=== PATIENT | female | born 1965 | race Hispanic/Latino ===

== ENCOUNTER 2017-05-31 21:52 | Emergency (ER) | payer SELFPAY ==
[2017-05-31 22:01] VITALS: BP 133/76; PULSE 89; RESP 18; TEMP 98; O2SAT 97
--- NOTE | 2017-05-31 22:11 | ED PDOC ---
Arrival/HPI - General Chief Complaint: Medical Clearance Time Seen by Provider: 05/31/17 22:07 Historian: Patient, Police - History of Present Illness Narrative History of Present Illness (Text): 05/31/17 22:07 52 year old female, who denies any past medical history, presents to the emergency department by the [place] [employer] for decontamination. Police states they saw bed bugs at the patient's home and is currently in police custody for a bench warrant. Patient states she recently was treated for bed bugs. Patient reports a mild headache, but denies any itching, substance abuse, substance withdrawal, fever, chills, chest pain, shortness of breath, nausea, vomiting, diarrhea, urinary symptoms, back pain, neck pain, dizziness, or any other complaints. Symptom Onset: Gradual Activities at Onset: Light Past Medical History - Provider Review Nursing Documentation Reviewed: Yes - Infectious Disease Hx of Infectious Diseases: None - Psychiatric Hx Substance Use: No Family/Social History - Physician Review Nursing Documentation Reviewed: Yes Family/Social History: No Known Family HX Smoking Status: Never Smoked Hx Alcohol Use: No Hx Substance Use: No Allergies/Home Meds Allergies/Adverse Reactions: Allergies No Known Allergies Allergy (Verified 05/31/17 22:19) Home Medications: Home Meds Medication Instructions Recorded Confirmed Unobtainable 05/31/17 05/31/17 Review of Systems - Physician Review All systems were reviewed & negative as marked: Yes - Review of Systems Constitutional: absent: Fevers, Other (Chills) Respiratory: absent: SOB Cardiovascular: absent: Chest Pain Gastrointestinal: absent: Diarrhea, Nausea, Vomiting Genitourinary Female: absent: Dysuria, Frequency Musculoskeletal: absent: Back Pain, Neck Pain Skin: absent: Other (Ichiness) Neurological: Headache. absent: Dizziness Physical Exam Vital Signs Reviewed: Yes Vital Signs Temp Pulse Resp BP Pulse Ox 05/31/17 21:58 98.0 F 89 18 133/76 97 Temperature: Afebrile Blood Pressure: Normal Pulse: Regular Respiratory Rate: Normal Appearance: Positive for: Well-Appearing, Non-Toxic, Comfortable Pain Distress: None Mental Status: Positive for: Alert and Oriented X 3 - Systems Exam Head: Present: Atraumatic, Normocephalic Pupils: Present: PERRL Extroacular Muscles: Present: EOMI Conjunctiva: Present: Normal Mouth: Present: Moist Mucous Membranes Neck: Present: Normal Range of Motion Respiratory/Chest: Present: Clear to Auscultation, Good Air Exchange. No: Respiratory Distress, Accessory Muscle Use Cardiovascular: Present: Regular Rate and Rhythm, Normal S1, S2. No: Murmurs Abdomen: Present: Normal Bowel Sounds. No: Tenderness, Distention, Peritoneal Signs Back: Present: Normal Inspection Upper Extremity: Present: Normal Inspection. No: Cyanosis, Edema Lower Extremity: Present: Normal Inspection. No: Edema Neurological: Present: GCS=15, CN II-XII Intact, Speech Normal Skin: Present: Warm, Dry, Normal Color. No: Rashes, Other (Rashes) Psychiatric: Present: Alert, Oriented x 3, Normal Insight, Normal Concentration Medical Decision Making ED Course and Treatment: 05/31/17 22:12 Impression: 52 year old female presents in police custody for decontamination of bed bugs and complains of a mild headache. Plan: -- Tylenol -- Glucose, Blood, POC ACHS -- Reassess and disposition Progress Notes: - Lab Interpretations I have reviewed the lab results: Yes - Medication Orders Current Medication Orders: Acetaminophen (Tylenol 325mg Tab) 650 mg PO STAT STA Stop: 05/31/17 22:20 - Scribe Statement The provider has reviewed the documentation as recorded by the Rashmi Hunter Provider Scribe Attestation: All medical record entries made by the Scribe were at my direction and personally dictated by me. I have reviewed the chart and agree that the record accurately reflects my personal performance of the history, physical exam, medical decision making, and the department course for this patient. I have also personally directed, reviewed, and agree with the discharge instructions and disposition. Disposition/Present on Arrival - Present on Arrival Any Indicators Present on Arrival: No History of DVT/PE: No History of Uncontrolled Diabetes: No Urinary Catheter: No History of Decub. Ulcer: No History Surgical Site Infection Following: None - Disposition Have Diagnosis and Disposition been Completed?: Yes Diagnosis: Infestation by bed bug, Drug dependence Disposition: RELEASED IN POLICE CUSTODY Disposition Time: 22:34 Patient Plan: Discharge Condition: GOOD Discharge Instructions (ExitCare): Bed Bugs (ED) Additional Instructions: wash all clothes in hot water and/or dry in hot heat for 45 minutes Forms: [employer] (Setswana)
== END 2017-05-31 22:46 ==
LOC: ED 21:52
DX: F19.20 Other psychoactive substance dependence, uncomplicated (principal); B88.8 Other specified infestations

== ENCOUNTER 2017-08-04 15:51 | Inpatient (IN) | payer MEDICAID, OTHER ==
--- NOTE | 2017-08-04 16:12 | ED PDOC ---
Arrival/HPI - General Time Seen by Provider: 08/04/17 15:55 Historian: Patient - History of Present Illness Narrative History of Present Illness (Text): 08/04/17 16:08 52 year old female, whose history includes hypertension, presents to the Emergency department complaining of right arm weakness and numbness one week ago and again today. One week ago, the patient's tongue was also numb; that episode lasted a couple of hours. Today, at approximately 09:00, patient experienced another episode followed by a state of confusion/disorientation that lasted less than an hour. 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 Patient denies any fever, chills, chest pain, shortness of breath, nausea, vomiting, diarrhea, urinary symptoms, back pain, neck pain, headache, dizziness, or any other complaints. Time/Duration: 4-6 hours Symptom Onset: Sudden Symptom Course: Intermittent Activities at Onset: Rest Context: Home Past Medical History - Provider Review Nursing Documentation Reviewed: Yes - Infectious Disease Hx of Infectious Diseases: None - Psychiatric Hx Substance Use: No Family/Social History - Physician Review Nursing Documentation Reviewed: Yes Family/Social History: Unknown Family HX Smoking Status: Never Smoked Hx Alcohol Use: No Hx Substance Use: No Allergies/Home Meds Allergies/Adverse Reactions: Allergies No Known Allergies Allergy (Verified 05/31/17 22:19) Home Medications: Home Meds Medication Instructions Recorded Confirmed Unobtainable 05/31/17 05/31/17 Review of Systems - Physician Review All systems were reviewed & negative as marked: Yes - Review of Systems Constitutional: absent: Fevers, Night Sweats Respiratory: absent: SOB Cardiovascular: absent: Chest Pain Gastrointestinal: absent: Diarrhea, Nausea, Vomiting Genitourinary Female: absent: Dysuria Musculoskeletal: absent: Back Pain, Neck Pain Neurological: Other (right arm weakness and numbness). absent: Headache, Dizziness Physical Exam Vital Signs Reviewed: Yes Vital Signs Temp Pulse Resp BP Pulse Ox 08/04/17 20:16 73 16 186/106 H 97 08/04/17 18:00 74 18 182/79 H 98 08/04/17 16:12 99.2 F 08/04/17 16:10 71 18 193/89 H 97 08/04/17 15:52 98.9 F 79 16 230/111 H 96 Temperature: Afebrile Blood Pressure: Hypertensive Pulse: Regular Respiratory Rate: Normal Appearance: Positive for: Well-Appearing, Non-Toxic, Comfortable Pain Distress: None Mental Status: Positive for: Alert and Oriented X 3 Finger Stick Blood Glucose: 98 - Systems Exam Head: Present: Atraumatic, Normocephalic Pupils: Present: PERRL Extroacular Muscles: Present: EOMI Conjunctiva: Present: Normal Mouth: Present: Moist Mucous Membranes Neck: Present: Normal Range of Motion Respiratory/Chest: Present: Clear to Auscultation, Good Air Exchange. No: Respiratory Distress, Accessory Muscle Use Cardiovascular: Present: Regular Rate and Rhythm, Normal S1, S2. No: Murmurs Abdomen: Present: Normal Bowel Sounds. No: Tenderness, Distention, Peritoneal Signs Back: Present: Normal Inspection Upper Extremity: Present: Normal Inspection. No: Cyanosis, Edema Lower Extremity: Present: Normal Inspection. No: Edema Neurological: Present: Speech Normal Skin: Present: Warm, Dry, Normal Color. No: Rashes Psychiatric: Present: Alert, Oriented x 3, Normal Insight, Normal Concentration Medical Decision Making ED Course and Treatment: 08/04/17 16:14 Impression: 52 year old female presents to the Emergency department complaining of right arm weakness and numbness. Differential Diagnosis included but are not limited to: TIA Plan: -- Head CT -- Chest xray -- EKG -- Urinalysis -- Labs -- Reassess and disposition Prior Visits: Notes and results from previous visits were reviewed. Patient was last seen in the emergency department on 05/31/17, was diagnosed with drug dependance and infestation by bed bug, and was discharged in good condition into police custody. Progress Notes: 08/04/17 17:19 Discussed case in detail with Dr. Estevez who does not want a code stroke alert. He requests an MRI of the head, MRA of the head and neck, 81 mg of Aspirin, an echocardiogram, and for the bed to be adjusted to a 45 degree angle. Patient should be admitted to telemetry. 08/04/17 17:46 Daughter is now at bedside. As per daughter, patient's left arm and leg were weak two days ago and that lasted for a couple hours; she had a difficult time walking home. While in the Emergency department at this time, patient has left sided facial droop and left arm weakness. Right arm seems to have recovered. NIHSS Scale is still 2. Dr. Zamarripa will be consulted. 08/04/17 18:[address] Zamarripa, Case is very confusing, Symptoms traveling from side to side, One week ago, then three days ago, then 9am today. Will obtain MRI Brain and MRA Head and Neck without contrast and re-evaluate. 08/04/17 21:03 MRI results indicate the patient experienced an acute stroke in right cerebrum. MRA results indicate the patient has clots in internal carotid artery and right middle cerebral artery. 08/04/17 21:[address] Bates again who requests for the patient's blood pressure to remain untreated, to leave it high. He would like for the NIHSS scale to be repeated every 1 hour and to have the resident call him if there are any changes on the scale. I will notify the resident now. Dr. Estevez also requests for the patient to be given Plavix. - Lab Interpretations Lab Results: 08/04/17 16:00 08/04/17 16:00 Lab Results 08/04/17 18:00: Alcohol, Quantitative < 10 08/04/17 18:00: Urine Opiates Screen Negative, Urine Methadone Screen Negative, Ur Barbiturates Screen Negative, Ur Phencyclidine Scrn Negative, Ur Amphetamines Screen Negative, U Benzodiazepines Scrn Negative, U Oth Cocaine Metabols Negative, U Cannabinoids Screen Negative 08/04/17 17:21: Urine Color Yellow, Urine Appearance Sl cloudy, Urine pH 6.0, Ur Specific [place] 1.015, Urine Protein Negative, Urine Glucose (UA) Negative, Urine Ketones Negative, Urine Blood Moderate H, Urine Nitrate Negative, Urine Bilirubin Negative, Urine Urobilinogen 0.2, Ur Leukocyte Esterase Negative, Urine RBC 5 - 10, Urine WBC 5 - 10, Ur Epithelial Cells 6 - 8, Urine Bacteria Many 08/04/17 17:05: PT 13.4 H, INR 1.17 H 08/04/17 16:00: Sodium 142, Potassium 3.6, Chloride 101, Carbon Dioxide 29, Anion Gap 16, BUN 14, Creatinine 0.8, Est GFR ( Amer) > 60, Est GFR (Non- Af Amer) > 60, Random Glucose 110, Calcium 10.1, Total Bilirubin 0.6, AST 32, ALT 25, Alkaline Phosphatase 66, Lactate Dehydrogenase 507, Total Creatine Kinase 39, Troponin I < 0.01, Total Protein 8.1, Albumin 4.4, Globulin 3.7, Albumin/Globulin Ratio 1.2 08/04/17 16:00: WBC 12.9 H, RBC 4.87, Hgb 14.5, Hct 43.6, MCV 89.5, MCH 29.8, MCHC 33.3, RDW 13.3, Plt Count 427, MPV 10.3, Gran % 66.6, Lymph % (Auto) 24.6, Emery % (Auto) 6.5 H, Eos % (Auto) 1.7, Baso % (Auto) 0.6, Gran # 8.56 H, Lymph # (Auto) 3.2, Emery # (Auto) 0.8 H, Eos # (Auto) 0.2, Baso # (Auto) 0.08 - RAD Interpretation Narrative RAD Interpretations (Text): 08/04/2017 16:54:46 PROCEDURE: CT HEAD WITHOUT CONTRAST. FINDINGS: HEMORRHAGE: No intracranial hemorrhage. BRAIN: There is a focal infarct in the right frontal lobe measuring 14 x 24 mm. This is consistent with an acute or subacute event. No atrophy or chronic microvascular ischemic changes. Findings were discussed with Dr. Jamison at 4:50 p.m. the finding is best seen on image 36 series 4. VENTRICLES: Unremarkable. No hydrocephalus. CALVARIUM: Unremarkable. PARANASAL SINUSES: Unremarkable as visualized. No significant inflammatory changes. MASTOID AIR CELLS: Unremarkable as visualized. No inflammatory changes. OTHER FINDINGS: None. IMPRESSION: Right frontal infarct probably acute or subacute 08/04/2017 17:18:47 PROCEDURE: CHEST RADIOGRAPH, 1 VIEW FINDINGS: LUNGS: Clear. PLEURA: No pneumothorax or pleural fluid seen. CARDIOVASCULAR: Normal. OSSEOUS STRUCTURES: No significant abnormalities. VISUALIZED UPPER ABDOMEN: Normal. OTHER FINDINGS: None. IMPRESSION: No active disease. 08/04/2017 5:59 PM MR Head Without Intravenous Contrast FINDINGS: Brain: Restricted diffusion is identified within the anterior right temporal lobe, and posterior right frontal lobe. T2 hyperintense edema is visualized in these regions. Additional foci of restricted diffusion are seen within the medial right frontal cortex as well as the right frontoparietal white matter. These findings are consistent with acute infarcts. Due to distribution of foci, embolic disease is considered. Mild encephalomalacia with adjacent gliosis is identified within the left occipital lobe, consistent with an old infarct. There are scattered additional foci of high FLAIR signal intensity within the cerebral white matter. This white matter disease is nonspecific as to etiology. This is suggestive of small vessel ischemic disease, although demyelination is within the differential. Some of these foci within the right frontal white matter are mildly increased in signal intensity in the diffusion sequence, which may be artifactual or due to subacute ischemic change. Magnetic susceptibility extra-axial calcifications are visualized. This is confirmed when correlated with the prior CT. There is mild prominence of the ventricles and sulci, compatible with atrophy. Ventricles: See above. Bones/joints: No acute abnormality. Sinuses: A mucous retention cyst or polyp is visualized in the left maxillary sinus. There is minimal mucosal thickening of left ethmoid air cells. Mastoid air cells: There is minimal mucosal thickening within the right mastoid air cells. Orbits: No acute abnormality, as visualized. IMPRESSION: 1. Restricted diffusion is identified within the anterior right temporal lobe, and posterior right frontal lobe. Additional foci of restricted diffusion are seen within the medial right frontal cortex as well as the right frontoparietal white matter. These findings are consistent with acute infarcts. Due to distribution of foci, embolic disease is considered. 2. Mild encephalomalacia with adjacent gliosis is identified within the left occipital lobe, consistent with an old infarct. 3. There are scattered additional foci of high FLAIR signal intensity within the cerebral white matter. This nonspecific white matter disease is suggestive of small vessel ischemic disease, although demyelination is within the differential. Some of these foci within the right frontal white matter are mildly increased in signal intensity in the diffusion sequence, which may be artifactual or due to subacute ischemic change. 4. Mild atrophy. 5. Additional findings described above. 08/04/2017 5:59 PM MR Angiography Head Without Intravenous Contrast FINDINGS: Right internal carotid artery: There is nonvisualization of flow within the right internal carotid artery, consistent with occlusion. There is reconstitution of flow in the region of the right anterior cerebral artery and posterior communicating artery. No aneurysm. Right anterior cerebral artery: There is hypoplasia or decreased flow within the right anterior cerebral artery. 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 No aneurysm. Right posterior cerebral artery: There is stenosis of the right posterior cerebral artery. Right vertebral artery: No occlusion or significant stenosis. Left internal carotid artery: No acute findings. Intracranial segment is patent with no significant stenosis. No aneurysm. Left anterior cerebral artery: No occlusion or significant stenosis. No aneurysm. Left middle cerebral artery: There is stenosis of an M2 branch of the left middle cerebral artery. There is no significant stenosis of the left M1 segment. No aneurysm. Left posterior cerebral artery: There is a tiny vascular outpouching of the left P1 segment measuring 1 mm in diameter, suggestive of a small aneurysm. There is a tiny outpouching of the proximal left posterior commuting artery, which may be due to tortuosity of the vessel or a tiny aneurysm. This measures 1 mm in diameter and is visualized on series 4 image 47. There is persistence of the origin of the left posterior cerebral artery, with hypoplasia of the left P1 segment. No occlusion. Left vertebral artery: No occlusion or significant stenosis. Basilar artery: No occlusion or significant stenosis. No aneurysm. IMPRESSION: 1. 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 2. There is nonvisualization of flow within the right internal carotid artery, consistent with occlusion. There is reconstitution of flow in the region of the right anterior cerebral artery and posterior communicating artery. 3. There is stenosis of the right posterior cerebral artery. 4. There is a tiny vascular outpouching of the left P1 segment measuring 1 mm in diameter, suggestive of a small aneurysm. 5. There is a tiny outpouching of the proximal left posterior commuting artery, which may be due to tortuosity of the vessel or a tiny aneurysm. This measures 1 mm in diameter. This can be further evaluated with CTA. 6. There is hypoplasia or decreased flow within the right anterior cerebral artery. 7. There is stenosis of an M2 branch of the left middle cerebral artery. Radiology Orders: 08/04/17 16:09 CHEST ONE VIEW [RAD] Stat 08/04/17 16:36 HEAD W/O CONTRAST [CT] Stat 08/04/17 17:59 BRAIN WITHOUT CONTRAST [MRI] Stat MRA HEAD WITHOUT CONTRAST [MRI] Stat MRA NECK WITHOUT CONTRAST [MRI] Stat - EKG Interpretation EKG Interpretation (Text): 08/04/17 15:57 EKG: Ordered, reviewed, and independently interpreted the EKG. Rate : 77 BPM Rhythm : NSR Interpretation : No ST-segment elevations or depressions, no T-wave inversions, normal intervals. Interpreted by ED Physician: Yes Type: 12 lead EKG - Medication Orders Current Medication Orders: Aspirin (Ecotrin) 81 mg PO DAILY DULCE MARIA Atorvastatin Calcium (Lipitor) 40 mg PO DIN DULCE MARIA Last Admin: 08/04/17 20:08 Dose: 40 mg Labetalol HCl (Trandate) 20 mg IV ONCE PRN PRN Reason: Systolic Blood Pressure Pantoprazole Sodium (Protonix Inj) 40 mg IVP DAILY DULCE MARIA Discontinued Medications Aspirin (Aspirin Chewable) 81 mg PO STAT STA Stop: 08/04/17 18:10 Last Admin: 08/04/17 18:20 Dose: 81 mg Lorazepam (Ativan) 0.5 mg PO ONCE ONE PRN Reason: Protocol Stop: 08/04/17 17:59 Last Admin: 08/04/17 18:11 Dose: 0.5 mg NIHSS Scale (Homer) Time Performed: 16:03 - How Severe is the Stoke Baseline Level of Consciousness: 0=Alert LOC to Questions: 0=Both comments correct LOC to commands: 0=Obeys both correctly Best Gaze: 0=Normal Visual: 0=No visual loss Facial: 0=Normal Motor Arm - Left: 1=Drift noted before 10 sec Motor Arm - Right: 0=No drift Motor Leg - Left: 0=No drift Motor Leg - Right: 0=No drift Limb Ataxia: 1=Present Upper or Lower Sensory: 0=Normal Best Language: 0=No aphasia Dysarthia: 0=Normal articulation Extinction & Inattention (Neglect): 0=Normal, no object Score: 2 Risk Level: Minor Stroke Risk rTPA Inclusion/Exclusion - Refusal of Treatment Patient Refused Treatment: No - Inclusion Criteria for Altepase Patient is 18 years or Older: Yes The Clinical Diagnosis of Ischemic Stroke That is Causing a Potentially Disabling Neurological Deficit: Yes Time of Onset is Well Established to be Less Than 270 Minute Before Treatment Would Begin: No Risk/Benefit Discussed With Patient/Family Member Present: Yes - Exclusion Criteria for Altepase Uncontrolled Hypertension at Time of Treatment (Systolic BP above 185 or Diastolic BP above 110 mmHg): Yes Active Internal Bleeding: No Known Bleeding Diathesis Including but Not Limited to: Platelets Below 100,000/ mm,PTT Above 40 sec After Heparin Use, Current Use of Oral Anitcoagulant With INR Greater Than 1.7 or PT Greater Than 15 secs: No Evidence of an Intracranial Hemorrhage: No Evidence of Major Acute Infarct With Signs Greater Than 1/3 MCA Territory: No Suspicion of Subarachnoid Hemorrhage on Pretreatment Evaluation Even if CT Head Negative For Hemorrhage: No - Warning to TPA With Conditions Following Conditions Weighed Against Anticipated Benefit: Yes Condition: Stroke Serevity Too Mild - PA / SWIM COACH / Resident Statement MD/DO has reviewed & agrees with the documentation as recorded. - Scribe Statement The provider has reviewed the documentation as recorded by the Girishibjaleesa Gamino Provider Scribe Attestation: All medical record entries made by the Rashmi were at my direction and personally dictated by me. I have reviewed the chart and agree that the record accurately reflects my personal performance of the history, physical exam, medical decision making, and the department course for this patient. I have also personally directed, reviewed, and agree with the discharge instructions and disposition. Disposition/Present on Arrival - Present on Arrival Any Indicators Present on Arrival: No History of DVT/PE: No History of Uncontrolled Diabetes: No Urinary Catheter: No History Surgical Site Infection Following: None - Disposition Have Diagnosis and Disposition been Completed?: Yes Diagnosis: TIA (transient ischemic attack), CVA (cerebrovascular accident), Malignant hypertensive urgency, Hypertension Disposition: HOSPITALIZED Disposition Time: 18:13 Patient Plan: Admission, Telemetry Patient Problems: Current Active Problems Problem Status Onset TIA (transient ischemic attack) Acute CVA (cerebrovascular accident) Acute Malignant hypertensive urgency Acute Hypertension Acute Condition: GOOD
[2017-08-04 16:24] LABS: BASO # 0.08 K/mm3 (0.0-2.0); BASO % 0.6 % (0.0-3.0); EOS # 0.2 (0.0-0.7); EOS % 1.7 % (1.5-5.0); GRAN # 8.56 (1.4-6.5); GRAN % 66.6 % (50.0-68.0); HEMOGLOBIN 14.5 g/dL (12.0-16.0); LYMPH # 3.2 (1.2-3.4); LYMPH % 24.6 % (22.0-35.0); MEAN CELL VOLUME 89.5 fl (80.0-105.0); MEAN CORPUSCULAR HEMOGLOBIN 29.8 pg (25.0-35.0); MEAN CORPUSCULAR HGB CONC 33.3 g/dl (31.0-37.0); MEAN PLATELET VOLUME 10.3 fl (7.0-11.0); MONO # 0.8 (0.1-0.6); MONO % 6.5 % (1.0-6.0); RBC 4.87 10^6/uL (3.5-6.1); RED CELL DISTRIBUTION WIDTH 13.3 % (11.5-14.5); WHITE BLOOD COUNT 12.9 10^3/ul (4.5-11.0)
[2017-08-04 16:53] LABS: ALB/GLOB RATIO 1.2 (1.1-1.8); ALBUMIN 4.4 g/dL (3.0-4.8); ALT/SGPT 25 U/L (7-56); AST/SGOT 32 U/L (14-36); BLOOD UREA NITROGEN 14 mg/dL (7-21); CALCIUM 10.1 mg/dL (8.4-10.5); GFR AFRICAN-AMERICAN > 60; GFR NON-AFRICAN AMERICAN > 60
--- NOTE | 2017-08-04 16:56 | CT ---
PROCEDURE: CT HEAD WITHOUT CONTRAST. HISTORY: L arm clumbsiness COMPARISON: None available. TECHNIQUE: Axial computed tomography images were obtained through the head/brain without intravenous contrast. Radiation dose: Total exam DLP = 892 mGy-cm. This CT exam was performed using one or more of the following dose reduction techniques: Automated exposure control, adjustment of the mA and/or kV according to patient size, and/or use of iterative reconstruction technique. FINDINGS: HEMORRHAGE: No intracranial hemorrhage. BRAIN: There is a focal infarct in the right frontal lobe measuring 14 x 24 mm. This is consistent with an acute or subacute event. No atrophy or chronic microvascular ischemic changes. Findings were discussed with Dr. Jamison at 4:50 p.m. the finding is best seen on image 36 series 4. VENTRICLES: Unremarkable. No hydrocephalus. CALVARIUM: Unremarkable. PARANASAL SINUSES: Unremarkable as visualized. No significant inflammatory changes. MASTOID AIR CELLS: Unremarkable as visualized. No inflammatory changes. OTHER FINDINGS: None. IMPRESSION: Right frontal infarct probably acute or subacute
[2017-08-04 17:10] LABS: TROPONIN I < 0.01 ng/mL
--- NOTE | 2017-08-04 17:20 | RAD ---
PROCEDURE: CHEST RADIOGRAPH, 1 VIEW HISTORY: Left Arm Weakness COMPARISON: None available. FINDINGS: LUNGS: Clear. PLEURA: No pneumothorax or pleural fluid seen. CARDIOVASCULAR: Normal. OSSEOUS STRUCTURES: No significant abnormalities. VISUALIZED UPPER ABDOMEN: Normal. OTHER FINDINGS: None. IMPRESSION: No active disease.
[2017-08-04 17:32] LABS: INR 1.17 (0.93-1.08); PROTHROMBIN TIME 13.4 SECONDS (9.4-12.5)
[2017-08-04 17:40] LABS: URINE BILIRUBIN NEGATIVE (NEGATIVE); URINE BLOOD MODERATE (NEGATIVE); URINE GLUCOSE (UA) NEGATIVE (NEGATIVE); URINE LEUKOCYTE ESTERASE NEGATIVE Leu/uL (NEGATIVE); URINE PROTEIN NEGATIVE mg/dL (<30 mg/dL); URINE UROBILINOGEN 0.2 E.U./dL (<1 E.U./dL)
[2017-08-04 17:42] LABS: URINE APPEARANCE SL CLOUDY (CLEAR); URINE COLOR YELLOW (YELLOW)
[2017-08-04 17:50] LABS: URINE BACTERIA MANY (NEG)
[2017-08-04 18:59] LABS: OPIATES, UR NEGATIVE (NEGATIVE)
[2017-08-04 19:10] LABS: BARBITURATES, UR NEGATIVE (NEGATIVE); BENZODIAZEPINES, UR NEGATIVE (NEGATIVE); PHENCYCLIDINE, UR NEGATIVE (NEGATIVE)
--- NOTE | 2017-08-04 19:34 | CP.PCM.HP ---
<Jean Paul Duff - Last Filed: 08/04/17 23:03> History of Present Illness - History of Present Illness History of Present Illness: Chief complaints: upper and lower extremity weakness, tongue numbness, confusion Patient is a 52 year old female with past history of hypertension, drug abuse, recently released from jail on June 19 who presents with complaints of weakness right upper extremity and to lower extremities and tongue numbness of one week. According to patient, she always suffered from hypertension however was never medically managed until she was incarcerated. While in [facility] patient was treated for hypertension with medication patient cannot recall at the moment. However once released from jail patient stopped taking her medications which is when the headaches began. As per patient these symptoms resolved within a couple of hours from when they first occurred. Patient then endorses today she was feeling "loopy," stating that she experienced the same symptoms as she did the week prior but this time felt disoriented and confused after episode. This time the episode lasted for less than an hour. Patient was unable to go to the emergency department right away due to work. Patient denies chest pain, shortness of breath, fevers, chills, nausea, vomiting, diarrhea, dysuria, body aches, denies sick contacts, urinary incontinence, bowel incontinencem, change in vision . 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 absent: Anorexia, Chills, Fever - EENT Eyes: absent: Blurred Vision, Change in Vision, Pain Ears: Tinnitus Nose/Mouth/Throat: absent: Nasal Congestion, Nasal Discharge - Cardiovascular Cardiovascular: absent: Chest Pain, Chest Pain at Rest - Gastrointestinal Gastrointestinal: absent: Diarrhea, Nausea, Vomiting - Genitourinary Genitourinary: absent: Dysuria, Flank Pain, Hematuria - Musculoskeletal Musculoskeletal: absent: Atrophy, Back Pain - Neurological Neurological: Abnormal Speech, Confusion, Focal Weakness, Paresthesias - Psychiatric Psychiatric: Confusion. absent: Anxiety, Depression - Endocrine Endocrine: absent: Polyphagia, Polyuria - Hematologic/Lymphatic Hematologic: absent: Easy Bleeding, Easy Bruising Past Patient History - Infectious Disease Hx of Infectious Diseases: None - Past Social History Smoking Status: Never Smoked - CARDIAC Hx Cardiac Disorders: No - PULMONARY Hx Respiratory Disorders: No - NEUROLOGICAL Hx Neurological Disorder: No - HEENT Hx HEENT Problems: No - RENAL Hx Chronic Kidney Disease: No - ENDOCRINE/METABOLIC Hx Endocrine Disorders: No - HEMATOLOGICAL/ONCOLOGICAL Hx Blood Disorders: No - INTEGUMENTARY Hx Dermatological Problems: No - MUSCULOSKELETAL/RHEUMATOLOGICAL Hx Musculoskeletal Disorders: Yes Other/Comment: 'PINCHED NERVE IN THE NECK" - GASTROINTESTINAL Hx Gastrointestinal Disorders: No - GENITOURINARY/GYNECOLOGICAL Hx Genitourinary Disorders: No - PSYCHIATRIC Hx Substance Use: No - SURGICAL HISTORY Hx Surgeries: Yes Hx Orthopedic Surgery: Yes (R KNEE) Meds Allergies/Adverse Reactions: Allergies Allergy/AdvReac Type Severity Reaction Status Date / Time No Known Allergies Allergy Verified 05/31/17 22:19 Physical Exam - Head Exam Head Exam: ATRAUMATIC, NORMAL INSPECTION, NORMOCEPHALIC - Eye Exam Eye Exam: EOMI, Normal appearance - ENT Exam ENT Exam: Mucous Membranes Moist, Normal Exam - Neck Exam Neck exam: Positive for: Normal Inspection - Respiratory Exam Respiratory Exam: Clear to Auscultation Bilateral, NORMAL BREATHING PATTERN. absent: Wheezes - Cardiovascular Exam Cardiovascular Exam: REGULAR RHYTHM, +S1, +S2 - GI/Abdominal Exam GI & Abdominal Exam: Normal Bowel Sounds, Soft - Extremities Exam Extremities exam: Positive for: normal inspection - Back Exam Back exam: NORMAL INSPECTION - Neurological Exam Neurological exam: Alert, CN II-XII Intact, Oriented x3 Additional comments: myotonia of left upper extremity - Expanded Neurological Exam Expanded Patient oriented to: person, place, time Speech: Fluid Speech Cranial nerves: EOM's Intact: Normal, Facial Palsey w/Forehead Movement: Normal , Facial Palsey w/o Forehead Movement: Normal, Facial Sensation: Normal Cerebellar Function: Heel to Storey: Abnormal Left Neuro motor strength exam: Left Upper Extremity: 3, Right Upper Extremity: 5, Left Lower Extremity: 2/1, Right Lower Extremity: 5 Coma Scale Eye Opening: SPONTANEOUS Coma Scale Motor Response: OBEYS COMMANDS Coma Scale Verbal: Oriented Coma Scale Total: 15 - Psychiatric Exam Psychiatric exam: Normal Affect, Normal Mood - Skin Skin Exam: Intact, Normal Color, Warm Results - Vital Signs Recent Vital Signs: Last Vital Signs Temp 99.2 F 08/04/17 16:12 Pulse 74 03/04/18 18:00 Resp 18 08/04/17 18:00 BP 182/79 H 08/04/17 18:00 Pulse Ox 98 08/04/17 18:00 - Labs Result Diagrams: 08/04/17 16:00 08/04/17 16:00 Assessment & Plan - Assessment and Plan (Free Text) Assessment: Patient is a 52 year old female with past history of hypertension, drug abuse, recently released from jail on June 19 who presents with complaints of weakness right upper extremity and to lower extremities and tongue numbness of one week. Plan: Right frontal lobe CVA -CT head reveals focal infarct of right frontal lobe -MRI brain, MRA head and neck ordered; results pending -Neurology consulted, recs appreciated -Neurochecks -Fall precautions -Continue with daily aspirin and lipitor -Full liquid diet -CBC, CMP, INR/PTT -Fasting lipid panel, HgA1c; results pending -Swallow and Speech eval -Seizure precautions -Head above bed 45 degrees -CIntinue Aspirin, atorvastatin, labetalol -Check Vitamin B12 Myotonia -R/O myotonic dystrophy -continue to monitor: patient was unable to let go off left hand cafeteria assistant during physical exam Health maintenance - Hga1c, fasting lipid panel, TSH; results pending DVT/GI prophylaxis: Heparin/Protonix Case discussed with Dr. Darell Chu <Darell Chu - Last Filed: 08/08/17 04:17> Results - Vital Signs Recent Vital Signs: Last Vital Signs Temp 98.2 F 08/08/17 00:52 Pulse 88 08/07/17 22:00 Resp 18 08/06/17 18:00 BP 145/73 08/06/17 18:00 Pulse Ox 98 08/06/17 06:00 - Labs Result Diagrams: 08/07/17 06:00 08/07/17 06:00 Labs: Laboratory Results - last 24 hr 08/05/17 08/05/17 08/07/17 13:40 13:40 06:00 WBC 16.6 H RBC 5.11 Hgb 15.1 Hct 45.1 MCV 88.3 MCH 29.5 MCHC 33.5 RDW 13.6 Plt Count 449 MPV 10.2 Gran % 72.5 H Lymph % (Auto) 20.3 L [place] % (Auto) 5.8 Eos % (Auto) 0.8 L Baso % (Auto) 0.6 Gran # 12.04 H Lymph # (Auto) 3.4 [place] # (Auto) 1.0 H Eos # (Auto) 0.1 Baso # (Auto) 0.10 Protein C Activity 138 Sodium Potassium Chloride Carbon Dioxide Anion Gap BUN Creatinine Est GFR ( Amer) Est GFR (Non-Af Amer) Random Glucose Calcium Total Bilirubin AST ALT Alkaline Phosphatase Total Protein Albumin Globulin Albumin/Globulin Ratio Anti-Cardiolipin IgG Ab <14 Anti-Cardiolipin IgA Ab <11 Anti-Cardiolipin IgM Ab <12 08/07/17 06:00 WBC RBC Hgb Hct MCV MCH MCHC RDW Plt Count MPV Gran % Lymph % (Auto) [place] % (Auto) Eos % (Auto) Baso % (Auto) Gran # Lymph # (Auto) [place] # (Auto) Eos # (Auto) Baso # (Auto) Protein C Activity Sodium 144 Potassium 3.7 Chloride 106 Carbon Dioxide 24 Anion Gap 18 BUN 15 Creatinine 0.7 Est GFR ( Amer) > 60 Est GFR (Non-Af Amer) > 60 Random Glucose 106 Calcium 9.7 Total Bilirubin 0.6 AST 32 ALT 25 Alkaline Phosphatase 62 Total Protein 7.8 Albumin 4.3 Globulin 3.5 Albumin/Globulin Ratio 1.2 Anti-Cardiolipin IgG Ab Anti-Cardiolipin IgA Ab Anti-Cardiolipin IgM Ab
[2017-08-04] MEDS ORDERED: Labetalol 5 mg/ml Inj 20ML IV PRN (20:30)
--- NOTE | 2017-08-04 20:33 | MRI ---
EXAM: MR Head Without Intravenous Contrast EXAM DATE/TIME: 08/04/2017 5:59 PM CLINICAL HISTORY: The patient age is 52 years old and is female; Signs and symptoms; Weakness, extremity; Bilateral; Additional info: Left sided facial droop Facility exam id and description: Mri br s brain without contrast TECHNIQUE: Magnetic resonance images of the head/brain without intravenous contrast in multiple planes. COMPARISON: CT - HEAD W/O CONTRAST 2017-08-04 16:41 FINDINGS: Brain: Restricted diffusion is identified within the anterior right temporal lobe, and posterior right frontal lobe. T2 hyperintense edema is visualized in these regions. Additional foci of restricted diffusion are seen within the medial right frontal cortex as well as the right frontoparietal white matter. These findings are consistent with acute infarcts. Due to distribution of foci, embolic disease is considered. Mild encephalomalacia with adjacent gliosis is identified within the left occipital lobe, consistent with an old infarct. There are scattered additional foci of high FLAIR signal intensity within the cerebral white matter. This white matter disease is nonspecific as to etiology. This is suggestive of small vessel ischemic disease, although demyelination is within the differential. Some of these foci within the right frontal white matter are mildly increased in signal intensity in the diffusion sequence, which may be artifactual or due to subacute ischemic change. Magnetic susceptibility extra-axial calcifications are visualized. This is confirmed when correlated with the prior CT. There is mild prominence of the ventricles and sulci, compatible with atrophy. Ventricles: See above. Bones/joints: No acute abnormality. Sinuses: A mucous retention cyst or polyp is visualized in the left maxillary sinus. There is minimal mucosal thickening of left ethmoid air cells. Mastoid air cells: There is minimal mucosal thickening within the right mastoid air cells. Orbits: No acute abnormality, as visualized. IMPRESSION: 1. Restricted diffusion is identified within the anterior right temporal lobe, and posterior right frontal lobe. Additional foci of restricted diffusion are seen within the medial right frontal cortex as well as the right frontoparietal white matter. These findings are consistent with acute infarcts. Due to distribution of foci, embolic disease is considered. 2. Mild encephalomalacia with adjacent gliosis is identified within the left occipital lobe, consistent with an old infarct. 3. There are scattered additional foci of high FLAIR signal intensity within the cerebral white matter. This nonspecific white matter disease is suggestive of small vessel ischemic disease, although demyelination is within the differential. Some of these foci within the right frontal white matter are mildly increased in signal intensity in the diffusion sequence, which may be artifactual or due to subacute ischemic change. 4. Mild atrophy. 5. Additional findings described above.
--- NOTE | 2017-08-04 20:44 | MRI ---
EXAM: MR Angiography Head Without Intravenous Contrast EXAM DATE/TIME: 08/04/2017 5:59 PM CLINICAL HISTORY: The patient age is 52 years old and is female; Signs and symptoms; Weakness; Additional info: Left sided facial droop Facility exam id and description: Mri mra heads mra head without contrast TECHNIQUE: Magnetic resonance angiography images of the head without intravenous contrast. COMPARISON: CT - HEAD W/O CONTRAST 2017-08-04 16:41 FINDINGS: Right internal carotid artery: There is nonvisualization of flow within the right internal carotid artery, consistent with occlusion. There is reconstitution of flow in the region of the right anterior cerebral artery and posterior communicating artery. No aneurysm. Right anterior cerebral artery: There is hypoplasia or decreased flow within the right anterior cerebral artery. 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 No aneurysm. Right posterior cerebral artery: There is stenosis of the right posterior cerebral artery. Right vertebral artery: No occlusion or significant stenosis. Left internal carotid artery: No acute findings. Intracranial segment is patent with no significant stenosis. No aneurysm. Left anterior cerebral artery: No occlusion or significant stenosis. No aneurysm. Left middle cerebral artery: There is stenosis of an M2 branch of the left middle cerebral artery. There is no significant stenosis of the left M1 segment. No aneurysm. Left posterior cerebral artery: There is a tiny vascular outpouching of the left P1 segment measuring 1 mm in diameter, suggestive of a small aneurysm. There is a tiny outpouching of the proximal left posterior commuting artery, which may be due to tortuosity of the vessel or a tiny aneurysm. This measures 1 mm in diameter and is visualized on series 4 image 47. There is persistence of the origin of the left posterior cerebral artery, with hypoplasia of the left P1 segment. No occlusion. Left vertebral artery: No occlusion or significant stenosis. Basilar artery: No occlusion or significant stenosis. No aneurysm. IMPRESSION: 1. 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 2. There is nonvisualization of flow within the right internal carotid artery, consistent with occlusion. There is reconstitution of flow in the region of the right anterior cerebral artery and posterior communicating artery. 3. There is stenosis of the right posterior cerebral artery. 4. There is a tiny vascular outpouching of the left P1 segment measuring 1 mm in diameter, suggestive of a small aneurysm. 5. There is a tiny outpouching of the proximal left posterior commuting artery, which may be due to tortuosity of the vessel or a tiny aneurysm. This measures 1 mm in diameter. This can be further evaluated with CTA. 6. There is hypoplasia or decreased flow within the right anterior cerebral artery. 7. There is stenosis of an M2 branch of the left middle cerebral artery.
[2017-08-04 21:54] VITALS: BMI 50.2
--- NOTE | 2017-08-05 01:36 | PCM.RRT ---
BATTERY WRECKER OPERATOR Nurse Assessment - Situation Date: 08/05/17 Time BATTERY WRECKER OPERATOR was called: 23:12 BATTERY WRECKER OPERATOR Responder Arrival Time: 23:15 BATTERY WRECKER OPERATOR Location:: [address] [place] [address] Room Number: 269-1 BATTERY WRECKER OPERATOR Reason for Call: Hypertension, Possible Stroke BATTERY WRECKER OPERATOR Called By: RN - IV IV Inserted during BATTERY WRECKER OPERATOR?: No IV Fluids Initiated During BATTERY WRECKER OPERATOR?: N/A - Respiratory Oxygen Delivery Method: Room Air Received Nebulizer Treatments:: No Was the Patient Ventilated with Bag/Mask 100% O2?: No Secretions Suctioned?: No Was the Patient Intubated?: No Was the Patient Placed on a Ventilator?: No - Medication Medications Administered During BATTERY WRECKER OPERATOR: N/A - Diagnostic Test Ordered EKG: No Chest X-Ray: No CT Scan: No CPR started during BATTERY WRECKER OPERATOR?: No - Vital Signs Vital Sign: Rapid Response Vital Sign Blood Pressure 199/96 Pulse Rate 91 Respiratory Rate 22 Oxygen Saturation 93 - Finger Stick Blood Glucose Finger Stick Blood Glucose: 80 - Joelle Coma Scale Coma Scale Eye Opening: Spontaneous Coma Scale Motor: Obeys Commands Movement Coma Scale Verbal: Oriented - Time BATTERY WRECKER OPERATOR Ended Time BATTERY WRECKER OPERATOR Ended: 00:28 - Vital Signs at end of BATTERY WRECKER OPERATOR Vital Signs at end of BATTERY WRECKER OPERATOR: Rapid Response End Vital Sign Blood Pressure 162/108 Pulse Rate 81 Respiratory Rate 20 O2 Sat by Pulse Oximetry 96 I.Reason for BATTERY WRECKER OPERATOR - A) Acute Change in Patient: Subjective: Rapid response was called at 23:12 for patient in bed 269-01 for suspected progression of original presenting symptoms. Upon arrival to room at 00:15 patient was noted to be laying in bed in no acute distress. Nurse who initiated rapid response reported patient was unable to move her left upper extremity and was noted to have slight drooping of the left side of her face. Patient was evaluated and found to have marginal changes from admission on neurological exam as reported at handoff. NIH stroke scale was preformed and noted to be +3 which was a change from +2 upon presentation in emergency department. Patient BP was 201/94, Pulse 88, SaO2 93%, blood glucose was 80. Orders were given to continue neuro checks Q1 hour with NIHSS as well as strict monitoring of blood pressure. - Respiratory Oxygen Delivery Method: Room Air - Constitutional Appears: Non-toxic - Head Head Exam: ATRAUMATIC, NORMAL INSPECTION, NORMOCEPHALIC - Eyes Eye Exam: EOMI, PERRL - Respiratory Exam Respiratory Exam: Clear to Ausculation Bilateral, NORMAL BREATHING PATTERN. absent: Rales, Wheezes, Stridor - Cardiovascular Exam Cardiovascular Exam: REGULAR RHYTHM, +S1, +S2 - GI/Abdominal Exam GI & Abdominal Exam: Soft, Normal Bowel Sounds. absent: Firm, Rigid, Tenderness - Neurological Exam Neurological Exam: Alert, Awake, Oriented x3 Additional exam: Left sided upper extremity with minimal effort with movement, marketing systems analyst strength intact weaker than L NIHSS 3 - Extremities Exam Extremities Exam: Normal Inspection. absent: Calf Tenderness Plan - Assessment of Findings&Treatment Plan Continue Neuro Check Q1H Maintain BP, hold anti-HTN Continue head elevated at 15 degrees Continue bedrest
[2017-08-05 06:17] LABS: BASO # 0.07 K/mm3 (0.0-2.0); BASO % 0.5 % (0.0-3.0); EOS # 0.1 (0.0-0.7); GRAN # 10.29 (1.4-6.5); GRAN % 71.4 % (50.0-68.0); HEMOGLOBIN 14.5 g/dL (12.0-16.0); LYMPH # 3.1 (1.2-3.4); LYMPH % 21.7 % (22.0-35.0); MEAN CORPUSCULAR HEMOGLOBIN 29.5 pg (25.0-35.0); MEAN CORPUSCULAR HGB CONC 33.5 g/dl (31.0-37.0); MEAN PLATELET VOLUME 9.8 fl (7.0-11.0); MONO # 0.8 (0.1-0.6); MONO % 5.4 % (1.0-6.0); RBC 4.92 10^6/uL (3.5-6.1); RED CELL DISTRIBUTION WIDTH 13.3 % (11.5-14.5); WHITE BLOOD COUNT 14.4 10^3/ul (4.5-11.0)
[2017-08-05 06:34] LABS: PROTHROMBIN TIME 12.5 SECONDS (9.4-12.5)
[2017-08-05 06:35] LABS: INR 1.09 (0.93-1.08); PARTIAL THROMBOPLASTIN TIME 30.2 Seconds (25.1-36.5)
[2017-08-05 06:55] LABS: LDL CHOLESTEROL 145 mg/dL (0-129)
[2017-08-05 06:58] LABS: ALB/GLOB RATIO 1.2 (1.1-1.8); ALBUMIN 4.3 g/dL (3.0-4.8); ALT/SGPT 20 U/L (7-56); AST/SGOT 26 U/L (14-36); BLOOD UREA NITROGEN 11 mg/dL (7-21); CALCIUM 10.1 mg/dL (8.4-10.5); GFR AFRICAN-AMERICAN > 60; GFR NON-AFRICAN AMERICAN > 60; HDL CHOLESTEROL 47 mg/dL (29-60)
[2017-08-05 12:43] LABS: HEPATITIS B SURFACE AG Negative (NEGATIVE)
--- NOTE | 2017-08-05 12:48 | CP.PCM.CON ---
History of Present Illness - History of Present Illness History of Present Illness: Neuro Consult Note: 52 F with past history of hypertension who presents with complaints of Left upper extremity paralysis and L lower extremities weakness and tongue numbness. Patient states that her symptoms started one week and has gotten progressively worse. Patient also complaining of L sided facial droop. She states that her symptoms have been on and off with getting better for a few days than worse again. No chest pain, shortness of breath, fevers, chills, nausea, vomiting, diarrhea, dysuria, body aches, denies sick contacts, urinary incontinence, bowel incontinence, change in vision. 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, admits to social drinker Family history: Mother- Pancreatic cancer, Father-[place] Allergies: NKDA Review of Systems - Review of Systems All systems: reviewed and no additional remarkable complaints except Past Patient History - Infectious Disease Hx of Infectious Diseases: None - Past Social History Smoking Status: Never Smoked - CARDIAC Hx Cardiac Disorders: No Hx Hypertension: Yes - PULMONARY Hx Respiratory Disorders: No - NEUROLOGICAL Hx Neurological Disorder: No - HEENT Hx HEENT Problems: No - RENAL Hx Chronic Kidney Disease: No - ENDOCRINE/METABOLIC Hx Endocrine Disorders: No - HEMATOLOGICAL/ONCOLOGICAL Hx Blood Disorders: No - INTEGUMENTARY Hx Dermatological Problems: No - MUSCULOSKELETAL/RHEUMATOLOGICAL Hx Musculoskeletal Disorders: Yes Other/Comment: 'PINCHED NERVE IN THE NECK" - GASTROINTESTINAL Hx Gastrointestinal Disorders: No - GENITOURINARY/GYNECOLOGICAL Hx Genitourinary Disorders: No - PSYCHIATRIC Hx Substance Use: No - SURGICAL HISTORY Hx Surgeries: Yes Hx Orthopedic Surgery: Yes (R KNEE) Meds Allergies/Adverse Reactions: Allergies Allergy/AdvReac Type Severity Reaction Status Date / Time No Known Allergies Allergy Verified 05/31/17 22:19 - Medications Medications: Current Medications Aspirin (Ecotrin) 81 mg PO DAILY [facility] Last Admin: 08/05/17 09:47 Dose: 81 mg Atorvastatin Calcium (Lipitor) 40 mg PO DIN [facility] Last Admin: 08/04/17 20:08 Dose: 40 mg Clopidogrel Bisulfate (Plavix) 75 mg PO BID [facility] Labetalol HCl (Trandate) 20 mg IV ONCE PRN PRN Reason: Systolic Blood Pressure Pantoprazole Sodium (Protonix Inj) 40 mg IVP DAILY [facility] Last Admin: 08/05/17 09:47 Dose: 40 mg Physical Exam - Constitutional Appears: No Acute Distress - Head Exam Head Exam: ATRAUMATIC, NORMOCEPHALIC - Eye Exam Eye Exam: EOMI, PERRL - Respiratory Exam Respiratory Exam: Clear to Auscultation Bilateral. absent: Wheezes - Cardiovascular Exam Cardiovascular Exam: REGULAR RHYTHM, +S1, +S2 - GI/Abdominal Exam GI & Abdominal Exam: Normal Bowel Sounds, Soft. absent: Distended, Tenderness - Extremities Exam Extremities exam: Negative for: calf tenderness, pedal edema - Neurological Exam Neurological exam: Alert, Oriented x3 - Expanded Neurological Exam Expanded Patient oriented to: person, place, time Neuro motor strength exam: Left Upper Extremity: 0, Right Upper Extremity: 5, Left Lower Extremity: 3, Right Lower Extremity: 5 Coma Scale Motor Response: OBEYS COMMANDS - Skin Skin Exam: Dry, Intact, Warm Results - Vital Signs Recent Vital Signs: Last Vital Signs Temp 97.9 F 08/04/17 23:51 Pulse 70 08/05/17 05:48 Resp 20 08/04/17 23:51 BP 214/100 H 08/04/17 23:51 Pulse Ox 95 08/04/17 23:51 - Labs Result Diagrams: 08/05/17 06:00 08/05/17 06:00 Labs: Laboratory Results - last 24 hr 08/04/17 08/04/17 08/04/17 19:30 19:30 23:17 WBC RBC Hgb Hct MCV MCH MCHC RDW Plt Count MPV Gran % Lymph % (Auto) [place] % (Auto) Eos % (Auto) Baso % (Auto) Gran # Lymph # (Auto) [place] # (Auto) Eos # (Auto) Baso # (Auto) PT INR APTT Sodium Potassium Chloride Carbon Dioxide Anion Gap BUN Creatinine Est GFR ( Amer) Est GFR (Non-Af Amer) POC Glucose (mg/dL) 80 Random Glucose Hemoglobin A1c 5.3 Calcium Phosphorus 3.5 Magnesium 1.9 Total Bilirubin AST ALT Alkaline Phosphatase Total Protein Albumin Globulin Albumin/Globulin Ratio Triglycerides Cholesterol LDL Cholesterol Direct HDL Cholesterol TSH 3rd Generation 08/05/17 08/05/17 08/05/17 06:00 06:00 06:00 WBC 14.4 H RBC 4.92 Hgb 14.5 Hct 43.3 MCV 88.0 MCH 29.5 MCHC 33.5 RDW 13.3 Plt Count 404 MPV 9.8 Gran % 71.4 H Lymph % (Auto) 21.7 L [place] % (Auto) 5.4 Eos % (Auto) 1.0 L Baso % (Auto) 0.5 Gran # 10.29 H Lymph # (Auto) 3.1 [place] # (Auto) 0.8 H Eos # (Auto) 0.1 Baso # (Auto) 0.07 PT 12.5 INR 1.09 H APTT 30.2 Sodium 144 Potassium 3.8 Chloride 103 Carbon Dioxide 26 Anion Gap 18 BUN 11 Creatinine 0.7 Est GFR ( Amer) > 60 Est GFR (Non-Af Amer) > 60 POC Glucose (mg/dL) Random Glucose 112 H Hemoglobin A1c Calcium 10.1 Phosphorus Magnesium Total Bilirubin 0.8 AST 26 ALT 20 Alkaline Phosphatase 63 Total Protein 7.8 Albumin 4.3 Globulin 3.6 Albumin/Globulin Ratio 1.2 Triglycerides 91 Cholesterol 210 H LDL Cholesterol Direct 145 H HDL Cholesterol 47 TSH 3rd Generation 08/05/17 08:14 WBC RBC Hgb Hct MCV MCH MCHC RDW Plt Count MPV Gran % Lymph % (Auto) [place] % (Auto) Eos % (Auto) Baso % (Auto) Gran # Lymph # (Auto) [place] # (Auto) Eos # (Auto) Baso # (Auto) PT INR APTT Sodium Potassium Chloride Carbon Dioxide Anion Gap BUN Creatinine Est GFR ( Amer) Est GFR (Non-Af Amer) POC Glucose (mg/dL) Random Glucose Hemoglobin A1c Calcium Phosphorus Magnesium Total Bilirubin AST ALT Alkaline Phosphatase Total Protein Albumin Globulin Albumin/Globulin Ratio Triglycerides Cholesterol LDL Cholesterol Direct HDL Cholesterol TSH 3rd Generation 1.87 Assessment & Plan - Assessment and Plan (Free Text) Assessment: 52 F with past history of hypertension who presents with complaints of Left upper extremity paralysis and L lower extremities weakness and tongue numbness. Found to have R frontal and temporal acute infarcts embolic in nature. 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
[2017-08-05 12:49] LABS: HEPATITIS A IGM NEGATIVE (NEGATIVE); HEPATITIS B CORE AB NEGATIVE (NEGATIVE)
[2017-08-05 13:00] LABS: HEPATITIS C ANTIBODY NEGATIVE (NEGATIVE)
--- NOTE | 2017-08-05 13:24 | CP.PCM.PN ---
<Cherri High - Last Filed: 08/05/17 14:02> Subjective - Date & Time of Evaluation Date of Evaluation: 08/05/17 Time of Evaluation: 13:23 - Subjective Subjective: Progress Note for Hospitalist, Shawn High PGY2 Patient seen and examined at bedside. Overnight rapid response was called for elevated SBP in 201/94 and facial droop. Patient was noted to be admitted for CVA with permissive HTN. No intervention was done at the time. Her NIH Stroke Scale was found to be 3 at that time. She reports she overall is feeling better. She still notes some L-sided flaccid hemiparesis and some spasticity of her L arm when she yawns. She is able to ambulate out of bed easily. Her appetite is good and she has been voiding normally. She denies chest pain, shortness of breath, fever/chills, nausea/vomiting/diarrhea or worsening weakness/numbness/tingling. Objective - Vital Signs/Intake and Output Vital Signs (last 24 hours): Temp Pulse Resp BP Pulse Ox 97.9 F 70 20 214/100 H 95 08/04/17 23:51 08/05/17 05:48 08/04/17 23:51 08/04/17 23:51 08/04/17 23:51 Intake and Output: 08/05/17 08/05/17 06:59 18:59 Intake Total 480 Balance 480 - Medications Medications: Current Medications Aspirin (Ecotrin) 81 mg PO DAILY [facility] Last Admin: 08/05/17 09:47 Dose: 81 mg Atorvastatin Calcium (Lipitor) 40 mg PO DIN [facility] Last Admin: 08/04/17 20:08 Dose: 40 mg Clopidogrel Bisulfate (Plavix) 75 mg PO BID [facility] Last Admin: 08/05/17 13:21 Dose: Not Given Labetalol HCl (Trandate) 20 mg IV ONCE PRN PRN Reason: Systolic Blood Pressure Pantoprazole Sodium (Protonix Inj) 40 mg IVP DAILY [facility] Last Admin: 08/05/17 09:47 Dose: 40 mg - Labs Labs: 08/05/17 06:00 08/05/17 06:00 PT 12.5 SECONDS (9.4-12.5) 08/05/17 06:00 INR 1.09 (0.93-1.08) H 08/05/17 06:00 APTT 30.2 Seconds (25.1-36.5) 08/05/17 06:00 - Constitutional Appears: No Acute Distress - Head Exam Head Exam: ATRAUMATIC, NORMAL INSPECTION, NORMOCEPHALIC - Eye Exam Eye Exam: Normal appearance, PERRL Pupil Exam: NORMAL ACCOMODATION, PERRL - ENT Exam ENT Exam: Mucous Membranes Moist - Neck Exam Neck Exam: Full ROM - Respiratory Exam Respiratory Exam: Clear to Ausculation Bilateral, NORMAL BREATHING PATTERN. absent: Rales, Rhonchi, Wheezes - Cardiovascular Exam Cardiovascular Exam: REGULAR RHYTHM, +S1, +S2. absent: Gallop, Rubs, Murmur - GI/Abdominal Exam GI & Abdominal Exam: Soft, Normal Bowel Sounds. absent: Rigid, Tenderness, Hernia, Mass, Rebound - Extremities Exam Extremities Exam: Normal Inspection. absent: Calf Tenderness, Pedal Edema - Neurological Exam Neurological Exam: Alert, Awake Neuro motor strength exam: Left Upper Extremity: 2/1 (Subway Guard is 2/5, arm and shoulder 0/5 strength), Right Upper Extremity: 5, Left Lower Extremity: 5, Right Lower Extremity: 5 Additional comments: Subjective loss of sensation over L V1/2 trigeminal distribution, sensation normal on R. Very mild L-sided facial droop. Grimace appears symmetrical. Tongue protrudes midline. Shoulder shrug asymmetrical, unable to shrug L shoulder. Finger to nose normal on R side, unable to perform on L side. - Psychiatric Exam Psychiatric exam: Normal Affect, Normal Mood - Skin Skin Exam: Dry, Warm Assessment and Plan - Assessment and Plan (Free Text) Assessment: This is a 52yo Female with PMH of uncontrolled HTN, substance abuse (quit alcohol many years ago), cervical spondylolisthesis, recent incarceration (was release from [facility] detention last month) admitted for acute CVA and uncontrolled HTN. Plan: 1. CVA - Acute v. Subacute - MRI brain significant for L occipital encephalomalacia in R ICA distribution. Scattered FLAIR signal intensity in white matter. 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 - CTA showed complete occlusion of R ICA with distal retrograde flow - MRA neck showed R ICA occlusion - HgbA1c: 5.3, TSH: 1.86, Hep panel negative, LDL: 147 - Neuro consulted- recs appreciated - Hypercoagulable work up pending - Permissive HTN to 220/100 for 36hrs, Labetolol prn SBP >220/110 - ASA, Plavix, Lipitor - PT evaluation for CVA and deconditioning. - Speech and language pathology, swallow eval and treatment - Neuro checks, fall precaution 2. HTN- Uncontolled - Permissive HTN for 36hrs for acute CVA - Labetolol prn - Will continue to monitor 3. Dyslipidemia - Chold: 210 LDL: 145, HDL: 45 - Continue Lipitor GI ppx: Protonix DVT ppx: SCDs, hold heparin for now due to risk of hemorrhagic conversion of CVA Dispo: Pending PT eval. Will discuss with case management Case seen, discussed, reviewed with attending. Shawn High PGY2 <Libby Hunter - Last Filed: 08/05/17 16:33> Objective - Vital Signs/Intake and Output Vital Signs (last 24 hours): Temp Pulse Resp BP Pulse Ox 98.8 F 86 20 192/93 H 95 08/05/17 12:00 08/05/17 12:00 08/05/17 12:00 08/05/17 12:00 08/04/17 23:51 Intake and Output: 08/05/17 08/05/17 06:59 18:59 Intake Total 480 Balance 480 - Medications Medications: Current Medications Aspirin (Ecotrin) 81 mg PO DAILY [facility] Last Admin: 08/05/17 09:47 Dose: 81 mg Atorvastatin Calcium (Lipitor) 40 mg PO DIN [facility] Last Admin: 08/04/17 20:08 Dose: 40 mg Clopidogrel Bisulfate (Plavix) 75 mg PO DAILY [facility] Labetalol HCl (Trandate) 20 mg IV ONCE PRN PRN Reason: Systolic Blood Pressure Pantoprazole Sodium (Protonix Inj) 40 mg IVP DAILY [facility] Last Admin: 08/05/17 09:47 Dose: 40 mg - Labs Labs: 08/05/17 06:00 08/05/17 06:00 PT 12.5 SECONDS (9.4-12.5) 08/05/17 06:00 INR 1.09 (0.93-1.08) H 08/05/17 06:00 APTT 30.2 Seconds (25.1-36.5) 08/05/17 06:00 Attending/Attestation - Attestation I have personally seen and examined this patient.: Yes I have fully participated in the care of the patient.: Yes I have reviewed all pertinent clinical information, including history, physical exam and plan: Yes Notes (Text): 08/05/17 16:25 Attending note; Patient seen and examined with resident. Patient's daughter and son by the bedside. Patient is a 52 year old Female with PMH of uncontrolled hypertension , noncompliance with medication ,substance abuse (quit alcohol many years ago), cervical spondylolisthesis, recent incarceration (was release from [facility] detention last month) admitted for acute CVA and uncontrolled blood pressure. CT and MRI consistent with right frontal and temporal subacute stroke. Patient is currently alert, awake. Left-sided hemiparesis. Tolerating liquid diet. Speech and swallow evaluation requested. MRA showed right internal carotid occlusion at the origin. MRA of head showed right MCA stenosis. We'll follow up with neurology/neuro intervention. Continue aspirin, Plavix and Lipitor. Hypertension ; monitor closely. Allow permissive hypertension for today.Continue labetalol when necessary. Physical therapy/occupational therapy requested. The diagnosis and follow-up plan discussed with patient in detail. Upon discharge the patient will be referred to [facility].
--- NOTE | 2017-08-05 13:27 | MRI ---
PROCEDURE: MR Angiography of the neck without contrast HISTORY: Left Sided Facial Droop Left Arm Weakness COMPARISON: None available. TECHNIQUE: 3D [id number] angiography of the neck was performed. Rotating maximum intensity projection images of the cervical carotid and vertebral arteries were generated. The origins of the common carotid arteries were not visualized, which is a limitation inherent to the non-contrast time of flight technique. FINDINGS: RIGHT CAROTID ARTERIES: Common Carotid Artery: Normal. Carotid Bifurcation: Normal. Internal Carotid Artery:There is no flow related signal in the right internal carotid artery from its origin. External Carotid Artery (proximal branches): Normal. LEFT CAROTID ARTERIES: Common Carotid Artery: Normal. Carotid Bifurcation: Normal. Internal Carotid Artery:Normal. External Carotid Artery (proximal branches): Normal. VERTEBRAL ARTERIES: Right Vertebral Artery: Normal. The left vertebral artery is dominant. Left Vertebral Artery: Normal. OTHER FINDINGS: None. IMPRESSION: 1.Right ICA occlusion at its origin. 2. No evidence of hemodynamically significant stenosis in the left internal carotid artery. 3. Patent bilateral vertebral arteries. The left vertebral artery is dominant.
--- NOTE | 2017-08-05 13:29 | CT ---
PROCEDURE: CT Angiography of the neck with contrast HISTORY: stroke COMPARISON: None available. TECHNIQUE: Contiguous axial images of the neck were obtained from the level of the skull-base to the superior mediastinum in the arteriographic phase of enhancement. Coronal and sagittal reformats or also generated. IV contrast dose: 150 cc of Omni 350 Radiation Dose - DLP: 474 mGy-cm This CT exam was performed using one or more of the following dose reduction techniques: Automated exposure control, adjustment of the mA and/or kV according to patient size, and/or use of iterative reconstruction technique. FINDINGS: RIGHT CAROTID ARTERIES: Common Carotid Artery: Normal. Carotid Bifurcation: Normal. Internal Carotid Artery:There is occlusion of the right internal carotid at its origin. There is some visualization of the distal internal carotid and intra cavernous carotid probably via retrograde flow External Carotid Artery (proximal branches): Normal. LEFT CAROTID ARTERIES: Common Carotid Artery: Normal. Carotid Bifurcation: Normal. Internal Carotid Artery:Normal. External Carotid Artery (proximal branches): Normal. VERTEBRAL ARTERIES: Right Vertebral Artery: Normal. Left Vertebral Artery: Normal. OTHER FINDINGS: None. IMPRESSION: There is occlusion of the right internal carotid at its origin. There is some visualization of the distal internal carotid and intra cavernous carotid probably via retrograde flow PROCEDURE: CT Angiography of the Brain. HISTORY: stroke COMPARISON: None available. TECHNIQUE: CT angiography of the intracranial arteries was performed. Coronal and sagittal maximum intensity projection reformated images were generated. This CT exam was performed using one or more of the following dose reduction techniques: Automated exposure control, adjustment of the mA and/or kV according to patient size, and/or use of iterative reconstruction technique. FINDINGS: INTERNAL CEREBRAL ARTERIES: There is occlusion of the right internal carotid at its origin. There is some visualization of the distal internal carotid and intra cavernous carotid probably via retrograde flow ANTERIOR CEREBRAL ARTERIES: Unremarkable. A1 and A2 segments are widely patent. Smaller distal branches unremarkable, as visualized. MIDDLE CEREBRAL ARTERIES: Unremarkable. M1 and M2 segments are widely patent. Perisylvian branches grossly symmetric. POSTERIOR CIRCULATION: Basilar Artery: Unremarkable. Distal Vertebral Arteries: Unremarkable. Posterior Cerebral Arteries: Unremarkable. Posterior Inferior Cerebellar Arteries: Unremarkable. ANEURYSM/ VASCULAR MALFORMATIONS: None. OTHER FINDINGS: None. IMPRESSION: Unremarkable CT Angiography of the Brain.
--- NOTE | 2017-08-05 16:39 | CARD ---
APPROVED REPORT EKG Measurement Heart [id number] <Conclusion> Poor data quality, interpretation may be adversely affected Normal sinus rhythm Normal ECG
[2017-08-05] MEDS: DiphenhydrAMINE 1% 1 EA TUBE TOP PRN ×2 (17:54→22:49)
[2017-08-05] MEDS ORDERED: Labetalol 5 mg/ml Inj 20ML IVP PRN (19:28)
--- NOTE | 2017-08-05 21:00 | CARD ---
APPROVED REPORT EXAM: Two-dimensional and M-mode echocardiogram with Doppler and color Doppler. INDICATION BUBBLY STUDY...R/O PFO 2D DIMENSIONS Left Atrium (2D)4.8 (1.6-4.0cm)IVSd1.1 (0.7-1.1cm) LVDd5.0 (3.9-5.9cm)PWd1.1 (0.7-1.1cm) LVDs3.3 (2.5-4.0cm)FS (%) 33.3 % LVEF (%)61.8 (>50%) M-Mode DIMENSIONS Aortic Root3.30 (2.2-3.7cm)Aortic Cusp Exc.1.80 (1.5-2.0cm) Aortic Valve AoV Peak Yzvznfhh033.0cm/Mitchell Peak GR.15mmHgLVOT Peak Ojpvjfkt812.0cm/s LVOT VTI23.90cm Mitral Valve MV E Okclffns14.4cm/sMV A Mdnjcrjl85.9cm/sE/A ratio1.0 TDI Lateral E' Peak V8.58cm/sMedial E' Peak V8.29cm/sE/Lateral E'8.4 E/Medial E'8.7 Pulmonary Valve PV Peak Ohrjddvg47.5cm/sPV Peak Grad.4mmHg Tricuspid Valve TR Peak Bmlbtplx970ik/sRAP VLEAPKPS51oaYtPQ Peak Gr.12mmHg [id number] LEFT VENTRICLE The left ventricle is normal size. There is borderline concentric left ventricular hypertrophy. The left ventricular function is normal. The left ventricular ejection fraction is within the normal range. There is normal LV segmental wall motion. Transmitral Doppler flow pattern is Grade I-abnormal relaxation pattern. RIGHT VENTRICLE The right ventricle is normal size. There is normal right ventricular wall thickness. The right ventricular systolic function is normal. ATRIA The left atrium is mildly dilated. The right atrium size is normal. The interatrial septum is intact with no evidence for an atrial septal defect. AORTIC VALVE The aortic valve is thickened but opens well. No aortic regurgitation is present. There is no aortic valvular stenosis. MITRAL VALVE The mitral valve is normal in structure. There is no mitral valve regurgitation noted. There is no mitral valve stenosis. GREAT VESSELS The aortic root is normal in size. PERICARDIAL EFFUSION There is a trace circumferential pericardial effusion. <Conclusion> The left ventricle is normal size. There is borderline concentric left ventricular hypertrophy. The left ventricular function is normal. The left ventricular ejection fraction is within the normal range. There is normal LV segmental wall motion. Transmitral Doppler flow pattern is Grade I-abnormal relaxation pattern. The interatrial septum is intact with no evidence for an atrial septal defect.
[2017-08-06 06:33] LABS: BASO # 0.1 K/mm3 (0.0-2.0); BASO % 0.6 % (0.0-3.0); EOS # 0.1 (0.0-0.7); EOS % 0.7 % (1.5-5.0); GRAN # 12.43 (1.4-6.5); GRAN % 71.1 % (50.0-68.0); HEMOGLOBIN 14.9 g/dL (12.0-16.0); LYMPH # 3.6 (1.2-3.4); LYMPH % 20.7 % (22.0-35.0); MEAN CORPUSCULAR HEMOGLOBIN 29.7 pg (25.0-35.0); MEAN CORPUSCULAR HGB CONC 33.7 g/dl (31.0-37.0); MONO # 1.2 (0.1-0.6); MONO % 6.9 % (1.0-6.0); RBC 5.02 10^6/uL (3.5-6.1); RED CELL DISTRIBUTION WIDTH 13.5 % (11.5-14.5); WHITE BLOOD COUNT 17.5 10^3/ul (4.5-11.0)
[2017-08-06 07:05] LABS: ALB/GLOB RATIO 1.3 (1.1-1.8); ALBUMIN 4.4 g/dL (3.0-4.8); ALT/SGPT 28 U/L (7-56); AST/SGOT 37 U/L (14-36); BLOOD UREA NITROGEN 13 mg/dL (7-21); GFR AFRICAN-AMERICAN > 60; GFR NON-AFRICAN AMERICAN > 60
--- NOTE | 2017-08-06 09:15 | RAD ---
HISTORY: WBC elevated COMPARISON: 08/04/2017 FINDINGS: LUNGS: No active pulmonary disease. PLEURA: No significant pleural effusion identified, no pneumothorax apparent. CARDIOVASCULAR: Normal. OSSEOUS STRUCTURES: No significant abnormalities. VISUALIZED UPPER ABDOMEN: Normal. OTHER FINDINGS: None. IMPRESSION: No active disease.
--- NOTE | 2017-08-06 09:55 | CP.PCM.PN ---
Objective - Vital Signs/Intake and Output Vital Signs (last 24 hours): Temp Pulse Resp BP Pulse Ox 98.3 F 78 19 158/92 H 98 08/06/17 06:00 08/06/17 06:00 08/06/17 06:00 08/06/17 06:00 08/06/17 06:00 Intake and Output: 08/06/17 08/06/17 06:59 18:59 Intake Total 1680 Output Total 5 Balance 1675 - Medications Medications: Current Medications Aspirin (Ecotrin) 81 mg PO DAILY [facility] Last Admin: 08/06/17 09:45 Dose: 81 mg Atorvastatin Calcium (Lipitor) 40 mg PO DIN [facility] Last Admin: 08/05/17 17:53 Dose: 40 mg Clopidogrel Bisulfate (Plavix) 75 mg PO DAILY [facility] Last Admin: 08/06/17 09:46 Dose: 75 mg Diphenhydramine HCl (Benadryl) 25 mg PO Q6 PRN PRN Reason: Itching / Pruritus Labetalol HCl (Trandate) 20 mg IVP ONCE PRN PRN Reason: Systolic Blood Pressure Last Admin: 08/05/17 17:50 Dose: 20 mg Pantoprazole Sodium (Protonix Inj) 40 mg IVP DAILY [facility] Last Admin: 08/05/17 09:47 Dose: 40 mg - Labs Labs: 08/06/17 05:30 08/06/17 05:30 PT 12.5 SECONDS (9.4-12.5) 08/05/17 06:00 INR 1.09 (0.93-1.08) H 08/05/17 06:00 APTT 30.2 Seconds (25.1-36.5) 08/05/17 06:00
--- NOTE | 2017-08-06 10:38 | CP.PCM.PN ---
Subjective - Date & Time of Evaluation Date of Evaluation: 08/06/17 Time of Evaluation: 07:50 - Subjective Subjective: Neuro progress note: Pt was seen and examined at the bedside. No acute events overnight. Pt is still complaining of L upper extremity hemiplegia. She states that her tongue numbness has improved. No other complaints. 12 Point ROS performed and neg other than stated above. Objective - Vital Signs/Intake and Output Vital Signs (last 24 hours): Temp Pulse Resp BP Pulse Ox 98.3 F 78 19 158/92 H 98 08/06/17 06:00 08/06/17 06:00 08/06/17 06:00 08/06/17 06:00 08/06/17 06:00 Intake and Output: 08/06/17 08/06/17 06:59 18:59 Intake Total 1680 Output Total 5 Balance 1675 - Medications Medications: Current Medications Aspirin (Ecotrin) 81 mg PO DAILY [facility] Last Admin: 08/06/17 09:45 Dose: 81 mg Atorvastatin Calcium (Lipitor) 40 mg PO DIN [facility] Last Admin: 08/05/17 17:53 Dose: 40 mg Clopidogrel Bisulfate (Plavix) 75 mg PO DAILY [facility] Last Admin: 08/06/17 09:46 Dose: 75 mg Labetalol HCl (Trandate) 20 mg IVP ONCE PRN PRN Reason: Systolic Blood Pressure Last Admin: 08/05/17 17:50 Dose: 20 mg Pantoprazole Sodium (Protonix Inj) 40 mg IVP DAILY [facility] Last Admin: 08/05/17 09:47 Dose: 40 mg - Labs Labs: 08/06/17 05:30 08/06/17 05:30 PT 12.5 SECONDS (9.4-12.5) 08/05/17 06:00 INR 1.09 (0.93-1.08) H 08/05/17 06:00 APTT 30.2 Seconds (25.1-36.5) 08/05/17 06:00 - Constitutional Appears: No Acute Distress - Eye Exam Eye Exam: EOMI, PERRL - Neurological Exam Neurological Exam: Alert, Awake, Oriented x3 Neuro motor strength exam: Left Upper Extremity: 0, Right Upper Extremity: 5, Left Lower Extremity: 4, Right Lower Extremity: 5 Assessment and Plan - Assessment and Plan (Free Text) Assessment: 52 F with past history of hypertension who presents with complaints of Left upper extremity paralysis and L lower extremities weakness and tongue numbness. Found to have R frontal and temporal acute infarcts embolic in nature. - Dr Epps consulted for any possible neurointervention - MRA of head and neck showed R ICA occlusion - CTA or head and neck - Occlusion of R ICA at the origin - Echo with bubble study -reviewed - Maintain BP control with systolic <160 - Cont Lipitor ASA and Plavix - HOB elevation to 35' - PT and OT; Speech eval - Neuro checks Case and plan was reviewed and discussed with Dr Newberry.
[2017-08-06] MEDS ORDERED: Labetalol 5 mg/ml Inj 20ML IV PRN (10:52)
[2017-08-06 13:52] LABS: URINE BILIRUBIN NEGATIVE (NEGATIVE); URINE BLOOD MODERATE (NEGATIVE); URINE GLUCOSE (UA) NEGATIVE (NEGATIVE); URINE LEUKOCYTE ESTERASE TRACE Leu/uL (NEGATIVE); URINE PROTEIN NEGATIVE mg/dL (<30 mg/dL); URINE UROBILINOGEN 0.2 E.U./dL (<1 E.U./dL)
[2017-08-06 13:53] LABS: URINE APPEARANCE CLEAR (CLEAR); URINE COLOR YELLOW (YELLOW)
--- NOTE | 2017-08-06 13:55 | CP.PCM.PN ---
Addendum entered and electronically signed by Milan Silverman DO 08/06/17 16:51: 1. CVA - Pt transfered for pre-op monitoring in ICU. Neurochecks q1h. - Neurosurgery: Dr. Epps, consulted, pt to OR for stent placement R ICA due to - Cardiology consult: Dr. Levine for assessment - Heparin held, NPO for pre-op - Echo reveals EF 55%, LV with mild concentric hypertrophy. No other abnormalities. - MRA neck significant for R ICA occlusion. - Continue permissive HTN to 220/100 - Continue clopidogrel 75 mg PO daily, ASA 81 mg PO - Speech and language pathology, swallow eval and treatment - PT evaluation for CVA and deconditioning. - Neurology consult: Dr. Estevez - Hepatitis results return negative for HAV, HBV, HCV. TSH normal at 1.89 - Homocysteine 7. Original Note: <Milan Silverman - Last Filed: 08/06/17 16:16> Subjective - Date & Time of Evaluation Date of Evaluation: 08/06/17 Time of Evaluation: 06:00 - Subjective Subjective: Patient seen and evaluated bedside, no acute issues overnight. Patient states she has been moving in and out of bed into chair. She states she had soem redness and itching on her right arm. She also states she is trying to move her left upper and lower extremity. NO chest pain, headaches, fevers, chills shortness of breath or any other complains. Objective - Vital Signs/Intake and Output Vital Signs (last 24 hours): Temp Pulse Resp BP Pulse Ox 98.1 F 79 18 184/98 H 98 08/06/17 11:52 08/06/17 11:52 08/06/17 11:52 08/06/17 11:52 08/06/17 06:00 Intake and Output: 08/06/17 08/06/17 06:59 18:59 Intake Total 1680 Output Total 5 Balance 1675 - Medications Medications: Current Medications Aspirin (Ecotrin) 81 mg PO DAILY [facility] Last Admin: 08/06/17 09:45 Dose: 81 mg Atorvastatin Calcium (Lipitor) 40 mg PO DIN [facility] Last Admin: 08/05/17 17:53 Dose: 40 mg Clopidogrel Bisulfate (Plavix) 75 mg PO DAILY [facility] Last Admin: 08/06/17 09:46 Dose: 75 mg Heparin Sodium (Porcine) (Heparin) 5,000 units SC Q12 [facility] PRN Reason: Protocol Hydrocortisone (Cortizone 1% Cream) 0 gm TOP BID [facility] Labetalol HCl (Trandate) 20 mg IV Q6H PRN PRN Reason: Systolic Blood Pressure Lisinopril (Zestril) 5 mg PO DAILY [facility] Pantoprazole Sodium (Protonix Ec Tab) 40 mg PO 0600 [facility] - Labs Labs: 08/06/17 05:30 08/06/17 05:30 PT 12.5 SECONDS (9.4-12.5) 08/05/17 06:00 INR 1.09 (0.93-1.08) H 08/05/17 06:00 APTT 30.2 Seconds (25.1-36.5) 08/05/17 06:00 - Constitutional Appears: Non-toxic, No Acute Distress - Head Exam Head Exam: ATRAUMATIC, NORMAL INSPECTION, NORMOCEPHALIC - Eye Exam Eye Exam: Normal appearance - ENT Exam ENT Exam: Mucous Membranes Moist - Respiratory Exam Respiratory Exam: Clear to Ausculation Bilateral, NORMAL BREATHING PATTERN - Cardiovascular Exam Cardiovascular Exam: REGULAR RHYTHM - GI/Abdominal Exam GI & Abdominal Exam: Soft. absent: Tenderness - Extremities Exam Extremities Exam: absent: Full ROM, Pedal Edema, Tenderness - Neurological Exam Neurological Exam: Alert, Awake, Oriented x3 Neuro motor strength exam: Left Upper Extremity: 2/1, Right Upper Extremity: 5, Left Lower Extremity: 5, Right Lower Extremity: 5 Assessment and Plan - Assessment and Plan (Free Text) Assessment: This is a 52yo Female with PMH of uncontrolled HTN, substance abuse (quit alcohol many years ago), cervical spondylolisthesis, recent incarceration (was release from [facility] assisted last month) admitted for acute CVA and uncontrolled HTN. Patient transferred to ICU for monitoring and stent placement in ICA. Plan: 1. CVA - Pt transfered for pre-op monitoring in ICU. Neurochecks q1h. - Neurosurgery: Dr. Goode consulted, pt to OR for stent placement R ICA due to - Cardiology consult: Dr. Levine for assessment - Heparin held, NPO for pre-op - Echo reveals EF 55%, LV with mild concentric hypertrophy. No other abnormalities. - MRA neck significant for R ICA occlusion. - Continue permissive HTN to 220/100 - Continue clopidogrel 75 mg PO bid, ASA 81 mg PO - Speech and language pathology, swallow eval and treatment - PT evaluation for CVA and deconditioning. - Neurology consult: Dr. Estevez - Hepatitis results return negative for HAV, HBV, HCV. TSH normal at 1.89 - Homocysteine 7. 2. Leukocytosis: infection vs reactive -Trending up 17.5 today. -No fever -CXR shows no active disease -Procal not elevated -cultures pending 3. Rash on right arm - Clotrimazole topical started. VTE prophylaxis: Heparin 5000 units currenlty held GI prophylaxis: pantoprazole 40 mg IVP daily <Libby Hunter - Last Filed: 08/06/17 16:42> Objective - Vital Signs/Intake and Output Vital Signs (last 24 hours): Temp Pulse Resp BP Pulse Ox 98.1 F 79 18 184/98 H 98 08/06/17 11:52 08/06/17 11:52 08/06/17 11:52 08/06/17 11:52 08/06/17 06:00 Intake and Output: 08/06/17 08/06/17 06:59 18:59 Intake Total 1680 300 Output Total 5 600 Balance 1675 -300 - Medications Medications: Current Medications Aspirin (Ecotrin) 81 mg PO DAILY [facility] Last Admin: 08/06/17 09:45 Dose: 81 mg Atorvastatin Calcium (Lipitor) 40 mg PO DIN [facility] Last Admin: 08/05/17 17:53 Dose: 40 mg Clopidogrel Bisulfate (Plavix) 75 mg PO DAILY [facility] Last Admin: 08/06/17 09:46 Dose: 75 mg Heparin Sodium (Porcine) (Heparin) 5,000 units SC Q12 [facility] PRN Reason: Protocol Hydrocortisone (Cortizone 1% Cream) 0 gm TOP BID [facility] Labetalol HCl (Trandate) 20 mg IV Q6H PRN PRN Reason: Systolic Blood Pressure Lisinopril (Zestril) 5 mg PO DAILY [facility] Last Admin: 08/06/17 14:57 Dose: Not Given Pantoprazole Sodium (Protonix Ec Tab) 40 mg PO 0600 [facility] - Labs Labs: 08/06/17 05:30 08/06/17 05:30 PT 12.5 SECONDS (9.4-12.5) 08/05/17 06:00 INR 1.09 (0.93-1.08) H 08/05/17 06:00 APTT 30.2 Seconds (25.1-36.5) 08/05/17 06:00 Attending/Attestation - Attestation I have personally seen and examined this patient.: Yes I have fully participated in the care of the patient.: Yes I have reviewed all pertinent clinical information, including history, physical exam and plan: Yes Notes (Text): 08/06/17 16:37 Attending note; Patient seen and examined with resident. Patient is a 52 year old Female with PMH of uncontrolled hypertension , noncompliance with medication is admitted for acute CVA and uncontrolled blood pressure. CT and MRI consistent with right frontal and temporal subacute stroke. Patient is currently alert, awake. Left-sided hemiparesis. MRA showed right internal carotid occlusion at the origin. MRA of head showed right MCA stenosis. patient was evaluated by today. Plan for angiogram tomorrow with possible stent placement. CT head ordered. Transferred to ICU for close monitoring. ICU evaluation requested. Patient is medically stable for a moderate risk procedure. Echocardiogram is normal. EKG normal. no history of coronary artery disease/CHF. Cardiology evaluation requested. Tolerating diet. Speech and swallow evaluation appreciated. leukocytosis; mostly reactive. Patient is afebrile and nontoxic. Pro-wilber is negative. Continue aspirin, Plavix and Lipitor. Hypertension ; monitor closely. Allow permissive hypertension for today.Continue lisinopril when necessary. Physical therapy/occupational therapy evaluation appreciated. The diagnosis and follow-up plan discussed with patient in detail. Upon discharge the patient will be referred to [facility]. 08/06/17 16:42
[2017-08-06 14:11] LABS: URINE BACTERIA MOD (NEG); URINE RBC 0 - 2 /hpf (0-2)
--- NOTE | 2017-08-06 14:52 | CP.PCM.CON ---
History of Present Illness - History of Present Illness History of Present Illness: NEURO-IR CONSULTATION The patient is a 52 y/o female with a PMH that is significant for HTN, and drug abuse. The patient presented to the hospital with left sided weakness (arm>leg ) and a left facial droop. These symptoms have been fluctuating as per the patient for several days. MRI showed acute infactions in the right temporal and frontal lobes. Vascular imaging showed a right ICA occlusion. Review of Systems - Constitutional Constitutional: As Per HPI - Musculoskeletal Musculoskeletal: Muscle Weakness - Neurological Neurological: As Per HPI Past Patient History - Infectious Disease Hx of Infectious Diseases: None - Past Social History Smoking Status: Never Smoked - CARDIAC Hx Hypertension: Yes - PULMONARY Hx Respiratory Disorders: No - NEUROLOGICAL Hx Neurological Disorder: No - HEENT Hx HEENT Problems: No - RENAL Hx Chronic Kidney Disease: No - ENDOCRINE/METABOLIC Hx Endocrine Disorders: No - HEMATOLOGICAL/ONCOLOGICAL Hx Blood Disorders: No - INTEGUMENTARY Hx Dermatological Problems: No - MUSCULOSKELETAL/RHEUMATOLOGICAL Hx Musculoskeletal Disorders: Yes Other/Comment: 'PINCHED NERVE IN THE NECK" - GASTROINTESTINAL Hx Gastrointestinal Disorders: No - GENITOURINARY/GYNECOLOGICAL Hx Genitourinary Disorders: No - PSYCHIATRIC Hx Substance Use: No - SURGICAL HISTORY Hx Surgeries: Yes Hx Orthopedic Surgery: Yes (R KNEE) Meds Allergies/Adverse Reactions: Allergies Allergy/AdvReac Type Severity Reaction Status Date / Time No Known Allergies Allergy Verified 05/31/17 22:19 - Medications Medications: Current Medications Aspirin (Ecotrin) 81 mg PO DAILY [facility] Last Admin: 08/06/17 09:45 Dose: 81 mg Atorvastatin Calcium (Lipitor) 40 mg PO DIN [facility] Last Admin: 08/05/17 17:53 Dose: 40 mg Clopidogrel Bisulfate (Plavix) 75 mg PO DAILY [facility] Last Admin: 08/06/17 09:46 Dose: 75 mg Heparin Sodium (Porcine) (Heparin) 5,000 units SC Q12 [facility] PRN Reason: Protocol Hydrocortisone (Cortizone 1% Cream) 0 gm TOP BID [facility] Labetalol HCl (Trandate) 20 mg IV Q6H PRN PRN Reason: Systolic Blood Pressure Lisinopril (Zestril) 5 mg PO DAILY [facility] Pantoprazole Sodium (Protonix Ec Tab) 40 mg PO 0600 [facility] Physical Exam - Neurological Exam Additional comments: Awake and alert Follows commands conversant Left arm 0/5 Left leg 1/5 Results - Vital Signs Recent Vital Signs: Last Vital Signs Temp 98.1 F 08/06/17 11:52 Pulse 79 08/06/17 11:52 Resp 18 08/06/17 11:52 BP 184/98 H 08/06/17 11:52 Pulse Ox 98 08/06/17 06:00 - Labs Result Diagrams: 08/06/17 05:30 08/06/17 05:30 Labs: Laboratory Results - last 24 hr 08/05/17 08/05/17 08/06/17 08:14 13:40 05:30 WBC 17.5 H D RBC 5.02 Hgb 14.9 Hct 44.2 MCV 88.0 MCH 29.7 MCHC 33.7 RDW 13.5 Plt Count 458 H MPV 10.0 Gran % 71.1 H Lymph % (Auto) 20.7 L [place] % (Auto) 6.9 H Eos % (Auto) 0.7 L Baso % (Auto) 0.6 Gran # 12.43 H Lymph # (Auto) 3.6 H [place] # (Auto) 1.2 H Eos # (Auto) 0.1 Baso # (Auto) 0.10 Sodium Potassium Chloride Carbon Dioxide Anion Gap BUN Creatinine Est GFR ( Amer) Est GFR (Non-Af Amer) Random Glucose Calcium Total Bilirubin AST ALT Alkaline Phosphatase Total Protein Albumin Globulin Albumin/Globulin Ratio Homocysteine 7.0 Procalcitonin HIV 1&2 Ag/Ab, 4th Gen Nonreactive 08/06/17 08/06/17 05:30 06:30 WBC RBC Hgb Hct MCV MCH MCHC RDW Plt Count MPV Gran % Lymph % (Auto) [place] % (Auto) Eos % (Auto) Baso % (Auto) Gran # Lymph # (Auto) [place] # (Auto) Eos # (Auto) Baso # (Auto) Sodium 142 Potassium 3.7 Chloride 103 Carbon Dioxide 27 Anion Gap 16 BUN 13 Creatinine 0.7 Est GFR ( Amer) > 60 Est GFR (Non-Af Amer) > 60 Random Glucose 123 H Calcium 10.0 Total Bilirubin 0.9 AST 37 H D ALT 28 Alkaline Phosphatase 63 Total Protein 7.9 Albumin 4.4 Globulin 3.5 Albumin/Globulin Ratio 1.3 Homocysteine Procalcitonin 0.05 L HIV 1&2 Ag/Ab, 4th Gen Assessment & Plan - Assessment and Plan (Free Text) Assessment: 52 year old female with symptomatic critical right ICA stenosis. As per the patient she stopped moving the left leg sometime last night. Is now plegic. Plan: 1-CT head without contrast Now 2-Hold antihypertensive medications if CT head shows no bleed. 3-transfer to ICU for q 1 neurochecks 4-NPO after midnight except med for diagnostic Cerebral angiogram in am, and possible carotid stenting. 5-Obtain medical and cardiac clearance for possible stenting d/w Dr. Newberry of Neurology and with Dr. Hunter of Medicine (her attending).
--- NOTE | 2017-08-06 15:34 | CP.PCM.CON ---
<TeresaKeshav berg - Last Filed: 08/06/17 16:28> History of Present Illness - History of Present Illness History of Present Illness: Keshav Moore PGY1 ICU Consult Note for Dr. Duffy 52 year old female with past medical history of hypertension (not on medications ), substance abuse (non-prescribed percocet) who presented with complaints of L sided weakness x1 week. The patient is on telemetry for monitoring. ICU is consulted for patient due to upcoming carotid angiogram requiring ICU monitoring. On presentation, CT head showed acute infarcts in R temporal and frontal lobes. 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 Echo showed borderline concentric LVH. CTA Head/Neck showed occlusion of R ICA. When seen in room, the patient states that she does not follow up with a physician regularly. she also states that she takes percocet that she obtains from a friend, but denies other substance use, ETOH or tobacco use. She states that her symptoms improve with yawning. she states that she is unable to move her L arm or leg, however, she states that she is able to walk to the bathroom. the patient is a poor historian. She denies chest pain, shortness of breath, n/ v, or any dysarthria. She states that both her boyfriend and son who she lives with are disabled (cerebral palsy and ADD, respectively). PMH: as above Surgical history: knee replacement Social history: works as a healthcare taker, denies tobacco, alcohol, illicit drug use Family history: Mother- Pancreatic cancer, Father-[place] Allergies:NKDA Review of Systems - Review of Systems All systems: reviewed and no additional remarkable complaints except (as per HPI ) Past Patient History - Infectious Disease Hx of Infectious Diseases: None - Past Medical History & Family History Past Medical History?: Yes - Past Social History Smoking Status: Never Smoked Alcohol: None Drugs: Prescription medications (percocet) Home Situation {Lives}: With Family - CARDIAC Hx Hypertension: Yes - PULMONARY Hx Respiratory Disorders: No - NEUROLOGICAL Hx Neurological Disorder: No - HEENT Hx HEENT Problems: No - RENAL Hx Chronic Kidney Disease: No - ENDOCRINE/METABOLIC Hx Endocrine Disorders: No - HEMATOLOGICAL/ONCOLOGICAL Hx Blood Disorders: No - INTEGUMENTARY Hx Dermatological Problems: No - MUSCULOSKELETAL/RHEUMATOLOGICAL Hx Musculoskeletal Disorders: Yes Other/Comment: 'PINCHED NERVE IN THE NECK" - GASTROINTESTINAL Hx Gastrointestinal Disorders: No - GENITOURINARY/GYNECOLOGICAL Hx Genitourinary Disorders: No - PSYCHIATRIC Hx Substance Use: No - SURGICAL HISTORY Hx Surgeries: Yes Hx Orthopedic Surgery: Yes (KNEE) Meds Allergies/Adverse Reactions: Allergies Allergy/AdvReac Type Severity Reaction Status Date / Time No Known Allergies Allergy Verified 05/31/17 22:19 - Medications Medications: Current Medications Aspirin (Ecotrin) 81 mg PO DAILY [facility] Last Admin: 08/06/17 09:45 Dose: 81 mg Atorvastatin Calcium (Lipitor) 40 mg PO DIN [facility] Last Admin: 08/05/17 17:53 Dose: 40 mg Clopidogrel Bisulfate (Plavix) 75 mg PO DAILY [facility] Last Admin: 08/06/17 09:46 Dose: 75 mg Heparin Sodium (Porcine) (Heparin) 5,000 units SC Q12 [facility] PRN Reason: Protocol Hydrocortisone (Cortizone 1% Cream) 0 gm TOP BID [facility] Labetalol HCl (Trandate) 20 mg IV Q6H PRN PRN Reason: Systolic Blood Pressure Lisinopril (Zestril) 5 mg PO DAILY [facility] Last Admin: 08/06/17 14:57 Dose: Not Given Pantoprazole Sodium (Protonix Ec Tab) 40 mg PO 0600 [facility] Physical Exam - Constitutional Appears: Well, Non-toxic, No Acute Distress - Head Exam Head Exam: ATRAUMATIC, NORMAL INSPECTION - Eye Exam Eye Exam: Normal appearance Pupil Exam: Mydriatic - ENT Exam ENT Exam: Mucous Membranes Moist Additional comments: poor dentition - Neck Exam Neck exam: Positive for: Normal Inspection - Respiratory Exam Respiratory Exam: Clear to Auscultation Bilateral, NORMAL BREATHING PATTERN. absent: Rales, Rhonchi, Wheezes, Respiratory Distress - Cardiovascular Exam Cardiovascular Exam: RRR, +S1, +S2. absent: JVD - GI/Abdominal Exam GI & Abdominal Exam: Normal Bowel Sounds, Soft. absent: Diminished Bowel Sounds , Tenderness - Extremities Exam Extremities exam: Positive for: normal inspection, pedal edema (1+). Negative for: full ROM - Back Exam Back exam: NORMAL INSPECTION - Neurological Exam Neurological exam: Alert, CN II-XII Intact, Motor Sensory Deficit, Oriented x3 Additional comments: LUE/LLE muscle strength 0/5 RUE/RLE 5/5 Babinski negative b/l sensation intact x4 extremities Reyes negative b/l - Psychiatric Exam Psychiatric exam: Normal Mood - Skin Skin Exam: Normal Color, Warm Results - Vital Signs Recent Vital Signs: Last Vital Signs Temp 98.1 F 08/06/17 11:52 Pulse 79 08/06/17 11:52 Resp 18 08/06/17 11:52 BP 184/98 H 08/06/17 11:52 Pulse Ox 98 08/06/17 06:00 - Labs Result Diagrams: 08/06/17 05:30 08/06/17 05:30 Labs: Laboratory Results - last 24 hr 08/05/17 08/05/17 08/06/17 08:14 13:40 05:30 WBC 17.5 H D RBC 5.02 Hgb 14.9 Hct 44.2 MCV 88.0 MCH 29.7 MCHC 33.7 RDW 13.5 Plt Count 458 H MPV 10.0 Gran % 71.1 H Lymph % (Auto) 20.7 L [place] % (Auto) 6.9 H Eos % (Auto) 0.7 L Baso % (Auto) 0.6 Gran # 12.43 H Lymph # (Auto) 3.6 H [place] # (Auto) 1.2 H Eos # (Auto) 0.1 Baso # (Auto) 0.10 Sodium Potassium Chloride Carbon Dioxide Anion Gap BUN Creatinine Est GFR ( Amer) Est GFR (Non-Af Amer) Random Glucose Calcium Total Bilirubin AST ALT Alkaline Phosphatase Total Protein Albumin Globulin Albumin/Globulin Ratio Homocysteine 7.0 Procalcitonin Urine Color Urine Appearance Urine pH Ur Specific [place] Urine Protein Urine Glucose (UA) Urine Ketones Urine Blood Urine Nitrate Urine Bilirubin Urine Urobilinogen Ur Leukocyte Esterase Urine RBC Urine WBC Ur Epithelial Cells Urine Bacteria HIV 1&2 Ag/Ab, 4th Gen Nonreactive 08/06/17 08/06/17 08/06/17 05:30 06:30 13:30 WBC RBC Hgb Hct MCV MCH MCHC RDW Plt Count MPV Gran % Lymph % (Auto) [place] % (Auto) Eos % (Auto) Baso % (Auto) Gran # Lymph # (Auto) [place] # (Auto) Eos # (Auto) Baso # (Auto) Sodium 142 Potassium 3.7 Chloride 103 Carbon Dioxide 27 Anion Gap 16 BUN 13 Creatinine 0.7 Est GFR ( Amer) > 60 Est GFR (Non-Af Amer) > 60 Random Glucose 123 H Calcium 10.0 Total Bilirubin 0.9 AST 37 H D ALT 28 Alkaline Phosphatase 63 Total Protein 7.9 Albumin 4.4 Globulin 3.5 Albumin/Globulin Ratio 1.3 Homocysteine Procalcitonin 0.05 L Urine Color Yellow Urine Appearance Clear Urine pH 6.0 Ur Specific [place] <= 1.005 Urine Protein Negative Urine Glucose (UA) Negative Urine Ketones Negative Urine Blood Moderate H Urine Nitrate Negative Urine Bilirubin Negative Urine Urobilinogen 0.2 Ur Leukocyte Esterase Trace H Urine RBC 0 - 2 Urine WBC 2 - 5 Ur Epithelial Cells 4 - 5 Urine Bacteria Mod HIV 1&2 Ag/Ab, 4th Gen Assessment & Plan - Assessment and Plan (Free Text) Assessment: 52 year old female with past medical history of hypertension (not on medications ), substance abuse (non-prescribed percocet) who presented with complaints of L sided weakness x1 week, found to have multiple acute infarcts on imaging. Patient requiring carotid angio tomorrow per neurointerventionalist. ICU consulted for neuro monitoring. Plan: Acute ischemic strokes seen on imaging - cont ASA and Plavix - cont Lipitor - Per neuro, d/c htn meds since no bleeds on CT - neurochecks q1 - scheduled for diagnostic cerebral angiogram in AM and possible carotid stenting - transfer to ICU For monitoring and neurochecks - follow up on coagulation studies - Neuro, Neurosurg and Levine consulted - high fall risk Patient seen, examined and discussed with attending, Dr. Tati Moore PGY1 Pager # [phone] <Kike Duffy - Last Filed: 08/06/17 18:08> Meds - Medications Medications: Current Medications Aspirin (Ecotrin) 81 mg PO DAILY [facility] Last Admin: 08/06/17 09:45 Dose: 81 mg Atorvastatin Calcium (Lipitor) 40 mg PO DIN [facility] Last Admin: 08/05/17 17:53 Dose: 40 mg Clopidogrel Bisulfate (Plavix) 75 mg PO DAILY [facility] Last Admin: 08/06/17 09:46 Dose: 75 mg Heparin Sodium (Porcine) (Heparin) 5,000 units SC Q12 [facility] PRN Reason: Protocol Hydrocortisone (Cortizone 1% Cream) 0 gm TOP BID [facility] Ceftriaxone Sodium (Rocephin 2 Gm Ivpb) 2 gm in 100 mls @ 100 mls/hr IVPB STAT STA PRN Reason: Protocol Stop: 08/06/17 18:42 Labetalol HCl (Trandate) 20 mg IV Q6H PRN PRN Reason: Systolic Blood Pressure Lisinopril (Zestril) 5 mg PO DAILY [facility] Last Admin: 08/06/17 14:57 Dose: Not Given Pantoprazole Sodium (Protonix Ec Tab) 40 mg PO 0600 [facility] Results - Vital Signs Recent Vital Signs: Last Vital Signs Temp 98.1 F 08/06/17 11:52 Pulse 79 08/06/17 11:52 Resp 18 08/06/17 11:52 BP 184/98 H 08/06/17 11:52 Pulse Ox 98 08/06/17 06:00 - Labs Result Diagrams: 08/06/17 05:30 08/06/17 05:30 Labs: Laboratory Results - last 24 hr 08/05/17 08/05/17 08/06/17 08:14 13:40 05:30 WBC 17.5 H D RBC 5.02 Hgb 14.9 Hct 44.2 MCV 88.0 MCH 29.7 MCHC 33.7 RDW 13.5 Plt Count 458 H MPV 10.0 Gran % 71.1 H Lymph % (Auto) 20.7 L [place] % (Auto) 6.9 H Eos % (Auto) 0.7 L Baso % (Auto) 0.6 Gran # 12.43 H Lymph # (Auto) 3.6 H [place] # (Auto) 1.2 H Eos # (Auto) 0.1 Baso # (Auto) 0.10 Sodium Potassium Chloride Carbon Dioxide Anion Gap BUN Creatinine Est GFR ( Amer) Est GFR (Non-Af Amer) Random Glucose Calcium Total Bilirubin AST ALT Alkaline Phosphatase Total Protein Albumin Globulin Albumin/Globulin Ratio Homocysteine 7.0 Procalcitonin Urine Color Urine Appearance Urine pH Ur Specific [place] Urine Protein Urine Glucose (UA) Urine Ketones Urine Blood Urine Nitrate Urine Bilirubin Urine Urobilinogen Ur Leukocyte Esterase Urine RBC Urine WBC Ur Epithelial Cells Urine Bacteria Anti-Cardiolipin IgG Ab <14 HIV 1&2 Ag/Ab, 4th Gen Nonreactive 08/06/17 08/06/17 08/06/17 05:30 06:30 13:30 WBC RBC Hgb Hct MCV MCH MCHC RDW Plt Count MPV Gran % Lymph % (Auto) [place] % (Auto) Eos % (Auto) Baso % (Auto) Gran # Lymph # (Auto) [place] # (Auto) Eos # (Auto) Baso # (Auto) Sodium 142 Potassium 3.7 Chloride 103 Carbon Dioxide 27 Anion Gap 16 BUN 13 Creatinine 0.7 Est GFR ( Amer) > 60 Est GFR (Non-Af Amer) > 60 Random Glucose 123 H Calcium 10.0 Total Bilirubin 0.9 AST 37 H D ALT 28 Alkaline Phosphatase 63 Total Protein 7.9 Albumin 4.4 Globulin 3.5 Albumin/Globulin Ratio 1.3 Homocysteine Procalcitonin 0.05 L Urine Color Yellow Urine Appearance Clear Urine pH 6.0 Ur Specific [place] <= 1.005 Urine Protein Negative Urine Glucose (UA) Negative Urine Ketones Negative Urine Blood Moderate H Urine Nitrate Negative Urine Bilirubin Negative Urine Urobilinogen 0.2 Ur Leukocyte Esterase Trace H Urine RBC 0 - 2 Urine WBC 2 - 5 Ur Epithelial Cells 4 - 5 Urine Bacteria Mod Anti-Cardiolipin IgG Ab HIV 1&2 Ag/Ab, 4th Gen Assessment & Plan - Assessment and Plan (Free Text) Assessment: Patient seen and examined, with resident, agree with note with following additions/exceptions: Patient is 52yo female, with PMhx of obesity, HTN, a/w L sided weakness, found to have MRI show occlusion of R MCA, R ICA, 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 Scheduled for diagnostic cerebral angiogram in AM and possible carotid stenting. Afebrile, HD stable, comfortable NAD. NPO after MN, ASA, Plavix, Statin, BP permissive HTN. Q1hr neuro checks. Stable , monitor in MICU
--- NOTE | 2017-08-06 17:30 | CT ---
PROCEDURE: CT HEAD WITHOUT CONTRAST. HISTORY: neuro change COMPARISON: 08/04/2017 CT head 08/04/2017 MRI brain CTA head neck documenting occlusion of the right internal carotid artery TECHNIQUE: Axial computed tomography images were obtained through the head/brain without intravenous contrast. Radiation dose: Total exam DLP = 99.70 mGy-cm. This CT exam was performed using one or more of the following dose reduction techniques: Automated exposure control, adjustment of the mA and/or kV according to patient size, and/or use of iterative reconstruction technique. FINDINGS: HEMORRHAGE: No intracranial hemorrhage. BRAIN: Involving areas of cortical infarction right frontal lobe. This includes new areas of infarct in the more medial and superior Aspect of the right frontal lobe, not seen previously Evolving areas of infarction in the right temporal lobe. VENTRICLES: Unremarkable. No hydrocephalus. CALVARIUM: Unremarkable. PARANASAL SINUSES: Unremarkable as visualized. No significant inflammatory changes. MASTOID AIR CELLS: Unremarkable as visualized. No inflammatory changes. OTHER FINDINGS: None. IMPRESSION: Multiple areas of cortical infarction, progressive although nonhemorrhagic now identified in the medial superior aspect of the right frontal lobe, right temporal lobe. The original area of cortical infarction has increased as well. No appreciable midline shift.
[2017-08-06] MEDS ORDERED: cefTRIAXone 2 GM IN NS 2 GM/100 ML BAG IVPB STA (17:43)
[2017-08-06] MEDS: Hydrocortisone 1% Cream (30 GM) TOP SCH (18:28)
[2017-08-07] MEDS: Pantoprazole 40 mg EC Tab PO SCH (05:59)
[2017-08-07 06:54] LABS: BASO # 0.1 K/mm3 (0.0-2.0); BASO % 0.6 % (0.0-3.0); EOS # 0.1 (0.0-0.7); EOS % 0.8 % (1.5-5.0); GRAN # 12.04 (1.4-6.5); GRAN % 72.5 % (50.0-68.0); HEMOGLOBIN 15.1 g/dL (12.0-16.0); LYMPH # 3.4 (1.2-3.4); LYMPH % 20.3 % (22.0-35.0); MEAN CELL VOLUME 88.3 fl (80.0-105.0); MEAN CORPUSCULAR HEMOGLOBIN 29.5 pg (25.0-35.0); MEAN CORPUSCULAR HGB CONC 33.5 g/dl (31.0-37.0); MEAN PLATELET VOLUME 10.2 fl (7.0-11.0); MONO % 5.8 % (1.0-6.0); RBC 5.11 10^6/uL (3.5-6.1); RED CELL DISTRIBUTION WIDTH 13.6 % (11.5-14.5); WHITE BLOOD COUNT 16.6 10^3/ul (4.5-11.0)
--- NOTE | 2017-08-07 07:10 | CP.CCUPN ---
<Keshav Moore - Last Filed: 08/07/17 10:38> CCU Subjective - Physician Review Subjective (Free Text): Keshav oMore PGY1 ICU Progress Note for Dr. Duffy Patient was seen and examined at bedside. She states that she is still unable to move her Left side (arm/leg). Otherwise, she denies any acute overnight events and is comfortable, but anxious about her procedure. CCU Objective - Vital Signs / Intake & Output Intake and Output (Last 8hrs): Intake & Output 08/06/17 08/07/17 08/07/17 22:59 06:59 14:59 Intake Total 300 Output Total 600 Balance -300 Intake: Oral 300 Output: Urine 600 Urine, Voided 600 Other: # Bowel Movements 1 - Physical Exam Head: Positive for: Atraumatic, Normocephalic Pupils: Positive for: PERRL Extroacular Muscles: Positive for: EOMI Conjunctiva: Positive for: Normal Mouth: Positive for: Moist Mucous Membranes Neck: Positive for: Normal Range of Motion Respiratory/Chest: Positive for: Clear to Auscultation, Good Air Exchange. Negative for: Respiratory Distress, Accessory Muscle Use Cardiovascular: Positive for: Regular Rate and Rhythm, Normal S1, S2. Negative for: Murmurs Abdomen: Positive for: Normal Bowel Sounds. Negative for: Tenderness, Distention, Peritoneal Signs Back: Positive for: Normal Inspection Upper Extremity: Positive for: Normal Inspection, Other (LUE muscle strength 0/5 ). Negative for: Cyanosis, Edema, Normal ROM Lower Extremity: Positive for: Normal Inspection, Other (LLE muscle strength 0/5 ). Negative for: Edema Neurological: Positive for: GCS=15, CN II-XII Intact, Speech Normal, Normal Sensory Function (x4 extremities ). Negative for: Motor Func Grossly Intact Skin: Positive for: Warm, Dry, Normal Color. Negative for: Rashes Psychiatric: Positive for: Alert, Oriented x 3, Normal Insight, Normal Concentration - Medications Active Medications: Active Medications Generic Name Dose Route Start Last Admin Trade Name Freq PRN Reason Stop Dose Admin Aspirin 81 mg 08/05/17 10:00 08/06/17 09:45 Ecotrin PO 81 mg DAILY DULCE MARIA Administration Atorvastatin Calcium 40 mg 08/04/17 19:45 08/06/17 18:45 Lipitor PO 40 mg DIN DULCE MARIA Administration Clopidogrel Bisulfate 75 mg 08/06/17 10:00 08/06/17 09:46 Plavix PO 75 mg DAILY DULCE MARIA Administration Heparin Sodium (Porcine) 5,000 units 08/06/17 22:00 08/06/17 22:47 Heparin SC 5,000 units Q12 DULCE MARIA Administration Protocol Hydrocortisone 0 gm 08/06/17 18:00 08/06/17 18:28 Cortizone 1% Cream TOP 1 cre BID DULCE MARIA Administration Labetalol HCl 20 mg 08/06/17 10:52 Trandate IV Q6H PRN Systolic Blood Pressure Lisinopril 5 mg 08/06/17 12:00 08/06/17 14:57 Zestril PO Not Given DAILY [facility] Pantoprazole Sodium 40 mg 08/07/17 06:00 08/07/17 05:59 Protonix Ec Tab PO Not Given 0600 [facility] - Patient Studies Lab Studies: Lab Studies 08/06/17 08/06/17 08/05/17 Range/Units 13:30 06:30 13:40 Homocysteine 7.0 ( <10.4) umol/L Procalcitonin 0.05 L (0.19-0.49) NG/ML Urine Color Yellow (YELLOW) Urine Appearance Clear (CLEAR) Urine pH 6.0 (4.7-8.0) Ur Specific [place] <= 1.005 (1.005-1.035) Urine Protein Negative (<30 mg/dL) mg/dL Urine Glucose (UA) Negative (NEGATIVE) mg/dL Urine Ketones Negative (NEGATIVE) mg/dL Urine Blood Moderate H (NEGATIVE) Urine Nitrate Negative (NEGATIVE) Urine Bilirubin Negative (NEGATIVE) Urine Urobilinogen 0.2 (<1 E.U./dL) E.U./dL Ur Leukocyte Esterase Trace H (NEGATIVE) Karlie/uL Urine RBC 0 - 2 (0-2) /hpf Urine WBC 2 - 5 (0-6) /hpf Ur Epithelial Cells 4 - 5 (0-5) /hpf Urine Bacteria Mod (NEG) Anti-Cardiolipin IgG Ab <14 (<=14) GPL HIV 1&2 Ag/Ab, 4th Gen (Nonreactive) 08/05/17 Range/Units 08:14 Homocysteine ( <10.4) umol/L Procalcitonin (0.19-0.49) NG/ML Urine Color (YELLOW) Urine Appearance (CLEAR) Urine pH (4.7-8.0) Ur Specific [place] (1.005-1.035) Urine Protein (<30 mg/dL) mg/dL Urine Glucose (UA) (NEGATIVE) mg/dL Urine Ketones (NEGATIVE) mg/dL Urine Blood (NEGATIVE) Urine Nitrate (NEGATIVE) Urine Bilirubin (NEGATIVE) Urine Urobilinogen (<1 E.U./dL) E.U./dL Ur Leukocyte Esterase (NEGATIVE) Karlie/uL Urine RBC (0-2) /hpf Urine WBC (0-6) /hpf Ur Epithelial Cells (0-5) /hpf Urine Bacteria (NEG) Anti-Cardiolipin IgG Ab (<=14) GPL HIV 1&2 Ag/Ab, 4th Gen Nonreactive (Nonreactive) Laboratory Results - last 24 hr 08/05/17 08/05/17 08/06/17 08:14 13:40 06:30 Homocysteine 7.0 Procalcitonin 0.05 L Urine Color Urine Appearance Urine pH Ur Specific [place] Urine Protein Urine Glucose (UA) Urine Ketones Urine Blood Urine Nitrate Urine Bilirubin Urine Urobilinogen Ur Leukocyte Esterase Urine RBC Urine WBC Ur Epithelial Cells Urine Bacteria Anti-Cardiolipin IgG Ab <14 HIV 1&2 Ag/Ab, 4th Gen Nonreactive 08/06/17 13:30 Homocysteine Procalcitonin Urine Color Yellow Urine Appearance Clear Urine pH 6.0 Ur Specific [place] <= 1.005 Urine Protein Negative Urine Glucose (UA) Negative Urine Ketones Negative Urine Blood Moderate H Urine Nitrate Negative Urine Bilirubin Negative Urine Urobilinogen 0.2 Ur Leukocyte Esterase Trace H Urine RBC 0 - 2 Urine WBC 2 - 5 Ur Epithelial Cells 4 - 5 Urine Bacteria Mod Anti-Cardiolipin IgG Ab HIV 1&2 Ag/Ab, 4th Gen Fingerstick Blood Sugar Results: 98 Review of Systems - Review of Systems All systems: reviewed and no additional remarkable complaints except (as per HPI ) Critical Care Progress Note - Extremities/Vascular Does the Patient have a Central Venous Catheter?: No Does the Patient need a Central Venous Catheter?: No Does the Patient have a Pena Catheter?: No Does the Patient need a Pena Catheter?: No - Prophylaxis GI Prophylaxis GI: PPI - Prophylaxis DVT Prophylaxis DVT: Heparin SQ, SCDs - Nutrition Nutrition: Nutrition Category Date Time Status Heart Healthy Diet [DIET] Diets 08/06/17 Lunch Ordered Assessment/Plan - Assessment and Plan (Free Text) Assessment: 52 year old female with past medical history of hypertension (not on medications ), substance abuse (non-prescribed percocet) who presented with complaints of L sided weakness x1 week, found to have multiple acute infarcts on imaging. Transferred to ICU for neuro monitoring given change in motor function w/ increased decreased L sided motor function. repeat CT Head showed increased area of cerebral infarct. Plan: Neuro: - awake and alert, at baseline - repeat CT Head showed multiple areas of cortical infarction, progressive although nonhemorrhagic now identified in the medial superior aspect of the right frontal lobe, right temporal lobe. The original area of cortical infarction has increased as well. - cont ASA and Plavix - cont Lipitor - Per neuro, d/c htn meds since no bleeds on CT and for permissive htn - permissive HTN SBP <180, DBP <100 - neurochecks and vitals check per protocol - scheduled for diagnostic cerebral angiogram and possible carotid stenting - follow up on coagulation studies - Neuro, Neurosurg and Cardio consulted - high fall risk Cardio: - cont ASA and Plavix - VS checks per protocol - permissive HTN w/ treatment parameters for SBP > 180, DBP >100 - cardio consulted, recs appreciated - hold BP meds Pulm: - breathing comfortably - aspiration precautions GI: - will give diet if no procedure planned today by neurosurg - gi ppx Renal: - monitor UOP - monitor electrolytes and replete appropriately ID: - WBC elevated - CXR was unremarkable - likely reactive - monitor for signs of infection Heme: - H/H stable - dvt ppx - coagulability workup pending Endo: - maintain euglycemia Diet: HHD, NPO past mn if procedure DVT PPX: Heparin, SCDs GI PPX: ptx Dispo: will monitor neuro changes, and wait for neuro/neuro surg recs Patient seen, examined and discussed with attending, Dr. Tati Moore PGY1 Pager # [phone] <Kike Duffy - Last Filed: 08/07/17 11:21> CCU Objective - Vital Signs / Intake & Output Intake and Output (Last 8hrs): Intake & Output 08/06/17 08/07/17 08/07/17 22:59 06:59 14:59 Intake Total 300 Output Total 600 Balance -300 Intake: Oral 300 Output: Urine 600 Urine, Voided 600 Other: # Bowel Movements 1 - Medications Active Medications: Active Medications Generic Name Dose Route Start Last Admin Trade Name Freq PRN Reason Stop Dose Admin Aspirin 81 mg 08/05/17 10:00 08/06/17 09:45 Ecotrin PO 81 mg DAILY DULCE MARIA Administration Atorvastatin Calcium 40 mg 08/04/17 19:45 08/06/17 18:45 Lipitor PO 40 mg DIN DULCE MARIA Administration Clopidogrel Bisulfate 75 mg 08/06/17 10:00 08/06/17 09:46 Plavix PO 75 mg DAILY DULCE MARIA Administration Heparin Sodium (Porcine) 5,000 units 08/06/17 22:00 08/06/17 22:47 Heparin SC 5,000 units Q12 [facility] Administration Protocol Hydrocortisone 0 gm 08/06/17 18:00 08/06/17 18:28 Cortizone 1% Cream TOP 1 cre BID DULCE MARIA Administration Sodium Chloride 1,000 mls @ 100 mls/hr 08/07/17 10:30 Sodium Chloride 0.9% IV .Q10H [facility] Labetalol HCl 20 mg 08/06/17 10:52 Trandate IV Q6H PRN Systolic Blood Pressure Lisinopril 5 mg 08/06/17 12:00 08/06/17 14:57 Zestril PO Not Given DAILY [facility] Pantoprazole Sodium 40 mg 08/07/17 06:00 08/07/17 05:59 Protonix Ec Tab PO Not Given 0600 [facility] - Patient Studies Lab Studies: Microbiology Studies 08/06/17 10:30 Blood Culture - Preliminary Blood NO GROWTH AFTER 24 HOURS Lab Studies 08/07/17 08/07/17 08/06/17 Range/Units 06:00 06:00 13:30 WBC 16.6 H (4.5-11.0) 10^3/ul RBC 5.11 (3.5-6.1) 10^6/uL Hgb 15.1 (12.0-16.0) g/dL Hct 45.1 (36.0-48.0) % MCV 88.3 (80.0-105.0) fl MCH 29.5 (25.0-35.0) pg MCHC 33.5 (31.0-37.0) g/dl RDW 13.6 (11.5-14.5) % Plt Count 449 (120.0-450.0) 10^3/uL MPV 10.2 (7.0-11.0) fl Gran % 72.5 H (50.0-68.0) % Lymph % (Auto) 20.3 L (22.0-35.0) % [place] % (Auto) 5.8 (1.0-6.0) % Eos % (Auto) 0.8 L (1.5-5.0) % Baso % (Auto) 0.6 (0.0-3.0) % Gran # 12.04 H (1.4-6.5) Lymph # (Auto) 3.4 (1.2-3.4) [place] # (Auto) 1.0 H (0.1-0.6) Eos # (Auto) 0.1 (0.0-0.7) Baso # (Auto) 0.10 (0.0-2.0) K/mm3 Sodium 144 (132-148) mmol/L Potassium 3.7 (3.6-5.0) mmol/L Chloride 106 (98-107) mmol/L Carbon Dioxide 24 (21-33) mmol/L Anion Gap 18 (10-20) BUN 15 (7-21) mg/dL Creatinine 0.7 (0.7-1.2) mg/dl Est GFR ( Amer) > 60 Est GFR (Non-Af Amer) > 60 Random Glucose 106 (70-110) mg/dL Calcium 9.7 (8.4-10.5) mg/dL Total Bilirubin 0.6 (0.2-1.3) mg/dL AST 32 (14-36) U/L ALT 25 (7-56) U/L Alkaline Phosphatase 62 (38-126) U/L Total Protein 7.8 (5.8-8.3) g/dL Albumin 4.3 (3.0-4.8) g/dL Globulin 3.5 gm/dL Albumin/Globulin Ratio 1.2 (1.1-1.8) Procalcitonin (0.19-0.49) NG/ML Urine Color Yellow (YELLOW) Urine Appearance Clear (CLEAR) Urine pH 6.0 (4.7-8.0) Ur Specific [place] <= 1.005 (1.005-1.035) Urine Protein Negative (<30 mg/dL) mg/dL Urine Glucose (UA) Negative (NEGATIVE) mg/dL Urine Ketones Negative (NEGATIVE) mg/dL Urine Blood Moderate H (NEGATIVE) Urine Nitrate Negative (NEGATIVE) Urine Bilirubin Negative (NEGATIVE) Urine Urobilinogen 0.2 (<1 E.U./dL) E.U./dL Ur Leukocyte Esterase Trace H (NEGATIVE) Karlie/uL Urine RBC 0 - 2 (0-2) /hpf Urine WBC 2 - 5 (0-6) /hpf Ur Epithelial Cells 4 - 5 (0-5) /hpf Urine Bacteria Mod (NEG) Anti-Cardiolipin IgG Ab (<=14) GPL HIV 1&2 Ag/Ab, 4th Gen (Nonreactive) 08/06/17 08/05/17 08/05/17 Range/Units 06:30 13:40 08:14 WBC (4.5-11.0) 10^3/ul RBC (3.5-6.1) 10^6/uL Hgb (12.0-16.0) g/dL Hct (36.0-48.0) % MCV (80.0-105.0) fl MCH (25.0-35.0) pg MCHC (31.0-37.0) g/dl RDW (11.5-14.5) % Plt Count (120.0-450.0) 10^3/uL MPV (7.0-11.0) fl Gran % (50.0-68.0) % Lymph % (Auto) (22.0-35.0) % [place] % (Auto) (1.0-6.0) % Eos % (Auto) (1.5-5.0) % Baso % (Auto) (0.0-3.0) % Gran # (1.4-6.5) Lymph # (Auto) (1.2-3.4) [place] # (Auto) (0.1-0.6) Eos # (Auto) (0.0-0.7) Baso # (Auto) (0.0-2.0) K/mm3 Sodium (132-148) mmol/L Potassium (3.6-5.0) mmol/L Chloride (98-107) mmol/L Carbon Dioxide (21-33) mmol/L Anion Gap (10-20) BUN (7-21) mg/dL Creatinine (0.7-1.2) mg/dl Est GFR ( Amer) Est GFR (Non-Af Amer) Random Glucose (70-110) mg/dL Calcium (8.4-10.5) mg/dL Total Bilirubin (0.2-1.3) mg/dL AST (14-36) U/L ALT (7-56) U/L Alkaline Phosphatase (38-126) U/L Total Protein (5.8-8.3) g/dL Albumin (3.0-4.8) g/dL Globulin gm/dL Albumin/Globulin Ratio (1.1-1.8) Procalcitonin 0.05 L (0.19-0.49) NG/ML Urine Color (YELLOW) Urine Appearance (CLEAR) Urine pH (4.7-8.0) Ur Specific [place] (1.005-1.035) Urine Protein (<30 mg/dL) mg/dL Urine Glucose (UA) (NEGATIVE) mg/dL Urine Ketones (NEGATIVE) mg/dL Urine Blood (NEGATIVE) Urine Nitrate (NEGATIVE) Urine Bilirubin (NEGATIVE) Urine Urobilinogen (<1 E.U./dL) E.U./dL Ur Leukocyte Esterase (NEGATIVE) Karlie/uL Urine RBC (0-2) /hpf Urine WBC (0-6) /hpf Ur Epithelial Cells (0-5) /hpf Urine Bacteria (NEG) Anti-Cardiolipin IgG Ab <14 (<=14) GPL HIV 1&2 Ag/Ab, 4th Gen Nonreactive (Nonreactive) Laboratory Results - last 24 hr 08/05/17 08/05/17 08/06/17 08:14 13:40 06:30 WBC RBC Hgb Hct MCV MCH MCHC RDW Plt Count MPV Gran % Lymph % (Auto) [place] % (Auto) Eos % (Auto) Baso % (Auto) Gran # Lymph # (Auto) [place] # (Auto) Eos # (Auto) Baso # (Auto) Sodium Potassium Chloride Carbon Dioxide Anion Gap BUN Creatinine Est GFR ( Amer) Est GFR (Non-Af Amer) Random Glucose Calcium Total Bilirubin AST ALT Alkaline Phosphatase Total Protein Albumin Globulin Albumin/Globulin Ratio Procalcitonin 0.05 L Urine Color Urine Appearance Urine pH Ur Specific [place] Urine Protein Urine Glucose (UA) Urine Ketones Urine Blood Urine Nitrate Urine Bilirubin Urine Urobilinogen Ur Leukocyte Esterase Urine RBC Urine WBC Ur Epithelial Cells Urine Bacteria Anti-Cardiolipin IgG Ab <14 HIV 1&2 Ag/Ab, 4th Gen Nonreactive 08/06/17 08/07/17 08/07/17 13:30 06:00 06:00 WBC 16.6 H RBC 5.11 Hgb 15.1 Hct 45.1 MCV 88.3 MCH 29.5 MCHC 33.5 RDW 13.6 Plt Count 449 MPV 10.2 Gran % 72.5 H Lymph % (Auto) 20.3 L [place] % (Auto) 5.8 Eos % (Auto) 0.8 L Baso % (Auto) 0.6 Gran # 12.04 H Lymph # (Auto) 3.4 [place] # (Auto) 1.0 H Eos # (Auto) 0.1 Baso # (Auto) 0.10 Sodium 144 Potassium 3.7 Chloride 106 Carbon Dioxide 24 Anion Gap 18 BUN 15 Creatinine 0.7 Est GFR ( Amer) > 60 Est GFR (Non-Af Amer) > 60 Random Glucose 106 Calcium 9.7 Total Bilirubin 0.6 AST 32 ALT 25 Alkaline Phosphatase 62 Total Protein 7.8 Albumin 4.3 Globulin 3.5 Albumin/Globulin Ratio 1.2 Procalcitonin Urine Color Yellow Urine Appearance Clear Urine pH 6.0 Ur Specific [place] <= 1.005 Urine Protein Negative Urine Glucose (UA) Negative Urine Ketones Negative Urine Blood Moderate H Urine Nitrate Negative Urine Bilirubin Negative Urine Urobilinogen 0.2 Ur Leukocyte Esterase Trace H Urine RBC 0 - 2 Urine WBC 2 - 5 Ur Epithelial Cells 4 - 5 Urine Bacteria Mod Anti-Cardiolipin IgG Ab HIV 1&2 Ag/Ab, 4th Gen Critical Care Progress Note - Nutrition Nutrition: Nutrition Category Date Time Status Heart Healthy Diet [DIET] Diets 08/07/17 Lunch Ordered Assessment/Plan - Assessment and Plan (Free Text) Assessment: Patient seen and examined, with resident, agree with note with following additions/exceptions: Patient is 52yo female, with PMhx of obesity, HTN, a/w L sided weakness, found to have MRI show occlusion of R MCA, R ICA, stenosis of R FRONT DESK REPRESENTATIVE. Scheduled for diagnostic cerebral angiogram tomorrow and possible carotid stenting. Afebrile, HD stable, comfortable NAD. Acute CVA HTN HLD Obesity Recommend: - supp o2 as needed - monitor off antibiotics - follow up procal, UCx, BCx - cont ASA and Plavix - cont Lipitor - Per neuro, d/c htn meds since no bleeds on CT and for permissive htn - neurochecks - scheduled for diagnostic cerebral angiogram and possible carotid stenting - GI ppx, - DVT ppx - Stable, monitor in MICU
[2017-08-07 07:38] LABS: ALB/GLOB RATIO 1.2 (1.1-1.8); ALBUMIN 4.3 g/dL (3.0-4.8); ALT/SGPT 25 U/L (7-56); AST/SGOT 32 U/L (14-36); BLOOD UREA NITROGEN 15 mg/dL (7-21); CALCIUM 9.7 mg/dL (8.4-10.5); GFR AFRICAN-AMERICAN > 60; GFR NON-AFRICAN AMERICAN > 60
--- NOTE | 2017-08-07 08:04 | CP.PCM.PN ---
<Altaf Camara - Last Filed: 08/07/17 08:01> Subjective - Date & Time of Evaluation Date of Evaluation: 08/07/17 Time of Evaluation: 07:20 - Subjective Subjective: Neuro progress note: Pt was seen and examined at the bedside. No acute events overnight. NPO for cerebral angio today. Pt with L upper extremity hemiplegia and L lower ext weakness. Tongue numbness has improved. No other complaints. 12 Point ROS performed and neg other than stated above. Objective - Vital Signs/Intake and Output Vital Signs (last 24 hours): Temp Pulse Resp BP Pulse Ox 98 F 84 18 145/73 98 08/06/17 18:00 08/07/17 00:32 08/06/17 18:00 08/06/17 18:00 08/06/17 06:00 - Medications Medications: Current Medications Aspirin (Ecotrin) 81 mg PO DAILY [facility] Last Admin: 08/06/17 09:45 Dose: 81 mg Atorvastatin Calcium (Lipitor) 40 mg PO DIN [facility] Last Admin: 08/06/17 18:45 Dose: 40 mg Clopidogrel Bisulfate (Plavix) 75 mg PO DAILY [facility] Last Admin: 08/06/17 09:46 Dose: 75 mg Heparin Sodium (Porcine) (Heparin) 5,000 units SC Q12 [facility] PRN Reason: Protocol Last Admin: 08/06/17 22:47 Dose: 5,000 units Hydrocortisone (Cortizone 1% Cream) 0 gm TOP BID [facility] Last Admin: 08/06/17 18:28 Dose: 1 cre Labetalol HCl (Trandate) 20 mg IV Q6H PRN PRN Reason: Systolic Blood Pressure Lisinopril (Zestril) 5 mg PO DAILY [facility] Last Admin: 08/06/17 14:57 Dose: Not Given Pantoprazole Sodium (Protonix Ec Tab) 40 mg PO 0600 [facility] Last Admin: 08/07/17 05:59 Dose: Not Given - Labs Labs: 08/07/17 06:00 08/07/17 06:00 PT 12.5 SECONDS (9.4-12.5) 08/05/17 06:00 INR 1.09 (0.93-1.08) H 08/05/17 06:00 APTT 30.2 Seconds (25.1-36.5) 08/05/17 06:00 - Constitutional Appears: No Acute Distress - Eye Exam Eye Exam: EOMI, PERRL Pupil Exam: NORMAL ACCOMODATION - Neurological Exam Neurological Exam: Alert, Awake, Oriented x3 Neuro motor strength exam: Left Upper Extremity: 0, Right Upper Extremity: 5, Left Lower Extremity: 3, Right Lower Extremity: 5 Assessment and Plan - Assessment and Plan (Free Text) Assessment: 52 F with past history of hypertension who presents with complaints of Left upper extremity paralysis and L lower extremities weakness and tongue numbness. Found to have R frontal and temporal acute infarcts embolic in nature. - NPO - Dr Epps consulted for any possible neurointervention - cerebral angio and possible carotid stenting today - CT head -multiple areas of cortical infarction progressive in the medial superior aspect of R frontal and temporal lobe - Q1H neurochecks - MRA of head and neck showed R ICA occlusion - CTA or head and neck - Occlusion of R ICA at the origin - Echo with bubble study -reviewed - Maintain BP control with systolic <160 - Cont Lipitor ASA and Plavix - HOB elevation to 35' - PT and OT; Speech eval - Neuro checks Case and plan was reviewed and discussed with Dr Newberry. <Michelle Newberry - Last Filed: 08/07/17 10:39> Objective - Vital Signs/Intake and Output Vital Signs (last 24 hours): Temp Pulse Resp BP Pulse Ox 98 F 84 18 145/73 98 08/06/17 18:00 08/07/17 00:32 08/06/17 18:00 08/06/17 18:00 08/06/17 06:00 - Medications Medications: Current Medications Aspirin (Ecotrin) 81 mg PO DAILY [facility] Last Admin: 08/06/17 09:45 Dose: 81 mg Atorvastatin Calcium (Lipitor) 40 mg PO DIN [facility] Last Admin: 08/06/17 18:45 Dose: 40 mg Clopidogrel Bisulfate (Plavix) 75 mg PO DAILY [facility] Last Admin: 08/06/17 09:46 Dose: 75 mg Heparin Sodium (Porcine) (Heparin) 5,000 units SC Q12 [facility] PRN Reason: Protocol Last Admin: 08/06/17 22:47 Dose: 5,000 units Hydrocortisone (Cortizone 1% Cream) 0 gm TOP BID [facility] Last Admin: 08/06/17 18:28 Dose: 1 cre Sodium Chloride (Sodium Chloride 0.9%) 1,000 mls @ 100 mls/hr IV .Q10H [facility] Labetalol HCl (Trandate) 20 mg IV Q6H PRN PRN Reason: Systolic Blood Pressure Lisinopril (Zestril) 5 mg PO DAILY [facility] Last Admin: 08/06/17 14:57 Dose: Not Given Pantoprazole Sodium (Protonix Ec Tab) 40 mg PO 0600 [facility] Last Admin: 08/07/17 05:59 Dose: Not Given - Labs Labs: 08/07/17 06:00 08/07/17 06:00 PT 12.5 SECONDS (9.4-12.5) 08/05/17 06:00 INR 1.09 (0.93-1.08) H 08/05/17 06:00 APTT 30.2 Seconds (25.1-36.5) 08/05/17 06:00 Assessment and Plan - Assessment and Plan (Free Text) Assessment: Attending physician addendum: Spoke to and the procedure is postponed to tomorrow am. Patient continues to have waxing and waning symptoms. discontinue antihypertensives, and allow permissive hypertension. continue antiplatelets. Dr. Michelle Hager MD, DPN
--- NOTE | 2017-08-07 09:43 | CP.PCM.PN ---
<Milan Silverman - Last Filed: 08/07/17 15:44> Subjective - Date & Time of Evaluation Date of Evaluation: 08/07/17 Time of Evaluation: 06:00 - Subjective Subjective: Patient seen and evaluated bedside in ICU, no acute issues overnight. Patient denies any chest pain, shortness of breath, slurred speech or any additional complaints at this time. Objective - Vital Signs/Intake and Output Vital Signs (last 24 hours): Temp Pulse Resp BP Pulse Ox 98 F 84 18 145/73 98 08/06/17 18:00 08/07/17 00:32 08/06/17 18:00 08/06/17 18:00 08/06/17 06:00 - Medications Medications: Current Medications Aspirin (Ecotrin) 81 mg PO DAILY [facility] Last Admin: 08/06/17 09:45 Dose: 81 mg Atorvastatin Calcium (Lipitor) 40 mg PO DIN [facility] Last Admin: 08/06/17 18:45 Dose: 40 mg Clopidogrel Bisulfate (Plavix) 75 mg PO DAILY [facility] Last Admin: 08/06/17 09:46 Dose: 75 mg Heparin Sodium (Porcine) (Heparin) 5,000 units SC Q12 [facility] PRN Reason: Protocol Last Admin: 08/06/17 22:47 Dose: 5,000 units Hydrocortisone (Cortizone 1% Cream) 0 gm TOP BID [facility] Last Admin: 08/06/17 18:28 Dose: 1 cre Labetalol HCl (Trandate) 20 mg IV Q6H PRN PRN Reason: Systolic Blood Pressure Lisinopril (Zestril) 5 mg PO DAILY [facility] Last Admin: 08/06/17 14:57 Dose: Not Given Pantoprazole Sodium (Protonix Ec Tab) 40 mg PO 0600 [facility] Last Admin: 08/07/17 05:59 Dose: Not Given - Labs Labs: 08/07/17 06:00 08/07/17 06:00 PT 12.5 SECONDS (9.4-12.5) 08/05/17 06:00 INR 1.09 (0.93-1.08) H 08/05/17 06:00 APTT 30.2 Seconds (25.1-36.5) 08/05/17 06:00 - Constitutional Appears: Non-toxic, No Acute Distress - Head Exam Head Exam: ATRAUMATIC, NORMAL INSPECTION, NORMOCEPHALIC - Eye Exam Eye Exam: Normal appearance - Neck Exam Neck Exam: absent: Lymphadenopathy - Respiratory Exam Respiratory Exam: Clear to Ausculation Bilateral, NORMAL BREATHING PATTERN - Cardiovascular Exam Cardiovascular Exam: REGULAR RHYTHM - GI/Abdominal Exam GI & Abdominal Exam: Soft - Extremities Exam Extremities Exam: Pedal Edema. absent: Full ROM - Neurological Exam Neurological Exam: Alert, Awake, Oriented x3 Neuro motor strength exam: Left Upper Extremity: 2/1, Left Lower Extremity: 2/1 , Right Lower Extremity: 5 Assessment and Plan - Assessment and Plan (Free Text) Assessment: 52yo Female with PMH of uncontrolled HTN, substance abuse (quit alcohol many years ago), cervical spondylolisthesis, recent incarceration (was release from [facility] last month) admitted for acute CVA and uncontrolled HTN. Patient transferred to ICU for monitoring and possible stent placement in R ICA. Plan: 1. CVA - Pt transfered for pre-op monitoring in ICU. Neurochecks q1h. - Neurosurgery: Dr. Epps, consulted, possible OR for stent placement R ICA after cerebral angiogram - Cardiology consult: Dr. Levine for assessment, cleared preop - Heparin held, NPO for pre-op - Echo reveals EF 55%, LV with mild concentric hypertrophy. No other abnormalities. - MRA neck significant for R ICA occlusion. - Continue permissive HTN - Continue clopidogrel 75 mg PO, ASA 81 mg PO - Speech and language pathology, swallow eval and treatment - PT evaluation for CVA and deconditioning. - Neurology consult: Dr. Estevez - Hepatitis results return negative for HAV, HBV, HCV. TSH normal at 1.89 - Homocysteine 7. -Cardiolipin antibodies IgG negative -CT head from yesterday showing multiple areas of cortical infarction, progressive, non hemorrhagic now identified in the medial superior aspect of the right frontal lobe, right temporal lobe. The original area of cortical infarct has increased as well. No midline shift appreciated BP: 145/73 2. Leukocytosis: infection vs reactive -16.6 -No fever -CXR shows no active disease -Procal not elevated -cultures pending 3. Rash on right arm - Clotrimazole topical VTE prophylaxis: Heparin 5000 units currenlty held GI prophylaxis: pantoprazole 40 mg IVP daily <Rangasamy,Ajantha - Last Filed: 08/08/17 15:01> Objective - Vital Signs/Intake and Output Vital Signs (last 24 hours): Temp Pulse Resp BP Pulse Ox 98.2 F 74 31 H 180/92 H 98 08/08/17 00:52 08/08/17 12:40 08/08/17 12:40 08/08/17 12:30 08/06/17 06:00 - Medications Medications: Current Medications Acetaminophen (Tylenol 325mg Tab) 650 mg PO Q6H PRN PRN Reason: Pain, Mild (1-3) Aspirin (Ecotrin) 81 mg PO DAILY [facility] Last Admin: 08/07/17 12:18 Dose: 81 mg Atorvastatin Calcium (Lipitor) 40 mg PO DIN [facility] Last Admin: 08/07/17 19:22 Dose: 40 mg Clopidogrel Bisulfate (Plavix) 75 mg PO DAILY [facility] Last Admin: 08/07/17 12:19 Dose: 75 mg Heparin Sodium (Porcine) (Heparin) 5,000 units SC Q12 [facility] PRN Reason: Protocol Last Admin: 08/06/17 22:47 Dose: 5,000 units Hydrocortisone (Cortizone 1% Cream) 0 gm TOP BID [facility] Last Admin: 08/07/17 17:54 Dose: 1 cre Sodium Chloride (Sodium Chloride 0.9%) 1,000 mls @ 100 mls/hr IV .Q10H [facility] Last Admin: 08/08/17 06:15 Dose: 100 mls/hr Ceftriaxone Sodium (Rocephin 2 Gm Ivpb) 2 gm in 100 mls @ 100 mls/hr IVPB DAILY [facility] PRN Reason: Protocol Last Admin: 08/08/17 09:49 Dose: 100 mls/hr Ibuprofen (Motrin Tab) 400 mg PO Q6H [facility] Last Admin: 08/08/17 06:14 Dose: Not Given Labetalol HCl (Trandate) 20 mg IV Q6H PRN PRN Reason: Systolic Blood Pressure Lisinopril (Zestril) 10 mg PO DAILY [facility] Pantoprazole Sodium (Protonix Ec Tab) 40 mg PO 0600 [facility] Last Admin: 08/08/17 06:14 Dose: Not Given - Labs Labs: 08/08/17 06:30 08/08/17 06:30 PT 12.5 SECONDS (9.4-12.5) 08/05/17 06:00 INR 1.09 (0.93-1.08) H 08/05/17 06:00 APTT 30.2 Seconds (25.1-36.5) 08/05/17 06:00 Attending/Attestation - Attestation I have personally seen and examined this patient.: Yes I have fully participated in the care of the patient.: Yes I have reviewed all pertinent clinical information, including history, physical exam and plan: Yes Notes (Text): 08/08/17 14:59 Attending note; Patient seen and examined with resident in ICU. Patient is a 52 year old Female with PMH of uncontrolled hypertension , noncompliance with medication is admitted for acute CVA and uncontrolled blood pressure. CT and MRI consistent with right frontal and temporal subacute stroke. Still with left-sided hemiparesis. Patient is currently alert, awake. MRA showed right internal carotid occlusion at the origin. MRA of head showed right MCA stenosis. patient was evaluated by . Plan for angiogram with possible stent placement. Cardiology evaluation appreciated. Tolerating diet. Speech and swallow evaluation appreciated. leukocytosis; mostly reactive. Patient is afebrile and nontoxic. Pro-wilber is negative. UA is positive. Urine culture is pending. On IV Rocephin. Continue aspirin, Plavix and Lipitor. Hypertension ; monitor closely. Allow permissive hypertension for today.Continue lisinopril when necessary. Physical therapy/occupational therapy evaluation appreciated. The diagnosis and follow-up plan discussed with patient in detail. Case discussed with director of social work for discharge planning. Upon discharge the patient will be referred to [facility] clinic.
--- NOTE | 2017-08-07 10:17 | CON ---
DATE: 08/07/2017 CARDIOLOGY CONSULTATION HISTORY OF PRESENT ILLNESS: The patient is a 52-year-old woman who presents with left-sided weakness. CT scan shows acute cerebral infarcts with an MRI showing a right middle cerebral artery occlusion. The patient has a history of hypertension, diabetes mellitus. She denies smoking. No previous cardiac history. No shortness of breath. No chest pain. REVIEW OF SYSTEMS: Fourteen-point review of systems was reviewed. No cardiac symptomatology is noted. PHYSICAL EXAMINATION: VITAL SIGNS: Blood pressure is 143/73, heart rate is in the 80s. NECK: Negative JVD. LUNGS: Without rales. HEART: With S1, S2. EXTREMITIES: Without edema. LABORATORY DATA: Chemistries unremarkable. Troponin is negative x1. Hemoglobin is 15.1. IMPRESSION: 1. Acute cerebrovascular accident. 2. History of hypertension. 3. History of Percocet self-administration. 4. Obesity. PLAN: Given these findings, the patient's cardiac status is stable. She is scheduled for carotid angiogram and possible manipulation today. Eric Levine MD
[2017-08-07] MEDS: Sodium Chloride 0.9% 1,000 ML IV SCH (12:20)
[2017-08-07] MEDS: Hydrocortisone 1% Cream (30 GM) TOP SCH ×2 (16:45→17:54)
[2017-08-08 03:48] LABS: CARDIOLIPIN AB (IGA) <11 APL (<=11); CARDIOLIPIN AB (IGG) <14 GPL (<=14)
[2017-08-08 04:49] LABS: B2 GLYCOPROTEIN I AB(IGA) <9 SAU (<=20); B2 GLYCOPROTEIN I AB(IGG) <9 SGU (<=20); B2 GLYCOPROTEIN I AB(IGM) <9 SMU (<=20)
[2017-08-08] MEDS: Pantoprazole 40 mg EC Tab PO SCH (06:14)
[2017-08-08] MEDS: Sodium Chloride 0.9% 1,000 ML IV SCH ×3 (06:15→18:37)
--- NOTE | 2017-08-08 06:59 | CP.CCUPN ---
<TeresaKeshav - Last Filed: 08/08/17 09:16> CCU Subjective - Physician Review Subjective (Free Text): Keshav Moore PGY1 ICU Progress Note for Dr. Duffy Patient was seen and examined at bedside. The patient is awake and alert but is anxious. she states that she feels her left leg cramping. no motor function changes, but she does have sensation intact in 4 extremities. CCU Objective - Physical Exam Head: Positive for: Atraumatic, Normocephalic Pupils: Positive for: PERRL Extroacular Muscles: Positive for: EOMI Conjunctiva: Positive for: Normal Mouth: Positive for: Moist Mucous Membranes Neck: Positive for: Normal Range of Motion Respiratory/Chest: Positive for: Clear to Auscultation, Good Air Exchange. Negative for: Respiratory Distress, Accessory Muscle Use, Wheezes, Rales, Rhonchi Cardiovascular: Positive for: Regular Rate and Rhythm, Normal S1, S2. Negative for: Murmurs Abdomen: Positive for: Normal Bowel Sounds, Other (obese). Negative for: Tenderness, Distention, Peritoneal Signs Back: Positive for: Normal Inspection Upper Extremity: Positive for: Normal Inspection, Other (LUE muscle strength 0/5 ). Negative for: Cyanosis, Edema, Normal ROM Lower Extremity: Positive for: Normal Inspection, Other (LLE muscle strength 0/5 ). Negative for: Edema, CALF TENDERNESS Neurological: Positive for: GCS=15, CN II-XII Intact, Speech Normal, Normal Sensory Function (x4 extremities ). Negative for: Motor Func Grossly Intact ( left side) Skin: Positive for: Warm, Dry, Normal Color. Negative for: Rashes Psychiatric: Positive for: Alert, Oriented x 3, Normal Insight, Normal Concentration - Medications Active Medications: Active Medications Generic Name Dose Route Start Last Admin Trade Name Freq PRN Reason Stop Dose Admin Acetaminophen 650 mg 08/07/17 18:13 Tylenol 325mg Tab PO Q6H PRN Pain, Mild (1-3) Aspirin 81 mg 08/05/17 10:00 08/07/17 12:18 Ecotrin PO 81 mg DAILY DULCE MARIA Administration Atorvastatin Calcium 40 mg 08/04/17 19:45 08/07/17 19:22 Lipitor PO 40 mg DIN DULCE MARIA Administration Clopidogrel Bisulfate 75 mg 08/06/17 10:00 08/07/17 12:19 Plavix PO 75 mg DAILY DULCE MARIA Administration Heparin Sodium (Porcine) 5,000 units 08/06/17 22:00 08/06/17 22:47 Heparin SC 5,000 units Q12 DULCE MARIA Administration Protocol Hydrocortisone 0 gm 08/06/17 18:00 08/07/17 17:54 Cortizone 1% Cream TOP 1 cre BID DULCE MARIA Administration Sodium Chloride 1,000 mls @ 100 mls/hr 08/07/17 10:30 08/08/17 06:15 Sodium Chloride 0.9% IV 100 mls/hr .Q10H DULCE MARIA Administration Ceftriaxone Sodium 2 gm in 100 mls @ 100 mls/hr 08/08/17 10:00 Rocephin 2 Gm Ivpb IVPB DAILY [facility] Protocol Ibuprofen 400 mg 08/07/17 12:00 08/08/17 06:14 Motrin Tab PO Not Given Q6H DULCE MARIA Labetalol HCl 20 mg 08/06/17 10:52 Trandate IV Q6H PRN Systolic Blood Pressure Lisinopril 5 mg 08/06/17 12:00 08/06/17 14:57 Zestril PO Not Given DAILY DULCE MARIA Pantoprazole Sodium 40 mg 08/07/17 06:00 08/08/17 06:14 Protonix Ec Tab PO Not Given 0600 [facility] - Patient Studies Lab Studies: Microbiology Studies 08/06/17 10:30 Blood Culture - Preliminary Blood NO GROWTH AFTER 24 HOURS Lab Studies 08/07/17 08/07/17 08/05/17 Range/Units 06:00 06:00 13:40 WBC 16.6 H (4.5-11.0) 10^3/ul RBC 5.11 (3.5-6.1) 10^6/uL Hgb 15.1 (12.0-16.0) g/dL Hct 45.1 (36.0-48.0) % MCV 88.3 (80.0-105.0) fl MCH 29.5 (25.0-35.0) pg MCHC 33.5 (31.0-37.0) g/dl RDW 13.6 (11.5-14.5) % Plt Count 449 (120.0-450.0) 10^3/uL MPV 10.2 (7.0-11.0) fl Gran % 72.5 H (50.0-68.0) % Lymph % (Auto) 20.3 L (22.0-35.0) % Burke % (Auto) 5.8 (1.0-6.0) % Eos % (Auto) 0.8 L (1.5-5.0) % Baso % (Auto) 0.6 (0.0-3.0) % Gran # 12.04 H (1.4-6.5) Lymph # (Auto) 3.4 (1.2-3.4) Burke # (Auto) 1.0 H (0.1-0.6) Eos # (Auto) 0.1 (0.0-0.7) Baso # (Auto) 0.10 (0.0-2.0) K/mm3 Lupus Anticoagulant LA PTT Screen (<=40) sec dRVVT Mixing Study (<=45) sec dRVVT Mix Interpret Protein C Activity (70-180) % Sodium 144 (132-148) mmol/L Potassium 3.7 (3.6-5.0) mmol/L Chloride 106 (98-107) mmol/L Carbon Dioxide 24 (21-33) mmol/L Anion Gap 18 (10-20) BUN 15 (7-21) mg/dL Creatinine 0.7 (0.7-1.2) mg/dl Est GFR ( Amer) > 60 Est GFR (Non-Af Amer) > 60 Random Glucose 106 (70-110) mg/dL Calcium 9.7 (8.4-10.5) mg/dL Total Bilirubin 0.6 (0.2-1.3) mg/dL AST 32 (14-36) U/L ALT 25 (7-56) U/L Alkaline Phosphatase 62 (38-126) U/L Total Protein 7.8 (5.8-8.3) g/dL Albumin 4.3 (3.0-4.8) g/dL Globulin 3.5 gm/dL Albumin/Globulin Ratio 1.2 (1.1-1.8) Fhwv-8-Nqmupryxcnas Ab <9 (<=20) COMFORT Beta-2 GPI IgG Ab <9 (<=20) SGU Beta-2 GPI IgM Ab <9 (<=20) [facility]U Anti-Cardiolipin IgG Ab <14 (<=14) GPL Anti-Cardiolipin IgA Ab <11 (<=11) APL Anti-Cardiolipin IgM Ab <12 (<=12) MPL 08/05/17 08/05/17 Range/Units 13:40 13:40 WBC (4.5-11.0) 10^3/ul RBC (3.5-6.1) 10^6/uL Hgb (12.0-16.0) g/dL Hct (36.0-48.0) % MCV (80.0-105.0) fl MCH (25.0-35.0) pg MCHC (31.0-37.0) g/dl RDW (11.5-14.5) % Plt Count (120.0-450.0) 10^3/uL MPV (7.0-11.0) fl Gran % (50.0-68.0) % Lymph % (Auto) (22.0-35.0) % Burke % (Auto) (1.0-6.0) % Eos % (Auto) (1.5-5.0) % Baso % (Auto) (0.0-3.0) % Gran # (1.4-6.5) Lymph # (Auto) (1.2-3.4) Burke # (Auto) (0.1-0.6) Eos # (Auto) (0.0-0.7) Baso # (Auto) (0.0-2.0) K/mm3 Lupus Anticoagulant see note LA PTT Screen 45 H (<=40) sec dRVVT Mixing Study 45 (<=45) sec dRVVT Mix Interpret Not indicated Protein C Activity 138 (70-180) % Sodium (132-148) mmol/L Potassium (3.6-5.0) mmol/L Chloride (98-107) mmol/L Carbon Dioxide (21-33) mmol/L Anion Gap (10-20) BUN (7-21) mg/dL Creatinine (0.7-1.2) mg/dl Est GFR ( Amer) Est GFR (Non-Af Amer) Random Glucose (70-110) mg/dL Calcium (8.4-10.5) mg/dL Total Bilirubin (0.2-1.3) mg/dL AST (14-36) U/L ALT (7-56) U/L Alkaline Phosphatase (38-126) U/L Total Protein (5.8-8.3) g/dL Albumin (3.0-4.8) g/dL Globulin gm/dL Albumin/Globulin Ratio (1.1-1.8) Skhn-3-Vqojnlpttmyh Ab (<=20) COMFORT Beta-2 GPI IgG Ab (<=20) SGU Beta-2 GPI IgM Ab (<=20) SMU Anti-Cardiolipin IgG Ab (<=14) GPL Anti-Cardiolipin IgA Ab (<=11) APL Anti-Cardiolipin IgM Ab (<=12) MPL Laboratory Results - last 24 hr 08/05/17 08/05/17 08/05/17 13:40 13:40 13:40 WBC RBC Hgb Hct MCV MCH MCHC RDW Plt Count MPV Gran % Lymph % (Auto) Burke % (Auto) Eos % (Auto) Baso % (Auto) Gran # Lymph # (Auto) Burke # (Auto) Eos # (Auto) Baso # (Auto) Lupus Anticoagulant see note LA PTT Screen 45 H dRVVT Mixing Study 45 dRVVT Mix Interpret Not indicated Protein C Activity 138 Sodium Potassium Chloride Carbon Dioxide Anion Gap BUN Creatinine Est GFR ( Amer) Est GFR (Non-Af Amer) Random Glucose Calcium Total Bilirubin AST ALT Alkaline Phosphatase Total Protein Albumin Globulin Albumin/Globulin Ratio Vwpk-7-Sctihwfrzrpq Ab <9 Beta-2 GPI IgG Ab <9 Beta-2 GPI IgM Ab <9 Anti-Cardiolipin IgG Ab <14 Anti-Cardiolipin IgA Ab <11 Anti-Cardiolipin IgM Ab <12 08/07/17 08/07/17 06:00 06:00 WBC 16.6 H RBC 5.11 Hgb 15.1 Hct 45.1 MCV 88.3 MCH 29.5 MCHC 33.5 RDW 13.6 Plt Count 449 MPV 10.2 Gran % 72.5 H Lymph % (Auto) 20.3 L Burke % (Auto) 5.8 Eos % (Auto) 0.8 L Baso % (Auto) 0.6 Gran # 12.04 H Lymph # (Auto) 3.4 Burke # (Auto) 1.0 H Eos # (Auto) 0.1 Baso # (Auto) 0.10 Lupus Anticoagulant LA PTT Screen dRVVT Mixing Study dRVVT Mix Interpret Protein C Activity Sodium 144 Potassium 3.7 Chloride 106 Carbon Dioxide 24 Anion Gap 18 BUN 15 Creatinine 0.7 Est GFR ( Amer) > 60 Est GFR (Non-Af Amer) > 60 Random Glucose 106 Calcium 9.7 Total Bilirubin 0.6 AST 32 ALT 25 Alkaline Phosphatase 62 Total Protein 7.8 Albumin 4.3 Globulin 3.5 Albumin/Globulin Ratio 1.2 Vsnz-2-Asnfwdfoaisr Ab Beta-2 GPI IgG Ab Beta-2 GPI IgM Ab Anti-Cardiolipin IgG Ab Anti-Cardiolipin IgA Ab Anti-Cardiolipin IgM Ab Fingerstick Blood Sugar Results: 98 Review of Systems - Review of Systems All systems: reviewed and no additional remarkable complaints except (as per HPI ) Critical Care Progress Note - Extremities/Vascular Does the Patient have a Central Venous Catheter?: No Does the Patient need a Central Venous Catheter?: No Does the Patient have a Pena Catheter?: No Does the Patient need a Pena Catheter?: No - Prophylaxis GI Prophylaxis GI: PPI - Prophylaxis DVT Prophylaxis DVT: Heparin SQ, SCDs - Nutrition Nutrition: Nutrition Category Date Time Status Heart Healthy Diet [DIET] Diets 08/07/17 Lunch Ordered Assessment/Plan - Assessment and Plan (Free Text) Assessment: 52 year old female with past medical history of hypertension (not on medications ), substance abuse (non-prescribed percocet) who presented with complaints of L sided weakness x1 week, found to have multiple acute infarcts on imaging. Transferred to ICU for neuro monitoring given change in motor function w/ decreased L sided motor function. repeat CT Head showed increased area of cerebral infarct. Plan: Neuro: Acute CVA - awake and alert, at baseline - repeat CT Head showed multiple areas of cortical infarction, progressive although nonhemorrhagic now identified in the medial superior aspect of the right frontal lobe, right temporal lobe. The original area of cortical infarction has increased as well. - cont ASA and Plavix - cont Lipitor - Per neuro, d/c htn meds since no bleeds on CT and for permissive htn - permissive HTN SBP <180, DBP <100 - neurochecks and vitals checks per protocol; no neurologic changes - to be scheduled for diagnostic cerebral angiogram and possible carotid stenting - Lupus anticoagulant negative, protein c activity is normal, anti-cardiolipin negative, anti-phospholipid pending - Neuro, Neurosurg consulted - high fall risk, aspiration precautions, seizure precautions, nursing swallow screen PRN - NPO for procedure - PT/OT Cardio: - cont ASA and Plavix - VS checks per protocol - permissive HTN w/ treatment parameters for SBP > 180, DBP >100 - cardio consulted, recs appreciated - hold BP meds Pulm: - breathing comfortably - aspiration precautions GI: - NPO for procedure today - gi ppx Renal: - monitor UOP - monitor electrolytes and replete appropriately ID: - leukocytosis improving, likely reactive - CXR was unremarkable - procal is low - UA was unremarkable - monitor for signs of infection Heme: - H/H stable - dvt ppx - full coagulability workup pending - Lupus anticoagulant negative, protein c activity is normal, anti-cardiolipin negative, anti-phospholipid pending - homocysteine pending, protein s activity pending, factor V leiden pending Endo: - maintain euglycemia Diet: HHD, NPO if procedure DVT PPX: Heparin, SCDs GI PPX: ptx Dispo: will monitor neuro changes, and wait for neuro/neuro surg recs. the patient is hemodynamically and neurologically stable at this time. Patient seen, examined and discussed with attending, Dr. Tati Moore PGY1 Pager # [phone] <Kike Duffy - Last Filed: 08/08/17 09:46> CCU Objective - Vital Signs / Intake & Output Vital Signs (Last 4 hours): Vital Signs Pulse Resp BP 08/08/17 09:17 76 24 08/08/17 09:16 77 22 08/08/17 09:15 75 23 08/08/17 09:14 77 26 H 08/08/17 09:13 210/115 H 08/08/17 09:12 76 22 08/08/17 09:11 78 24 08/08/17 09:10 76 18 08/08/17 09:09 78 22 08/08/17 09:08 76 24 08/08/17 09:07 94 H 42 H 08/08/17 09:06 75 26 H - Medications Active Medications: Active Medications Generic Name Dose Route Start Last Admin Trade Name Freq PRN Reason Stop Dose Admin Acetaminophen 650 mg 08/07/17 18:13 Tylenol 325mg Tab PO Q6H PRN Pain, Mild (1-3) Aspirin 81 mg 08/05/17 10:00 08/07/17 12:18 Ecotrin PO 81 mg DAILY DUL[facility]IA Administration Atorvastatin Calcium 40 mg 08/04/17 19:45 08/07/17 19:22 Lipitor PO 40 mg DIN DULCE MARIA Administration Clopidogrel Bisulfate 75 mg 08/06/17 10:00 08/07/17 12:19 Plavix PO 75 mg DAILY DULCE MARIA Administration Heparin Sodium (Porcine) 5,000 units 08/06/17 22:00 08/06/17 22:47 Heparin SC 5,000 units Q12 DULCE MARIA Administration Protocol Hydrocortisone 0 gm 08/06/17 18:00 08/07/17 17:54 Cortizone 1% Cream TOP 1 cre BID DULCE MARIA Administration Sodium Chloride 1,000 mls @ 100 mls/hr 08/07/17 10:30 08/08/17 06:15 Sodium Chloride 0.9% IV 100 mls/hr .Q10H DULCE MARIA Administration Ceftriaxone Sodium 2 gm in 100 mls @ 100 mls/hr 08/08/17 10:00 Rocephin 2 Gm Ivpb IVPB DAILY [facility] Protocol Ibuprofen 400 mg 08/07/17 12:00 08/08/17 06:14 Motrin Tab PO Not Given Q6H DULCE MARIA Labetalol HCl 20 mg 08/06/17 10:52 Trandate IV Q6H PRN Systolic Blood Pressure Lisinopril 5 mg 08/06/17 12:00 08/06/17 14:57 Zestril PO Not Given DAILY DUL[facility] MARIA Pantoprazole Sodium 40 mg 08/07/17 06:00 08/08/17 06:14 Protonix Ec Tab PO Not Given 0600 [facility] - Patient Studies Lab Studies: Microbiology Studies 08/06/17 10:30 Blood Culture - Preliminary Blood NO GROWTH AFTER 24 HOURS Lab Studies 08/08/17 08/08/17 08/05/17 Range/Units 06:30 06:30 13:40 WBC 14.5 H (4.5-11.0) 10^3/ul RBC 5.55 (3.5-6.1) 10^6/uL Hgb 16.3 H (12.0-16.0) g/dL Hct 49.6 H (36.0-48.0) % MCV 89.4 (80.0-105.0) fl MCH 29.4 (25.0-35.0) pg MCHC 32.9 (31.0-37.0) g/dl RDW 13.5 (11.5-14.5) % Plt Count 372 (120.0-450.0) 10^3/uL MPV 10.2 (7.0-11.0) fl Gran % 75.9 H (50.0-68.0) % Lymph % (Auto) 16.4 L (22.0-35.0) % Burke % (Auto) 5.2 (1.0-6.0) % Eos % (Auto) 1.9 (1.5-5.0) % Baso % (Auto) 0.6 (0.0-3.0) % Gran # 11.04 H (1.4-6.5) Lymph # (Auto) 2.4 (1.2-3.4) Burke # (Auto) 0.8 H (0.1-0.6) Eos # (Auto) 0.3 (0.0-0.7) Baso # (Auto) 0.09 (0.0-2.0) K/mm3 Lupus Anticoagulant LA PTT Screen (<=40) sec dRVVT Mixing Study (<=45) sec dRVVT Mix Interpret Protein C Activity (70-180) % Sodium 146 (132-148) mmol/L Potassium 3.7 (3.6-5.0) mmol/L Chloride 110 H (98-107) mmol/L Carbon Dioxide 23 (21-33) mmol/L Anion Gap 17 (10-20) BUN 14 (7-21) mg/dL Creatinine 0.7 (0.7-1.2) mg/dl Est GFR ( Amer) > 60 Est GFR (Non-Af Amer) > 60 Random Glucose 103 (70-110) mg/dL Calcium 9.6 (8.4-10.5) mg/dL Total Bilirubin 0.8 (0.2-1.3) mg/dL AST 24 (14-36) U/L ALT 22 (7-56) U/L Alkaline Phosphatase 64 (38-126) U/L Total Protein 7.5 (5.8-8.3) g/dL Albumin 4.1 (3.0-4.8) g/dL Globulin 3.4 gm/dL Albumin/Globulin Ratio 1.2 (1.1-1.8) Umas-4-Udnthafrrgwu Ab <9 (<=20) COMFORT Beta-2 GPI IgG Ab <9 (<=20) SGU Beta-2 GPI IgM Ab <9 (<=20) [facility]U Anti-Cardiolipin IgG Ab <14 (<=14) GPL Anti-Cardiolipin IgA Ab <11 (<=11) APL Anti-Cardiolipin IgM Ab <12 (<=12) MPL 08/05/17 08/05/17 Range/Units 13:40 13:40 WBC (4.5-11.0) 10^3/ul RBC (3.5-6.1) 10^6/uL Hgb (12.0-16.0) g/dL Hct (36.0-48.0) % MCV (80.0-105.0) fl MCH (25.0-35.0) pg MCHC (31.0-37.0) g/dl RDW (11.5-14.5) % Plt Count (120.0-450.0) 10^3/uL MPV (7.0-11.0) fl Gran % (50.0-68.0) % Lymph % (Auto) (22.0-35.0) % Burke % (Auto) (1.0-6.0) % Eos % (Auto) (1.5-5.0) % Baso % (Auto) (0.0-3.0) % Gran # (1.4-6.5) Lymph # (Auto) (1.2-3.4) Burke # (Auto) (0.1-0.6) Eos # (Auto) (0.0-0.7) Baso # (Auto) (0.0-2.0) K/mm3 Lupus Anticoagulant see note LA PTT Screen 45 H (<=40) sec dRVVT Mixing Study 45 (<=45) sec dRVVT Mix Interpret Not indicated Protein C Activity 138 (70-180) % Sodium (132-148) mmol/L Potassium (3.6-5.0) mmol/L Chloride (98-107) mmol/L Carbon Dioxide (21-33) mmol/L Anion Gap (10-20) BUN (7-21) mg/dL Creatinine (0.7-1.2) mg/dl Est GFR ( Amer) Est GFR (Non-Af Amer) Random Glucose (70-110) mg/dL Calcium (8.4-10.5) mg/dL Total Bilirubin (0.2-1.3) mg/dL AST (14-36) U/L ALT (7-56) U/L Alkaline Phosphatase (38-126) U/L Total Protein (5.8-8.3) g/dL Albumin (3.0-4.8) g/dL Globulin gm/dL Albumin/Globulin Ratio (1.1-1.8) Uvjm-6-Dlrmqedyfyqc Ab (<=20) COMFORT Beta-2 GPI IgG Ab (<=20) SGU Beta-2 GPI IgM Ab (<=20) SMU Anti-Cardiolipin IgG Ab (<=14) GPL Anti-Cardiolipin IgA Ab (<=11) APL Anti-Cardiolipin IgM Ab (<=12) MPL Laboratory Results - last 24 hr 08/05/17 08/05/17 08/05/17 13:40 13:40 13:40 WBC RBC Hgb Hct MCV MCH MCHC RDW Plt Count MPV Gran % Lymph % (Auto) Burke % (Auto) Eos % (Auto) Baso % (Auto) Gran # Lymph # (Auto) Burke # (Auto) Eos # (Auto) Baso # (Auto) Lupus Anticoagulant see note LA PTT Screen 45 H dRVVT Mixing Study 45 dRVVT Mix Interpret Not indicated Protein C Activity 138 Sodium Potassium Chloride Carbon Dioxide Anion Gap BUN Creatinine Est GFR ( Amer) Est GFR (Non-Af Amer) Random Glucose Calcium Total Bilirubin AST ALT Alkaline Phosphatase Total Protein Albumin Globulin Albumin/Globulin Ratio Yciz-3-Rsvqlhkyfund Ab <9 Beta-2 GPI IgG Ab <9 Beta-2 GPI IgM Ab <9 Anti-Cardiolipin IgG Ab <14 Anti-Cardiolipin IgA Ab <11 Anti-Cardiolipin IgM Ab <12 08/08/17 08/08/17 06:30 06:30 WBC 14.5 H RBC 5.55 Hgb 16.3 H Hct 49.6 H MCV 89.4 MCH 29.4 MCHC 32.9 RDW 13.5 Plt Count 372 MPV 10.2 Gran % 75.9 H Lymph % (Auto) 16.4 L Burke % (Auto) 5.2 Eos % (Auto) 1.9 Baso % (Auto) 0.6 Gran # 11.04 H Lymph # (Auto) 2.4 Burke # (Auto) 0.8 H Eos # (Auto) 0.3 Baso # (Auto) 0.09 Lupus Anticoagulant LA PTT Screen dRVVT Mixing Study dRVVT Mix Interpret Protein C Activity Sodium 146 Potassium 3.7 Chloride 110 H Carbon Dioxide 23 Anion Gap 17 BUN 14 Creatinine 0.7 Est GFR ( Amer) > 60 Est GFR (Non-Af Amer) > 60 Random Glucose 103 Calcium 9.6 Total Bilirubin 0.8 AST 24 ALT 22 Alkaline Phosphatase 64 Total Protein 7.5 Albumin 4.1 Globulin 3.4 Albumin/Globulin Ratio 1.2 Pmws-2-Gdvlrivezaji Ab Beta-2 GPI IgG Ab Beta-2 GPI IgM Ab Anti-Cardiolipin IgG Ab Anti-Cardiolipin IgA Ab Anti-Cardiolipin IgM Ab Critical Care Progress Note - Nutrition Nutrition: Nutrition Category Date Time Status NPO Diet [DIET] Diets 08/08/17 Breakfast Ordered Assessment/Plan - Assessment and Plan (Free Text) Assessment: Patient seen and examined, with resident, agree with note with following additions/exceptions: Patient is 52yo female, with PMhx of obesity, HTN, a/w L sided weakness, 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 Scheduled for diagnostic cerebral angiogram today and possible carotid stenting. Afebrile, HD stable, comfortable NAD. Acute CVA HTN HLD Obesity Recommend: - supp o2 as needed - monitor off antibiotics - cont ASA and Plavix - cont Lipitor - permissive HTN as per Neuro - neurochecks - scheduled for diagnostic cerebral angiogram and possible carotid stenting - GI ppx, - DVT ppx - Stable, monitor in MICU
[2017-08-08 07:24] LABS: BASO # 0.09 K/mm3 (0.0-2.0); BASO % 0.6 % (0.0-3.0); EOS # 0.3 (0.0-0.7); EOS % 1.9 % (1.5-5.0); GRAN # 11.04 (1.4-6.5); GRAN % 75.9 % (50.0-68.0); HEMOGLOBIN 16.3 g/dL (12.0-16.0); LYMPH # 2.4 (1.2-3.4); LYMPH % 16.4 % (22.0-35.0); MEAN CELL VOLUME 89.4 fl (80.0-105.0); MEAN CORPUSCULAR HEMOGLOBIN 29.4 pg (25.0-35.0); MEAN CORPUSCULAR HGB CONC 32.9 g/dl (31.0-37.0); MEAN PLATELET VOLUME 10.2 fl (7.0-11.0); MONO # 0.8 (0.1-0.6); MONO % 5.2 % (1.0-6.0); RBC 5.55 10^6/uL (3.5-6.1); RED CELL DISTRIBUTION WIDTH 13.5 % (11.5-14.5); WHITE BLOOD COUNT 14.5 10^3/ul (4.5-11.0)
[2017-08-08 07:28] LABS: ALB/GLOB RATIO 1.2 (1.1-1.8); ALBUMIN 4.1 g/dL (3.0-4.8); ALT/SGPT 22 U/L (7-56); AST/SGOT 24 U/L (14-36); BLOOD UREA NITROGEN 14 mg/dL (7-21); CALCIUM 9.6 mg/dL (8.4-10.5); GFR AFRICAN-AMERICAN > 60; GFR NON-AFRICAN AMERICAN > 60
[2017-08-08] MEDS: cefTRIAXone 2 GM IN NS 2 GM/100 ML BAG IVPB SCH (09:49)
--- NOTE | 2017-08-08 11:35 | CP.PCM.PN ---
Subjective - Date & Time of Evaluation Date of Evaluation: 08/08/17 Time of Evaluation: 07:00 - Subjective Subjective: Neuro progress note: Pt was seen and examined at the bedside. No acute events overnight. NPO. Cerebral angio rescheduled for today. Pt with L sided hemiplegia. L lower ext progressive to hemiplegic now. No other complaints. 12 Point ROS performed and neg other than stated above. Objective - Vital Signs/Intake and Output Vital Signs (last 24 hours): Temp Pulse Resp BP Pulse Ox 98.2 F 73 21 171/96 H 98 08/08/17 00:52 08/08/17 09:59 08/08/17 09:59 08/08/17 10:00 08/06/17 06:00 - Medications Medications: Current Medications Acetaminophen (Tylenol 325mg Tab) 650 mg PO Q6H PRN PRN Reason: Pain, Mild (1-3) Aspirin (Ecotrin) 81 mg PO DAILY [facility] Last Admin: 08/07/17 12:18 Dose: 81 mg Atorvastatin Calcium (Lipitor) 40 mg PO DIN [facility] Last Admin: 08/07/17 19:22 Dose: 40 mg Clopidogrel Bisulfate (Plavix) 75 mg PO DAILY [facility] Last Admin: 08/07/17 12:19 Dose: 75 mg Heparin Sodium (Porcine) (Heparin) 5,000 units SC Q12 [facility] PRN Reason: Protocol Last Admin: 08/06/17 22:47 Dose: 5,000 units Hydrocortisone (Cortizone 1% Cream) 0 gm TOP BID [facility] Last Admin: 08/07/17 17:54 Dose: 1 cre Sodium Chloride (Sodium Chloride 0.9%) 1,000 mls @ 100 mls/hr IV .Q10H [facility] Last Admin: 08/08/17 06:15 Dose: 100 mls/hr Ceftriaxone Sodium (Rocephin 2 Gm Ivpb) 2 gm in 100 mls @ 100 mls/hr IVPB DAILY [facility] PRN Reason: Protocol Last Admin: 08/08/17 09:49 Dose: 100 mls/hr Ibuprofen (Motrin Tab) 400 mg PO Q6H [facility] Last Admin: 08/08/17 06:14 Dose: Not Given Labetalol HCl (Trandate) 20 mg IV Q6H PRN PRN Reason: Systolic Blood Pressure Lisinopril (Zestril) 10 mg PO DAILY [facility] Pantoprazole Sodium (Protonix Ec Tab) 40 mg PO 0600 [facility] Last Admin: 08/08/17 06:14 Dose: Not Given - Labs Labs: 08/08/17 06:30 08/08/17 06:30 PT 12.5 SECONDS (9.4-12.5) 08/05/17 06:00 INR 1.09 (0.93-1.08) H 08/05/17 06:00 APTT 30.2 Seconds (25.1-36.5) 08/05/17 06:00 - Constitutional Appears: No Acute Distress - Eye Exam Eye Exam: EOMI, PERRL - Neurological Exam Neurological Exam: Alert, Awake, Oriented x3 Neuro motor strength exam: Left Upper Extremity: 0, Right Upper Extremity: 5, Left Lower Extremity: 0, Right Lower Extremity: 5 Assessment and Plan - Assessment and Plan (Free Text) Assessment: 52 F with past history of hypertension who presents with complaints of Left upper extremity paralysis and L lower extremities weakness and tongue numbness. Found to have R frontal and temporal acute infarcts embolic in nature. - NPO for cerebral angio and possible carotid stenting today - Dr Epps consulted for any possible neurointervention - cerebral angio and possible carotid stenting today - Cont Lipitor ASA and Plavix - CT head -multiple areas of cortical infarction progressive in the medial superior aspect of R frontal and temporal lobe - Q1H neurochecks - MRA of head and neck showed R ICA occlusion - CTA or head and neck - Occlusion of R ICA at the origin - Echo with bubble study -reviewed - Maintain BP control with systolic <160 - HOB elevation to 35' - PT and OT; Speech eval - Neuro checks Case and plan was reviewed and discussed with Dr Newberry.
--- NOTE | 2017-08-08 11:42 | PCM.IRPREO ---
Pre Procedure Note - History Proposed Procedure: Diagnostic Cerebral Angiogram - Previous Medical/Surgical History Cardiac: Hypertension Neuro: TIA/CVA - Pre Procedure Were any radiologic studies performed in the last 12 months: Yes List of radiologic studies performed: CTA. MRA. MRI. CT Was medical management performed in the past 24 months: Yes List of medical management performed: Medical therapy. Please see progress notes and electronic chart. Now on DAPT with ASA and Plavix. Clinical indication for the procedure: CTA of neck suggestive of possible high grade critical stenosis vs. occlusion. Daiganostic cerebral angiography required to asses if there is flow as it is the gold standard. If open is at continued high risk for ischemic event s to the right anterior hemisphere, will need to discuss revascularization of the artery. Have risks and benefits been explained to the patient: Yes Risks and benefits been explained to the patient: Risk of groin site complications, allergic reaction, renal damage, infection, bleeding, nerve damage to leg. Risk of stroke with possible severe and persistent neruological deficit. All risks explained to the patient and her daughter at [facility]. All questions answered. Discussed alternatives such as non-invasive imaging. Have alternatives to surgery explained to the patient as applicable: Yes ( Serial imaging, which is not as sensitive.) - Allergies Allergies: Allergies No Known Allergies Allergy (Verified 05/31/17 22:19) - Physical Exam Vital Signs: Vital Signs 08/08/17 08/08/17 08/08/17 09:06 09:07 09:08 Pulse Rate 75 94 H 76 Respiratory 26 H 42 H 24 Rate Blood Pressure 08/08/17 08/08/17 08/08/17 09:09 09:10 09:11 Pulse Rate 78 76 78 Respiratory 22 18 24 Rate Blood Pressure 08/08/17 08/08/17 08/08/17 09:12 09:13 09:14 Pulse Rate 76 77 Respiratory 22 26 H Rate Blood Pressure 210/115 H 08/08/17 08/08/17 08/08/17 09:15 09:16 09:17 Pulse Rate 75 77 76 Respiratory 23 22 24 Rate Blood Pressure 08/08/17 08/08/17 08/08/17 09:19 09:20 09:21 Pulse Rate 85 76 75 Respiratory 23 18 21 Rate Blood Pressure 08/08/17 08/08/17 08/08/17 09:22 09:23 09:24 Pulse Rate 77 75 79 Respiratory 15 21 19 Rate Blood Pressure 08/08/17 08/08/17 08/08/17 09:25 09:26 09:27 Pulse Rate 76 76 77 Respiratory 17 20 13 Rate Blood Pressure 08/08/17 08/08/17 08/08/17 09:28 09:29 09:30 Pulse Rate 77 76 80 Respiratory 24 17 15 Rate Blood Pressure 08/08/17 08/08/17 08/08/17 09:31 09:32 09:33 Pulse Rate 78 79 77 Respiratory 21 21 20 Rate Blood Pressure 08/08/17 08/08/17 08/08/17 09:34 09:35 09:36 Pulse Rate 76 76 76 Respiratory 21 25 H 16 Rate Blood Pressure 08/08/17 08/08/17 08/08/17 09:37 09:39 09:40 Pulse Rate 85 76 85 Respiratory 39 H 63 H Rate Blood Pressure 08/08/17 08/08/17 08/08/17 09:41 09:42 09:43 Pulse Rate 77 78 89 Respiratory 22 37 H 44 H Rate Blood Pressure 08/08/17 08/08/17 08/08/17 09:44 09:45 09:46 Pulse Rate 79 80 77 Respiratory 25 H 25 H 25 H Rate Blood Pressure 08/08/17 08/08/17 08/08/17 09:47 09:48 09:49 Pulse Rate 84 81 76 Respiratory 27 H 33 H Rate Blood Pressure 08/08/17 08/08/17 08/08/17 09:50 09:51 09:52 Pulse Rate 75 72 75 Respiratory 24 25 H 20 Rate Blood Pressure 08/08/17 08/08/17 08/08/17 09:53 09:54 09:55 Pulse Rate 75 75 72 Respiratory 19 30 H 22 Rate Blood Pressure 08/08/17 08/08/17 08/08/17 09:56 09:57 09:58 Pulse Rate 74 73 Respiratory 25 H 23 Rate Blood Pressure 161/108 H 08/08/17 08/08/17 09:59 10:00 Pulse Rate 73 Respiratory 21 Rate Blood Pressure 171/96 H Mental Status: Alert & Oriented x3 Neuro: Other (The patient is AOx3, moves left arm and leg 5/5. Right arm and leg weakness. ) - Impression Impression: High grade Right ICA stenosis vs. occlusion. Diagnostic cerebral angiography to asses the cerebriovascular angio-architecture. Pt. Evaluated Today:Candidate for Anesthesia & Procedure: I saw the patient this am. Procedure will be done with MAC by an anstehsiologist. - Date & Time Date: 08/08/17 Time: 11:38
--- NOTE | 2017-08-08 12:29 | CP.PCM.PN ---
<Milan Silverman - Last Filed: 08/08/17 12:29> Subjective - Date & Time of Evaluation Date of Evaluation: 08/08/17 Time of Evaluation: 06:00 - Subjective Subjective: Patient seen and evaluated bedside in ICU, no acute issues overnight. Patient has been trying to move her left arm and left leg. Patient denied any visual changes, slurring of speech, chest pain, shortness of breath or any other complaints. Objective - Vital Signs/Intake and Output Vital Signs (last 24 hours): Temp Pulse Resp BP Pulse Ox 98.2 F 73 21 171/96 H 98 08/08/17 00:52 08/08/17 09:59 08/08/17 09:59 08/08/17 10:00 08/06/17 06:00 - Medications Medications: Current Medications Acetaminophen (Tylenol 325mg Tab) 650 mg PO Q6H PRN PRN Reason: Pain, Mild (1-3) Aspirin (Ecotrin) 81 mg PO DAILY [facility] Last Admin: 08/07/17 12:18 Dose: 81 mg Atorvastatin Calcium (Lipitor) 40 mg PO DIN [facility] Last Admin: 08/07/17 19:22 Dose: 40 mg Clopidogrel Bisulfate (Plavix) 75 mg PO DAILY [facility] Last Admin: 08/07/17 12:19 Dose: 75 mg Heparin Sodium (Porcine) (Heparin) 5,000 units SC Q12 [facility] PRN Reason: Protocol Last Admin: 08/06/17 22:47 Dose: 5,000 units Hydrocortisone (Cortizone 1% Cream) 0 gm TOP BID [facility] Last Admin: 08/07/17 17:54 Dose: 1 cre Sodium Chloride (Sodium Chloride 0.9%) 1,000 mls @ 100 mls/hr IV .Q10H [facility] Last Admin: 08/08/17 06:15 Dose: 100 mls/hr Ceftriaxone Sodium (Rocephin 2 Gm Ivpb) 2 gm in 100 mls @ 100 mls/hr IVPB DAILY [facility] PRN Reason: Protocol Last Admin: 08/08/17 09:49 Dose: 100 mls/hr Ibuprofen (Motrin Tab) 400 mg PO Q6H [facility] Last Admin: 08/08/17 06:14 Dose: Not Given Labetalol HCl (Trandate) 20 mg IV Q6H PRN PRN Reason: Systolic Blood Pressure Lisinopril (Zestril) 10 mg PO DAILY [facility] Pantoprazole Sodium (Protonix Ec Tab) 40 mg PO 0600 [facility] Last Admin: 08/08/17 06:14 Dose: Not Given - Labs Labs: 08/08/17 06:30 08/08/17 06:30 PT 12.5 SECONDS (9.4-12.5) 08/05/17 06:00 INR 1.09 (0.93-1.08) H 08/05/17 06:00 APTT 30.2 Seconds (25.1-36.5) 08/05/17 06:00 - Constitutional Appears: Non-toxic, No Acute Distress - Head Exam Head Exam: ATRAUMATIC, NORMAL INSPECTION, NORMOCEPHALIC - Eye Exam Eye Exam: EOMI, Normal appearance - ENT Exam ENT Exam: Mucous Membranes Moist - Respiratory Exam Respiratory Exam: Clear to Ausculation Bilateral, NORMAL BREATHING PATTERN - Cardiovascular Exam Cardiovascular Exam: REGULAR RHYTHM - GI/Abdominal Exam GI & Abdominal Exam: Soft. absent: Tenderness - Extremities Exam Extremities Exam: Pedal Edema. absent: Full ROM, Tenderness - Neurological Exam Neurological Exam: Alert, Awake, Oriented x3 Neuro motor strength exam: Left Upper Extremity: 2/1, Right Upper Extremity: 5, Left Lower Extremity: 2/1, Right Lower Extremity: 5 Assessment and Plan - Assessment and Plan (Free Text) Assessment: 52yo Female with PMH of uncontrolled HTN, substance abuse (quit alcohol many years ago), cervical spondylolisthesis, recent incarceration (was release from [facility] long term last month) admitted for acute CVA and uncontrolled HTN. Patient transferred to ICU for monitoring and possible stent placement in R ICA. Plan: 1. CVA - Pt transfered for pre-op monitoring in ICU. Neurochecks q1h. - Neurosurgery: Dr. Epps, consulted, OR for stent placement R ICA after cerebral angiogram in afternoon - Cardiology consult: Dr. Levine for assessment, cleared preop - Heparin held, NPO for pre-op - Echo reveals EF 55%, LV with mild concentric hypertrophy. No other abnormalities. - MRA neck significant for R ICA occlusion. - Continue permissive HTN - Continue clopidogrel 75 mg PO, ASA 81 mg PO - Speech and language pathology, swallow eval and treatment - PT evaluation for CVA and deconditioning. - Neurology consult: Dr. Estevez - Hepatitis results return negative for HAV, HBV, HCV. TSH normal at 1.89 - Homocysteine 7 -Cardiolipin antibodies IgG negative -CT head from yesterday showing multiple areas of cortical infarction, progressive, non hemorrhagic now identified in the medial superior aspect of the right frontal lobe, right temporal lobe. The original area of cortical infarct has increased as well. No midline shift appreciated BP: 145/73 2. Leukocytosis: infection vs reactive -14.5, trending down -No fever -CXR showed no active disease -Procal not elevated -blood cultures no growth 3. Rash on right arm - Clotrimazole topical VTE prophylaxis: Heparin 5000 units currenlty held GI prophylaxis: pantoprazole 40 mg IVP daily <Libby Hunter - Last Filed: 08/08/17 15:03> Objective - Vital Signs/Intake and Output Vital Signs (last 24 hours): Temp Pulse Resp BP Pulse Ox 98.2 F 74 31 H 180/92 H 98 08/08/17 00:52 08/08/17 12:40 08/08/17 12:40 08/08/17 12:30 08/06/17 06:00 - Medications Medications: Current Medications Acetaminophen (Tylenol 325mg Tab) 650 mg PO Q6H PRN PRN Reason: Pain, Mild (1-3) Aspirin (Ecotrin) 81 mg PO DAILY [facility] Last Admin: 08/07/17 12:18 Dose: 81 mg Atorvastatin Calcium (Lipitor) 40 mg PO DIN [facility] Last Admin: 08/07/17 19:22 Dose: 40 mg Clopidogrel Bisulfate (Plavix) 75 mg PO DAILY [facility] Last Admin: 08/07/17 12:19 Dose: 75 mg Heparin Sodium (Porcine) (Heparin) 5,000 units SC Q12 [facility] PRN Reason: Protocol Last Admin: 08/06/17 22:47 Dose: 5,000 units Hydrocortisone (Cortizone 1% Cream) 0 gm TOP BID [facility] Last Admin: 08/07/17 17:54 Dose: 1 cre Sodium Chloride (Sodium Chloride 0.9%) 1,000 mls @ 100 mls/hr IV .Q10H [facility] Last Admin: 08/08/17 06:15 Dose: 100 mls/hr Ceftriaxone Sodium (Rocephin 2 Gm Ivpb) 2 gm in 100 mls @ 100 mls/hr IVPB DAILY [facility] PRN Reason: Protocol Last Admin: 08/08/17 09:49 Dose: 100 mls/hr Ibuprofen (Motrin Tab) 400 mg PO Q6H [facility] Last Admin: 08/08/17 06:14 Dose: Not Given Labetalol HCl (Trandate) 20 mg IV Q6H PRN PRN Reason: Systolic Blood Pressure Lisinopril (Zestril) 10 mg PO DAILY [facility] Pantoprazole Sodium (Protonix Ec Tab) 40 mg PO 0600 [facility] Last Admin: 08/08/17 06:14 Dose: Not Given - Labs Labs: 08/08/17 06:30 08/08/17 06:30 PT 12.5 SECONDS (9.4-12.5) 08/05/17 06:00 INR 1.09 (0.93-1.08) H 08/05/17 06:00 APTT 30.2 Seconds (25.1-36.5) 08/05/17 06:00 Attending/Attestation - Attestation I have personally seen and examined this patient.: Yes I have fully participated in the care of the patient.: Yes I have reviewed all pertinent clinical information, including history, physical exam and plan: Yes Notes (Text): 08/08/17 15:01 Attending note; Patient seen and examined with resident in ICU with . Patient's daughter by the bedside. Patient is a 52 year old Female with PMH of uncontrolled hypertension , noncompliance with medication is admitted for acute CVA and uncontrolled blood pressure. CT and MRI consistent with right frontal and temporal subacute stroke. Still with left-sided hemiparesis. Patient is currently alert, awake. MRA showed right internal carotid occlusion at the origin. MRA of head showed right MCA stenosis. Plan for angiogram today. Cardiology evaluation appreciated. Tolerating diet. Speech and swallow evaluation appreciated. leukocytosis; improving .urine culture showed mixed organisms possible contamination .On IV Rocephin. Continue aspirin, Plavix and Lipitor. Hypertension ; continue lisinopril. Case discussed with outreach and education social worker for discharge planning. Upon discharge the patient will be referred to [facility] [place] clinic.
[2017-08-08] MEDS ORDERED: Glycopyrrolate 0.2 mg/ml (2ml vial) ONE (12:52)
[2017-08-08] MEDS ORDERED: Iodixanol 320 MG/ML 100 ML BOTTLE IV ONE (12:53)
[2017-08-08] MEDS ORDERED: HEPARIN SODIUM/NS 2,000 ML IV ONE (12:53)
[2017-08-08] MEDS ORDERED: Lidocaine 2% Inj (20ml) ONE (12:53)
[2017-08-08] MEDS ORDERED: Atropine 0.4 mg/ml Inj (1 mL) ONE (12:53)
[2017-08-08] MEDS ORDERED: DOPamine 400mg/250ml D5W 0 MG/0 ML BAG IV ONE (12:53)
[2017-08-08] MEDS ORDERED: Iodixanol 320 MG/ML 200 ML BOTTLE IV ONE (12:53)
[2017-08-08] MEDS ORDERED: Midazolam 2 MG/2 ML VIAL ONE (13:09)
--- NOTE | 2017-08-08 14:23 | PCM.OP ---
Operative Report - Operative Report Date of Surgery/Procedure: 08/08/17 Time of Surgery/Procedure: 13:00 Surgeon: Dr. Howell Anesthesia/Sedation: MAC Pre-Operative Diagnosis: Stroke Post-Operative Diagnosis: Stroke due to right internal carotid artery occlusion Indication for Surgery: Stroke Operative Findings: Occlusion of the right ICA just distal to the carotid bifurcation. No Flow intracrnially from the right ICA. FULL REPORT HAS BEEN DICTATED Procedure/Operation Description: DIAGNOSTIC CEREBRAL ANGIOGRAPHY Estimated Blood Loss: minimal Blood Replaced: no Sponge/Instrument Count: N/A Drains: N/A Complications: None. The patient tolerated the procedure well hemodynamically. No new FND immediatly post procedure Specimen: None Discharge & Condition: Right groin 5 canadian sheath removed, manual pressure held for 15 mins. No hematoma. Hemostasis achieved. 100 CC CONTRAST USED.
--- NOTE | 2017-08-08 14:45 | PN ---
DATE: 08/08/2017 CARDIOLOGY FOLLOWUP SUBJECTIVE: The patient is asymptomatic. OBJECTIVE: VITAL SIGNS: Blood pressure is 161/108, heart rate is in the 70s. NECK: Negative JVD. LUNGS: Without rales. HEART: S1, S2. EXTREMITIES: Without edema. LABORATORY DATA: Hemoglobin is 16. Chemistries: BUN and creatinine are unremarkable. Echocardiogram reveals good LV function with LVH. IMPRESSION: 1. Transient ischemic attack versus cerebrovascular accident. 2. Hypertension. 3. Left ventricular hypertrophy. 4. Obesity. PLAN: Given these findings, we will increase her lisinopril for better blood pressure control. The patient is for angiogram today. Eric Levine MD
[2017-08-08 21:18] LABS: CARDIOLIPIN AB (IGM) <12 MPL (<=12); PHOSPHATIDYLSERINE AB IGA <20 U/mL (<20); PHOSPHATIDYLSERINE AB IGG <10 U/mL (<10); PHOSPHATIDYLSERINE AB IGM <25 U/mL (<25)
[2017-08-09] MEDS: Sodium Chloride 0.9% 1,000 ML IV SCH (03:30)
[2017-08-09] MEDS ORDERED: Morphine 2 mg/ml ISec IVP STA (05:43)
[2017-08-09] MEDS: Pantoprazole 40 mg EC Tab PO SCH (06:11)
[2017-08-09 06:19] LABS: PH,URINE 5.5 (4.7-8.0); URINE BILIRUBIN SMALL (NEGATIVE); URINE BLOOD MODERATE (NEGATIVE); URINE GLUCOSE (UA) NEGATIVE (NEGATIVE); URINE LEUKOCYTE ESTERASE NEGATIVE Leu/uL (NEGATIVE); URINE PROTEIN TRACE mg/dL (<30 mg/dL); URINE UROBILINOGEN 0.2 E.U./dL (<1 E.U./dL)
[2017-08-09 06:24] LABS: URINE APPEARANCE CLOUDY (CLEAR); URINE COLOR YELLOW (YELLOW)
[2017-08-09 06:31] LABS: URINE AMORPHOUS SEDIMENT MODERATE; URINE EPITHELIAL CELLS 0 - 2 /hpf (0-5); URINE WBC 0 - 2 /hpf (0-6)
[2017-08-09 06:42] LABS: BASO # 0.12 K/mm3 (0.0-2.0); BASO % 0.8 % (0.0-3.0); EOS # 0.4 (0.0-0.7); EOS % 2.7 % (1.5-5.0); GRAN # 12.25 (1.4-6.5); GRAN % 77.2 % (50.0-68.0); LYMPH # 2.2 (1.2-3.4); LYMPH % 13.9 % (22.0-35.0); MEAN CELL VOLUME 89.6 fl (80.0-105.0); MEAN CORPUSCULAR HEMOGLOBIN 29.3 pg (25.0-35.0); MEAN CORPUSCULAR HGB CONC 32.8 g/dl (31.0-37.0); MEAN PLATELET VOLUME 10.1 fl (7.0-11.0); MONO # 0.9 (0.1-0.6); MONO % 5.4 % (1.0-6.0); RBC 4.6 10^6/uL (3.5-6.1); RED CELL DISTRIBUTION WIDTH 13.6 % (11.5-14.5); WHITE BLOOD COUNT 15.9 10^3/ul (4.5-11.0)
[2017-08-09 06:45] LABS: HEMOGLOBIN 13.5 g/dL (12.0-16.0)
[2017-08-09 07:13] LABS: ALB/GLOB RATIO 1.1 (1.1-1.8); ALBUMIN 3.6 g/dL (3.0-4.8); ALT/SGPT 29 U/L (7-56); AST/SGOT 30 U/L (14-36); BLOOD UREA NITROGEN 13 mg/dL (7-21); GFR AFRICAN-AMERICAN > 60; GFR NON-AFRICAN AMERICAN > 60
[2017-08-09] MEDS ORDERED: Potassium Chloride 20 mEq ER Tab PO STA (08:01)
--- NOTE | 2017-08-09 08:15 | OP ---
DIAGNOSTIC CEREBRAL ANGIOGRAM PROCEDURE DATE: 08/08/2017 REFERRING PHYSICIAN: Dr. Newberry. BRIEF HISTORY: The patient is a 52-year-old female who is admitted to [facility] with transient neurologic symptoms. This progressed to weakness in the left upper extremity which then over the course of her stay began to involve the right lower extremity. Currently, the patient is unable to ambulate by herself. Diagnostic noninvasive intracranial imaging demonstrated the presence of high-grade occlusion versus stenosis of the right internal carotid artery. Diagnostic cerebral angiography was requested as patient's extra and intracranial circulation and to determine primarily if the patient is a possible candidate for revascularization. PROCEDURE: After discussion with the patient the risks and benefits of the procedure not limited but including groin site complications, allergic reactions, renal damage, the possibility of hematoma, bleeding, nerve damage, and the possibility of persistent severe stroke. The informed consent was obtained, all questions were answered. As well we had discussion about the alternatives which will include a noninvasive imaging; however, it is not the real standard and would not provide a definitive answer to our question whether or not the right temporal artery was occluded. The patient was brought to the Vascular Lab, timeout procedure was performed. The patient was prepared as per sterile technique, and draped. Both groins were prepared. Anesthesia was provided by an anesthesiologist with MAC. The right groin was anesthetized with 2% lidocaine and the right groin was punctured. A 5-Kenyan short sheath was then inserted into the right groin and flushed generally with heparinized saline. All injections were done under direct fluoroscopic guidance with standard Doppler flushing technique. Vessel flushing was done with the use of a Prieto Battery guidewire and a 5-Kenyan [place] diagnostic catheter. DIAGNOSTIC ANGIOGRAPHY: Right common carotid artery: Right common carotid artery was injected. The common carotid artery demonstrated excellent opacification with normal luminal diameter. The left external carotid artery is identified with robust filling as well one can visualize the origins of the occipital and the ascending pharyngeal arteries. There is an abrupt cut off in the mid portion of the proximal right internal carotid artery. There is no intracranial filling seen pumping out of this vessel as a stump like slightly irregular appearance. Intracranial projections performed in the AP and lateral sequences from the right common carotid artery. These Injections demonstrated no flow coming from the common carotid artery injection into the intracranial vasculature. There are filling of dural branches emanating off of the right ECA. Left vertebral artery, cervical view: Injections from the left vertebral artery origin of the cervical vasculature demonstrated a robust normal diameter with no luminal irregularity of the left vertebral artery. Left vertebral artery intracranial projections: Intracranial projections were obtained from the left vertebral artery, AP and lateral sequences. These demonstrated a normal course of the left vertebral artery which coalesces into the basilar artery. The basilar artery is robust without any evidence of diminution of flow or abnormality. Both prison classification counselor are identified as well as both SCAs. One can see collateralization via the right posterior communicating artery with flaccid opacification of the right intracranial top of the carotid. As well there is a sparse amount of left meningeal collateralization from the left POTTERY MACHINE OPERATOR to the left MCA territory. No evidence of aneurysm, AVM, or shunting lesion seen. Left common carotid artery: Injections of the left common carotid artery demonstrated robust common carotid artery without any evidence of luminal irregularity. There is no evidence of high-grade or flow-limiting stenosis at the carotid bifurcation. Visualized portions of the left internal carotid artery appear normal. Left internal carotid artery projections of the intracranial circulation: Under direct fluoroscopic visualization, the guidewire was moved distally to a stable position within the proximal left internal carotid artery. Injections from this done in the AP and lateral view demonstrated no irregularity of the left ICA in its cervical and intracranial portions. Identified in these angiograms are the left MCA and its branches as well as the left GISELE and its branches, there is a filling across the robust and filling of the contralateral left A1 with flash filling. There does appear to be an acute cutoff in the left distal A2 segment. It is well noted on collateralization from the right GISELE territory to the left GISELE territory. No aneurysm, AVM, no shunting lesions are observed. As well as these injections specifically on the lateral plane do show filling of a robust posterior communicating artery. Right femoral arteriography was performed. Based on these injections, the puncture site was slightly closer or at the bifurcation. As such, we decided to remove this sheath after removing the catheter and the wire and hold with manual pressure for 15 minutes. Hemostasis was achieved, no hematoma. Good distal pulses. COMPLICATIONS: None. The patient tolerated the procedure well without any immediate focal neurologic deficits. The patient was hemodynamically stable throughout the procedure. IMPRESSION: This diagnostic cerebral angiogram demonstrated a complete occlusion of the right internal carotid artery just distal to its origin. Please see above for details. The results of this case was discussed in real time with the treating teams. If you have any questions or concerns, please contact me at any time. Jose Iyer MD
[2017-08-09] MEDS ORDERED: Labetalol 5 mg/ml Inj 20ML IV PRN (08:19)
[2017-08-09] MEDS: Hydrocortisone 1% Cream (30 GM) TOP SCH ×3 (09:24→17:43)
[2017-08-09] MEDS: cefTRIAXone 2 GM IN NS 2 GM/100 ML BAG IVPB SCH (09:40)
--- NOTE | 2017-08-09 10:50 | CP.PCM.PN ---
<Milan Silverman - Last Filed: 08/09/17 10:47> Subjective - Date & Time of Evaluation Date of Evaluation: 08/09/17 Time of Evaluation: 06:00 - Subjective Subjective: Patient seen and evaluated bedside. Patient states she has been having loose stools, two episodes this morning. Patient states she has been moving her left leg with some success. She also trying to move her left arm but not much improvement. No shortness of breath, chest pain, or any additional complaints at this time. Objective - Vital Signs/Intake and Output Vital Signs (last 24 hours): Temp Pulse Resp BP Pulse Ox 99 F 71 24 171/90 H 96 08/09/17 04:00 08/09/17 08:23 08/09/17 08:01 08/09/17 08:23 08/08/17 23:00 Intake and Output: 08/09/17 08/09/17 06:59 18:59 Intake Total 1700 Output Total 500 Balance 1200 - Medications Medications: Current Medications Acetaminophen (Tylenol 325mg Tab) 650 mg PO Q6H PRN PRN Reason: Pain, Mild (1-3) Last Admin: 08/09/17 05:01 Dose: 650 mg Aspirin (Ecotrin) 81 mg PO DAILY [facility] Last Admin: 08/09/17 09:23 Dose: 81 mg Atorvastatin Calcium (Lipitor) 40 mg PO DIN [facility] Last Admin: 08/08/17 18:43 Dose: 40 mg Clopidogrel Bisulfate (Plavix) 75 mg PO DAILY [facility] Last Admin: 08/09/17 09:21 Dose: 75 mg Heparin Sodium (Porcine) (Heparin) 5,000 units SC Q12 [facility] PRN Reason: Protocol Last Admin: 08/09/17 09:21 Dose: 5,000 units Hydrocortisone (Cortizone 1% Cream) 0 gm TOP BID [facility] Last Admin: 08/09/17 09:25 Dose: 1 cre Ceftriaxone Sodium (Rocephin 2 Gm Ivpb) 2 gm in 100 mls @ 100 mls/hr IVPB DAILY [facility] PRN Reason: Protocol Last Admin: 08/09/17 09:40 Dose: 100 mls/hr Ibuprofen (Motrin Tab) 400 mg PO Q6H [facility] Last Admin: 08/09/17 05:02 Dose: 400 mg Labetalol HCl (Trandate) 20 mg IV Q6H PRN PRN Reason: Systolic Blood Pressure Lisinopril (Zestril) 10 mg PO DAILY [facility] Last Admin: 08/09/17 08:23 Dose: 10 mg Pantoprazole Sodium (Protonix Ec Tab) 40 mg PO 0600 [facility] Last Admin: 08/09/17 06:11 Dose: 40 mg - Labs Labs: 08/09/17 05:50 08/09/17 05:50 PT 12.5 SECONDS (9.4-12.5) 08/05/17 06:00 INR 1.09 (0.93-1.08) H 08/05/17 06:00 APTT 30.2 Seconds (25.1-36.5) 08/05/17 06:00 - Constitutional Appears: Non-toxic, No Acute Distress - Head Exam Head Exam: ATRAUMATIC, NORMAL INSPECTION, NORMOCEPHALIC - Eye Exam Eye Exam: EOMI, Normal appearance - ENT Exam ENT Exam: Mucous Membranes Moist - Respiratory Exam Respiratory Exam: Clear to Ausculation Bilateral, NORMAL BREATHING PATTERN - Cardiovascular Exam Cardiovascular Exam: REGULAR RHYTHM - GI/Abdominal Exam GI & Abdominal Exam: Soft, Tenderness - Extremities Exam Extremities Exam: absent: Full ROM - Neurological Exam Neurological Exam: Alert, Awake, Oriented x3 Neuro motor strength exam: Left Upper Extremity: 2/1, Right Upper Extremity: 5, Left Lower Extremity: 2/1, Right Lower Extremity: 5 - Psychiatric Exam Psychiatric exam: Normal Affect Assessment and Plan - Assessment and Plan (Free Text) Assessment: 52yo Female with PMH of uncontrolled HTN, substance abuse (quit alcohol many years ago), cervical spondylolisthesis, recent incarceration (was release from [facility] detention last month) admitted for acute CVA and uncontrolled HTN. Patient transferred to ICU for monitoring and treatment. Plan: 1. CVA - Pt transfered for pre-op monitoring in ICU. Neurochecks q1h. - Neurosurgery: Dr. Epps, consulted, Cerebral agiogram done yesterday showing occlusion of the right ICA just distal to carotid bifurcation. No flow intracranially from the right ICA. No stent placd. - Echo reveals EF 55%, LV with mild concentric hypertrophy. No other abnormalities. - MRA neck significant for R ICA occlusion. - Continue clopidogrel 75 mg PO, ASA 81 mg PO - Speech and language pathology, swallow eval and treatment - PT evaluation for CVA and deconditioning - Neurology consult: Dr. Estevez - Hepatitis results return negative for HAV, HBV, HCV. TSH normal at 1.89 - Homocysteine 7 -Cardiolipin antibodies IgG negative -CT head from yesterday showing multiple areas of cortical infarction, progressive, non hemorrhagic now identified in the medial superior aspect of the right frontal lobe, right temporal lobe. The original area of cortical infarct has increased as well. No midline shift appreciated -Lisinopril 10 -labetolol PRN 2. Leukocytosis: infection vs reactive -15.9 -No fever -CXR showed no active disease -Procal not elevated -blood cultures no growth -will monitor 3. Rash on right arm - Clotrimazole topical VTE prophylaxis: Heparin 5000 units GI prophylaxis: pantoprazole 40 mg IVP daily <Libby Hunter - Last Filed: 08/09/17 16:33> Objective - Vital Signs/Intake and Output Vital Signs (last 24 hours): Temp Pulse Resp BP Pulse Ox 97.9 F 72 17 143/71 98 08/09/17 12:00 08/09/17 14:05 08/09/17 14:05 08/09/17 14:06 08/09/17 12:00 Intake and Output: 08/09/17 08/09/17 06:59 18:59 Intake Total 1700 Output Total 500 Balance 1200 - Medications Medications: Current Medications Acetaminophen (Tylenol 325mg Tab) 650 mg PO Q6H PRN PRN Reason: Pain, Mild (1-3) Last Admin: 08/09/17 05:01 Dose: 650 mg Aspirin (Ecotrin) 81 mg PO DAILY [facility] Last Admin: 08/09/17 09:23 Dose: 81 mg Atorvastatin Calcium (Lipitor) 40 mg PO DIN [facility] Last Admin: 08/08/17 18:43 Dose: 40 mg Clonidine HCl (Catapres) 0.1 mg PO BID [facility] Clopidogrel Bisulfate (Plavix) 75 mg PO DAILY [facility] Last Admin: 08/09/17 09:21 Dose: 75 mg Heparin Sodium (Porcine) (Heparin) 5,000 units SC Q12 [facility] PRN Reason: Protocol Last Admin: 08/09/17 09:21 Dose: 5,000 units Hydrocortisone (Cortizone 1% Cream) 0 gm TOP BID [facility] Last Admin: 08/09/17 09:25 Dose: 1 cre Ceftriaxone Sodium (Rocephin 2 Gm Ivpb) 2 gm in 100 mls @ 100 mls/hr IVPB DAILY [facility] PRN Reason: Protocol Stop: 08/10/17 10:59 Last Admin: 08/09/17 09:40 Dose: 100 mls/hr Ibuprofen (Motrin Tab) 400 mg PO Q6H [facility] Last Admin: 08/09/17 13:10 Dose: 400 mg Labetalol HCl (Trandate) 20 mg IV Q6H PRN PRN Reason: Systolic Blood Pressure Lisinopril (Zestril) 10 mg PO DAILY [facility] Last Admin: 08/09/17 08:23 Dose: 10 mg Pantoprazole Sodium (Protonix Ec Tab) 40 mg PO 0600 [facility] Last Admin: 08/09/17 06:11 Dose: 40 mg Vancomycin HCl (Vancocin 25 Mg/Ml (Oral Use)) 125 mg PO QID [facility] PRN Reason: Protocol - Labs Labs: 08/09/17 05:50 08/09/17 05:50 PT 12.5 SECONDS (9.4-12.5) 08/05/17 06:00 INR 1.09 (0.93-1.08) H 08/05/17 06:00 APTT 30.2 Seconds (25.1-36.5) 08/05/17 06:00 Attending/Attestation - Attestation I have personally seen and examined this patient.: Yes I have fully participated in the care of the patient.: Yes I have reviewed all pertinent clinical information, including history, physical exam and plan: Yes Notes (Text): 08/09/17 16:28 Attending note; Patient seen and examined with resident in ICU with . Patient's daughter by the bedside. Patient is a 52 year old Female with PMH of uncontrolled hypertension , noncompliance with medication is admitted for acute CVA and uncontrolled blood pressure. CT and MRI consistent with right frontal and temporal subacute stroke. Still with left-sided hemiparesis. Patient is currently alert, awake. MRA showed right internal carotid occlusion at the origin. MRA of head showed right MCA stenosis. Status post carotid angiogram. CT showed small groin hematoma. Monitor closely. No retroperitoneal hematoma noted. Monitor hemoglobin level. Diarrhea; stool for C. difficile toxin antigen is positive. Toxin is negative. Started on po vancomycin. Tolerating diet. Speech and swallow evaluation appreciated. leukocytosis; improving .urine culture showed mixed organisms possible contamination. Off anti-biotics. on aspirin, Plavix and Lipitor. We will hold his hematoma is increasing. Hypertension ; continue lisinopril. Case discussed with [employer] for discharge planning. Upon discharge the patient will be referred to [facility] [place] clinic.
[2017-08-09 12:20] LABS: CARDIOLIPIN AB (IGA) <11 APL (<=11)
--- NOTE | 2017-08-09 14:42 | CT ---
PROCEDURE: CT Abdomen and Pelvis without intravenous contrast HISTORY: r/o retroperitoneal bleed, attn to R groin site COMPARISON: None. TECHNIQUE: Without contrast.. Contrast Dose: Radiation dose: Total exam DLP = 1265 mGy-cm. This CT exam was performed using one or more of the following dose reduction techniques: Automated exposure control, adjustment of the mA and/or kV according to patient size, and/or use of iterative reconstruction technique. FINDINGS: LOWER THORAX: Unremarkable. LIVER: Unremarkable. No gross lesion or ductal dilatation. GALLBLADDER AND BILE DUCTS: Unremarkable. PANCREAS: Unremarkable. No gross lesion or ductal dilatation. SPLEEN: Unremarkable. ADRENALS: Unremarkable. No mass. KIDNEYS AND URETERS: Unremarkable. No hydronephrosis. No solid mass. VASCULATURE: There is a focal hematoma in the right groin measuring 4.3 cm in diameter. There is some surrounding edema. There is no evidence of a retroperitoneal hematoma . BOWEL: Unremarkable. No obstruction. No gross mural thickening. APPENDIX: Unremarkable. Normal appendix. PERITONEUM: Unremarkable. No free fluid. No free air. LYMPH NODES: Unremarkable. No enlarged lymph nodes. BLADDER: Unremarkable. REPRODUCTIVE: Unremarkable. BONES: No acute fracture. OTHER FINDINGS: None. IMPRESSION: There is a focal hematoma in the right groin measuring 4.3 cm in diameter. There is some surrounding edema. There is no evidence of a retroperitoneal hematoma .
--- NOTE | 2017-08-09 16:59 | PN ---
DATE: 08/09/2017 SUBJECTIVE: The patient is without symptoms. PHYSICAL EXAMINATION VITAL SIGNS: Blood pressure varies from 170-200 systolic, heart rates in the 70s. NECK: Negative JVD. LUNGS: Without rales. HEART: Reveals S1, S2. EXTREMITIES: The right groin site apparently has a hematoma. LABORATORY DATA: Hemoglobin is 13.5. Chemistries: BUN and creatinine are unremarkable. IMPRESSION: 1. Status post carotid angiogram. 2. Status post cerebrovascular disease. 3. Hypertension. 4. Hematoma of the right groin site. PLAN: Given these findings, I have suggested that the nurses call the design technician to evaluate the right groin. We will need to control her blood pressure better. We will add clonidine 0.1 b.i.d. In addition, we would suggest obtaining an ultrasound of the right groin site. Eric Levine MD
--- NOTE | 2017-08-09 17:37 | PCM.IRP ---
Chief Complaint: called to see patient and asses right groin puncture site. Objective - Vital Signs/Intake and Output Vital Signs (last 24 hours): Vital Signs - 24 hr 08/08/17 08/08/17 08/08/17 17:45 18:00 18:15 Temperature Pulse Rate 77 77 80 Respiratory 20 Rate Blood Pressure 168/89 H 161/101 H O2 Sat by Pulse 98 98 99 Oximetry 08/08/17 08/08/17 08/08/17 18:30 18:47 19:00 Temperature Pulse Rate 77 103 H 117 H Respiratory 15 21 24 Rate Blood Pressure 167/114 H 163/99 H 81/44 L O2 Sat by Pulse 98 97 97 Oximetry 08/08/17 08/08/17 08/08/17 19:15 19:31 19:45 Temperature Pulse Rate 80 81 79 Respiratory 32 H 22 Rate Blood Pressure 151/86 H 148/70 174/95 H O2 Sat by Pulse 96 97 96 Oximetry 08/08/17 08/08/17 08/08/17 20:00 20:15 20:30 Temperature Pulse Rate 80 76 74 Respiratory 26 H 18 18 Rate Blood Pressure 153/75 H 136/72 O2 Sat by Pulse 97 95 95 Oximetry 08/08/17 08/08/17 08/08/17 20:32 20:45 20:52 Temperature Pulse Rate 77 84 Respiratory 17 18 19 Rate Blood Pressure 163/87 H O2 Sat by Pulse 95 95 96 Oximetry 08/08/17 08/08/17 08/08/17 20:58 20:59 21:00 Temperature Pulse Rate 106 H 102 H 122 H Respiratory 117 H 38 H Rate Blood Pressure O2 Sat by Pulse Oximetry 08/08/17 08/08/17 08/08/17 21:01 21:02 21:03 Temperature Pulse Rate 93 H 86 Respiratory 46 H Rate Blood Pressure 199/84 H O2 Sat by Pulse Oximetry 08/08/17 08/08/17 08/08/17 21:04 21:05 21:06 Temperature Pulse Rate 84 85 96 H Respiratory 30 H 23 61 H Rate Blood Pressure O2 Sat by Pulse Oximetry 08/08/17 08/08/17 08/08/17 21:07 21:16 21:30 Temperature Pulse Rate 103 H 91 H 85 Respiratory 177 H 45 H 23 Rate Blood Pressure 167/116 H 183/85 H O2 Sat by Pulse 96 94 L Oximetry 08/08/17 08/08/17 08/08/17 21:45 22:00 22:10 Temperature Pulse Rate 89 96 H 89 Respiratory 18 26 H 24 Rate Blood Pressure 183/93 H 190/108 H 166/102 H O2 Sat by Pulse 96 100 97 Oximetry 08/08/17 08/08/17 08/08/17 22:15 22:32 23:00 Temperature Pulse Rate 91 H 81 75 Respiratory 23 20 23 Rate Blood Pressure 196/107 H 172/96 H O2 Sat by Pulse 97 98 96 Oximetry 08/08/17 08/09/17 08/09/17 23:34 00:00 00:02 Temperature 98.6 F Pulse Rate 84 85 78 Respiratory 21 43 H 20 Rate Blood Pressure 185/100 H O2 Sat by Pulse Oximetry 08/09/17 08/09/17 08/09/17 01:00 02:00 03:00 Temperature Pulse Rate 72 73 82 Respiratory 14 27 H 35 H Rate Blood Pressure O2 Sat by Pulse Oximetry 08/09/17 08/09/17 08/09/17 04:00 05:00 05:26 Temperature 99 F Pulse Rate 81 83 84 Respiratory 26 H 99 H Rate Blood Pressure O2 Sat by Pulse Oximetry 08/09/17 08/09/17 08/09/17 05:27 06:00 07:00 Temperature Pulse Rate 79 67 83 Respiratory 26 H 20 24 Rate Blood Pressure 165/111 H O2 Sat by Pulse Oximetry 08/09/17 08/09/17 08/09/17 08:00 08:01 08:23 Temperature 98.5 F Pulse Rate 77 70 117 H Respiratory 18 24 22 Rate Blood Pressure 200/109 H 171/90 H O2 Sat by Pulse 98 Oximetry 08/09/17 08/09/17 08/09/17 09:42 10:00 11:09 Temperature Pulse Rate 70 70 81 Respiratory 8 L 18 111 H Rate Blood Pressure 156/82 H O2 Sat by Pulse 97 97 Oximetry 08/09/17 08/09/17 08/09/17 11:10 11:59 12:00 Temperature 97.9 F Pulse Rate 72 77 Respiratory 24 16 Rate Blood Pressure 170/81 H 149/71 O2 Sat by Pulse 98 Oximetry 08/09/17 08/09/17 08/09/17 14:00 14:05 14:06 Temperature Pulse Rate 74 72 Respiratory 21 17 Rate Blood Pressure 143/71 O2 Sat by Pulse Oximetry Intake and Output (last 12 hours): Intake & Output 08/08/17 08/09/17 08/09/17 18:59 06:59 18:59 Intake Total 1600 1700 Output Total 300 500 Balance 1300 1200 Intake: IV 1200 1200 Left Hand 1200 Right Antecubital 1200 Oral 400 500 Output: Urine 300 500 Urine, Voided 300 500 Other: # Bowel Movements 1 0 - Medications Medications: Current Medications Acetaminophen (Tylenol 325mg Tab) 650 mg PO Q6H PRN PRN Reason: Pain, Mild (1-3) Last Admin: 08/09/17 05:01 Dose: 650 mg Aspirin (Ecotrin) 81 mg PO DAILY [facility] Last Admin: 08/09/17 09:23 Dose: 81 mg Atorvastatin Calcium (Lipitor) 40 mg PO DIN [facility] Last Admin: 08/08/17 18:43 Dose: 40 mg Clonidine HCl (Catapres) 0.1 mg PO BID [facility] Clopidogrel Bisulfate (Plavix) 75 mg PO DAILY [facility] Last Admin: 08/09/17 09:21 Dose: 75 mg Heparin Sodium (Porcine) (Heparin) 5,000 units SC Q12 [facility] PRN Reason: Protocol Last Admin: 08/09/17 09:21 Dose: 5,000 units Hydrocortisone (Cortizone 1% Cream) 0 gm TOP BID [facility] Last Admin: 08/09/17 09:25 Dose: 1 cre Ibuprofen (Motrin Tab) 400 mg PO Q6H [facility] Last Admin: 08/09/17 13:10 Dose: 400 mg Labetalol HCl (Trandate) 20 mg IV Q6H PRN PRN Reason: Systolic Blood Pressure Lisinopril (Zestril) 10 mg PO DAILY [facility] Last Admin: 08/09/17 08:23 Dose: 10 mg Pantoprazole Sodium (Protonix Ec Tab) 40 mg PO 0600 [facility] Last Admin: 08/09/17 06:11 Dose: 40 mg Vancomycin HCl (Vancocin 25 Mg/Ml (Oral Use)) 125 mg PO QID [facility] PRN Reason: Protocol - Labs Labs (last 24 hours): Laboratory Results - last 24 hr 08/05/17 08/05/17 08/05/17 13:40 13:40 13:40 WBC RBC Hgb Hct MCV MCH MCHC RDW Plt Count MPV Gran % Lymph % (Auto) [place] % (Auto) Eos % (Auto) Baso % (Auto) Gran # Lymph # (Auto) [place] # (Auto) Eos # (Auto) Baso # (Auto) Protein S Activity 131 Factor V see note Sodium Potassium Chloride Carbon Dioxide Anion Gap BUN Creatinine Est GFR ( Amer) Est GFR (Non-Af Amer) Random Glucose Calcium Total Bilirubin AST ALT Alkaline Phosphatase Total Protein Albumin Globulin Albumin/Globulin Ratio Urine Color Urine Appearance Urine pH Ur Specific [place] Urine Protein Urine Glucose (UA) Urine Ketones Urine Blood Urine Nitrate Urine Bilirubin Urine Urobilinogen Ur Leukocyte Esterase Urine RBC Urine WBC Ur Epithelial Cells Amorphous Sediment Phosphatidylserine IgG Phosphatidylserine IgA Phosphatidylserine IgM Anti-Phospholipid Intrp Anti-Cardiolipin IgA Ab <11 Anti-Cardiolipin IgM Ab 08/05/17 08/09/17 08/09/17 13:40 05:50 05:50 WBC 15.9 H RBC 4.60 Hgb 13.5 D Hct 41.2 MCV 89.6 MCH 29.3 MCHC 32.8 RDW 13.6 Plt Count 340 MPV 10.1 Gran % 77.2 H Lymph % (Auto) 13.9 L [place] % (Auto) 5.4 Eos % (Auto) 2.7 Baso % (Auto) 0.8 Gran # 12.25 H Lymph # (Auto) 2.2 [place] # (Auto) 0.9 H Eos # (Auto) 0.4 Baso # (Auto) 0.12 Protein S Activity Factor V Sodium 144 Potassium 3.5 L Chloride 111 H Carbon Dioxide 22 Anion Gap 15 BUN 13 Creatinine 0.6 L Est GFR ( Amer) > 60 Est GFR (Non-Af Amer) > 60 Random Glucose 102 Calcium 9.0 Total Bilirubin 0.7 AST 30 ALT 29 Alkaline Phosphatase 52 Total Protein 6.8 Albumin 3.6 Globulin 3.2 Albumin/Globulin Ratio 1.1 Urine Color Urine Appearance Urine pH Ur Specific [place] Urine Protein Urine Glucose (UA) Urine Ketones Urine Blood Urine Nitrate Urine Bilirubin Urine Urobilinogen Ur Leukocyte Esterase Urine RBC Urine WBC Ur Epithelial Cells Amorphous Sediment Phosphatidylserine IgG <10 Phosphatidylserine IgA <20 Phosphatidylserine IgM <25 Anti-Phospholipid Intrp see note Anti-Cardiolipin IgA Ab Anti-Cardiolipin IgM Ab <12 08/09/17 06:08 WBC RBC Hgb Hct MCV MCH MCHC RDW Plt Count MPV Gran % Lymph % (Auto) [place] % (Auto) Eos % (Auto) Baso % (Auto) Gran # Lymph # (Auto) [place] # (Auto) Eos # (Auto) Baso # (Auto) Protein S Activity Factor V Sodium Potassium Chloride Carbon Dioxide Anion Gap BUN Creatinine Est GFR ( Amer) Est GFR (Non-Af Amer) Random Glucose Calcium Total Bilirubin AST ALT Alkaline Phosphatase Total Protein Albumin Globulin Albumin/Globulin Ratio Urine Color Yellow Urine Appearance Cloudy Urine pH 5.5 Ur Specific [place] >= 1.030 Urine Protein Trace H Urine Glucose (UA) Negative Urine Ketones Trace H Urine Blood Moderate H Urine Nitrate Negative Urine Bilirubin Small H Urine Urobilinogen 0.2 Ur Leukocyte Esterase Negative Urine RBC 1 - 3 Urine WBC 0 - 2 Ur Epithelial Cells 0 - 2 Amorphous Sediment Moderate Phosphatidylserine IgG Phosphatidylserine IgA Phosphatidylserine IgM Anti-Phospholipid Intrp Anti-Cardiolipin IgA Ab Anti-Cardiolipin IgM Ab - Additional Findings Additional findings: right groin c/d/i. No visible hematoma, no active bleeding nor any oozing. Small hematoma palpated. Vital signs stable. Hgb 16-->13, but was 14 on admission. No hemodynamic compromise. Assessment/Plan - Assessment and Plan (Free Text) Plan: CTabdomen and pelvis orderd stat to rule out a retroperitoneal hematoma. Study showed a small 4cm hematoma, but no retroperotoneal hematoma. Plan: monitor hemodynamics closely, groin and distal pulses checlks frequently. Trend H/H. - Date & Time Date: 08/09/17 Time: 17:36
[2017-08-09] MEDS: Vancomycin 25 MG/ML PO SCH ×2 (17:43→22:35)
[2017-08-10] MEDS: guaiFENesin-Codeine 100-10mg/5ml Syrup (5 ml) UD PO PRN (01:40)
[2017-08-10] MEDS: Pantoprazole 40 mg EC Tab PO SCH (05:25)
[2017-08-10 05:50] LABS: HEMOGLOBIN 12.6 g/dL (12.0-16.0); MEAN CELL VOLUME 89.3 fl (80.0-105.0); MEAN CORPUSCULAR HEMOGLOBIN 29.4 pg (25.0-35.0); MEAN PLATELET VOLUME 10.2 fl (7.0-11.0); RBC 4.28 10^6/uL (3.5-6.1); RED CELL DISTRIBUTION WIDTH 13.8 % (11.5-14.5); WHITE BLOOD COUNT 14.7 10^3/ul (4.5-11.0)
[2017-08-10 05:54] LABS: ALB/GLOB RATIO 1.1 (1.1-1.8); ALBUMIN 3.4 g/dL (3.0-4.8); ALT/SGPT 29 U/L (7-56); AST/SGOT 44 U/L (14-36); BLOOD UREA NITROGEN 12 mg/dL (7-21); CALCIUM 9.2 mg/dL (8.4-10.5); GFR AFRICAN-AMERICAN > 60; GFR NON-AFRICAN AMERICAN > 60
[2017-08-10] MEDS: Vancomycin 25 MG/ML PO SCH ×4 (09:29→22:09)
--- NOTE | 2017-08-10 10:13 | CP.PCM.PN ---
<Milan Silverman - Last Filed: 08/10/17 10:09> Subjective - Date & Time of Evaluation Date of Evaluation: 08/10/17 Time of Evaluation: 06:00 - Subjective Subjective: Patient seen and examined bedside. No acute issues overnight. Patient states she continues to have diarrhea. No chest pain, shortness of breath, change in vision or any other complaints at this time. Objective - Vital Signs/Intake and Output Vital Signs (last 24 hours): Temp Pulse Resp BP Pulse Ox 98.1 F 77 20 185/83 H 96 08/10/17 04:00 08/10/17 09:28 08/10/17 04:00 08/10/17 09:28 08/09/17 16:00 Intake and Output: 08/10/17 08/10/17 06:59 18:59 Intake Total 475 Output Total 650 Balance -175 - Medications Medications: Current Medications Acetaminophen (Tylenol 325mg Tab) 650 mg PO Q6H PRN PRN Reason: Pain, Mild (1-3) Last Admin: 08/10/17 03:45 Dose: 650 mg Aspirin (Ecotrin) 81 mg PO DAILY [facility] Last Admin: 08/10/17 09:27 Dose: 81 mg Atorvastatin Calcium (Lipitor) 40 mg PO DIN [facility] Last Admin: 08/09/17 17:45 Dose: 40 mg Clonidine HCl (Catapres) 0.1 mg PO BID [facility] Last Admin: 08/10/17 09:28 Dose: 0.1 mg Clopidogrel Bisulfate (Plavix) 75 mg PO DAILY [facility] Last Admin: 08/10/17 09:27 Dose: 75 mg Guaifenesin/Codeine Phosphate (Robitussin W/Codeine) 5 ml PO Q6H PRN PRN Reason: Cough and congestion Last Admin: 08/10/17 01:40 Dose: 5 ml Heparin Sodium (Porcine) (Heparin) 5,000 units SC Q12 [facility] PRN Reason: Protocol Last Admin: 08/09/17 09:21 Dose: 5,000 units Hydrocortisone (Cortizone 1% Cream) 0 gm TOP BID [facility] Last Admin: 08/09/17 17:43 Dose: 1 cre Ibuprofen (Motrin Tab) 400 mg PO Q6H [facility] Last Admin: 08/10/17 05:22 Dose: 400 mg Labetalol HCl (Trandate) 20 mg IV Q6H PRN PRN Reason: Systolic Blood Pressure Lisinopril (Zestril) 10 mg PO DAILY [facility] Last Admin: 08/10/17 09:27 Dose: 10 mg Pantoprazole Sodium (Protonix Ec Tab) 40 mg PO 0600 [facility] Last Admin: 08/10/17 05:25 Dose: 40 mg Vancomycin HCl (Vancocin 25 Mg/Ml (Oral Use)) 125 mg PO QID [facility] PRN Reason: Protocol Last Admin: 08/10/17 09:29 Dose: 125 mg - Labs Labs: 08/10/17 05:00 08/10/17 05:00 PT 12.5 SECONDS (9.4-12.5) 08/05/17 06:00 INR 1.09 (0.93-1.08) H 08/05/17 06:00 APTT 30.2 Seconds (25.1-36.5) 08/05/17 06:00 - Constitutional Appears: Non-toxic, No Acute Distress - Head Exam Head Exam: ATRAUMATIC, NORMAL INSPECTION, NORMOCEPHALIC - Eye Exam Eye Exam: EOMI, Normal appearance - ENT Exam ENT Exam: Mucous Membranes Moist - Respiratory Exam Respiratory Exam: Clear to Ausculation Bilateral, NORMAL BREATHING PATTERN - Cardiovascular Exam Cardiovascular Exam: REGULAR RHYTHM - GI/Abdominal Exam GI & Abdominal Exam: Soft - Back Exam Back Exam: absent: Full ROM - Neurological Exam Neurological Exam: Alert, Awake, Oriented x3 Neuro motor strength exam: Left Upper Extremity: 0, Right Upper Extremity: 5, Left Lower Extremity: 2/1, Right Lower Extremity: 5 Assessment and Plan - Assessment and Plan (Free Text) Assessment: 52yo Female with PMH of uncontrolled HTN, substance abuse (quit alcohol many years ago), cervical spondylolisthesis, recent incarceration (was release from [facility] last month) admitted for acute CVA and uncontrolled HTN. Patient transferred to ICU for monitoring and treatment. Plan: 1. CVA - Neurosurgery: Dr. Epps, consulted, Cerebral agiogram done yesterday showing occlusion of the right ICA just distal to carotid bifurcation. No flow intracranially from the right ICA. No stent placd. - Echo reveals EF 55%, LV with mild concentric hypertrophy. No other abnormalities. - MRA neck significant for R ICA occlusion. - Continue clopidogrel 75 mg PO, ASA 81 mg PO - PT evaluation for CVA and deconditioning - Neurology consult: Dr. Estevez - Hepatitis results return negative for HAV, HBV, HCV. TSH normal at 1.89 - Homocysteine 7 -Cardiolipin antibodies IgG negative -CT head showing multiple areas of cortical infarction, progressive, non hemorrhagic now identified in the medial superior aspect of the right frontal lobe, right temporal lobe. The original area of cortical infarct has increased as well. No midline shift appreciated -Lisinopril 10 -labetolol PRN -hematoma in right groin stable small, soft -CT abdomen pelvis, did not show any retroperitoneal hematoma following IR procedure 2. Leukocytosis: likely from c diff infection -14.7 -No fever -CXR showed no active disease -Procal not elevated -blood cultures no growth -will monitor -C diff positive, started on vancomycin PO -contact precautions -rectal tube 3. Rash on right arm - Clotrimazole topical VTE prophylaxis: Heparin 5000 units GI prophylaxis: pantoprazole 40 mg IVP daily <RangasarichyAjantha - Last Filed: 08/10/17 16:01> Objective - Vital Signs/Intake and Output Vital Signs (last 24 hours): Temp Pulse Resp BP Pulse Ox 98.4 F 79 17 165/95 H 96 08/10/17 12:00 08/10/17 14:00 08/10/17 14:00 08/10/17 12:00 08/09/17 16:00 Intake and Output: 08/10/17 08/10/17 06:59 18:59 Intake Total 475 Output Total 650 Balance -175 - Medications Medications: Current Medications Acetaminophen (Tylenol 325mg Tab) 650 mg PO Q6H PRN PRN Reason: Pain, Mild (1-3) Last Admin: 08/10/17 03:45 Dose: 650 mg Aspirin (Ecotrin) 81 mg PO DAILY [facility] Last Admin: 08/10/17 09:27 Dose: 81 mg Atorvastatin Calcium (Lipitor) 40 mg PO DIN [facility] Last Admin: 08/09/17 17:45 Dose: 40 mg Clonidine HCl (Catapres) 0.1 mg PO BID [facility] Last Admin: 08/10/17 09:28 Dose: 0.1 mg Clopidogrel Bisulfate (Plavix) 75 mg PO DAILY [facility] Last Admin: 08/10/17 09:27 Dose: 75 mg Guaifenesin/Codeine Phosphate (Robitussin W/Codeine) 5 ml PO Q6H PRN PRN Reason: Cough and congestion Last Admin: 08/10/17 01:40 Dose: 5 ml Heparin Sodium (Porcine) (Heparin) 5,000 units SC Q12 [facility] PRN Reason: Protocol Last Admin: 08/09/17 09:21 Dose: 5,000 units Hydrocortisone (Cortizone 1% Cream) 0 gm TOP BID [facility] Last Admin: 08/10/17 11:00 Dose: 1 cre Ibuprofen (Motrin Tab) 400 mg PO Q6H [facility] Last Admin: 08/10/17 12:22 Dose: 400 mg Labetalol HCl (Trandate) 20 mg IV Q6H PRN PRN Reason: Systolic Blood Pressure Lisinopril (Zestril) 10 mg PO DAILY [facility] Last Admin: 08/10/17 09:27 Dose: 10 mg Pantoprazole Sodium (Protonix Ec Tab) 40 mg PO 0600 [facility] Last Admin: 08/10/17 05:25 Dose: 40 mg Vancomycin HCl (Vancocin 25 Mg/Ml (Oral Use)) 125 mg PO QID [facility] PRN Reason: Protocol Last Admin: 08/10/17 13:55 Dose: 125 mg - Labs Labs: 08/10/17 05:00 08/10/17 05:00 PT 12.5 SECONDS (9.4-12.5) 08/05/17 06:00 INR 1.09 (0.93-1.08) H 08/05/17 06:00 APTT 30.2 Seconds (25.1-36.5) 08/05/17 06:00 Attending/Attestation - Attestation I have personally seen and examined this patient.: Yes I have fully participated in the care of the patient.: Yes I have reviewed all pertinent clinical information, including history, physical exam and plan: Yes Notes (Text): 08/10/17 15:58 Attending note; Patient seen and examined with resident in ICU. Patient is a 52 year old Female with PMH of uncontrolled hypertension , noncompliance with medication is admitted for acute CVA and uncontrolled blood pressure. CT and MRI consistent with right frontal and temporal subacute stroke. Still with left-sided hemiparesis. Patient is currently alert, awake. MRA showed right internal carotid occlusion at the origin. MRA of head showed right MCA stenosis. Status post carotid angiogram. CT showed small groin hematoma. stable. No retroperitoneal hematoma noted. hemoglobin is 12.6. Diarrhea; stool for C. difficile toxin antigen is positive. Toxin is negative. Started on po vancomycin. has rectal tube. Tolerating diet. Speech and swallow evaluation appreciated. leukocytosis; improving .urine culture showed mixed organisms possible contamination. Off anti-biotics. on aspirin, Plavix and Lipitor. Hypertension ; continue lisinopril and clonidine. Upon discharge the patient will be referred to [facility] clinic. 08/10/17 16:01
[2017-08-10] MEDS: Hydrocortisone 1% Cream (30 GM) TOP SCH ×2 (11:00→17:22)
--- NOTE | 2017-08-10 22:45 | CT ---
EXAM: CT Head Without Intravenous Contrast EXAM DATE/TIME: 08/10/2017 6:51 PM CLINICAL HISTORY: 52 years old, female; Signs and symptoms; Numbness / parasthesia; Patient HX: Numbness/tingling of face TECHNIQUE: Axial computed tomography images of the head/brain without intravenous contrast. All CT scans at this facility use one or more dose reduction techniques, viz.: automated exposure control; ma/kV adjustment per patient size (including targeted exams where dose is matched to indication; i.e. head); or iterative reconstruction technique. Coronal and sagittal reformatted images were created and reviewed. COMPARISON: CT - HEAD W/O CONTRAST 2017-08-06 16:53 FINDINGS: There is a bandlike hypoattenuating area in the right frontal lobe consistent with old infarct unchanged from prior. There are smaller areas of decreased attenuation in the right frontal lobe elsewhere and in the right parietal and temporal lobes consistent with old infarcts. There is also a small area of low attenuation in the left frontal lobe. Recent MRI report August 05 2017 describes restricted diffusion in these regions ( images not provided). If there is concern for acute infarct, MRI would be a more sensitive imaging modality. No intracranial hemorrhage. Asymmetry of the cerebral sulci being more prominent on the left likely secondary to residual edema from the patient's recent right-sided infarcts. Probable tiny mucosal retention cyst left maxillary sinus. IMPRESSION: Multiple areas of low attenuation consistent with the patient's known recent infarcts.
[2017-08-11] MEDS: guaiFENesin-Codeine 100-10mg/5ml Syrup (5 ml) UD PO PRN (00:35)
[2017-08-11] MEDS: Pantoprazole 40 mg EC Tab PO SCH (06:03)
--- NOTE | 2017-08-11 06:21 | CP.PCM.PN ---
Subjective - Date & Time of Evaluation Date of Evaluation: 08/11/17 Time of Evaluation: :18 - Subjective Subjective: Ms. Rangel was seen and examined at the bedside. She is alert, oriented in all spheres but very drowsy. She is able to answer questions. She denies any headache, dizziness, lightheadedness, but complaints of tenderness in her right groin. Her right groin has ecchymosis and hematoma. CT scan of the abdomen did not show any retroperitoneal bleed but a 4.3 cm. hematoma. The parient had carotid angiogram last saturday. CT scan of the head done 08/10/17 showed multiple low attentuation which is consistent to her recent infarcts. She had a panic attack episode last night which ativan was given.She remains with left hemiplegia. Objective - Vital Signs/Intake and Output Vital Signs (last 24 hours): Temp Pulse Resp BP Pulse Ox 98.7 F 80 20 135/83 97 08/10/17 23:21 08/11/17 03:00 08/10/17 23:21 08/10/17 23:21 08/10/17 23:21 Intake and Output: 08/10/17 08/11/17 18:59 07:59 Intake Total 300 Output Total 200 Balance 100 - Medications Medications: Current Medications Acetaminophen (Tylenol 325mg Tab) 650 mg PO Q6H PRN PRN Reason: Pain, Mild (1-3) Last Admin: 08/10/17 18:30 Dose: 650 mg Aspirin (Ecotrin) 81 mg PO DAILY [facility] Last Admin: 08/10/17 09:27 Dose: 81 mg Atorvastatin Calcium (Lipitor) 40 mg PO DIN [facility] Last Admin: 08/10/17 17:20 Dose: 40 mg Clonidine HCl (Catapres) 0.1 mg PO BID [facility] Last Admin: 08/10/17 17:21 Dose: 0.1 mg Clopidogrel Bisulfate (Plavix) 75 mg PO DAILY [facility] Last Admin: 08/10/17 09:27 Dose: 75 mg Guaifenesin/Codeine Phosphate (Robitussin W/Codeine) 5 ml PO Q6H PRN PRN Reason: Cough and congestion Last Admin: 08/11/17 00:35 Dose: 5 ml Heparin Sodium (Porcine) (Heparin) 5,000 units SC Q12 [facility] PRN Reason: Protocol Last Admin: 08/09/17 09:21 Dose: 5,000 units Hydrocortisone (Cortizone 1% Cream) 0 gm TOP BID [facility] Last Admin: 08/10/17 17:22 Dose: Not Given Ibuprofen (Motrin Tab) 400 mg PO Q6H [facility] Last Admin: 08/11/17 06:03 Dose: Not Given Labetalol HCl (Trandate) 20 mg IV Q6H PRN PRN Reason: Systolic Blood Pressure Lisinopril (Zestril) 10 mg PO DAILY [facility] Last Admin: 08/10/17 09:27 Dose: 10 mg Pantoprazole Sodium (Protonix Ec Tab) 40 mg PO 0600 [facility] Last Admin: 08/11/17 06:03 Dose: Not Given Vancomycin HCl (Vancocin 25 Mg/Ml (Oral Use)) 125 mg PO QID [facility] PRN Reason: Protocol Last Admin: 08/10/17 22:09 Dose: 125 mg - Labs Labs: 08/10/17 05:00 08/10/17 05:00 PT 12.5 SECONDS (9.4-12.5) 08/05/17 06:00 INR 1.09 (0.93-1.08) H 08/05/17 06:00 APTT 30.2 Seconds (25.1-36.5) 08/05/17 06:00 - Constitutional Appears: No Acute Distress - Head Exam Head Exam: NORMAL INSPECTION - Extremities Exam Additional comments: + right pedal pulses - Neurological Exam Neurological Exam: Alert, Awake Neuro motor strength exam: Left Upper Extremity: 2/1, Right Upper Extremity: 4, Left Lower Extremity: 2/1, Right Lower Extremity: 4 Additional comments: She is drowsy but able to answer questions. Sensation remains intact. - Skin Skin Exam: Rash Additional comments: right thigh Assessment and Plan (1) CVA (cerebrovascular accident) Assessment & Plan: Case discussed with Dr. Newberry, continue all current medical, physical, occupational therapies. Recommend monitoring H/H including the size of her right groin hematoma. Recommend Maintaining BP control with systolic <160 and HOB elevation to 35 degrees. Status: Acute
[2017-08-11 07:13] LABS: HEMOGLOBIN 11.6 g/dL (12.0-16.0); MEAN CELL VOLUME 89.6 fl (80.0-105.0); MEAN CORPUSCULAR HEMOGLOBIN 28.6 pg (25.0-35.0); MEAN PLATELET VOLUME 10.3 fl (7.0-11.0); RBC 4.05 10^6/uL (3.5-6.1); RED CELL DISTRIBUTION WIDTH 13.7 % (11.5-14.5); WHITE BLOOD COUNT 13.3 10^3/ul (4.5-11.0)
[2017-08-11 07:30] LABS: ALB/GLOB RATIO 1.1 (1.1-1.8); ALBUMIN 3.4 g/dL (3.0-4.8); ALT/SGPT 31 U/L (7-56); AST/SGOT 22 U/L (14-36); BLOOD UREA NITROGEN 11 mg/dL (7-21); CALCIUM 9.2 mg/dL (8.4-10.5); GFR AFRICAN-AMERICAN > 60; GFR NON-AFRICAN AMERICAN > 60
[2017-08-11] MEDS: Vancomycin 25 MG/ML PO SCH ×4 (09:47→22:30)
[2017-08-11] MEDS: Hydrocortisone 1% Cream (30 GM) TOP SCH ×2 (10:00→17:27)
--- NOTE | 2017-08-11 10:29 | CP.PCM.PN ---
<Milan Silverman - Last Filed: 08/11/17 10:25> Subjective - Date & Time of Evaluation Date of Evaluation: 08/11/17 Time of Evaluation: 06:00 - Subjective Subjective: Patient seen and evaluated bedside. No acute issues overnight. Patient states she has been anxious. She wants therapy and has been trying to move her limbs. No chest pain, shortness of breath, fevers, chills or any other complaints at this time. Objective - Vital Signs/Intake and Output Vital Signs (last 24 hours): Temp Pulse Resp BP Pulse Ox 99.4 F 76 20 130/71 98 08/11/17 06:00 08/11/17 09:46 08/11/17 06:00 08/11/17 06:00 08/11/17 06:00 Intake and Output: 08/11/17 08/11/17 06:59 18:59 Intake Total Output Total Balance - Medications Medications: Current Medications Acetaminophen (Tylenol 325mg Tab) 650 mg PO Q6H PRN PRN Reason: Pain, Mild (1-3) Last Admin: 08/10/17 18:30 Dose: 650 mg Aspirin (Ecotrin) 81 mg PO DAILY [facility] Last Admin: 08/11/17 09:46 Dose: 81 mg Atorvastatin Calcium (Lipitor) 40 mg PO DIN [facility] Last Admin: 08/10/17 17:20 Dose: 40 mg Clonidine HCl (Catapres) 0.1 mg PO BID [facility] Last Admin: 08/10/17 17:21 Dose: 0.1 mg Clopidogrel Bisulfate (Plavix) 75 mg PO DAILY [facility] Last Admin: 08/11/17 09:47 Dose: 75 mg Guaifenesin/Codeine Phosphate (Robitussin W/Codeine) 5 ml PO Q6H PRN PRN Reason: Cough and congestion Last Admin: 08/11/17 00:35 Dose: 5 ml Heparin Sodium (Porcine) (Heparin) 5,000 units SC Q12 [facility] PRN Reason: Protocol Last Admin: 08/11/17 09:45 Dose: 5,000 units Hydrocortisone (Cortizone 1% Cream) 0 gm TOP BID [facility] Last Admin: 08/10/17 17:22 Dose: Not Given Ibuprofen (Motrin Tab) 400 mg PO Q6H [facility] Last Admin: 08/11/17 06:03 Dose: Not Given Labetalol HCl (Trandate) 20 mg IV Q6H PRN PRN Reason: Systolic Blood Pressure Lisinopril (Zestril) 10 mg PO DAILY [facility] Last Admin: 08/11/17 09:46 Dose: 10 mg Pantoprazole Sodium (Protonix Ec Tab) 40 mg PO 0600 [facility] Last Admin: 08/11/17 06:03 Dose: Not Given Vancomycin HCl (Vancocin 25 Mg/Ml (Oral Use)) 125 mg PO QID [facility] PRN Reason: Protocol Last Admin: 08/11/17 09:47 Dose: 125 mg - Labs Labs: 08/11/17 06:30 08/11/17 06:30 PT 12.5 SECONDS (9.4-12.5) 08/05/17 06:00 INR 1.09 (0.93-1.08) H 08/05/17 06:00 APTT 30.2 Seconds (25.1-36.5) 08/05/17 06:00 - Constitutional Appears: Non-toxic, No Acute Distress - Head Exam Head Exam: ATRAUMATIC, NORMAL INSPECTION, NORMOCEPHALIC - Eye Exam Eye Exam: Normal appearance - ENT Exam ENT Exam: Mucous Membranes Moist - Respiratory Exam Respiratory Exam: Clear to Ausculation Bilateral, NORMAL BREATHING PATTERN - Cardiovascular Exam Cardiovascular Exam: REGULAR RHYTHM - GI/Abdominal Exam GI & Abdominal Exam: Soft, Normal Bowel Sounds - Extremities Exam Extremities Exam: absent: Full ROM - Neurological Exam Neuro motor strength exam: Left Upper Extremity: 0, Right Upper Extremity: 5, Left Lower Extremity: 2/1, Right Lower Extremity: 5 Assessment and Plan - Assessment and Plan (Free Text) Assessment: 52yo Female with PMH of uncontrolled HTN, substance abuse (quit alcohol many years ago), cervical spondylolisthesis, recent incarceration (was release from [facility] last month) admitted for acute CVA and uncontrolled HTN. Plan: 1. CVA - Neurosurgery: Dr. Epps, consulted, Cerebral agiogram done yesterday showing occlusion of the right ICA just distal to carotid bifurcation. No flow intracranially from the right ICA. No stent placd. - Echo reveals EF 55%, LV with mild concentric hypertrophy. No other abnormalities. - MRA neck significant for R ICA occlusion. - Continue clopidogrel 75 mg PO, ASA 81 mg PO - PT evaluation for CVA and deconditioning - Neurology consult: Dr. Estevez - Hepatitis results return negative for HAV, HBV, HCV. TSH normal at 1.89 - Homocysteine 7 -Cardiolipin antibodies IgG negative -CT head showing multiple areas of cortical infarction, progressive, non hemorrhagic now identified in the medial superior aspect of the right frontal lobe, right temporal lobe. The original area of cortical infarct has increased as well. No midline shift appreciated -Lisinopril 10 -labetolol PRN -hematoma in right groin stable small, soft, not increasing in size -CT abdomen pelvis, did not show any retroperitoneal hematoma following IR procedure 2. Leukocytosis: likely from c diff infection -13.3 -No fever -CXR showed no active disease -Procal not elevated -blood cultures no growth -will monitor -C diff positive, vancomycin PO -contact precautions -rectal tube VTE prophylaxis: Heparin 5000 units GI prophylaxis: pantoprazole 40 mg IVP daily <Libby Hunter - Last Filed: 08/11/17 13:51> Objective - Vital Signs/Intake and Output Vital Signs (last 24 hours): Temp Pulse Resp BP Pulse Ox 98.7 F 84 21 159/63 H 98 08/11/17 12:00 08/11/17 12:00 08/11/17 12:00 08/11/17 12:00 08/11/17 06:00 Intake and Output: 08/11/17 08/11/17 06:59 18:59 Intake Total Output Total Balance - Medications Medications: Current Medications Acetaminophen (Tylenol 325mg Tab) 650 mg PO Q6H PRN PRN Reason: Pain, Mild (1-3) Last Admin: 08/10/17 18:30 Dose: 650 mg Aspirin (Ecotrin) 81 mg PO DAILY [facility] Last Admin: 08/11/17 09:46 Dose: 81 mg Atorvastatin Calcium (Lipitor) 40 mg PO DIN [facility] Last Admin: 08/10/17 17:20 Dose: 40 mg Clonidine HCl (Catapres) 0.1 mg PO BID [facility] Last Admin: 08/10/17 17:21 Dose: 0.1 mg Clopidogrel Bisulfate (Plavix) 75 mg PO DAILY [facility] Last Admin: 08/11/17 09:47 Dose: 75 mg Guaifenesin/Codeine Phosphate (Robitussin W/Codeine) 5 ml PO Q6H PRN PRN Reason: Cough and congestion Last Admin: 08/11/17 00:35 Dose: 5 ml Heparin Sodium (Porcine) (Heparin) 5,000 units SC Q12 [facility] PRN Reason: Protocol Last Admin: 08/11/17 09:45 Dose: 5,000 units Hydrocortisone (Cortizone 1% Cream) 0 gm TOP BID [facility] Last Admin: 08/10/17 17:22 Dose: Not Given Ibuprofen (Motrin Tab) 400 mg PO Q6H [facility] Last Admin: 08/11/17 13:23 Dose: 400 mg Labetalol HCl (Trandate) 20 mg IV Q6H PRN PRN Reason: Systolic Blood Pressure Lisinopril (Zestril) 10 mg PO DAILY [facility] Last Admin: 08/11/17 09:46 Dose: 10 mg Pantoprazole Sodium (Protonix Ec Tab) 40 mg PO 0600 [facility] Last Admin: 08/11/17 06:03 Dose: Not Given Vancomycin HCl (Vancocin 25 Mg/Ml (Oral Use)) 125 mg PO QID [facility] PRN Reason: Protocol Last Admin: 08/11/17 13:24 Dose: 125 mg - Labs Labs: 08/11/17 06:30 08/11/17 06:30 PT 12.5 SECONDS (9.4-12.5) 08/05/17 06:00 INR 1.09 (0.93-1.08) H 08/05/17 06:00 APTT 30.2 Seconds (25.1-36.5) 08/05/17 06:00 Attending/Attestation - Attestation I have personally seen and examined this patient.: Yes I have fully participated in the care of the patient.: Yes I have reviewed all pertinent clinical information, including history, physical exam and plan: Yes Notes (Text): 08/11/17 13:33 Attending note; Patient seen and examined with resident. Patient is a 52 year old Female with PMH of uncontrolled hypertension , noncompliance with medication is admitted for acute CVA and uncontrolled blood pressure. CT and MRI consistent with right frontal and temporal subacute stroke with left- sided hemiparesis. Patient is currently alert, awake. MRA showed right internal carotid occlusion at the origin. MRA of head showed right MCA stenosis. Status post carotid angiogram. no stent placed. Patient had an episode of numbness/anxiety last night. Repeat CT showed old infarct. CT showed small groin hematoma. stable. No retroperitoneal hematoma noted. hemoglobin is 11.6. Diarrhea; stool for C. difficile toxin antigen is positive. Toxin is negative. Started on po vancomycin. has rectal tube. Tolerating diet. Speech and swallow evaluation appreciated. leukocytosis; improving. diarrhea is improving. on aspirin, Plavix and Lipitor. Hypertension ; continue lisinopril and clonidine. we will discuss with social media marketer for discharge planning. Upon discharge the patient will be referred to [facility] clinic.
[2017-08-12] MEDS: Pantoprazole 40 mg EC Tab PO SCH (05:45)
[2017-08-12 06:52] LABS: HEMOGLOBIN 12.6 g/dL (12.0-16.0); MEAN CORPUSCULAR HEMOGLOBIN 29.5 pg (25.0-35.0); MEAN CORPUSCULAR HGB CONC 33.2 g/dl (31.0-37.0); RBC 4.27 10^6/uL (3.5-6.1); RED CELL DISTRIBUTION WIDTH 13.8 % (11.5-14.5); WHITE BLOOD COUNT 14.4 10^3/ul (4.5-11.0)
[2017-08-12 07:05] LABS: ALB/GLOB RATIO 1.1 (1.1-1.8); ALBUMIN 3.5 g/dL (3.0-4.8); ALT/SGPT 30 U/L (7-56); AST/SGOT 26 U/L (14-36); BLOOD UREA NITROGEN 12 mg/dL (7-21); CALCIUM 9.3 mg/dL (8.4-10.5); GFR AFRICAN-AMERICAN > 60; GFR NON-AFRICAN AMERICAN > 60
[2017-08-12] MEDS ORDERED: Potassium Chloride 20 mEq ER Tab PO ONE (07:34)
--- NOTE | 2017-08-12 09:56 | CON ---
DATE: 08/11/2017 HISTORY OF PRESENT ILLNESS: The patient is a 52-year-old single white female with no formal psychiatric history, on the medical floor since 08/04/2017 for acute CVA as well as uncontrolled hypertension. The patient experienced some panic symptoms yesterday, last night, and psychiatrist called for a consult for anxiety. I met with patient at bedside this morning, and she is alert and oriented to month, year, location and circumstance. She is coherent and demonstrates good focus during our interview. The patient is appropriately engaged and during questioning and her responses are generally consistent. The patient indicates that she has been anxious ever since she has been admitted to hospital. In general, she feels restless and hopeless, and frustrated because she is due to accomplishing a lot more when she is at home. The patient feels that she is very restricted in the hospital as she cannot do anything really productive for herself. She states that this is the source of her frustration, restlessness, and anxiety. Indicates that this has also caused her to have poor sleep since she has arrived. The patient is not depressed and she denies feeling this way ____ . As noted above, she is generally very busy and active, and she "chases after grandson, Néstor." the patient when she improves enough. The patient some help for her sleep and anxiety, and last night. Her affect shows appropriate to situation, and insight and judgment are considered to be fair. PSYCHIATRIC HISTORY: The patient denies any form of psychiatric history. Denies ever been in the psychiatric unit or seeing a psychiatrist or taking psychiatric medications. Denies any history of suicide attempt. SOCIAL HISTORY: The patient was born and raised in [place]. She is single. She has two children, grown children, a daughter and a son. She lives with her boyfriend and her 30-year-old son. The patient is not employed. The patient denies any drug or alcohol issues. The patient does report she has legal history. LEGAL HISTORY: She was recently arrested for shoplifting, it sounds like it was a few months ago; however, the patient is a little vague about . MEDICATIONS: Relevant psychiatric medications include Ativan 0.5 mg IV q. 6 p.r.n. for anxiety. Labs and vital signs were reviewed by this provider. IMPRESSION: Adjustment disorder with anxiety. RECOMMENDATIONS: We will continue with lorazepam at 0.5 mg IV q. 6 p.r.n. for anxiety and we will also add a very small dose of Seroquel 12.5 mg at night to help with sleep off-label and this might also help with anxiety and internal restlessness that she feels. Seroquel is only a temporary medication during her hospitalization and not really supposed to be used termite control servicer as she indicates that she generally can function well when she is not in a completely new situation such as this hospitalization. Psychiatry will continue to follow up with the patient tomorrow, on 08/12/2017, to monitor patient's progress and tolerance to the medications. Justin Edgar MD
[2017-08-12] MEDS: Vancomycin 25 MG/ML PO SCH ×4 (10:27→22:28)
[2017-08-12] MEDS: Hydrocortisone 1% Cream (30 GM) TOP SCH ×2 (10:36→17:25)
--- NOTE | 2017-08-12 13:53 | CP.PCM.PN ---
Subjective - Date & Time of Evaluation Date of Evaluation: 08/12/17 Time of Evaluation: 13:52 - Subjective Subjective: Ms. Rangel was seen and examined at the bedside. She is alert, oriented in all spheres. She is able to answer questions. She denies any headache, dizziness, lightheadedness, but complaints of tenderness in her right groin. especially with movement. She remains with left side hemiplegia. Her right groin has ecchymosis and hematoma and size is not expanding. She further claims of episode of uncontrol shaking of the left leg especially at nighttime. Current H /H 12.6/ 38.There was no untoward events overnight. Objective - Vital Signs/Intake and Output Vital Signs (last 24 hours): Temp Pulse Resp BP Pulse Ox 100 F H 84 18 95/56 L 99 08/12/17 12:00 08/12/17 12:00 08/12/17 12:00 08/12/17 12:00 08/12/17 06:00 Intake and Output: 08/12/17 08/12/17 06:59 18:59 Intake Total 420 Balance 420 - Medications Medications: Current Medications Acetaminophen (Tylenol 325mg Tab) 650 mg PO Q6H PRN PRN Reason: Pain, Mild (1-3) Last Admin: 08/11/17 23:34 Dose: 650 mg Aspirin (Ecotrin) 81 mg PO DAILY [facility] Last Admin: 08/12/17 10:29 Dose: 81 mg Atorvastatin Calcium (Lipitor) 80 mg PO DIN [facility] Clonidine HCl (Catapres) 0.1 mg PO BID [facility] Last Admin: 08/12/17 10:30 Dose: 0.1 mg Clopidogrel Bisulfate (Plavix) 75 mg PO DAILY [facility] Last Admin: 08/12/17 10:30 Dose: 75 mg Fluconazole (Diflucan) 200 mg PO DAILY [facility] PRN Reason: Protocol Guaifenesin/Codeine Phosphate (Robitussin W/Codeine) 5 ml PO Q6H PRN PRN Reason: Cough and congestion Last Admin: 08/11/17 00:35 Dose: 5 ml Heparin Sodium (Porcine) (Heparin) 5,000 units SC Q12 [facility] PRN Reason: Protocol Last Admin: 08/12/17 10:29 Dose: 5,000 units Hydrocortisone (Cortizone 1% Cream) 0 gm TOP BID [facility] Last Admin: 08/12/17 10:36 Dose: 1 cre Ibuprofen (Motrin Tab) 400 mg PO Q6H [facility] Last Admin: 08/11/17 17:54 Dose: 400 mg Labetalol HCl (Trandate) 20 mg IV Q6H PRN PRN Reason: Systolic Blood Pressure Lisinopril (Zestril) 10 mg PO DAILY [facility] Lorazepam (Ativan) 0.5 mg IVP Q6H PRN; Protocol PRN Reason: Anxiety Last Admin: 08/12/17 00:39 Dose: 0.5 mg Pantoprazole Sodium (Protonix Ec Tab) 40 mg PO 0600 [facility] Last Admin: 08/12/17 05:45 Dose: Not Given Quetiapine Fumarate (Seroquel) 12.5 mg PO HS [facility] PRN Reason: Protocol Last Admin: 08/11/17 22:03 Dose: 12.5 mg Vancomycin HCl (Vancocin 25 Mg/Ml (Oral Use)) 125 mg PO QID [facility] PRN Reason: Protocol Last Admin: 08/12/17 10:27 Dose: Not Given - Labs Labs: 08/12/17 06:30 08/12/17 06:30 PT 12.5 SECONDS (9.4-12.5) 08/05/17 06:00 INR 1.09 (0.93-1.08) H 08/05/17 06:00 APTT 30.2 Seconds (25.1-36.5) 08/05/17 06:00 - Constitutional Appears: No Acute Distress - Head Exam Head Exam: NORMAL INSPECTION - Neurological Exam Neurological Exam: Alert, Awake, Oriented x3 Neuro motor strength exam: Left Upper Extremity: 0, Right Upper Extremity: 4, Left Lower Extremity: 0, Right Lower Extremity: 4 Additional comments: She is able to answer all questions appropriately and follow simple commands. Assessment and Plan (1) CVA (cerebrovascular accident) Assessment & Plan: Case discussed with Dr. Estevez, continue all current, medical, physical, and occupational therapies. Recommend treat ant underlying infection and electrolyte imbalances. Recommend blood pressure control and monitor right groin echhymosis, hematoma, distal pulses. Status: Acute
--- NOTE | 2017-08-12 14:11 | CP.PCM.PN ---
<AliceTeodoro - Last Filed: 08/12/17 17:42> Subjective - Date & Time of Evaluation Date of Evaluation: 08/12/17 Time of Evaluation: 17:42 - Subjective Subjective: Medicine progress note: Dr. Chu Patient seen and examined at bedside. She does not have any new complaints at this time, denies any new symptoms. She states that her hematoma is less painful. She denies any burning on urination right now, but had some a couple of days ago. Otherwise, patient is doing well. Objective - Vital Signs/Intake and Output Vital Signs (last 24 hours): Temp Pulse Resp BP Pulse Ox 100 F H 84 18 95/56 L 99 08/12/17 12:00 08/12/17 12:00 08/12/17 12:00 08/12/17 12:00 08/12/17 06:00 Intake and Output: 08/12/17 08/12/17 06:59 18:59 Intake Total 420 Balance 420 - Medications Medications: Current Medications Acetaminophen (Tylenol 325mg Tab) 650 mg PO Q6H PRN PRN Reason: Pain, Mild (1-3) Last Admin: 08/11/17 23:34 Dose: 650 mg Aspirin (Ecotrin) 81 mg PO DAILY [facility] Last Admin: 08/12/17 10:29 Dose: 81 mg Atorvastatin Calcium (Lipitor) 80 mg PO DIN [facility] Clonidine HCl (Catapres) 0.1 mg PO BID [facility] Last Admin: 08/12/17 10:30 Dose: 0.1 mg Clopidogrel Bisulfate (Plavix) 75 mg PO DAILY [facility] Last Admin: 08/12/17 10:30 Dose: 75 mg Fluconazole (Diflucan) 200 mg PO DAILY [facility] PRN Reason: Protocol Guaifenesin/Codeine Phosphate (Robitussin W/Codeine) 5 ml PO Q6H PRN PRN Reason: Cough and congestion Last Admin: 08/11/17 00:35 Dose: 5 ml Heparin Sodium (Porcine) (Heparin) 5,000 units SC Q12 [facility] PRN Reason: Protocol Last Admin: 08/12/17 10:29 Dose: 5,000 units Hydrocortisone (Cortizone 1% Cream) 0 gm TOP BID [facility] Last Admin: 08/12/17 10:36 Dose: 1 cre Ibuprofen (Motrin Tab) 400 mg PO Q6H [facility] Last Admin: 08/11/17 17:54 Dose: 400 mg Labetalol HCl (Trandate) 20 mg IV Q6H PRN PRN Reason: Systolic Blood Pressure Lisinopril (Zestril) 20 mg PO DAILY [facility] Lisinopril (Zestril) 10 mg PO ONCE ONE Stop: 08/13/17 18:01 Lorazepam (Ativan) 0.5 mg IVP Q6H PRN; Protocol PRN Reason: Anxiety Last Admin: 08/12/17 00:39 Dose: 0.5 mg Pantoprazole Sodium (Protonix Ec Tab) 40 mg PO 0600 [facility] Last Admin: 08/12/17 05:45 Dose: Not Given Quetiapine Fumarate (Seroquel) 12.5 mg PO HS [facility] PRN Reason: Protocol Last Admin: 08/11/17 22:03 Dose: 12.5 mg Vancomycin HCl (Vancocin 25 Mg/Ml (Oral Use)) 125 mg PO QID [facility] PRN Reason: Protocol Last Admin: 08/12/17 10:27 Dose: Not Given - Labs Labs: 08/12/17 06:30 08/12/17 06:30 PT 12.5 SECONDS (9.4-12.5) 08/05/17 06:00 INR 1.09 (0.93-1.08) H 08/05/17 06:00 APTT 30.2 Seconds (25.1-36.5) 08/05/17 06:00 - Constitutional Appears: Well - Head Exam Head Exam: ATRAUMATIC, NORMAL INSPECTION, NORMOCEPHALIC - Eye Exam Eye Exam: EOMI, Normal appearance, PERRL Pupil Exam: NORMAL ACCOMODATION, PERRL - ENT Exam ENT Exam: Mucous Membranes Moist, Normal Exam - Neck Exam Neck Exam: Full ROM, Normal Inspection. absent: Lymphadenopathy - Respiratory Exam Respiratory Exam: Clear to Ausculation Bilateral, NORMAL BREATHING PATTERN - Cardiovascular Exam Cardiovascular Exam: REGULAR RHYTHM, +S1, +S2. absent: Murmur - GI/Abdominal Exam GI & Abdominal Exam: Soft, Normal Bowel Sounds. absent: Tenderness - Extremities Exam Extremities Exam: Full ROM, Normal Capillary Refill, Normal Inspection. absent : Joint Swelling, Pedal Edema - Back Exam Back Exam: NORMAL INSPECTION - Neurological Exam Neurological Exam: Alert, Awake, CN II-XII Intact, Normal Gait, Oriented x3 - Psychiatric Exam Psychiatric exam: Normal Affect, Normal Mood - Skin Skin Exam: Dry, Intact, Normal Color, Warm - Additional Findings Additional findings: Hematoma in R inguinal region is bruising over Assessment and Plan - Assessment and Plan (Free Text) Assessment: 52yo Female with PMH of uncontrolled HTN, substance abuse (quit alcohol many years ago), cervical spondylolisthesis, recent incarceration (was release from on license of [facility] last month) admitted for acute CVA and uncontrolled HTN. Plan: CVA - Neurosurgery: Dr. Epps, consulted, Cerebral agiogram done yesterday showing occlusion of the right ICA just distal to carotid bifurcation. No flow intracranially from the right ICA. No stent placd. - Echo reveals EF 55%, LV with mild concentric hypertrophy. No other abnormalities. - MRA neck significant for R ICA occlusion. - Continue clopidogrel 75 mg PO, ASA 81 mg PO - PT evaluation for CVA and deconditioning - Neurology consult: Dr. Estevez - Hepatitis results return negative for HAV, HBV, HCV. TSH normal at 1.89 - Homocysteine 7 -Cardiolipin antibodies IgG negative -CT head showing multiple areas of cortical infarction, progressive, non hemorrhagic now identified in the medial superior aspect of the right frontal lobe, right temporal lobe. The original area of cortical infarct has increased as well. No midline shift appreciated -Lisinopril 10 -labetolol PRN -hematoma in right groin stable small, soft, not increasing in size: Dr. Levine wants an interventionalist to check out the wound -CT abdomen pelvis, did not show any retroperitoneal hematoma following IR procedure Leukocytosis: likely from c diff infection -13.3 -No fever -CXR showed no active disease -Procal not elevated -blood cultures no growth -will monitor -C diff positive, vancomycin PO -contact precautions -rectal tube VTE prophylaxis: Heparin 5000 units GI prophylaxis: pantoprazole 40 mg IVP daily <Linsey Chu - Last Filed: 08/13/17 08:09> Objective - Vital Signs/Intake and Output Vital Signs (last 24 hours): Temp Pulse Resp BP Pulse Ox 97.8 F 74 20 131/74 96 08/13/17 06:00 08/13/17 06:00 08/13/17 06:00 08/13/17 06:00 08/13/17 06:00 - Medications Medications: Current Medications Acetaminophen (Tylenol 325mg Tab) 650 mg PO Q6H PRN PRN Reason: Pain, Mild (1-3) Last Admin: 08/13/17 06:30 Dose: 650 mg Aspirin (Ecotrin) 81 mg PO DAILY [facility] Last Admin: 08/12/17 10:29 Dose: 81 mg Atorvastatin Calcium (Lipitor) 80 mg PO DIN [facility] Last Admin: 08/12/17 17:19 Dose: 80 mg Clonidine HCl (Catapres) 0.1 mg PO BID [facility] Last Admin: 08/12/17 17:19 Dose: 0.1 mg Clopidogrel Bisulfate (Plavix) 75 mg PO DAILY [facility] Last Admin: 08/12/17 10:30 Dose: 75 mg Fluconazole (Diflucan) 200 mg PO DAILY [facility] PRN Reason: Protocol Last Admin: 08/12/17 14:52 Dose: 200 mg Guaifenesin/Codeine Phosphate (Robitussin W/Codeine) 5 ml PO Q6H PRN PRN Reason: Cough and congestion Last Admin: 08/11/17 00:35 Dose: 5 ml Heparin Sodium (Porcine) (Heparin) 5,000 units SC Q12 [facility] PRN Reason: Protocol Last Admin: 08/12/17 22:12 Dose: 5,000 units Hydrocortisone (Cortizone 1% Cream) 0 gm TOP BID [facility] Last Admin: 08/12/17 17:25 Dose: 1 cre Ibuprofen (Motrin Tab) 400 mg PO Q6H [facility] Last Admin: 08/12/17 14:52 Dose: 400 mg Labetalol HCl (Trandate) 20 mg IV Q6H PRN PRN Reason: Systolic Blood Pressure Lisinopril (Zestril) 20 mg PO DAILY [facility] Lisinopril (Zestril) 10 mg PO ONCE ONE Stop: 08/13/17 18:01 Lorazepam (Ativan) 0.5 mg IVP Q6H PRN; Protocol PRN Reason: Anxiety Last Admin: 08/13/17 01:11 Dose: 0.5 mg Pantoprazole Sodium (Protonix Ec Tab) 40 mg PO 0600 [facility] Last Admin: 08/12/17 05:45 Dose: Not Given Quetiapine Fumarate (Seroquel) 12.5 mg PO HS [facility] PRN Reason: Protocol Last Admin: 08/12/17 22:12 Dose: 12.5 mg Vancomycin HCl (Vancocin 25 Mg/Ml (Oral Use)) 125 mg PO QID [facility] PRN Reason: Protocol Last Admin: 08/12/17 22:28 Dose: 125 mg - Labs Labs: 08/13/17 06:45 08/12/17 06:30 PT 12.5 SECONDS (9.4-12.5) 08/05/17 06:00 INR 1.09 (0.93-1.08) H 08/05/17 06:00 APTT 30.2 Seconds (25.1-36.5) 08/05/17 06:00 Attending/Attestation - Attestation I have personally seen and examined this patient.: Yes I have fully participated in the care of the patient.: Yes I have reviewed all pertinent clinical information, including history, physical exam and plan: Yes Notes (Text): I have seen and examined the patient at bedside. Agree with the above note with the following additions/ exceptions: Briefly this is 52 year old female with history of uncontrolled hypertension, noncompliance with medication and recent incarceration who was admitted for left sided hemiparesis and founbd to have acute CVA most likely secondary to uncontrolled hypertension. CT and MRI consistent with right frontal and temporal subacute stroke with left-sided hemiparesis. MRA showed right internal carotid occlusion at the origin. MRA of head showed right MCA stenosis. She is status post carotid angiogram however no stent was placed. Continue dual antiplatelet therapy (asa+plavix) and high dose statins. Will increase lipitor to 80 mg. Target LDL<70. Patient is awake, alert and oriented to time, place and person. Post angiogram, she developed small groin hematoma which has been improving as per patient. Denies any pain and swelling has improved. Hb remained stable. She continus to have diarrhea however it has improved. Rectal tube remain in place. Continue PO vancomycin for cdiff colitis. BP was high today. Willincrease dose of lisinopril. Target BP is around 140 systolic. Echo revealed EF of55%. PT recommended JUAN. CM and SW are working on placement. Upon discharge patient will follow up in [facility] clinic. Dr Linsey Chu
--- NOTE | 2017-08-12 17:11 | PN ---
DATE: 08/12/2017 CARDIOLOGY FOLLOWUP SUBJECTIVE: The patient is without acute distress. PHYSICAL EXAMINATION: VITAL SIGNS: Blood pressure is 145/75, heart rates in the 80s. NECK: Negative JVD. LUNGS: Without rales. HEART: With S1, S2. EXTREMITIES: Without edema. LABORATORY DATA: Hemoglobin is 12.6. Chemistries: BUN and creatinine are unremarkable. IMPRESSION: 1. Status post cerebrovascular accident. 2. Hypertension, which is well controlled. 3. Peripheral vascular disease. 4. Status post angiogram. PLAN: Given these findings, the hemoglobin remained stable. We will discontinue telemetry today. Eric Levine MD
--- NOTE | 2017-08-12 20:16 | PN ---
DATE: 08/12/2017 FOLLOWUP CONSULTATION PRESENTATION: Patient is a 52-year-old female seen at bedside. Patient was originally admitted to the hospital on 08/04/2017, coming in complaining of her tongue being numb, confusion and disorientation, weakness and numbness in her right arm, also with a history of hypertension. Workup revealed left-sided hemiplegia due to an acute stroke of the right cerebrum. Patient was admitted and psychiatric consultation was ordered on 08/11/[address] Edgar saw and evaluated the patient on that same date and started the patient on Seroquel 12.5 mg at bedtime and a p.r.n. order of lorazepam 0.5 mg IV push q.6 hours. Patient last used the lorazepam on 08/12/2017 at 0.5 mg a little after of midnight. Patient is very pleasant when seen at bedtime. She is excited. She is talking. She is anticipating discharge for tomorrow. She is very animated, she has a friend visiting. She said she cannot wait to get back to her own routine that she lives at home with her boyfriend and he will be able to help her. She is going to have physical therapy and her daughter has gotten her a wheelchair and she has a lot of support. She indicates that she is feeling very much like herself that she has always been sort of an impatient person who always wanted to be on the go and move quickly and get things done and she states that it is hard for her to be in the hospital, but now that she knows she is going home and she is going be working on her physical therapy, she feels very hopeful that things are going to go well. She is very positive and her affect is bright. She is tolerating the medication well, however, does not feel she will need it at home because she will be in her own bed and in her own routine. VITAL SIGNS: Current vital signs include a temperature of 100, decreased; pulse rate of 84; blood pressure is 95/56; and a respiratory rate of 18. LABORATORY DATA: Of note, patient's white blood cell count on 08/07 was 16.6 that has gone down and as of today, it has started to creep up at 14.4, whereas yesterday it was 13.3. As of on the 08/09, patient's urine culture indicates the yeast species and also on 08/09, a stool sample positive for C. diff antigen and toxin. MENTAL STATUS EXAMINATION: Patient is alert and oriented x 3. Her eye contact is good. Her behavior is pleasant and cooperative. Her speech rate and volume are within normal limits and her facial expressions are symmetrical. Her mood is euthymic, affect is full, thoughts are goal directed. She denies being suicidal or homicidal. Denies the presence of hallucinations, delusions, or paranoia. Her concentration and her focus, she indicates, are normal. Her memory, both short and watermelon inspector, appears to be adequate. Her appetite and her sleep, she indicates, have normalized. 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 PLAN: Patient denies being suicidal or homicidal and she appears in no imminent danger of hurting herself or others. She is tolerating the Seroquel well as Dr. Edgar had reiterated in her note, this really seems to be needed only while she is in the hospital. Affectively, she is much improved at the thought of going home and is very much looking forward to this. She seems to want to participate in her care and to work to get her body back in order. I would not recommend her continuing the Seroquel or the Ativan at discharge. Patient appears to have stabilized. Psychiatry will sign off on the patient at this time. If there are further needs, please call. Thank you for the consult. Coco Lara APN Geovanna Cordoba MD [facility]
[2017-08-13] MEDS: Pantoprazole 40 mg EC Tab PO SCH (06:30)
[2017-08-13 07:27] LABS: MEAN CORPUSCULAR HEMOGLOBIN 29.2 pg (25.0-35.0); MEAN CORPUSCULAR HGB CONC 32.8 g/dl (31.0-37.0); MEAN PLATELET VOLUME 10.7 fl (7.0-11.0); RBC 4.45 10^6/uL (3.5-6.1); RED CELL DISTRIBUTION WIDTH 13.5 % (11.5-14.5); WHITE BLOOD COUNT 16.4 10^3/ul (4.5-11.0)
[2017-08-13 08:03] LABS: ALB/GLOB RATIO 1.1 (1.1-1.8); ALBUMIN 3.7 g/dL (3.0-4.8); ALT/SGPT 36 U/L (7-56); AST/SGOT 34 U/L (14-36); BLOOD UREA NITROGEN 12 mg/dL (7-21); CALCIUM 9.5 mg/dL (8.4-10.5); GFR AFRICAN-AMERICAN > 60; GFR NON-AFRICAN AMERICAN > 60
[2017-08-13] MEDS: Vancomycin 25 MG/ML PO SCH ×4 (09:46→22:59)
[2017-08-13] MEDS: Hydrocortisone 1% Cream (30 GM) TOP SCH ×2 (09:52→17:51)
[2017-08-13] MEDS ORDERED: Nystatin 100,000 Units/gm Oint(30 gm) TOP PRN (12:27)
--- NOTE | 2017-08-13 14:01 | PN ---
DATE: 08/13/2017 CARDIOLOGY FOLLOWUP SUBJECTIVE: The patient's diarrhea is better. Her hematoma seems to be improving. PHYSICAL EXAMINATION: VITAL SIGNS: Blood pressure is 131/74 with the heart rates in the 70s. NECK: Negative JVD. LUNGS: Without rales. HEART: Reveals S1, S2. EXTREMITIES: Without edema. LABORATORY DATA: Hemoglobin is 13. Chemistries: BUN and creatinine unremarkable. IMPRESSION: 1. Status post cerebrovascular accident. 2. Hypertension. 3. Peripheral vascular disease. 4. Hematomas after the angiogram are stable. The hemoglobin remains stable. Eric Levine MD
--- NOTE | 2017-08-13 17:06 | CP.PCM.PN ---
<AliceTeodoro - Last Filed: 08/13/17 17:15> Subjective - Date & Time of Evaluation Date of Evaluation: 08/13/17 Time of Evaluation: 17:15 - Subjective Subjective: Medicine progress note: Dr. Chu Patient seen and examined at bedside. Patient states that she is not having burning on urination, and states that her hematoma is no longer painful. She does complain of some itching in her inner thigh area. Objective - Vital Signs/Intake and Output Vital Signs (last 24 hours): Temp Pulse Resp BP Pulse Ox 98.7 F 87 20 150/80 96 08/13/17 12:58 08/13/17 12:58 08/13/17 12:58 08/13/17 12:58 08/13/17 12:33 - Medications Medications: Current Medications Acetaminophen (Tylenol 325mg Tab) 650 mg PO Q6H PRN PRN Reason: Pain, Mild (1-3) Last Admin: 08/13/17 06:30 Dose: 650 mg Aspirin (Ecotrin) 81 mg PO DAILY [facility] Last Admin: 08/13/17 09:47 Dose: 81 mg Atorvastatin Calcium (Lipitor) 80 mg PO DIN [facility] Last Admin: 08/12/17 17:19 Dose: 80 mg Clonidine HCl (Catapres) 0.1 mg PO BID [facility] Last Admin: 08/13/17 09:49 Dose: 0.1 mg Clopidogrel Bisulfate (Plavix) 75 mg PO DAILY [facility] Last Admin: 08/13/17 09:49 Dose: 75 mg Fluconazole (Diflucan) 200 mg PO DAILY [facility] PRN Reason: Protocol Stop: 08/26/17 14:01 Last Admin: 08/13/17 09:49 Dose: 200 mg Guaifenesin/Codeine Phosphate (Robitussin W/Codeine) 5 ml PO Q6H PRN PRN Reason: Cough and congestion Last Admin: 08/11/17 00:35 Dose: 5 ml Heparin Sodium (Porcine) (Heparin) 5,000 units SC Q12 [facility] PRN Reason: Protocol Last Admin: 08/13/17 09:47 Dose: 5,000 units Hydrocortisone (Cortizone 1% Cream) 0 gm TOP BID [facility] Last Admin: 08/13/17 09:52 Dose: 1 cre Ibuprofen (Motrin Tab) 400 mg PO Q6H PRN PRN Reason: Pain, moderate (4-7) Labetalol HCl (Trandate) 20 mg IV Q6H PRN PRN Reason: Systolic Blood Pressure Lisinopril (Zestril) 20 mg PO DAILY [facility] Last Admin: 08/13/17 09:47 Dose: 20 mg Lisinopril (Zestril) 10 mg PO ONCE ONE Stop: 08/13/17 18:01 Lorazepam (Ativan) 0.5 mg IVP Q6H PRN; Protocol PRN Reason: Anxiety Last Admin: 08/13/17 10:02 Dose: 0.5 mg Nystatin (Mycostatin Oint) 0 gm TOP Q4 PRN PRN Reason: Itching / Pruritus Last Admin: 08/13/17 13:45 Dose: 1 10 Pantoprazole Sodium (Protonix Ec Tab) 40 mg PO 0600 [facility] Last Admin: 08/13/17 06:30 Dose: Not Given Quetiapine Fumarate (Seroquel) 12.5 mg PO HS [facility] PRN Reason: Protocol Last Admin: 08/12/17 22:12 Dose: 12.5 mg Vancomycin HCl (Vancocin 25 Mg/Ml (Oral Use)) 125 mg PO QID [facility] PRN Reason: Protocol Stop: 08/19/17 14:01 Last Admin: 08/13/17 13:44 Dose: 125 mg - Labs Labs: 08/13/17 06:45 08/13/17 06:45 PT 12.5 SECONDS (9.4-12.5) 08/05/17 06:00 INR 1.09 (0.93-1.08) H 08/05/17 06:00 APTT 30.2 Seconds (25.1-36.5) 08/05/17 06:00 - Constitutional Appears: Well - Head Exam Head Exam: ATRAUMATIC, NORMAL INSPECTION, NORMOCEPHALIC - Eye Exam Eye Exam: EOMI, Normal appearance, PERRL Pupil Exam: NORMAL ACCOMODATION, PERRL - ENT Exam ENT Exam: Mucous Membranes Moist, Normal Exam - Neck Exam Neck Exam: Full ROM, Normal Inspection. absent: Lymphadenopathy - Respiratory Exam Respiratory Exam: Clear to Ausculation Bilateral, NORMAL BREATHING PATTERN - Cardiovascular Exam Cardiovascular Exam: REGULAR RHYTHM, +S1, +S2. absent: Murmur - GI/Abdominal Exam GI & Abdominal Exam: Soft, Normal Bowel Sounds. absent: Tenderness - Extremities Exam Extremities Exam: Full ROM, Normal Capillary Refill, Normal Inspection. absent : Joint Swelling, Pedal Edema - Back Exam Back Exam: NORMAL INSPECTION - Neurological Exam Neurological Exam: Alert, Awake, CN II-XII Intact, Normal Gait, Oriented x3 - Psychiatric Exam Psychiatric exam: Normal Affect, Normal Mood - Skin Skin Exam: Dry, Intact, Normal Color, Warm - Additional Findings Additional findings: Inguinal redness and inflammation Rectal tube showing 100 mL of output Assessment and Plan - Assessment and Plan (Free Text) Assessment: CVA -Neurosurgery: Dr. Epps, consulted, Cerebral agiogram showed occlusion of the right ICA just distal to carotid bifurcation. No flow intracranially from the right ICA. No stent placed. -Echo reveals EF 55%, LV with mild concentric hypertrophy. No other abnormalities. -MRA neck significant for R ICA occlusion. -Continue clopidogrel 75 mg PO, ASA 81 mg PO -PT evaluation for CVA and deconditioning -Neurology consult: Dr. Estevez -Hepatitis results return negative for HAV, HBV, HCV. TSH normal at 1.89 -Cardiolipin antibodies IgG negative -CT head showing multiple areas of cortical infarction, progressive, non hemorrhagic now identified in the medial superior aspect of the right frontal lobe, right temporal lobe. The original area of cortical infarct has increased as well. No midline shift appreciated -Lisinopril 10, Labetolol PRN Leukocytosis most likely 2/2 C. Diff -Came back up to 16.4 today, but no other signs of sepsis (08/13/17) -CXR showed no active disease; Procal not elevated; Blood cultures no growth -C diff positive, vancomycin PO -Contact precautions -Rectal tube Hematoma 2/2 to procedure - Resolving, no longer painful UTI - Diflucan Inguinal Infection - Nystatin powder Dispo: Patient's daughter filled out paperwork with administrator social welfare yesterday, but further paperwork from the physician is needed. Will complete this tomorrow <Linsey Chu - Last Filed: 08/14/17 16:13> Objective - Vital Signs/Intake and Output Vital Signs (last 24 hours): Temp Pulse Resp BP Pulse Ox 98 F 81 18 139/80 100 08/14/17 11:53 08/14/17 11:53 08/14/17 11:53 08/14/17 11:53 08/14/17 06:00 Intake and Output: 08/14/17 08/14/17 06:59 18:59 Intake Total 240 Output Total 600 Balance -360 - Medications Medications: Current Medications Acetaminophen (Tylenol 325mg Tab) 650 mg PO Q6H PRN PRN Reason: Pain, Mild (1-3) Last Admin: 08/14/17 06:22 Dose: 650 mg Alprazolam (Xanax) 0.5 mg PO HS PRN; Protocol PRN Reason: Anxiety Aspirin (Ecotrin) 81 mg PO DAILY [facility] Last Admin: 08/14/17 09:46 Dose: 81 mg Atorvastatin Calcium (Lipitor) 80 mg PO DIN [facility] Last Admin: 08/13/17 17:57 Dose: 80 mg Clonidine HCl (Catapres) 0.1 mg PO BID [facility] Last Admin: 08/14/17 10:00 Dose: Not Given Clopidogrel Bisulfate (Plavix) 75 mg PO DAILY [facility] Last Admin: 08/14/17 09:46 Dose: 75 mg Fluconazole (Diflucan) 200 mg PO DAILY [facility] PRN Reason: Protocol Stop: 08/26/17 14:01 Last Admin: 08/14/17 09:46 Dose: 200 mg Guaifenesin/Codeine Phosphate (Robitussin W/Codeine) 5 ml PO Q6H PRN PRN Reason: Cough and congestion Last Admin: 08/14/17 15:52 Dose: 5 ml Heparin Sodium (Porcine) (Heparin) 5,000 units SC Q12 [facility] PRN Reason: Protocol Last Admin: 08/14/17 09:46 Dose: 5,000 units Hydrocortisone (Cortizone 1% Cream) 0 gm TOP BID [facility] Last Admin: 08/14/17 09:00 Dose: 1 cre Ibuprofen (Motrin Tab) 400 mg PO Q6H PRN PRN Reason: Pain, moderate (4-7) Last Admin: 08/14/17 15:52 Dose: 400 mg Labetalol HCl (Trandate) 20 mg IV Q6H PRN PRN Reason: Systolic Blood Pressure Lisinopril (Zestril) 20 mg PO DAILY [facility] Last Admin: 08/14/17 10:00 Dose: 20 mg Nystatin (Nystop Topical Powder) 0 gm TOP Q4H PRN PRN Reason: Allergy symptoms Pantoprazole Sodium (Protonix Ec Tab) 40 mg PO 0600 [facility] Last Admin: 08/14/17 06:05 Dose: 40 mg Quetiapine Fumarate (Seroquel) 12.5 mg PO HS [facility] PRN Reason: Protocol Last Admin: 08/13/17 22:38 Dose: 12.5 mg Vancomycin HCl (Vancocin 25 Mg/Ml (Oral Use)) 125 mg PO QID [facility] PRN Reason: Protocol Stop: 08/19/17 14:01 Last Admin: 08/14/17 14:30 Dose: 125 mg - Labs Labs: 08/14/17 08:20 08/14/17 08:20 PT 12.5 SECONDS (9.4-12.5) 08/05/17 06:00 INR 1.09 (0.93-1.08) H 08/05/17 06:00 APTT 30.2 Seconds (25.1-36.5) 08/05/17 06:00 Attending/Attestation - Attestation I have personally seen and examined this patient.: Yes I have fully participated in the care of the patient.: Yes I have reviewed all pertinent clinical information, including history, physical exam and plan: Yes Notes (Text): I have seen and examined the patient at bedside. Agree with the above note with the following additions/ exceptions: Briefly this is 52 year old female with history of uncontrolled hypertension, noncompliance with medication and recent incarceration who was admitted for left sided hemiparesis and found to have acute CVA most likely secondary to uncontrolled hypertension. CT and MRI consistent with right frontal and temporal subacute stroke with left-sided hemiparesis. MRA showed right internal carotid occlusion at the origin. MRA of head showed right MCA stenosis. She is status post carotid angiogram however no stent was placed. Continue dual antiplatelet therapy (asa+plavix) and high dose statins. Target LDL<70. Patient is awake, alert and oriented to time, place and person. Post angiogram, she developed small groin hematoma which has almost resolved. Denies any pain and swelling has improved. Hb remained stable. Her diarrhea has improved as well. Advised nursing staff to put the new rectal tube. Continue PO vancomycin for cdiff colitis. Continue lisinopril. Target BP is around 140 systolic. Echo revealed EF of 55%. PT recommended JUAN. CM and SW are working on placement. Discussed with patients daughter who wants to take patient home. Will start nystatin powder for diaper rash. Upon discharge patient will follow up in [facility] clinic. Dr Linsey Chu
[2017-08-13] MEDS ORDERED: Nystatin 100,000 Units/gm Topical Pow(15 gm) TOP PRN (17:13)
[2017-08-14] MEDS: Pantoprazole 40 mg EC Tab PO SCH (06:05)
[2017-08-14 08:27] LABS: BASO # 0.04 K/mm3 (0.0-2.0); BASO % 0.2 % (0.0-3.0); EOS # 0.6 (0.0-0.7); EOS % 3.3 % (1.5-5.0); GRAN # 13.39 (1.4-6.5); GRAN % 76.5 % (50.0-68.0); LYMPH # 2.7 (1.2-3.4); LYMPH % 15.2 % (22.0-35.0); MEAN CELL VOLUME 88.9 fl (80.0-105.0); MEAN CORPUSCULAR HEMOGLOBIN 28.9 pg (25.0-35.0); MEAN CORPUSCULAR HGB CONC 32.5 g/dl (31.0-37.0); MEAN PLATELET VOLUME 10.1 fl (7.0-11.0); MONO # 0.8 (0.1-0.6); MONO % 4.8 % (1.0-6.0); RBC 4.5 10^6/uL (3.5-6.1); RED CELL DISTRIBUTION WIDTH 13.8 % (11.5-14.5); WHITE BLOOD COUNT 17.5 10^3/ul (4.5-11.0)
[2017-08-14 08:55] LABS: ALB/GLOB RATIO 1.1 (1.1-1.8); ALBUMIN 3.5 g/dL (3.0-4.8); ALT/SGPT 29 U/L (7-56); AST/SGOT 23 U/L (14-36); BLOOD UREA NITROGEN 15 mg/dL (7-21); CALCIUM 9.3 mg/dL (8.4-10.5); GFR AFRICAN-AMERICAN > 60; GFR NON-AFRICAN AMERICAN > 60
[2017-08-14] MEDS: Hydrocortisone 1% Cream (30 GM) TOP SCH ×3 (09:00→19:26)
[2017-08-14] MEDS: Vancomycin 25 MG/ML PO SCH ×4 (10:01→23:12)
--- NOTE | 2017-08-14 12:16 | CP.PCM.PN ---
Subjective - Date & Time of Evaluation Date of Evaluation: 08/14/17 Time of Evaluation: 12:16 - Subjective Subjective: Ms. Rangel was seen and examined at the bedside. She is alert, oriented in all spheres. She is able to answer questions. She denies any headache, dizziness, lightheadedness, but complaints of mild tenderness in her right groin. especially with movement. She remains with left side hemiplegia. Her right groin has ecchymosis and hematoma and size is not expanding. She has rash noted in her abdomen and anterior cheat area, nothing in her extremities. She had episode of febrile with T-max of 101 and elevated WBC. She is on contact isolation due to c-diff. Objective - Vital Signs/Intake and Output Vital Signs (last 24 hours): Temp Pulse Resp BP Pulse Ox 98 F 81 18 139/80 100 08/14/17 11:53 08/14/17 11:53 08/14/17 11:53 08/14/17 11:53 08/14/17 06:00 Intake and Output: 08/14/17 08/14/17 06:59 18:59 Intake Total 240 Output Total 600 Balance -360 - Medications Medications: Current Medications Acetaminophen (Tylenol 325mg Tab) 650 mg PO Q6H PRN PRN Reason: Pain, Mild (1-3) Last Admin: 08/14/17 06:22 Dose: 650 mg Alprazolam (Xanax) 0.5 mg PO HS PRN; Protocol PRN Reason: Anxiety Aspirin (Ecotrin) 81 mg PO DAILY [facility] Last Admin: 08/14/17 09:46 Dose: 81 mg Atorvastatin Calcium (Lipitor) 80 mg PO DIN [facility] Last Admin: 08/13/17 17:57 Dose: 80 mg Clonidine HCl (Catapres) 0.1 mg PO BID [facility] Last Admin: 08/14/17 10:00 Dose: Not Given Clopidogrel Bisulfate (Plavix) 75 mg PO DAILY [facility] Last Admin: 08/14/17 09:46 Dose: 75 mg Fluconazole (Diflucan) 200 mg PO DAILY [facility] PRN Reason: Protocol Stop: 08/26/17 14:01 Last Admin: 08/14/17 09:46 Dose: 200 mg Guaifenesin/Codeine Phosphate (Robitussin W/Codeine) 5 ml PO Q6H PRN PRN Reason: Cough and congestion Last Admin: 08/11/17 00:35 Dose: 5 ml Heparin Sodium (Porcine) (Heparin) 5,000 units SC Q12 [facility] PRN Reason: Protocol Last Admin: 08/14/17 09:46 Dose: 5,000 units Hydrocortisone (Cortizone 1% Cream) 0 gm TOP BID [facility] Last Admin: 08/13/17 17:51 Dose: 1 cre Ibuprofen (Motrin Tab) 400 mg PO Q6H PRN PRN Reason: Pain, moderate (4-7) Last Admin: 08/14/17 09:46 Dose: 400 mg Labetalol HCl (Trandate) 20 mg IV Q6H PRN PRN Reason: Systolic Blood Pressure Lisinopril (Zestril) 20 mg PO DAILY [facility] Last Admin: 08/14/17 10:00 Dose: 20 mg Nystatin (Nystop Topical Powder) 0 gm TOP Q4H PRN PRN Reason: Allergy symptoms Pantoprazole Sodium (Protonix Ec Tab) 40 mg PO 0600 [facility] Last Admin: 08/14/17 06:05 Dose: 40 mg Quetiapine Fumarate (Seroquel) 12.5 mg PO HS [facility] PRN Reason: Protocol Last Admin: 08/13/17 22:38 Dose: 12.5 mg Vancomycin HCl (Vancocin 25 Mg/Ml (Oral Use)) 125 mg PO QID [facility] PRN Reason: Protocol Stop: 08/19/17 14:01 Last Admin: 08/14/17 10:01 Dose: 125 mg - Labs Labs: 08/14/17 08:20 08/14/17 08:20 PT 12.5 SECONDS (9.4-12.5) 08/05/17 06:00 INR 1.09 (0.93-1.08) H 08/05/17 06:00 APTT 30.2 Seconds (25.1-36.5) 08/05/17 06:00 - Constitutional Appears: No Acute Distress - Head Exam Head Exam: NORMAL INSPECTION - Neurological Exam Neurological Exam: Alert, Awake Neuro motor strength exam: Left Upper Extremity: 0, Right Upper Extremity: 5, Left Lower Extremity: 0, Right Lower Extremity: 5 Additional comments: Neurological unchanged from previous examination. Assessment and Plan (1) CVA (cerebrovascular accident) Assessment & Plan: Case discussed with Dr. Estevez, continue all current medical, physical, occupational therapies. Recommend treat ant underlying infection and electrolyte imbalances. Recommend blood pressure control and monitor right groin echhymosis, hematoma, distal pulses. Recommend ID to evaluate skin rash. Status: Acute
--- NOTE | 2017-08-14 14:39 | CP.PCM.PN ---
<AliceTeodoor Gomez - Last Filed: 08/14/17 14:36> Subjective - Date & Time of Evaluation Date of Evaluation: 08/14/17 Time of Evaluation: 14:36 - Subjective Subjective: Medicine progress note: Dr. Chu Patient seen and examined at bedside. Patient states she is doing well and is feeling better today, her fecal output has decreased. No other complaints at this time. Objective - Vital Signs/Intake and Output Vital Signs (last 24 hours): Temp Pulse Resp BP Pulse Ox 98 F 81 18 139/80 100 08/14/17 11:53 08/14/17 11:53 08/14/17 11:53 08/14/17 11:53 08/14/17 06:00 Intake and Output: 08/14/17 08/14/17 06:59 18:59 Intake Total 240 Output Total 600 Balance -360 - Medications Medications: Current Medications Acetaminophen (Tylenol 325mg Tab) 650 mg PO Q6H PRN PRN Reason: Pain, Mild (1-3) Last Admin: 08/14/17 06:22 Dose: 650 mg Alprazolam (Xanax) 0.5 mg PO HS PRN; Protocol PRN Reason: Anxiety Aspirin (Ecotrin) 81 mg PO DAILY [facility] Last Admin: 08/14/17 09:46 Dose: 81 mg Atorvastatin Calcium (Lipitor) 80 mg PO DIN [facility] Last Admin: 08/13/17 17:57 Dose: 80 mg Clonidine HCl (Catapres) 0.1 mg PO BID [facility] Last Admin: 08/14/17 10:00 Dose: Not Given Clopidogrel Bisulfate (Plavix) 75 mg PO DAILY [facility] Last Admin: 08/14/17 09:46 Dose: 75 mg Fluconazole (Diflucan) 200 mg PO DAILY [facility] PRN Reason: Protocol Stop: 08/26/17 14:01 Last Admin: 08/14/17 09:46 Dose: 200 mg Guaifenesin/Codeine Phosphate (Robitussin W/Codeine) 5 ml PO Q6H PRN PRN Reason: Cough and congestion Last Admin: 08/11/17 00:35 Dose: 5 ml Heparin Sodium (Porcine) (Heparin) 5,000 units SC Q12 [facility] PRN Reason: Protocol Last Admin: 08/14/17 09:46 Dose: 5,000 units Hydrocortisone (Cortizone 1% Cream) 0 gm TOP BID [facility] Last Admin: 08/13/17 17:51 Dose: 1 cre Ibuprofen (Motrin Tab) 400 mg PO Q6H PRN PRN Reason: Pain, moderate (4-7) Last Admin: 08/14/17 09:46 Dose: 400 mg Labetalol HCl (Trandate) 20 mg IV Q6H PRN PRN Reason: Systolic Blood Pressure Lisinopril (Zestril) 20 mg PO DAILY [facility] Last Admin: 08/14/17 10:00 Dose: 20 mg Nystatin (Nystop Topical Powder) 0 gm TOP Q4H PRN PRN Reason: Allergy symptoms Pantoprazole Sodium (Protonix Ec Tab) 40 mg PO 0600 [facility] Last Admin: 08/14/17 06:05 Dose: 40 mg Quetiapine Fumarate (Seroquel) 12.5 mg PO HS [facility] PRN Reason: Protocol Last Admin: 08/13/17 22:38 Dose: 12.5 mg Vancomycin HCl (Vancocin 25 Mg/Ml (Oral Use)) 125 mg PO QID [facility] PRN Reason: Protocol Stop: 08/19/17 14:01 Last Admin: 08/14/17 10:01 Dose: 125 mg - Labs Labs: 08/14/17 08:20 08/14/17 08:20 PT 12.5 SECONDS (9.4-12.5) 08/05/17 06:00 INR 1.09 (0.93-1.08) H 08/05/17 06:00 APTT 30.2 Seconds (25.1-36.5) 08/05/17 06:00 - Constitutional Appears: Well - Head Exam Head Exam: ATRAUMATIC, NORMAL INSPECTION, NORMOCEPHALIC - Eye Exam Eye Exam: EOMI, Normal appearance, PERRL Pupil Exam: NORMAL ACCOMODATION, PERRL - ENT Exam ENT Exam: Mucous Membranes Moist, Normal Exam - Neck Exam Neck Exam: Full ROM, Normal Inspection. absent: Lymphadenopathy - Respiratory Exam Respiratory Exam: Clear to Ausculation Bilateral, NORMAL BREATHING PATTERN - Cardiovascular Exam Cardiovascular Exam: REGULAR RHYTHM, +S1, +S2. absent: Murmur - GI/Abdominal Exam GI & Abdominal Exam: Soft, Normal Bowel Sounds. absent: Tenderness - Extremities Exam Extremities Exam: Full ROM, Normal Capillary Refill, Normal Inspection. absent : Joint Swelling, Pedal Edema - Back Exam Back Exam: NORMAL INSPECTION - Neurological Exam Neurological Exam: Alert, Awake, CN II-XII Intact, Normal Gait, Oriented x3 - Psychiatric Exam Psychiatric exam: Normal Affect, Normal Mood - Skin Skin Exam: Dry, Intact, Normal Color, Warm Assessment and Plan - Assessment and Plan (Free Text) Assessment: CVA -Neurosurgery: Dr. Epps, consulted, Cerebral agiogram showed occlusion of the right ICA just distal to carotid bifurcation. No flow intracranially from the right ICA. No stent placed. -Echo reveals EF 55%, LV with mild concentric hypertrophy. No other abnormalities. -MRA neck significant for R ICA occlusion. -Continue clopidogrel 75 mg PO, ASA 81 mg PO -PT evaluation for CVA and deconditioning -Neurology consult: Dr. Estevez -Hepatitis results return negative for HAV, HBV, HCV. TSH normal at 1.89 -Cardiolipin antibodies IgG negative -CT head showing multiple areas of cortical infarction, progressive, non hemorrhagic now identified in the medial superior aspect of the right frontal lobe, right temporal lobe. The original area of cortical infarct has increased as well. No midline shift appreciated -Lisinopril 10, Labetolol PRN Leukocytosis most likely 2/2 C. Diff -White count up to 17.5 today, but no other signs of sepsis (08/14/17) -CXR showed no active disease; Procal not elevated; Blood cultures no growth -C diff positive, vancomycin PO -Contact precautions -Rectal tube d/c Hematoma 2/2 to procedure - Resolving, no longer painful UTI - Diflucan Inguinal Infection - Nystatin powder Dispo: Filled out appropriate paperwork for patient's medicaid. Medically, patient is stable for discharge to rehab <Linsey Chu B - Last Filed: 08/14/17 16:16> Objective - Vital Signs/Intake and Output Vital Signs (last 24 hours): Temp Pulse Resp BP Pulse Ox 98 F 81 18 139/80 100 08/14/17 11:53 08/14/17 11:53 08/14/17 11:53 08/14/17 11:53 08/14/17 06:00 Intake and Output: 08/14/17 08/14/17 06:59 18:59 Intake Total 240 Output Total 600 Balance -360 - Medications Medications: Current Medications Acetaminophen (Tylenol 325mg Tab) 650 mg PO Q6H PRN PRN Reason: Pain, Mild (1-3) Last Admin: 08/14/17 06:22 Dose: 650 mg Alprazolam (Xanax) 0.5 mg PO HS PRN; Protocol PRN Reason: Anxiety Aspirin (Ecotrin) 81 mg PO DAILY [facility] Last Admin: 08/14/17 09:46 Dose: 81 mg Atorvastatin Calcium (Lipitor) 80 mg PO DIN [facility] Last Admin: 08/13/17 17:57 Dose: 80 mg Clonidine HCl (Catapres) 0.1 mg PO BID [facility] Last Admin: 08/14/17 10:00 Dose: Not Given Clopidogrel Bisulfate (Plavix) 75 mg PO DAILY [facility] Last Admin: 08/14/17 09:46 Dose: 75 mg Fluconazole (Diflucan) 200 mg PO DAILY [facility] PRN Reason: Protocol Stop: 08/26/17 14:01 Last Admin: 08/14/17 09:46 Dose: 200 mg Guaifenesin/Codeine Phosphate (Robitussin W/Codeine) 5 ml PO Q6H PRN PRN Reason: Cough and congestion Last Admin: 08/14/17 15:52 Dose: 5 ml Heparin Sodium (Porcine) (Heparin) 5,000 units SC Q12 [facility] PRN Reason: Protocol Last Admin: 08/14/17 09:46 Dose: 5,000 units Hydrocortisone (Cortizone 1% Cream) 0 gm TOP BID [facility] Last Admin: 08/14/17 09:00 Dose: 1 cre Ibuprofen (Motrin Tab) 400 mg PO Q6H PRN PRN Reason: Pain, moderate (4-7) Last Admin: 08/14/17 15:52 Dose: 400 mg Labetalol HCl (Trandate) 20 mg IV Q6H PRN PRN Reason: Systolic Blood Pressure Lisinopril (Zestril) 20 mg PO DAILY [facility] Last Admin: 08/14/17 10:00 Dose: 20 mg Nystatin (Nystop Topical Powder) 0 gm TOP Q4H PRN PRN Reason: Allergy symptoms Pantoprazole Sodium (Protonix Ec Tab) 40 mg PO 0600 [facility] Last Admin: 08/14/17 06:05 Dose: 40 mg Quetiapine Fumarate (Seroquel) 12.5 mg PO HS [facility] PRN Reason: Protocol Last Admin: 08/13/17 22:38 Dose: 12.5 mg Vancomycin HCl (Vancocin 25 Mg/Ml (Oral Use)) 125 mg PO QID [facility] PRN Reason: Protocol Stop: 08/19/17 14:01 Last Admin: 08/14/17 14:30 Dose: 125 mg - Labs Labs: 08/14/17 08:20 08/14/17 08:20 PT 12.5 SECONDS (9.4-12.5) 08/05/17 06:00 INR 1.09 (0.93-1.08) H 08/05/17 06:00 APTT 30.2 Seconds (25.1-36.5) 08/05/17 06:00 Attending/Attestation - Attestation I have personally seen and examined this patient.: Yes I have fully participated in the care of the patient.: Yes I have reviewed all pertinent clinical information, including history, physical exam and plan: Yes Notes (Text): I have seen and examined the patient at bedside. Agree with the above note with the following additions/ exceptions: Briefly this is 52 year old female with history of uncontrolled hypertension, noncompliance with medication and recent incarceration who was admitted for left sided hemiparesis and found to have acute CVA most likely secondary to uncontrolled hypertension. CT and MRI consistent with right frontal and temporal subacute stroke with left-sided hemiparesis. MRA showed right internal carotid occlusion at the origin. MRA of head showed right MCA stenosis. She is status post carotid angiogram however no stent was placed. Continue dual antiplatelet therapy (asa+plavix) and high dose statins. Target LDL<70. Patient is awake, alert and oriented to time, place and person. Post angiogram, she developed small groin hematoma which has almost resolved. Hb remained stable. Her diarrhea has improved as well. Will remove rectal tube tomorrow. Continue PO vancomycin for cdiff colitis. Continue lisinopril. Target BP is around 140 systolic. Echo revealed EF of 55%. PT recommended JUAN. CM and SW are working on placement. Discussed with patients daughter who wants to take patient home. Continue nystatin powder for diaper rash. Disability forms were filled out. Upon discharge patient will follow up in [facility] clinic. Dr Linsey Chu
[2017-08-14] MEDS: guaiFENesin-Codeine 100-10mg/5ml Syrup (5 ml) UD PO PRN (15:52)
[2017-08-14] MEDS: Oxycodone/Acetaminophen 10/325 mg Tab PO PRN (17:37)
[2017-08-15] MEDS: Pantoprazole 40 mg EC Tab PO SCH (05:33)
[2017-08-15] MEDS: Oxycodone/Acetaminophen 10/325 mg Tab PO PRN ×2 (05:46→17:45)
[2017-08-15 05:50] LABS: BASO # 0.05 K/mm3 (0.0-2.0); BASO % 0.3 % (0.0-3.0); EOS # 0.6 (0.0-0.7); EOS % 3.9 % (1.5-5.0); GRAN # 12.33 (1.4-6.5); GRAN % 75.7 % (50.0-68.0); LYMPH # 2.4 (1.2-3.4); LYMPH % 14.8 % (22.0-35.0); MEAN CELL VOLUME 89.3 fl (80.0-105.0); MEAN CORPUSCULAR HGB CONC 32.4 g/dl (31.0-37.0); MEAN PLATELET VOLUME 10.4 fl (7.0-11.0); MONO # 0.9 (0.1-0.6); MONO % 5.3 % (1.0-6.0); RBC 4.49 10^6/uL (3.5-6.1); RED CELL DISTRIBUTION WIDTH 14.2 % (11.5-14.5); WHITE BLOOD COUNT 16.3 10^3/ul (4.5-11.0)
[2017-08-15 07:19] LABS: ALBUMIN 3.4 g/dL (3.0-4.8); ALT/SGPT 32 U/L (7-56); AST/SGOT 40 U/L (14-36); BLOOD UREA NITROGEN 14 mg/dL (7-21); CALCIUM 9.5 mg/dL (8.4-10.5); GFR AFRICAN-AMERICAN > 60; GFR NON-AFRICAN AMERICAN > 60
[2017-08-15] MEDS: Hydrocortisone 1% Cream (30 GM) TOP SCH ×2 (09:36→17:47)
[2017-08-15] MEDS: Vancomycin 25 MG/ML PO SCH ×5 (09:38→22:19)
--- NOTE | 2017-08-15 09:41 | RAD ---
HISTORY: r/o infiltrate vs atelectasis COMPARISON: 08/06/2017 FINDINGS: LUNGS: No active pulmonary disease. PLEURA: No significant pleural effusion identified, no pneumothorax apparent. CARDIOVASCULAR: Normal. OSSEOUS STRUCTURES: No significant abnormalities. VISUALIZED UPPER ABDOMEN: Normal. OTHER FINDINGS: None. IMPRESSION: No active disease.
--- NOTE | 2017-08-15 12:30 | CP.PCM.PN ---
Subjective - Date & Time of Evaluation Date of Evaluation: 08/15/17 Time of Evaluation: 12:30 - Subjective Subjective: Ms. Rangel was seen and examined at the bedside. She is alert, oriented in all spheres. She is able to answer questions. She denies any headache, dizziness, lightheadedness, but complaints of mild tenderness in her right groin. especially with movement. She remains with left side hemiplegia. Her right groin has ecchymosis and hematoma and size is not expanding. She has rash noted in her abdomen and anterior cheat area, left upper arm. She is on contact isolation due to c-diff. There was no untoward events overnight. Objective - Vital Signs/Intake and Output Vital Signs (last 24 hours): Temp Pulse Resp BP Pulse Ox 97.8 F 75 18 129/68 97 08/15/17 11:35 08/15/17 11:35 08/15/17 11:35 08/15/17 11:35 08/15/17 06:00 Intake and Output: 08/15/17 08/15/17 06:59 18:59 Intake Total 120 Output Total 400 Balance -280 - Medications Medications: Current Medications Acetaminophen (Tylenol 325mg Tab) 650 mg PO Q6H PRN PRN Reason: Pain, Mild (1-3) Last Admin: 08/14/17 06:22 Dose: 650 mg Alprazolam (Xanax) 0.5 mg PO HS PRN; Protocol PRN Reason: Anxiety Aspirin (Ecotrin) 81 mg PO DAILY [facility] Last Admin: 08/15/17 09:36 Dose: 81 mg Atorvastatin Calcium (Lipitor) 80 mg PO DIN [facility] Last Admin: 08/14/17 17:39 Dose: 80 mg Clonidine HCl (Catapres) 0.1 mg PO BID [facility] Last Admin: 08/15/17 09:45 Dose: Not Given Clopidogrel Bisulfate (Plavix) 75 mg PO DAILY [facility] Last Admin: 08/15/17 09:36 Dose: 75 mg Diphenhydramine HCl (Benadryl) 25 mg PO Q6 PRN PRN Reason: Itching / Pruritus Last Admin: 08/15/17 09:36 Dose: 25 mg Fluconazole (Diflucan) 200 mg PO DAILY [facility] PRN Reason: Protocol Stop: 08/26/17 14:01 Last Admin: 08/15/17 09:36 Dose: 200 mg Guaifenesin/Codeine Phosphate (Robitussin W/Codeine) 5 ml PO Q6H PRN PRN Reason: Cough and congestion Last Admin: 08/14/17 15:52 Dose: 5 ml Heparin Sodium (Porcine) (Heparin) 5,000 units SC Q12 [facility] PRN Reason: Protocol Last Admin: 08/15/17 09:36 Dose: 5,000 units Hydrocortisone (Cortizone 1% Cream) 0 gm TOP BID [facility] Last Admin: 08/15/17 09:36 Dose: 1 applic Ibuprofen (Motrin Tab) 400 mg PO Q6H PRN PRN Reason: Pain, moderate (4-7) Last Admin: 08/14/17 15:52 Dose: 400 mg Labetalol HCl (Trandate) 20 mg IV Q6H PRN PRN Reason: Systolic Blood Pressure Lisinopril (Zestril) 20 mg PO DAILY [facility] Last Admin: 08/15/17 09:45 Dose: 20 mg Nystatin (Nystop Topical Powder) 0 gm TOP Q4H PRN PRN Reason: Allergy symptoms Oxycodone/Acetaminophen (Percocet 10/325 Mg Tab) 1 tab PO Q12H PRN PRN Reason: Pain, severe (8-10) Last Admin: 08/15/17 05:46 Dose: 1 tab Pantoprazole Sodium (Protonix Ec Tab) 40 mg PO 0600 [facility] Last Admin: 08/15/17 05:33 Dose: 40 mg Quetiapine Fumarate (Seroquel) 12.5 mg PO HS [facility] PRN Reason: Protocol Last Admin: 08/14/17 23:07 Dose: 12.5 mg Vancomycin HCl (Vancocin 25 Mg/Ml (Oral Use)) 125 mg PO QID [facility] PRN Reason: Protocol Stop: 08/19/17 14:01 Last Admin: 08/15/17 09:46 Dose: 125 mg - Labs Labs: 08/15/17 05:20 08/15/17 05:20 PT 12.5 SECONDS (9.4-12.5) 08/05/17 06:00 INR 1.09 (0.93-1.08) H 08/05/17 06:00 APTT 30.2 Seconds (25.1-36.5) 08/05/17 06:00 - Constitutional Appears: No Acute Distress - Head Exam Head Exam: NORMAL INSPECTION - Neurological Exam Neurological Exam: Alert, Awake Neuro motor strength exam: Left Upper Extremity: 0, Right Upper Extremity: 4, Left Lower Extremity: 0, Right Lower Extremity: 4 Additional comments: Neurological unchanged from previous examination. Assessment and Plan (1) CVA (cerebrovascular accident) Assessment & Plan: Case discussed with Dr. Newberry, continue all current medical, physical, occupational therapies. Recommend treat ant underlying infection and electrolyte imbalances. Recommend blood pressure control and monitor right groin echhymosis, hematoma, distal pulses. Recommend rehab for discharge planning. Status: Acute
--- NOTE | 2017-08-15 14:22 | CP.PCM.PN ---
<AliceTeodoro - Last Filed: 08/15/17 14:23> Subjective - Date & Time of Evaluation Date of Evaluation: 08/15/17 Time of Evaluation: 14:17 - Subjective Subjective: Medicine progress note for Dr. Chu Patient seen and examined at bedside. She states she is having a unilateral right sided retro-orbital headache, but that her diarrhea has decreased. Patient denies any complaints at this time. Objective - Vital Signs/Intake and Output Vital Signs (last 24 hours): Temp Pulse Resp BP Pulse Ox 97.8 F 75 18 129/68 97 08/15/17 11:35 08/15/17 11:35 08/15/17 11:35 08/15/17 11:35 08/15/17 06:00 Intake and Output: 08/15/17 08/15/17 06:59 18:59 Intake Total 120 Output Total 400 Balance -280 - Medications Medications: Current Medications Acetaminophen (Tylenol 325mg Tab) 650 mg PO Q6H PRN PRN Reason: Pain, Mild (1-3) Last Admin: 08/15/17 12:32 Dose: 650 mg Alprazolam (Xanax) 0.5 mg PO HS PRN; Protocol PRN Reason: Anxiety Aspirin (Ecotrin) 81 mg PO DAILY [facility] Last Admin: 08/15/17 09:36 Dose: 81 mg Atorvastatin Calcium (Lipitor) 80 mg PO DIN [facility] Last Admin: 08/14/17 17:39 Dose: 80 mg Clonidine HCl (Catapres) 0.1 mg PO BID [facility] Last Admin: 08/15/17 09:45 Dose: Not Given Clopidogrel Bisulfate (Plavix) 75 mg PO DAILY [facility] Last Admin: 08/15/17 09:36 Dose: 75 mg Diphenhydramine HCl (Benadryl) 25 mg PO Q6 PRN PRN Reason: Itching / Pruritus Last Admin: 08/15/17 09:36 Dose: 25 mg Fluconazole (Diflucan) 200 mg PO DAILY [facility] PRN Reason: Protocol Stop: 08/26/17 14:01 Last Admin: 08/15/17 09:36 Dose: 200 mg Guaifenesin/Codeine Phosphate (Robitussin W/Codeine) 5 ml PO Q6H PRN PRN Reason: Cough and congestion Last Admin: 03/14/18 15:52 Dose: 5 ml Heparin Sodium (Porcine) (Heparin) 5,000 units SC Q12 [facility] PRN Reason: Protocol Last Admin: 08/15/17 09:36 Dose: 5,000 units Hydrocortisone (Cortizone 1% Cream) 0 gm TOP BID [facility] Last Admin: 08/15/17 09:36 Dose: 1 applic Ibuprofen (Motrin Tab) 400 mg PO Q6H PRN PRN Reason: Pain, moderate (4-7) Last Admin: 08/14/17 15:52 Dose: 400 mg Labetalol HCl (Trandate) 20 mg IV Q6H PRN PRN Reason: Systolic Blood Pressure Lisinopril (Zestril) 20 mg PO DAILY [facility] Last Admin: 08/15/17 09:45 Dose: 20 mg Nystatin (Nystop Topical Powder) 0 gm TOP Q4H PRN PRN Reason: Allergy symptoms Oxycodone/Acetaminophen (Percocet 10/325 Mg Tab) 1 tab PO Q12H PRN PRN Reason: Pain, severe (8-10) Last Admin: 08/15/17 05:46 Dose: 1 tab Pantoprazole Sodium (Protonix Ec Tab) 40 mg PO 0600 [facility] Last Admin: 08/15/17 05:33 Dose: 40 mg Quetiapine Fumarate (Seroquel) 12.5 mg PO HS [facility] PRN Reason: Protocol Last Admin: 08/14/17 23:07 Dose: 12.5 mg Vancomycin HCl (Vancocin 25 Mg/Ml (Oral Use)) 125 mg PO QID [facility] PRN Reason: Protocol Stop: 08/19/17 14:01 Last Admin: 08/15/17 13:28 Dose: 125 mg - Labs Labs: 08/15/17 05:20 08/15/17 05:20 PT 12.5 SECONDS (9.4-12.5) 08/05/17 06:00 INR 1.09 (0.93-1.08) H 08/05/17 06:00 APTT 30.2 Seconds (25.1-36.5) 08/05/17 06:00 - Constitutional Appears: Well - Head Exam Head Exam: ATRAUMATIC, NORMAL INSPECTION, NORMOCEPHALIC - Eye Exam Eye Exam: EOMI, Normal appearance, PERRL Pupil Exam: NORMAL ACCOMODATION, PERRL - ENT Exam ENT Exam: Mucous Membranes Moist, Normal Exam - Neck Exam Neck Exam: Full ROM, Normal Inspection. absent: Lymphadenopathy - Respiratory Exam Respiratory Exam: Clear to Ausculation Bilateral, NORMAL BREATHING PATTERN - Cardiovascular Exam Cardiovascular Exam: REGULAR RHYTHM, +S1, +S2. absent: Murmur - GI/Abdominal Exam GI & Abdominal Exam: Soft, Normal Bowel Sounds. absent: Tenderness - Extremities Exam Extremities Exam: Full ROM, Normal Capillary Refill, Normal Inspection. absent : Joint Swelling, Pedal Edema - Back Exam Back Exam: NORMAL INSPECTION - Neurological Exam Neurological Exam: Alert, Awake, CN II-XII Intact, Normal Gait, Oriented x3 - Psychiatric Exam Psychiatric exam: Normal Affect, Normal Mood - Skin Skin Exam: Dry, Intact, Normal Color, Warm Assessment and Plan - Assessment and Plan (Free Text) Assessment: CVA -Neurosurgery: Dr. Epps, consulted, Cerebral agiogram showed occlusion of the right ICA just distal to carotid bifurcation. No flow intracranially from the right ICA. No stent placed. -Echo reveals EF 55%, LV with mild concentric hypertrophy. No other abnormalities. -MRA neck significant for R ICA occlusion. -Continue clopidogrel 75 mg PO, ASA 81 mg PO -PT evaluation for CVA and deconditioning -Neurology consult: Dr. Estevez -Hepatitis results return negative for HAV, HBV, HCV. TSH normal at 1.89 -Cardiolipin antibodies IgG negative -CT head showing multiple areas of cortical infarction, progressive, non hemorrhagic now identified in the medial superior aspect of the right frontal lobe, right temporal lobe. The original area of cortical infarct has increased as well. No midline shift appreciated -Lisinopril 10, Labetolol PRN Headache -2L NC Leukocytosis most likely 2/2 C. Diff -White count up to 17.5 today, but no other signs of sepsis (08/14/17) -CXR showed no active disease; Procal not elevated; Blood cultures no growth -C diff positive, vancomycin PO -Contact precautions -Rectal tube d/c Hematoma 2/2 to procedure - Resolving, no longer painful UTI - Diflucan Inguinal Infection - Nystatin powder Dispo: Filled out appropriate paperwork for patient's medicaid. Medically, patient is stable for discharge to rehab <Linsey Chu - Last Filed: 08/15/17 16:23> Objective - Vital Signs/Intake and Output Vital Signs (last 24 hours): Temp Pulse Resp BP Pulse Ox 97.8 F 75 18 129/68 97 08/15/17 11:35 08/15/17 11:35 08/15/17 11:35 08/15/17 11:35 08/15/17 06:00 Intake and Output: 08/15/17 08/15/17 06:59 18:59 Intake Total 120 300 Output Total 400 200 Balance -280 100 - Medications Medications: Current Medications Acetaminophen (Tylenol 325mg Tab) 650 mg PO Q6H PRN PRN Reason: Pain, Mild (1-3) Last Admin: 08/15/17 12:32 Dose: 650 mg Alprazolam (Xanax) 0.5 mg PO HS PRN; Protocol PRN Reason: Anxiety Aspirin (Ecotrin) 81 mg PO DAILY [facility] Last Admin: 08/15/17 09:36 Dose: 81 mg Atorvastatin Calcium (Lipitor) 80 mg PO DIN [facility] Last Admin: 08/14/17 17:39 Dose: 80 mg Clonidine HCl (Catapres) 0.1 mg PO BID [facility] Last Admin: 08/15/17 09:45 Dose: Not Given Clopidogrel Bisulfate (Plavix) 75 mg PO DAILY [facility] Last Admin: 08/15/17 09:36 Dose: 75 mg Diphenhydramine HCl (Benadryl) 25 mg PO Q6 PRN PRN Reason: Itching / Pruritus Last Admin: 08/15/17 09:36 Dose: 25 mg Fluconazole (Diflucan) 200 mg PO DAILY [facility] PRN Reason: Protocol Stop: 08/26/17 14:01 Last Admin: 08/15/17 09:36 Dose: 200 mg Guaifenesin/Codeine Phosphate (Robitussin W/Codeine) 5 ml PO Q6H PRN PRN Reason: Cough and congestion Last Admin: 08/14/17 15:52 Dose: 5 ml Heparin Sodium (Porcine) (Heparin) 5,000 units SC Q12 [facility] PRN Reason: Protocol Last Admin: 08/15/17 09:36 Dose: 5,000 units Hydrocortisone (Cortizone 1% Cream) 0 gm TOP BID [facility] Last Admin: 08/15/17 09:36 Dose: 1 applic Ibuprofen (Motrin Tab) 400 mg PO Q6H PRN PRN Reason: Pain, moderate (4-7) Last Admin: 08/14/17 15:52 Dose: 400 mg Labetalol HCl (Trandate) 20 mg IV Q6H PRN PRN Reason: Systolic Blood Pressure Lisinopril (Zestril) 20 mg PO DAILY [facility] Last Admin: 08/15/17 09:45 Dose: 20 mg Nystatin (Nystop Topical Powder) 0 gm TOP Q4H PRN PRN Reason: Allergy symptoms Oxycodone/Acetaminophen (Percocet 10/325 Mg Tab) 1 tab PO Q12H PRN PRN Reason: Pain, severe (8-10) Last Admin: 08/15/17 05:46 Dose: 1 tab Pantoprazole Sodium (Protonix Ec Tab) 40 mg PO 0600 [facility] Last Admin: 08/15/17 05:33 Dose: 40 mg Quetiapine Fumarate (Seroquel) 12.5 mg PO HS [facility] PRN Reason: Protocol Last Admin: 08/14/17 23:07 Dose: 12.5 mg Vancomycin HCl (Vancocin 25 Mg/Ml (Oral Use)) 125 mg PO QID [facility] PRN Reason: Protocol Stop: 08/19/17 14:01 Last Admin: 08/15/17 13:28 Dose: 125 mg - Labs Labs: 08/15/17 05:20 08/15/17 05:20 PT 12.5 SECONDS (9.4-12.5) 08/05/17 06:00 INR 1.09 (0.93-1.08) H 08/05/17 06:00 APTT 30.2 Seconds (25.1-36.5) 08/05/17 06:00 Attending/Attestation - Attestation I have personally seen and examined this patient.: Yes I have fully participated in the care of the patient.: Yes I have reviewed all pertinent clinical information, including history, physical exam and plan: Yes Notes (Text): I have seen and examined the patient at bedside. Agree with the above note with the following additions/ exceptions: Briefly this is 52 year old female with history of uncontrolled hypertension, noncompliance with medication and recent incarceration who was admitted for left sided hemiparesis and found to have acute CVA most likely secondary to uncontrolled hypertension. CT and MRI consistent with right frontal and temporal subacute stroke with left-sided hemiparesis. MRA showed right internal carotid occlusion at the origin. MRA of head showed right MCA stenosis. She is status post carotid angiogram however no stent was placed. Continue dual antiplatelet therapy (asa+plavix) and high dose statins. Target LDL<70. Patient is awake, alert and oriented to time, place and person. Hb remained stable. Her diarrhea has improved as well. Rectal tube was removed today. Continue PO vancomycin for cdiff colitis. Echo revealed EF of 55%. PT recommended [facility] however due to lack of insurance family wants to take the patient home. Patients has developed diffuse slightly pruritic erythematous rash which seems like a drug rash. Continue benadryl for now prn. Continue nystatin powder for diaper rash. She is on diflucan for candiduria. Will consult ID. Disability forms were filled out. Upon discharge patient will follow up in [facility] clinic. Dr Linsey Chu
--- NOTE | 2017-08-15 18:36 | CP.PCM.CON ---
History of Present Illness - History of Present Illness History of Present Illness: Infectious Disease Consultation: August 15, 2017 52 yo female who initially presented with generalized weakness, confusion, and tongue numbness. The patient has a history of hypertension that was poorly controlled. During this hospitalization, the patient developed a rash that started in the lower extremities and spread to the chest and left arm. The patient has no known allergies and has never developed similar symptoms in the past. PMHx: HTN PSHx: Right knee replacement Allergies: NKDA Social Hx: No tobacco, EtOH, or illicit drug use Active Medications Acetaminophen (Tylenol 325mg Tab) 650 mg PO Q6H PRN PRN Reason: Pain, Mild (1-3) Last Admin: 08/15/17 12:32 Dose: 650 mg Alprazolam (Xanax) 0.5 mg PO HS PRN; Protocol PRN Reason: Anxiety Aspirin (Ecotrin) 81 mg PO DAILY [facility] Last Admin: 08/15/17 09:36 Dose: 81 mg Atorvastatin Calcium (Lipitor) 80 mg PO DIN [facility] Last Admin: 08/15/17 17:45 Dose: 80 mg Clonidine HCl (Catapres) 0.1 mg PO BID [facility] Last Admin: 08/15/17 17:35 Dose: Not Given Clopidogrel Bisulfate (Plavix) 75 mg PO DAILY [facility] Last Admin: 08/15/17 09:36 Dose: 75 mg Diphenhydramine HCl (Benadryl) 25 mg PO Q6 PRN PRN Reason: Itching / Pruritus Last Admin: 08/15/17 09:36 Dose: 25 mg Fluconazole (Diflucan) 200 mg PO DAILY [facility] PRN Reason: Protocol Stop: 08/26/17 14:01 Last Admin: 08/15/17 09:36 Dose: 200 mg Guaifenesin/Codeine Phosphate (Robitussin W/Codeine) 5 ml PO Q6H PRN PRN Reason: Cough and congestion Last Admin: 08/14/17 15:52 Dose: 5 ml Heparin Sodium (Porcine) (Heparin) 5,000 units SC Q12 [facility] PRN Reason: Protocol Last Admin: 08/15/17 09:36 Dose: 5,000 units Hydrocortisone (Cortizone 1% Cream) 0 gm TOP BID [facility] Last Admin: 08/15/17 17:47 Dose: 1 applic Ibuprofen (Motrin Tab) 400 mg PO Q6H PRN PRN Reason: Pain, moderate (4-7) Last Admin: 08/14/17 15:52 Dose: 400 mg Labetalol HCl (Trandate) 20 mg IV Q6H PRN PRN Reason: Systolic Blood Pressure Lisinopril (Zestril) 20 mg PO DAILY [facility] Last Admin: 08/15/17 09:45 Dose: 20 mg Nystatin (Nystop Topical Powder) 0 gm TOP Q4H PRN PRN Reason: Allergy symptoms Oxycodone/Acetaminophen (Percocet 10/325 Mg Tab) 1 tab PO Q12H PRN PRN Reason: Pain, severe (8-10) Last Admin: 08/15/17 17:45 Dose: 1 tab Pantoprazole Sodium (Protonix Ec Tab) 40 mg PO 0600 [facility] Last Admin: 08/15/17 05:33 Dose: 40 mg Quetiapine Fumarate (Seroquel) 12.5 mg PO HS [facility] PRN Reason: Protocol Last Admin: 08/14/17 23:07 Dose: 12.5 mg Vancomycin HCl (Vancocin 25 Mg/Ml (Oral Use)) 125 mg PO QID [facility] PRN Reason: Protocol Stop: 08/19/17 14:01 Last Admin: 08/15/17 17:45 Dose: 125 mg Family Hx: Pancreatic ca - mother [place], CAD - father ROS: No fevers, chills, nausea, vomiting, dizziness, chest pain, abdominal pain, melena, hematuria, hematemesis, hematochezia, depression, anxiety. Complains of weakness, headaches, and periods of confustion. Complains of diarrhea. Past Patient History - Infectious Disease Hx of Infectious Diseases: None - Past Medical History & Family History Past Medical History?: Yes - Past Social History Smoking Status: Never Smoked Alcohol: None Drugs: Prescription medications (percocet) Home Situation {Lives}: With Family - CARDIAC Hx Hypertension: Yes - PULMONARY Hx Respiratory Disorders: No - NEUROLOGICAL Hx Neurological Disorder: No - HEENT Hx HEENT Problems: No - RENAL Hx Chronic Kidney Disease: No - ENDOCRINE/METABOLIC Hx Endocrine Disorders: No - HEMATOLOGICAL/ONCOLOGICAL Hx Blood Disorders: No - INTEGUMENTARY Hx Dermatological Problems: No - MUSCULOSKELETAL/RHEUMATOLOGICAL Hx Musculoskeletal Disorders: Yes Other/Comment: 'PINCHED NERVE IN THE NECK" - GASTROINTESTINAL Hx Gastrointestinal Disorders: No - GENITOURINARY/GYNECOLOGICAL Hx Genitourinary Disorders: No - PSYCHIATRIC Hx Substance Use: No - SURGICAL HISTORY Hx Surgeries: Yes Hx Orthopedic Surgery: Yes (KNEE) Meds Allergies/Adverse Reactions: Allergies Allergy/AdvReac Type Severity Reaction Status Date / Time No Known Allergies Allergy Verified 05/31/17 22:19 - Medications Medications: Current Medications Acetaminophen (Tylenol 325mg Tab) 650 mg PO Q6H PRN PRN Reason: Pain, Mild (1-3) Last Admin: 08/15/17 12:32 Dose: 650 mg Alprazolam (Xanax) 0.5 mg PO HS PRN; Protocol PRN Reason: Anxiety Aspirin (Ecotrin) 81 mg PO DAILY [facility] Last Admin: 08/15/17 09:36 Dose: 81 mg Atorvastatin Calcium (Lipitor) 80 mg PO DIN [facility] Last Admin: 08/15/17 17:45 Dose: 80 mg Clonidine HCl (Catapres) 0.1 mg PO BID [facility] Last Admin: 08/15/17 17:35 Dose: Not Given Clopidogrel Bisulfate (Plavix) 75 mg PO DAILY [facility] Last Admin: 08/15/17 09:36 Dose: 75 mg Diphenhydramine HCl (Benadryl) 25 mg PO Q6 PRN PRN Reason: Itching / Pruritus Last Admin: 08/15/17 09:36 Dose: 25 mg Fluconazole (Diflucan) 200 mg PO DAILY [facility] PRN Reason: Protocol Stop: 08/26/17 14:01 Last Admin: 08/15/17 09:36 Dose: 200 mg Guaifenesin/Codeine Phosphate (Robitussin W/Codeine) 5 ml PO Q6H PRN PRN Reason: Cough and congestion Last Admin: 08/14/17 15:52 Dose: 5 ml Heparin Sodium (Porcine) (Heparin) 5,000 units SC Q12 [facility] PRN Reason: Protocol Last Admin: 08/15/17 09:36 Dose: 5,000 units Hydrocortisone (Cortizone 1% Cream) 0 gm TOP BID [facility] Last Admin: 08/15/17 17:47 Dose: 1 applic Ibuprofen (Motrin Tab) 400 mg PO Q6H PRN PRN Reason: Pain, moderate (4-7) Last Admin: 08/14/17 15:52 Dose: 400 mg Labetalol HCl (Trandate) 20 mg IV Q6H PRN PRN Reason: Systolic Blood Pressure Lisinopril (Zestril) 20 mg PO DAILY [facility] Last Admin: 08/15/17 09:45 Dose: 20 mg Nystatin (Nystop Topical Powder) 0 gm TOP Q4H PRN PRN Reason: Allergy symptoms Oxycodone/Acetaminophen (Percocet 10/325 Mg Tab) 1 tab PO Q12H PRN PRN Reason: Pain, severe (8-10) Last Admin: 08/15/17 17:45 Dose: 1 tab Pantoprazole Sodium (Protonix Ec Tab) 40 mg PO 0600 [facility] Last Admin: 08/15/17 05:33 Dose: 40 mg Quetiapine Fumarate (Seroquel) 12.5 mg PO HS [facility] PRN Reason: Protocol Last Admin: 08/14/17 23:07 Dose: 12.5 mg Vancomycin HCl (Vancocin 25 Mg/Ml (Oral Use)) 125 mg PO QID [facility] PRN Reason: Protocol Stop: 08/19/17 14:01 Last Admin: 08/15/17 17:45 Dose: 125 mg Physical Exam - Constitutional Appears: Non-toxic, No Acute Distress, Chronically Ill Additional comments: Morbidly Obese - Head Exam Head Exam: ATRAUMATIC, NORMOCEPHALIC - Eye Exam Eye Exam: EOMI, PERRL Pupil Exam: NORMAL ACCOMODATION, PERRL - ENT Exam ENT Exam: Mucous Membranes Moist, Normal External Ear Exam, TM's Normal Bilaterally - Neck Exam Neck exam: Positive for: Full Rom, Normal Inspection - Respiratory Exam Respiratory Exam: Clear to Auscultation Bilateral, NORMAL BREATHING PATTERN. absent: Rales, Rhonchi, Wheezes - Cardiovascular Exam Cardiovascular Exam: REGULAR RHYTHM, +S1, +S2 - GI/Abdominal Exam GI & Abdominal Exam: Normal Bowel Sounds, Soft. absent: Distended, Tenderness - Extremities Exam Extremities exam: Positive for: full ROM, normal capillary refill, normal inspection - Neurological Exam Neurological exam: Alert, CN II-XII Intact, Oriented x3 - Psychiatric Exam Psychiatric exam: Normal Affect, Normal Mood - Skin Skin Exam: Dry, Intact, Normal Color Results - Vital Signs Recent Vital Signs: Last Vital Signs Temp 97.8 F 08/15/17 11:35 Pulse 72 08/15/17 17:35 Resp 18 08/15/17 11:35 BP 139/56 L 08/15/17 17:35 Pulse Ox 97 08/15/17 06:00 - Labs Result Diagrams: 08/15/17 05:20 08/15/17 05:20 Labs: Laboratory Results - last 24 hr 08/15/17 08/15/17 05:20 05:20 WBC 16.3 H RBC 4.49 Hgb 13.0 Hct 40.1 MCV 89.3 MCH 29.0 MCHC 32.4 RDW 14.2 Plt Count 404 MPV 10.4 Gran % 75.7 H Lymph % (Auto) 14.8 L [place] % (Auto) 5.3 Eos % (Auto) 3.9 Baso % (Auto) 0.3 Gran # 12.33 H Lymph # (Auto) 2.4 [place] # (Auto) 0.9 H Eos # (Auto) 0.6 Baso # (Auto) 0.05 Sodium 140 Potassium 3.9 Chloride 104 Carbon Dioxide 28 Anion Gap 12 BUN 14 Creatinine 0.7 Est GFR ( Amer) > 60 Est GFR (Non-Af Amer) > 60 Random Glucose 101 Calcium 9.5 Total Bilirubin 0.8 AST 40 H D ALT 32 Alkaline Phosphatase 64 Total Protein 6.6 Albumin 3.4 Globulin 3.2 Albumin/Globulin Ratio 1.0 L Assessment & Plan - Assessment and Plan (Free Text) Assessment: 52 yo female with presentation for CVA with occlusion of the right ICA, positive C. Diff testing, leukocytosis, questionable UTI. On PO Vancomycin for C. diff and fluconazole for wesly in the urine cultures. Off of all other antibiotics at this time. The patient has tinea rash in abdomen and groin area as well as lower back and buttocks. To lesser degree the antecubital areas. The areas of rash on the abdomen were more erythematous especially the areas where the patient was actively scratching/itching. Would continue with benadryl and mild steroid creams. Would decreased the temperature of the room as the patient is actively sweating and worsening the rash in this manner. Supportive care. Thank you for allowing me to participate in the care of the patient, we will follow with you.
[2017-08-16] MEDS: Pantoprazole 40 mg EC Tab PO SCH (06:04)
[2017-08-16] MEDS: Oxycodone/Acetaminophen 10/325 mg Tab PO PRN ×2 (06:08→16:44)
[2017-08-16 07:25] LABS: BASO # 0.05 K/mm3 (0.0-2.0); BASO % 0.4 % (0.0-3.0); EOS # 0.5 (0.0-0.7); EOS % 3.4 % (1.5-5.0); GRAN # 10.24 (1.4-6.5); GRAN % 71.8 % (50.0-68.0); HEMOGLOBIN 12.3 g/dL (12.0-16.0); LYMPH # 2.6 (1.2-3.4); LYMPH % 18.1 % (22.0-35.0); MEAN CELL VOLUME 88.8 fl (80.0-105.0); MEAN CORPUSCULAR HEMOGLOBIN 29.2 pg (25.0-35.0); MEAN CORPUSCULAR HGB CONC 32.9 g/dl (31.0-37.0); MEAN PLATELET VOLUME 9.9 fl (7.0-11.0); MONO # 0.9 (0.1-0.6); MONO % 6.3 % (1.0-6.0); RBC 4.21 10^6/uL (3.5-6.1); RED CELL DISTRIBUTION WIDTH 14.1 % (11.5-14.5); WHITE BLOOD COUNT 14.3 10^3/ul (4.5-11.0)
[2017-08-16 07:45] VITALS: RESP 20
[2017-08-16 07:46] LABS: ALB/GLOB RATIO 1.1 (1.1-1.8); ALBUMIN 3.4 g/dL (3.0-4.8); ALT/SGPT 36 U/L (7-56); AST/SGOT 29 U/L (14-36); BLOOD UREA NITROGEN 14 mg/dL (7-21); CALCIUM 9.4 mg/dL (8.4-10.5); GFR AFRICAN-AMERICAN > 60; GFR NON-AFRICAN AMERICAN > 60
[2017-08-16] MEDS: Vancomycin 25 MG/ML PO SCH ×3 (09:25→16:48)
[2017-08-16] MEDS: Hydrocortisone 1% Cream (30 GM) TOP SCH ×2 (09:26→16:47)
[2017-08-16 16:05] VITALS: TEMP 99.4; O2SAT 100
[2017-08-16 16:52] VITALS: BP 137/74; PULSE 74
--- NOTE | 2017-08-16 17:02 | CP.PCM.DIS ---
Provider - Provider Date of Admission: 08/04/17 18:01 Attending physician: Linsey Chu MD Primary care physician: NO PRIMARY CARE PROVIDER Consults: Cardio: Levine Neuro: Korya Neuroint: Parella Psych: Edgar" Time Spent in preparation of Discharge (in minutes): 45 Hospital Course - Lab Results Lab Results: Micro Results 08/09/17 06:08 Urine Urine Culture - Final Yeast Species 08/06/17 10:30 Blood Blood Culture - Final NO GROWTH AFTER 5 DAYS 08/06/17 10:30 Blood Gram Stain - Final TEST NOT PERFORMED 08/09/17 09:40 Stool C. difficile Antigen & Toxin A,B (M - Final 08/06/17 21:40 Nose MRSA Culture (Admit) - Final MRSA NOT DETECTED Most Recent Lab Values WBC 14.3 10^3/ul (4.5-11.0) H 08/16/17 07:00 RBC 4.21 10^6/uL (3.5-6.1) 08/16/17 07:00 Hgb 12.3 g/dL (12.0-16.0) 08/16/17 07:00 Hct 37.4 % (36.0-48.0) 08/16/17 07:00 MCV 88.8 fl (80.0-105.0) 08/16/17 07:00 MCH 29.2 pg (25.0-35.0) 08/16/17 07:00 MCHC 32.9 g/dl (31.0-37.0) 08/16/17 07:00 RDW 14.1 % (11.5-14.5) 08/16/17 07:00 Plt Count 413 10^3/uL (120.0-450.0) 08/16/17 07:00 MPV 9.9 fl (7.0-11.0) 08/16/17 07:00 Gran % 71.8 % (50.0-68.0) H 08/16/17 07:00 Lymph % (Auto) 18.1 % (22.0-35.0) L 08/16/17 07:00 [place] % (Auto) 6.3 % (1.0-6.0) H 08/16/17 07:00 Eos % (Auto) 3.4 % (1.5-5.0) 08/16/17 07:00 Baso % (Auto) 0.4 % (0.0-3.0) 08/16/17 07:00 Gran # 10.24 (1.4-6.5) H 08/16/17 07:00 Lymph # (Auto) 2.6 (1.2-3.4) 08/16/17 07:00 [place] # (Auto) 0.9 (0.1-0.6) H 08/16/17 07:00 Eos # (Auto) 0.5 (0.0-0.7) 08/16/17 07:00 Baso # (Auto) 0.05 K/mm3 (0.0-2.0) 08/16/17 07:00 PT 12.5 SECONDS (9.4-12.5) 08/05/17 06:00 INR 1.09 (0.93-1.08) H 08/05/17 06:00 APTT 30.2 Seconds (25.1-36.5) 08/05/17 06:00 Lupus Anticoagulant see note 08/05/17 13:40 LA PTT Screen 45 sec (<=40) H 08/05/17 13:40 dRVVT Mixing Study 45 sec (<=45) 08/05/17 13:40 dRVVT Mix Interpret Not indicated 08/05/17 13:40 Hexagonal Phase Confirm Negative (Negative) 08/05/17 13:40 Protein C Activity 138 % (70-180) 08/05/17 13:40 Protein S Activity 131 % (60-140) 08/05/17 13:40 Factor V see note 08/05/17 13:40 Sodium 140 mmol/L (132-148) 08/16/17 07:00 Potassium 3.8 mmol/L (3.6-5.0) 08/16/17 07:00 Chloride 104 mmol/L (98-107) 08/16/17 07:00 Carbon Dioxide 25 mmol/L (21-33) 08/16/17 07:00 Anion Gap 15 (10-20) 08/16/17 07:00 BUN 14 mg/dL (7-21) 08/16/17 07:00 Creatinine 0.8 mg/dl (0.7-1.2) 08/16/17 07:00 Est GFR ( Amer) > 60 08/16/17 07:00 Est GFR (Non-Af Amer) > 60 08/16/17 07:00 POC Glucose (mg/dL) 80 mg/dL (65-110) 08/04/17 23:17 Random Glucose 100 mg/dL (70-110) 08/16/17 07:00 Hemoglobin A1c 5.3 % (4.2-6.5) 08/04/17 19:30 Calcium 9.4 mg/dL (8.4-10.5) 08/16/17 07:00 Phosphorus 4.4 mg/dL (2.5-4.5) 08/14/17 08:20 Magnesium 1.8 mg/dL (1.7-2.2) 08/14/17 08:20 Total Bilirubin 0.6 mg/dL (0.2-1.3) 08/16/17 07:00 AST 29 U/L (14-36) 08/16/17 07:00 ALT 36 U/L (7-56) 08/16/17 07:00 Alkaline Phosphatase 77 U/L (38-126) 08/16/17 07:00 Lactate Dehydrogenase 507 U/L (333-699) 08/04/17 16:00 Total Creatine Kinase 39 U/L (35-230) 08/04/17 16:00 Troponin I < 0.01 ng/mL 08/04/17 16:00 Total Protein 6.6 g/dL (5.8-8.3) 08/16/17 07:00 Albumin 3.4 g/dL (3.0-4.8) 08/16/17 07:00 Globulin 3.2 gm/dL 08/16/17 07:00 Albumin/Globulin Ratio 1.1 (1.1-1.8) 08/16/17 07:00 Triglycerides 91 mg/dL (35-160) 08/05/17 06:00 Cholesterol 210 mg/dL (130-200) H 08/05/17 06:00 LDL Cholesterol Direct 145 mg/dL (0-129) H 08/05/17 06:00 HDL Cholesterol 47 mg/dL (29-60) 08/05/17 06:00 Homocysteine 7.0 umol/L ( <10.4) 08/05/17 13:40 Procalcitonin 0.05 NG/ML (0.19-0.49) L 08/06/17 06:30 TSH 3rd Generation 1.87 mIU/mL (0.46-4.68) 08/05/17 08:14 Urine Color Yellow (YELLOW) 08/09/17 06:08 Urine Appearance Cloudy (CLEAR) 08/09/17 06:08 Urine pH 5.5 (4.7-8.0) 08/09/17 06:08 Ur Specific [place] >= 1.030 (1.005-1.035) 08/09/17 06:08 Urine Protein Trace mg/dL (<30 mg/dL) H 08/09/17 06:08 Urine Glucose (UA) Negative mg/dL (NEGATIVE) 08/09/17 06:08 Urine Ketones Trace mg/dL (NEGATIVE) H 08/09/17 06:08 Urine Blood Moderate (NEGATIVE) H 08/09/17 06:08 Urine Nitrate Negative (NEGATIVE) 08/09/17 06:08 Urine Bilirubin Small (NEGATIVE) H 08/09/17 06:08 Urine Urobilinogen 0.2 E.U./dL (<1 E.U./dL) 08/09/17 06:08 Ur Leukocyte Esterase Negative Karlie/uL (NEGATIVE) 08/09/17 06:08 Urine RBC 1 - 3 /hpf (0-2) 08/09/17 06:08 Urine WBC 0 - 2 /hpf (0-6) 08/09/17 06:08 Ur Epithelial Cells 0 - 2 /hpf (0-5) 08/09/17 06:08 Amorphous Sediment Moderate 08/09/17 06:08 Urine Bacteria Mod (NEG) 08/06/17 13:30 Urine Opiates Screen Negative (NEGATIVE) 08/04/17 18:00 Urine Methadone Screen Negative (NEGATIVE) 08/04/17 18:00 Ur Barbiturates Screen Negative (NEGATIVE) 08/04/17 18:00 Ur Phencyclidine Scrn Negative (NEGATIVE) 08/04/17 18:00 Ur Amphetamines Screen Negative (NEGATIVE) 08/04/17 18:00 U Benzodiazepines Scrn Negative (NEGATIVE) 08/04/17 18:00 U Oth Cocaine Metabols Negative (NEGATIVE) 08/04/17 18:00 U Cannabinoids Screen Negative (NEGATIVE) 08/04/17 18:00 Alcohol, Quantitative < 10 mg/dL (0-10) 08/04/17 18:00 [id number] Ab <9 COMFORT (<=20) 08/05/17 13:40 Beta-2 GPI IgG Ab <9 SGU (<=20) 08/05/17 13:40 Beta-2 GPI IgM Ab <9 SMU (<=20) 08/05/17 13:40 Phosphatidylserine IgG <10 U/mL (<10) 08/05/17 13:40 Phosphatidylserine IgA <20 U/mL (<20) 08/05/17 13:40 Phosphatidylserine IgM <25 U/mL (<25) 08/05/17 13:40 Anti-Phospholipid Intrp see note 08/05/17 13:40 Anti-Cardiolipin IgG Ab <14 GPL (<=14) 08/05/17 13:40 Anti-Cardiolipin IgA Ab <11 APL (<=11) 08/05/17 13:40 Anti-Cardiolipin IgM Ab 24 MPL (<=12) H 08/05/17 13:40 Hepatitis A IgM Ab Negative (NEGATIVE) 08/05/17 08:14 Hep Bs Antigen Negative (NEGATIVE) 08/05/17 08:14 Hep B Core IgM Ab Negative (NEGATIVE) 08/05/17 08:14 Hepatitis C Antibody Negative (NEGATIVE) 08/05/17 08:14 HIV 1&2 Ag/Ab, 4th Gen Nonreactive (Nonreactive) 08/05/17 08:14 - Hospital Course Hospital Course: "presented with Right hemiparesis, L facial droop and tongue numbness. 08/05: [employer] called for L arm weak- but came in with that- PT said can go home with sling and cane 08/06: WBC elevated- repeat septic work up. CXR neg. has rash on arm. Got ABX. 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 No stents 08/09: patient complained of diarrhea, stool c diff positive, started on vancomycin due to positive cdiff and contact precautions 08/10: still having diarrhea, stable, no hematoma in retroperitoneal area, heparin restarted , follow HH 08/11: patient bowels more formed, waiting for PT to see tomorrow, stable, one time dosage of ambien for sleep at night 08/12: started patient on diflucan; increased BP meds and d/c TELE. Hypercoag workup negative. 08/13: rectal tube back in. started nystatin cream. motrin made prn and ordered a sling for patient. Have to redo paperwork for social work. 08/14: d/c ativan and put on xanax. paperwork completed by Teodoro. Rectal tube removed. 08/15: No change 08/16: Per social work, patient's authorization will not come through for awhile. Patient was stable for discharge. "CXR: No acute process 08/[address]: R frontal infarct acute/subacute Brain MRI: acute infarct anterior R temporal lobe and posterior R frontal lobe; medial R frontal cortex and R frontroparietal white matter consistent with acute infarcts; embolic disease considered. Mild encephalomalacia with adjacent gliosis within Left occipital lobe. Nonsepcific white matter disease suggestive of small vessel ischemic disease. 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 Neck MRA: R ICA occlusion; patent b/l verterbal arteries L dominant. Neck CTA: R ICA occlusion CTA brain: negative 08/[address]: cortical infarct medial superior aspect of R frontal and R temporal lovbe. Original area of cortical infarction increased. No midline shift. CT abd/pelvis: focal hematoma R groin 4.3cm in diameter with edema. No evidence of retroperitoneal hematoma. 08/[address]: multiple areas of low atenuation Echo: EF 62%- N Blood Cx: neg 08/09 U Cx: yeast Stool C Diff: positive antigen; neg toxin UDS: Neg HIV/Hep: Neg Hypercoag [place]: Neg UTox: Neg" Discharge Exam - Head Exam Head Exam: ATRAUMATIC, NORMOCEPHALIC - Eye Exam Eye Exam: EOMI, Normal appearance, PERRL Pupil Exam: NORMAL ACCOMODATION, PERRL - Respiratory Exam Respiratory Exam: Clear to PA & Lateral, NORMAL BREATHING PATTERN, UNREMARKABLE - Cardiovascular Exam Cardiovascular Exam: REGULAR RHYTHM. absent: Systolic Murmur - GI/Abdominal Exam GI & Abdominal Exam: Normal Bowel Sounds - Neurological Exam Neurological exam: Alert, CN II-XII Intact, Normal Gait, Oriented x3, Reflexes Normal - Psychiatric Exam Psychiatric exam: Normal Affect, Normal Mood - Skin Skin Exam: Dry, Intact, Normal Color, Warm Discharge Plan - Discharge Medications Prescriptions: Aspirin [Ecotrin] 81 mg PO DAILY #30 tabec Atorvastatin [Lipitor] 40 mg PO DAILY #30 tab cloNIDine [Catapres] 0.1 mg PO BID #60 tab Clopidogrel [Plavix] 75 mg PO DAILY #30 tab Fluconazole [Diflucan] 200 mg PO DAILY #14 tab Lisinopril [Zestril] 20 mg PO DAILY #30 tab Nystatin [Nystop Topical Powder] See Protocol TOP Q4H PRN #1 bottle PRN Reason: Allergy Symptoms Vancomycin [Vancocin (ORAL OR RECTAL USE)] 125 mg PO QID #4 soln - Follow Up Plan Condition: GOOD Disposition: HOME/ ROUTINE Instructions: Stroke (DC), Recovery After Stroke, Stroke Rehab Information, Stroke Rehab Exercises Additional Instructions: Please follow up with [facility] in one week. Should your symptoms recur, please return to the ED. Referrals: PCP,NO [Primary Care Provider] -
--- NOTE | 2017-08-16 19:09 | CP.PCM.PN ---
Subjective - Date & Time of Evaluation Date of Evaluation: 08/16/17 Time of Evaluation: 16:30 - Subjective Subjective: Infectious Disease Follow Up: August 16, 2017 52 yo female who initially presented with generalized weakness, confusion, and tongue numbness. The patient has a history of hypertension that was poorly controlled. During this hospitalization, the patient developed a rash that started in the lower extremities and spread to the chest and left arm. The patient has no known allergies and has never developed similar symptoms in the past. Objective - Vital Signs/Intake and Output Vital Signs (last 24 hours): Temp Pulse Resp BP Pulse Ox 99.4 F 74 20 137/74 100 08/16/17 14:00 08/16/17 16:45 08/16/17 14:00 08/16/17 16:45 08/16/17 14:00 - Medications Medications: Current Medications Acetaminophen (Tylenol 325mg Tab) 650 mg PO Q6H PRN PRN Reason: Pain, Mild (1-3) Last Admin: 08/15/17 12:32 Dose: 650 mg Alprazolam (Xanax) 0.5 mg PO HS PRN; Protocol PRN Reason: Anxiety Last Admin: 08/15/17 22:17 Dose: 0.5 mg Aspirin (Ecotrin) 81 mg PO DAILY [facility] Last Admin: 08/16/17 09:21 Dose: 81 mg Atorvastatin Calcium (Lipitor) 80 mg PO DIN [facility] Last Admin: 08/16/17 16:45 Dose: 80 mg Clonidine HCl (Catapres) 0.1 mg PO BID [facility] Last Admin: 08/16/17 16:45 Dose: 0.1 mg Clopidogrel Bisulfate (Plavix) 75 mg PO DAILY [facility] Last Admin: 08/16/17 09:20 Dose: 75 mg Diphenhydramine HCl (Benadryl) 25 mg PO Q6 PRN PRN Reason: Itching / Pruritus Last Admin: 08/16/17 09:23 Dose: 25 mg Fluconazole (Diflucan) 200 mg PO DAILY [facility] PRN Reason: Protocol Stop: 08/26/17 14:01 Last Admin: 08/16/17 09:21 Dose: 200 mg Guaifenesin/Codeine Phosphate (Robitussin W/Codeine) 5 ml PO Q6H PRN PRN Reason: Cough and congestion Last Admin: 08/14/17 15:52 Dose: 5 ml Heparin Sodium (Porcine) (Heparin) 5,000 units SC Q12 [facility] PRN Reason: Protocol Last Admin: 08/16/17 09:19 Dose: 5,000 units Hydrocortisone (Cortizone 1% Cream) 0 gm TOP BID [facility] Last Admin: 08/16/17 16:47 Dose: 1 applic Ibuprofen (Motrin Tab) 400 mg PO Q6H PRN PRN Reason: Pain, moderate (4-7) Last Admin: 08/16/17 00:43 Dose: 400 mg Labetalol HCl (Trandate) 20 mg IV Q6H PRN PRN Reason: Systolic Blood Pressure Lisinopril (Zestril) 20 mg PO DAILY [facility] Last Admin: 08/16/17 09:20 Dose: 20 mg Nystatin (Nystop Topical Powder) 0 gm TOP Q4H PRN PRN Reason: Allergy symptoms Oxycodone/Acetaminophen (Percocet 10/325 Mg Tab) 1 tab PO Q12H PRN PRN Reason: Pain, severe (8-10) Last Admin: 08/16/17 16:44 Dose: 1 tab Pantoprazole Sodium (Protonix Ec Tab) 40 mg PO 0600 [facility] Last Admin: 08/16/17 06:04 Dose: 40 mg Quetiapine Fumarate (Seroquel) 12.5 mg PO HS [facility] PRN Reason: Protocol Last Admin: 08/15/17 22:17 Dose: 12.5 mg Vancomycin HCl (Vancocin 25 Mg/Ml (Oral Use)) 125 mg PO QID [facility] PRN Reason: Protocol Stop: 08/19/17 14:01 Last Admin: 08/16/17 16:48 Dose: 125 mg - Labs Labs: 08/16/17 07:00 08/16/17 07:00 PT 12.5 SECONDS (9.4-12.5) 08/05/17 06:00 INR 1.09 (0.93-1.08) H 08/05/17 06:00 APTT 30.2 Seconds (25.1-36.5) 08/05/17 06:00 - Constitutional Appears: Non-toxic, No Acute Distress, Chronically Ill - Head Exam Head Exam: ATRAUMATIC, NORMOCEPHALIC - Eye Exam Eye Exam: EOMI, PERRL Pupil Exam: NORMAL ACCOMODATION, PERRL - ENT Exam ENT Exam: Mucous Membranes Moist, Normal External Ear Exam, TM's Normal Bilaterally - Neck Exam Neck Exam: Full ROM, Normal Inspection - Respiratory Exam Respiratory Exam: Clear to Ausculation Bilateral, NORMAL BREATHING PATTERN. absent: Rales, Rhonchi, Wheezes - Cardiovascular Exam Cardiovascular Exam: REGULAR RHYTHM, RRR, +S1, +S2 - GI/Abdominal Exam GI & Abdominal Exam: Soft, Normal Bowel Sounds. absent: Distended, Tenderness - Extremities Exam Extremities Exam: Normal Capillary Refill. absent: Joint Swelling, Pedal Edema - Neurological Exam Neurological Exam: Alert, Awake, CN II-XII Intact, Oriented x3 Additional comments: general weakness. - Psychiatric Exam Psychiatric exam: Normal Affect, Normal Mood - Skin Additional comments: As above. Assessment and Plan - Assessment and Plan (Free Text) Assessment: 52 yo female with presentation for CVA with occlusion of the right ICA, positive C. Diff testing, leukocytosis, questionable UTI. On PO Vancomycin for C. diff and fluconazole for wesly in the urine cultures. Off of all other antibiotics at this time. The patient has tinea rash in abdomen and groin area as well as lower back and buttocks. To lesser degree the antecubital areas. The areas of rash on the abdomen were more erythematous especially the areas where the patient was actively scratching/itching. Would continue with benadryl and mild steroid creams. Would decreased the temperature of the room as the patient is actively sweating and worsening the rash in this manner. Supportive care. Thank you for allowing me to participate in the care of the patient, we will follow with you.
== END 2017-08-16 20:11 | disposition home or self-care (01) | DRG 14 ==
LOC: ED 15:51 → ERH 18:01 → 2RNO 20:38 → CCU 08-06 21:35 → 2RNO 08-10 23:10 → 5RSO 08-16 00:29
PROVIDERS: ADMIT Internal Medicine; ATTEND Hospitalist
PROC: B31F1ZZ Fluoroscopy of Left Vertebral Artery using Low Osmolar Contrast (ICD-10-PCS; principal; 2017-08-08)
PROC: B3151ZZ Fluoroscopy of Bilateral Common Carotid Arteries using Low Osmolar Contrast (ICD-10-PCS; 2017-08-08)
DX: I63.231 Cerebral infarction due to unspecified occlusion or stenosis of right carotid arteries (principal); A04.72 Enterocolitis due to Clostridium difficile, not specified as recurrent; E11.51 Type 2 diabetes mellitus with diabetic peripheral angiopathy without gangrene; L76.32 Postprocedural hematoma of skin and subcutaneous tissue following other procedure; B37.49 Other urogenital candidiasis; F06.30 Mood disorder due to known physiological condition, unspecified; I11.9 Hypertensive heart disease without heart failure; G81.04 Flaccid hemiplegia affecting left nondominant side; F19.10 Other psychoactive substance abuse, uncomplicated; B35.9 Dermatophytosis, unspecified; E78.5 Hyperlipidemia, unspecified; F43.22 Adjustment disorder with anxiety; I51.7 Cardiomegaly; R29.702 NIHSS score 2; M62.89 Other specified disorders of muscle; M43.12 Spondylolisthesis, cervical region; E66.9 Obesity, unspecified; L22 Diaper dermatitis; Y83.8 Other surgical procedures as the cause of abnormal reaction of the patient, or of later complication, without mention of misadventure at the time of the procedure; Z96.651 Presence of right artificial knee joint; Z68.43 Body mass index [BMI] 50.0-59.9, adult; Z91.14 Patient's other noncompliance with medication regimen

== ENCOUNTER 2017-08-17 12:43 | Inpatient (IN) | payer MEDICAID ==
--- NOTE | 2017-08-17 13:16 | ED PDOC ---
Arrival/HPI - General Chief Complaint: Headache Time Seen by Provider: 08/17/17 12:56 Historian: Patient - History of Present Illness Narrative History of Present Illness (Text): 08/17/17 13:11 Thu Rangel is a 52 year old female, whose past medical history includes CVA and hypertension, who presents to the emergency room complaining of a right sided headache since this morning at 3:00am. Patient describes pain as a pulsating sensation. Patient notes headache is typical of previous headache. Patient took Tylenol for the pain with minimal relief at 4:00am. Patient denies any new weakness, fever, chills, chest pain, shortness of breath, nausea , vomiting, diarrhea, back pain, neck pain, headache, dizziness, or any other complaints. PMD: No PMD Time/Duration: Other Symptom Course: Unchanged Activities at Onset: Light Context: Home Past Medical History - Provider Review Nursing Documentation Reviewed: Yes - Infectious Disease Hx of Infectious Diseases: None - Reproductive Menopause: No - Cardiac Hx Hypertension: Yes Other/Comment: CVA / WITH LEFT SIDED WEAKNESS - Pulmonary Hx Respiratory Disorders: No - Neurological Hx Neurological Disorder: No - HEENT Hx HEENT Disorder: No - Renal Hx Renal Disorder: No - Endocrine/Metabolic Hx Endocrine Disorders: No - Hematological/Oncological Hx Blood Disorders: No - Integumentary Hx Dermatological Disorder: No - Musculoskeletal/Rheumatological Hx Musculoskeletal Disorders: Yes Other/Comment: 'PINCHED NERVE IN THE NECK" - Gastrointestinal Hx Gastrointestinal Disorders: No - Genitourinary/Gynecological Hx Genitourinary Disorders: No - Psychiatric Hx Psychophysiologic Disorder: No Hx Substance Use: No - Surgical History Hx Orthopedic Surgery: Yes (KNEE) Family/Social History - Physician Review Nursing Documentation Reviewed: Yes Family/Social History: Unknown Family HX Smoking Status: Never Smoked Hx Alcohol Use: Yes (social) Hx Substance Use: No Allergies/Home Meds Allergies/Adverse Reactions: Allergies No Known Allergies Allergy (Verified 05/31/17 22:19) Review of Systems - Review of Systems Constitutional: Normal Eyes: Normal ENT: Normal Respiratory: Normal. absent: SOB, Cough Cardiovascular: Normal. absent: Chest Pain Gastrointestinal: Normal. absent: Abdominal Pain, Diarrhea, Nausea, Vomiting Genitourinary Female: Normal. absent: Dysuria, Frequency, Hematuria, Urine Output Changes Musculoskeletal: Normal. absent: Back Pain, Neck Pain Skin: Normal. absent: Rash Neurological: Headache (right sided ). absent: Dizziness Endocrine: Normal Hemo/Lymphatic: Normal Psychiatric: Normal Physical Exam Vital Signs Reviewed: Yes Vital Signs Temp Pulse Resp BP Pulse Ox 08/17/17 15:38 97.5 F L 70 20 134/81 100 08/17/17 12:49 98.2 F 85 18 122/83 96 Temperature: Afebrile Blood Pressure: Normal Pulse: Regular Respiratory Rate: Normal Appearance: Positive for: Well-Appearing, Non-Toxic, Comfortable Pain Distress: None Mental Status: Positive for: Alert and Oriented X 3 - Systems Exam Head: Present: Atraumatic, Normocephalic Pupils: Present: PERRL Extroacular Muscles: Present: EOMI Conjunctiva: Present: Normal Mouth: Present: Moist Mucous Membranes Neck: Present: Normal Range of Motion. No: Meningeal Signs, MIDLINE TENDERNESS , JVD Respiratory/Chest: Present: Clear to Auscultation, Good Air Exchange. No: Respiratory Distress, Accessory Muscle Use Cardiovascular: Present: Regular Rate and Rhythm, Normal S1, S2. No: Murmurs Abdomen: Present: Normal Bowel Sounds. No: Tenderness, Distention, Peritoneal Signs Back: Present: Normal Inspection Upper Extremity: Present: NORMAL PULSES, Neurovascularly Intact, Other (Left arm weakness). No: Cyanosis, Edema Lower Extremity: Present: NORMAL PULSES, Neurovascularly Intact, Other (Left leg weakness). No: Edema Neurological: Present: GCS=15, CN II-XII Intact, Speech Normal, Normal Sensory Function. No: Motor Func Grossly Intact (left side weakness) Skin: Present: Warm, Dry, Normal Color. No: Rashes Psychiatric: Present: Alert, Oriented x 3, Normal Insight, Normal Concentration Medical Decision Making ED Course and Treatment: 08/17/17 13:20 Impression: 52 year old female presents to the emergency room complaining of a right sided headache since this morning. Differential Diagnosis included but are not limited to: Headache s/p Recent Stroke r/o Migraine or Tension Headache vs Worsening CVA Plan: -- CT Head -- Labs -- Magnesium -- Tylenol -- Reassess and disposition Prior Visits: Notes and results from previous visits were reviewed. Patient visited the emergency room on 08/15/17 s/p CVA. Patient was admitted. Progress Notes: EKG reviewed, shows NSR at 80 bpm. T wave aversions at lead 3. Accession No. : [id number] Patient Name / ID : DRAKE WALTERS / [id number] Creator : Timothy Dolan MD Dictator : Timothy Dolan MD PROCEDURE: CT HEAD WITHOUT CONTRAST. IMPRESSION: Worsening foci of hypodensity at the right cerebral hemisphere since the previous exam suggestive of worsening edema surrounding subacute infarction. Interval appearance of mass effect on the lateral ventricles and 10 millimeter [id number] midline shift since the previous study. Interval appearance of small linear hyperattenuation foci at the right cerebral likely represent area of reperfusion. The possibility of petechial hemorrhage is less likely. No evidence of hematoma. 08/17/17 15:[address] Newberry, Neurology who states to give Aspirin, maintain BP elevated, and get a CTA Head/Neck. On admission patient will need an MRI head without contrast. 08/17/17 15:52 Case was discussed with Tati, Critical Care, for ICU monitoring of CVA with MLS 10mm right to left. He will accept the patient to his service. Case discussed with Dr. Zamarripa who will place that patient on the hospitalist service. 08/17/17 16:07 Case was discussed with Dr. Solrozano, Neurosurgeon, who recommends head elevated at 45 degrees, frequent neuro checks and ICU monitoring. 08/17/17 16:49 Peripheral IV line was not functioning as per CHANCE Al. Patient returned from CT and I inserted a right antecubital peripheral IV line using ultrasound guidance. 08/17/17 17:04 Liz, her daughter called, and with permission of patient I explained to her the medical plan. She left her cell phone at [phone] to be called with any updates or if they need her for anything. 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 No evidence of blood flow in the right internal carotid artery at the neck and skullbase. The M1 segment of the right internal carotid artery is not visualized. Reconstitution of small size M2 segments on the right. Small size right A1. I called to discuss CTA Head/Neck results with Dr. Newberry, Neurologist. She agrees with current plan as stated above to admit to the ICU. Neurosurgery, Dr. Solorzano, also discussed case with Dr. Duffy after reviewing the CT results himself. He recommended to them further instructions including hypertonic saline. - Critical Care Critical Care Minutes: 60 minutes - Lab Interpretations Lab Results: 08/17/17 13:27 08/17/17 13:27 Lab Results 08/17/17 15:30: Troponin I < 0.01, Triglycerides 95, Cholesterol 105 L, LDL Cholesterol Direct 47, HDL Cholesterol 33 08/17/17 13:27: Sodium 140, Potassium 4.1, Chloride 102, Carbon Dioxide 26, Anion Gap 15, BUN 9, Creatinine 0.6 L, Est GFR ( Amer) > 60, Est GFR (Non -Af Amer) > 60, Random Glucose 109, Calcium 10.1, Magnesium 1.9 08/17/17 13:27: PT 13.6 H, INR 1.18 H, APTT 28.7 08/17/17 13:27: WBC 15.6 H, RBC 4.51, Hgb 13.5, Hct 40.0, MCV 88.7, MCH 29.9, MCHC 33.8, RDW 13.7, Plt Count 482 H, MPV 10.1, Gran % 78.7 H, Lymph % (Auto) 13.4 L, [place] % (Auto) 5.4, Eos % (Auto) 2.2, Baso % (Auto) 0.3, Gran # 12.26 H, Lymph # (Auto) 2.1, [place] # (Auto) 0.8 H, Eos # (Auto) 0.3, Baso # (Auto) 0.05 - RAD Interpretation Radiology Orders: 08/17/17 13:10 HEAD W/O CONTRAST [CT] Stat - Medication Orders Current Medication Orders: Aspirin (Ecotrin) 81 mg PO DAILY [facility]IA Atorvastatin Calcium (Lipitor) 40 mg PO DAILY [facility] MARIA Clonidine HCl (Catapres) 0.1 mg PO BID [facility]IA Last Admin: 08/17/17 17:58 Dose: 0.1 mg MAR Pulse and Blood Pressure Document 08/17/17 17:58 RAMOM (Rec: 08/17/17 17:58 RAMOM ADMIN-PC) Pulse Pulse Rate (60-90) 87 Blood Pressure Blood Pressure (100/60-150/90) 158/93 Clopidogrel Bisulfate (Plavix) 75 mg PO DAILY DUL[facility] MARIA Fluconazole (Diflucan) 200 mg PO DAILY [facility]IA PRN Reason: Protocol Stop: 08/27/17 23:59 Heparin Sodium (Porcine) (Heparin) 5,000 units SC Q12 DUL[facility] MARIA PRN Reason: Protocol Sodium Chloride (Sodium Chloride 0.9%) 1,000 mls @ 100 mls/hr IV .Q10H [facility] Last Admin: 08/17/17 16:07 Dose: 100 mls/hr eMAR Start Stop Document 08/17/17 16:07 EWO (Rec: 08/17/17 16:07 BHAVNA [id number]) Intravenous Solution Start Date 08/17/17 Start Time 16:07 Sodium Chloride (Hypertonic Saline 3%) 500 mls @ 15 mls/hr IV .Q24H [facility] Lisinopril (Zestril) 20 mg PO DAILY [facility] Nystatin (Nystop Topical Powder) 0 gm TOP Q4H PRN PRN Reason: Allergy symptoms Last Admin: 08/17/17 17:59 Dose: 1 applic Pantoprazole Sodium (Protonix Ec Tab) 40 mg PO 0600 [facility] Quetiapine Fumarate (Seroquel) 12.5 mg PO HS [facility] PRN Reason: Protocol Vancomycin HCl (Vancocin (Oral/Rectal Use)) 125 mg PO QID [facility] MARIA PRN Reason: Protocol Stop: 08/20/17 23:59 Last Admin: 08/17/17 17:54 Dose: 125 mg Discontinued Medications Acetaminophen (Tylenol 325mg Tab) 650 mg PO STAT STA Stop: 08/17/17 13:12 Last Admin: 08/17/17 13:22 Dose: 650 mg MAR Pain/Vitals Document 08/17/17 13:22 EWO (Rec: 08/17/17 13:23 BHAVNAO [id number]) Pain Reassessment Is This A Pain ReAssessment? No Sleep Is patient sleeping during reassessment? No Presence of Pain Presence of Pain Yes Pain Scale Used Pain Scale Used Numeric Location Pain Location Body Professor Of Psychiatry Description Intermittent Intensity 3 Scale Used Numeric Re-Assess: MAR Pain/Vitals Document 08/17/17 14:22 RAMOM (Rec: 08/17/17 17:55 RAMOM ADMIN-PC) Pain Reassessment Is This A Pain ReAssessment? Yes Sleep Is patient sleeping during reassessment? No Presence of Pain Presence of Pain Yes Pain Scale Used Pain Scale Used Numeric Location Left, Right or Bilateral Right Upper or Lower Upper Pain Location Body Professor Of Psychiatry Description Constant Intensity 7 Scale Used Numeric Pain Behavior Facial Grimacing Aggravating Factors Changing Position Alleviating Factors Medication Aspirin (Ecotrin) 162 mg PO STAT STA Stop: 08/17/17 15:14 Last Admin: 08/17/17 16:06 Dose: 162 mg Meropenem 500 mg/ Sodium (Chloride) 50 mls @ 100 mls/hr IVPB Q24H [facility] PRN Reason: Protocol Stop: 08/17/17 16:44 Last Admin: 08/17/17 17:53 Dose: 100 mls/hr eMAR Start Stop Document 08/17/17 17:53 RAMOM (Rec: 08/17/17 17:54 RAMOM ADMIN-PC) Intravenous Solution Start Date 08/17/17 Start Time 17:55 End Date 08/17/17 End time 18:25 Total Infusion Time 30 Sodium Chloride (Hypertonic Saline 3%) 500 mls @ 30 mls/hr IV .[id number] [facility] NIHSS Scale ([place]) Time Performed: 12:56 - How Severe is the Stoke Baseline Level of Consciousness: 0=Alert LOC to Questions: 0=Both comments correct LOC to commands: 0=Obeys both correctly Best Gaze: 0=Normal Visual: 0=No visual loss Facial: 2=Partial (lower face paralysis) Motor Arm - Left: 4=No movement Motor Arm - Right: 0=No drift Motor Leg - Left: 4=No movement Motor Leg - Right: 0=No drift Limb Ataxia: 2=Present both Sensory: 0=Normal Best Language: 0=No aphasia Dysarthia: 0=Normal articulation Extinction & Inattention (Neglect): 0=Normal, no object Score: 12 Risk Level: Mod Stroke Risk rTPA Inclusion/Exclusion - Refusal of Treatment Patient Refused Treatment: No - Inclusion Criteria for Altepase Patient is 18 years or Older: No The Clinical Diagnosis of Ischemic Stroke That is Causing a Potentially Disabling Neurological Deficit: Yes Time of Onset is Well Established to be Less Than 270 Minute Before Treatment Would Begin: No Risk/Benefit Discussed With Patient/Family Member Present: No - Scribe Statement The provider has reviewed the documentation as recorded by the Scribe Documented by Abby Poon acting as a scribe for Andre Christine DO. Disposition/Present on Arrival - Present on Arrival Any Indicators Present on Arrival: No History of DVT/PE: No History of Uncontrolled Diabetes: No Urinary Catheter: No History of Decub. Ulcer: No History Surgical Site Infection Following: None - Disposition Have Diagnosis and Disposition been Completed?: Yes Diagnosis: CVA (cerebrovascular accident) Disposition: HOSPITALIZED Disposition Time: 15:54 Patient Plan: Admission Condition: CRITICAL
[2017-08-17 13:32] LABS: BASO # 0.05 K/mm3 (0.0-2.0); BASO % 0.3 % (0.0-3.0); EOS # 0.3 (0.0-0.7); EOS % 2.2 % (1.5-5.0); GRAN # 12.26 (1.4-6.5); GRAN % 78.7 % (50.0-68.0); HEMOGLOBIN 13.5 g/dL (12.0-16.0); LYMPH # 2.1 (1.2-3.4); LYMPH % 13.4 % (22.0-35.0); MEAN CELL VOLUME 88.7 fl (80.0-105.0); MEAN CORPUSCULAR HEMOGLOBIN 29.9 pg (25.0-35.0); MEAN CORPUSCULAR HGB CONC 33.8 g/dl (31.0-37.0); MEAN PLATELET VOLUME 10.1 fl (7.0-11.0); MONO # 0.8 (0.1-0.6); MONO % 5.4 % (1.0-6.0); RBC 4.51 10^6/uL (3.5-6.1); RED CELL DISTRIBUTION WIDTH 13.7 % (11.5-14.5); WHITE BLOOD COUNT 15.6 10^3/ul (4.5-11.0)
[2017-08-17 14:00] LABS: INR 1.18 (0.93-1.08); PROTHROMBIN TIME 13.6 SECONDS (9.4-12.5)
[2017-08-17 14:01] LABS: PARTIAL THROMBOPLASTIN TIME 28.7 Seconds (25.1-36.5)
[2017-08-17 14:39] LABS: BLOOD UREA NITROGEN 9 mg/dL (7-21); CALCIUM 10.1 mg/dL (8.4-10.5); GFR AFRICAN-AMERICAN > 60; GFR NON-AFRICAN AMERICAN > 60
--- NOTE | 2017-08-17 14:58 | CT ---
PROCEDURE: CT HEAD WITHOUT CONTRAST. HISTORY: headache COMPARISON: Comparison is made with the previous study dated 08/10/2017 TECHNIQUE: Axial computed tomography images were obtained through the head/brain without intravenous contrast. Radiation dose: Total exam DLP = 1031.97 mGy-cm. This CT exam was performed using one or more of the following dose reduction techniques: Automated exposure control, adjustment of the mA and/or kV according to patient size, and/or use of iterative reconstruction technique. FINDINGS: HEMORRHAGE: No evidence of parenchymal hemorrhage. BRAIN: Interval increase in the size of the hypo attenuation area as in the right cerebral hemisphere since the previous exam suggestive of worsening edema in addition to large subacute infarction likely involving the right MCA and GISELE territories. There is interval appearance of mass effect on the lateral ventricles and approximately 10 millimeter right to left midline shift. There is suspicious for possible subfalcine hernia. VENTRICLES: The right lateral ventricle appears smaller compared to the previous exam. CALVARIUM: Unremarkable. PARANASAL SINUSES: Small mucosal retention cyst is again noted at the left maxillary sinus. MASTOID AIR CELLS: Unremarkable as visualized. No inflammatory changes. OTHER FINDINGS: None. IMPRESSION: Worsening foci of hypodensity at the right cerebral hemisphere since the previous exam suggestive of worsening edema surrounding subacute infarction. Interval appearance of mass effect on the lateral ventricles and 10 millimeter [id number] midline shift since the previous study. Interval appearance of small linear hyperattenuation foci at the right cerebral likely represent area of reperfusion. The possibility of petechial hemorrhage is less likely. No evidence of hematoma.
[2017-08-17] MEDS ORDERED: Sodium Chloride 0.9% 1,000 ML IV SCH (15:15)
[2017-08-17] MEDS ORDERED: Meropenem 500 MG in Sodium Chloride 0.9% 50 ML IVPB SCH (16:15)
[2017-08-17] MEDS ORDERED: Nystatin 100,000 Units/gm Topical Pow(15 gm) TOP PRN (16:22)
[2017-08-17 16:36] LABS: HDL CHOLESTEROL 33 mg/dL (29-60)
--- NOTE | 2017-08-17 16:43 | CP.PCM.CON ---
<Len Steve - Last Filed: 08/17/17 17:19> History of Present Illness - History of Present Illness History of Present Illness: 52 year old female with past medical history of hypertension, medication noncompliance, and recent right sided CVA presents to the hospital for severe right sided headache. Patient was recently admitted to the hospital for right sided CVA. Pain started early this morning and is described as pulsatile in nature. Patient took tylenol at home for her pain, which did not help. She states she has had the pain for several days, but only this morning did it become more severe. Patient denies any new neurological symptoms. Denies chest pain, shortness of breath, nausea, vomiting, diarrhea, fever, chills, new onset weakness, numbness, tingling. Past medical history: As above Past surgical history: Knee replacement Social History: Denies alcohol, tobacco, or illicit drug use Allergies: NKDA Medications: Reviewed, as per MAR Review of Systems - Review of Systems Review of Systems: 12 point ROS as per HPI, otherwise negative Past Patient History - Infectious Disease Hx of Infectious Diseases: None - Past Medical History & Family History Past Medical History?: Yes - Past Social History Smoking Status: Never Smoked - CARDIAC Hx Hypertension: Yes Other/Comment: CVA / WITH LEFT SIDED WEAKNESS - PULMONARY Hx Respiratory Disorders: No - NEUROLOGICAL Hx Neurological Disorder: No - HEENT Hx HEENT Problems: No - RENAL Hx Chronic Kidney Disease: No - ENDOCRINE/METABOLIC Hx Endocrine Disorders: No - HEMATOLOGICAL/ONCOLOGICAL Hx Blood Disorders: No - INTEGUMENTARY Hx Dermatological Problems: No - MUSCULOSKELETAL/RHEUMATOLOGICAL Hx Musculoskeletal Disorders: Yes Other/Comment: 'PINCHED NERVE IN THE NECK" - GASTROINTESTINAL Hx Gastrointestinal Disorders: No - GENITOURINARY/GYNECOLOGICAL Hx Genitourinary Disorders: No - PSYCHIATRIC Hx Psychophysiologic Disorder: No Hx Substance Use: No - SURGICAL HISTORY Hx Orthopedic Surgery: Yes (KNEE) Meds Allergies/Adverse Reactions: Allergies Allergy/AdvReac Type Severity Reaction Status Date / Time No Known Allergies Allergy Verified 05/31/17 22:19 - Medications Medications: Current Medications Aspirin (Ecotrin) 81 mg PO DAILY [facility] Atorvastatin Calcium (Lipitor) 40 mg PO DAILY [facility] Clonidine HCl (Catapres) 0.1 mg PO BID [facility] Clopidogrel Bisulfate (Plavix) 75 mg PO DAILY [facility] Fluconazole (Diflucan) 200 mg PO DAILY [facility] PRN Reason: Protocol Stop: 08/27/17 23:59 Sodium Chloride (Sodium Chloride 0.9%) 1,000 mls @ 100 mls/hr IV .Q10H [facility] Last Admin: 08/17/17 16:07 Dose: 100 mls/hr Meropenem 500 mg/ Sodium (Chloride) 50 mls @ 100 mls/hr IVPB Q24H [facility] PRN Reason: Protocol Stop: 08/17/17 16:44 Lisinopril (Zestril) 20 mg PO DAILY [facility] Nystatin (Nystop Topical Powder) 0 gm TOP Q4H PRN PRN Reason: Allergy symptoms Quetiapine Fumarate (Seroquel) 12.5 mg PO HS [facility] PRN Reason: Protocol Vancomycin HCl (Vancocin (Oral/Rectal Use)) 125 mg PO QID [facility] PRN Reason: Protocol Stop: 08/20/17 23:59 Physical Exam - Constitutional Appears: Non-toxic, No Acute Distress - Head Exam Head Exam: ATRAUMATIC, NORMAL INSPECTION, NORMOCEPHALIC - ENT Exam ENT Exam: Mucous Membranes Moist, Normal Exam - Neck Exam Neck exam: Positive for: Normal Inspection. Negative for: Lymphadenopathy - Respiratory Exam Respiratory Exam: Clear to Auscultation Bilateral, NORMAL BREATHING PATTERN - Cardiovascular Exam Cardiovascular Exam: RRR, +S1, +S2 - GI/Abdominal Exam GI & Abdominal Exam: Normal Bowel Sounds. absent: Soft, Tenderness - Extremities Exam Extremities exam: Positive for: normal inspection. Negative for: calf tenderness, pedal edema - Neurological Exam Neurological exam: Alert, Oriented x3 - Expanded Neurological Exam Expanded Neuro motor strength exam: Left Upper Extremity: 0, Right Upper Extremity: 5, Left Lower Extremity: 0, Right Lower Extremity: 5 - Psychiatric Exam Psychiatric exam: Normal Affect, Normal Mood - Skin Skin Exam: Intact, Normal Color, Warm Results - Vital Signs Recent Vital Signs: Last Vital Signs Temp 97.5 F L 08/17/17 15:38 Pulse 70 08/17/17 15:38 Resp 20 08/17/17 15:38 BP 134/81 08/17/17 15:38 Pulse Ox 100 08/17/17 15:38 - Labs Result Diagrams: 08/17/17 13:27 08/17/17 13:27 Assessment & Plan - Assessment and Plan (Free Text) Plan: 52 year old with past medical history of hypertension, C. diff and right sided CVA presents with worsening vasogenic edema around subacute right sided infarction. Head CT demonstrates worsening vasogenic edema around old infarct. Patient with no new neurological symptoms but admits to worsening headaches. Neurosurgery recommends patient have mannitol or hypertonic saline to assist with edema. Will start patient on hypertonic saline with serial BMPs. Will monitor patient in the ICU for any worsening of symptoms. Neuro: AAOx3 CTA head ordered Worsening vasogenic edema Hypertonic saline @ 30 cc/hr Neurology and Neurosurgery on Consult Neurochecks q1h Cardio: Hemodynamically stable Maintain MAP >65 Pulm: Maintain O2 saturation > 90% GI: Vancomycin PO Protonix Nephro: Maintain euvolemia Replenish electrolytes as needed Continue hypertonic saline Heme/ID: Afebrile, leukocytosis Continue Vancomycin and Flucanazole Maintain normothermia PPX Heparin Protonix Evi, PGY-2 <Kike Duffy - Last Filed: 08/17/17 18:17> Meds - Medications Medications: Current Medications Aspirin (Ecotrin) 81 mg PO DAILY [facility]IA Atorvastatin Calcium (Lipitor) 40 mg PO DAILY [facility] Clonidine HCl (Catapres) 0.1 mg PO BID [facility] Last Admin: 08/17/17 17:58 Dose: 0.1 mg Clopidogrel Bisulfate (Plavix) 75 mg PO DAILY [facility] Fluconazole (Diflucan) 200 mg PO DAILY [facility] PRN Reason: Protocol Stop: 08/27/17 23:59 Heparin Sodium (Porcine) (Heparin) 5,000 units SC Q12 [facility] PRN Reason: Protocol Sodium Chloride (Sodium Chloride 0.9%) 1,000 mls @ 100 mls/hr IV .Q10H [facility] Last Admin: 08/17/17 16:07 Dose: 100 mls/hr Sodium Chloride (Hypertonic Saline 3%) 500 mls @ 30 mls/hr IV .[id number] [facility] Lisinopril (Zestril) 20 mg PO DAILY [facility] Nystatin (Nystop Topical Powder) 0 gm TOP Q4H PRN PRN Reason: Allergy symptoms Last Admin: 08/17/17 17:59 Dose: 1 applic Pantoprazole Sodium (Protonix Ec Tab) 40 mg PO 0600 [facility] Quetiapine Fumarate (Seroquel) 12.5 mg PO HS [facility] PRN Reason: Protocol Vancomycin HCl (Vancocin (Oral/Rectal Use)) 125 mg PO QID [facility] PRN Reason: Protocol Stop: 08/20/17 23:59 Last Admin: 08/17/17 17:54 Dose: 125 mg Results - Vital Signs Recent Vital Signs: Last Vital Signs Temp 97.5 F L 08/17/17 15:38 Pulse 87 08/17/17 17:58 Resp 20 08/17/17 15:38 BP 158/93 H 08/17/17 17:58 Pulse Ox 100 08/17/17 15:38 - Labs Result Diagrams: 08/17/17 13:27 08/17/17 13:27 Labs: Laboratory Results - last 24 hr 08/17/17 16:50 Blood Type A POSITIVE Antibody Screen Negative BBK History Checked No verified bt Assessment & Plan - Assessment and Plan (Free Text) Plan: Patient is 52yo female with PMhx of HTN, Cdiff, CVA with residual L sided weakness, carotid art stenosis, presents with BURGER that is worsening, right sided , with no new symptoms of worsening weakness, dysarthria. Currently afebrile, HD stable, comfortable in NAD. CAT scan of eve demonstrates worsening vasogenic edema surrounding subacute infarct. Neurology and neurosurgery consulted, recs noted. Patient to be started on 3% saline to decrease edema. Acute CVA Vasogenic Edema of brain HTN Cdiff Recommend: - supp o2 as needed - panculture - MAP>65 - 3% saline, goal Na 145-150 - Neuro checks q1hr - follow up neurology and NSG - GI ppx - DVT ppx - Admit to MICU
[2017-08-17 16:47] LABS: LDL CHOLESTEROL 47 mg/dL (0-129)
[2017-08-17 16:48] LABS: TROPONIN I < 0.01 ng/mL
[2017-08-17] MEDS ORDERED: Sodium Chloride 3% 500 ML IV SCH ×2 (17:30→18:22)
[2017-08-17] MEDS: Vancomycin 500 mg (Oral/Rectal USE) PO SCH ×2 (17:54→22:06)
--- NOTE | 2017-08-17 18:27 | CT ---
PROCEDURE: CT Angiography of the Brain. HISTORY: cva with midline shift COMPARISON: Comparison is made to the previous study dated 08/05/2017 TECHNIQUE: CT angiography of the intracranial arteries was performed. Coronal and sagittal maximum intensity projection reformated images were generated. This CT exam was performed using one or more of the following dose reduction techniques: Automated exposure control, adjustment of the mA and/or kV according to patient size, and/or use of iterative reconstruction technique. IV contrast dose: 146 milliliter of Omnipaque 350. Total exam DLP 690.42 FINDINGS: RIGHT CAROTID ARTERIES: Common Carotid Artery: No evidence of significant stenosis or occlusion. Carotid Bifurcation: Atherosclerotic disease without evidence of stenosis Internal Carotid Artery:Again seen inclusion of the right internal carotid artery at its origin. External Carotid Artery (proximal branches): Normal. LEFT CAROTID ARTERIES: Common Carotid Artery: Normal. Carotid Bifurcation: Atherosclerotic calcifications seen. Internal Carotid Artery:There is focal approximately 50 percent stenosis seen at the origin of the left internal carotid artery. The left internal carotid seen extending medially at the retropharyngeal region. The mid and distal left internal carotid artery is patent. External Carotid Artery (proximal branches): Normal. VERTEBRAL ARTERIES: Right Vertebral Artery: Normal. Left Vertebral Artery: Normal. INTERNAL CEREBRAL ARTERIES: No blood flow is appreciated at the distal right internal carotid artery. Atherosclerotic calcifications seen at the left internal terminus and verification. ANTERIOR CEREBRAL ARTERIES: The right A1 is small in size likely filling from the left side through left A1 MIDDLE CEREBRAL ARTERIES: The right M1 segment of the middle cerebral artery is not visualized. There is reconstitution of small end 2 segments on the right. The left M1 segment and M2 segments of the left internal carotid artery are patent. POSTERIOR CIRCULATION: Basilar Artery: Unremarkable. Distal Vertebral Arteries: Unremarkable. Posterior Cerebral Arteries: There is origin of the left posterior cerebral artery. The right posterior cerebral artery is patent. Posterior Inferior Cerebellar Arteries: Unremarkable. ANEURYSM/ VASCULAR MALFORMATIONS: None. OTHER FINDINGS: None. IMPRESSION: Again noted is occlusion of the right internal carotid artery at its origin. No evidence of blood flow in the right internal carotid artery at the neck and skullbase. The M1 segment of the right internal carotid artery is not visualized. Reconstitution of small size M2 segments on the right. Small size right A1.
--- NOTE | 2017-08-17 20:29 | CP.PCM.HP ---
History of Present Illness - History of Present Illness History of Present Illness: H and P for Dr. Stanislav Chu Chief complaints: upper and lower extremity weakness, tongue numbness, confusion Patient is a 52 year old female with past history of hypertension, drug abuse, recently released from residential on June 19 who presents with complaints of headache. Patient was recently here (discharged yesterday) for complaints of weakness right upper extremity and to lower extremities and tongue numbness of one week, at which time she was diagnosed with a CVA as well as C. Diff. Patient does not have any new focal neurological deficits and has residual left sided weakness. At this time patient has no other complaints PMD: denies Surgical history: Right knee replacement Social history: works as a healthcare taker, denies tobacco, alcohol, illicit drug use Family history: Mother- Pancreatic cancer, Father-[place] Allergies:NKDA ROS: 12 point review of systems negative except per HPI Present on Admission - Present on Admission Any Indicators Present on Admission: No Past Patient History - Infectious Disease Hx of Infectious Diseases: None - Past Medical History & Family History Past Medical History?: Yes - Past Social History Smoking Status: Never Smoked - CARDIAC Hx Hypertension: Yes Other/Comment: CVA / WITH LEFT SIDED WEAKNESS - PULMONARY Hx Respiratory Disorders: No - NEUROLOGICAL Hx Neurological Disorder: No - HEENT Hx HEENT Problems: No - RENAL Hx Chronic Kidney Disease: No - ENDOCRINE/METABOLIC Hx Endocrine Disorders: No - HEMATOLOGICAL/ONCOLOGICAL Hx Blood Disorders: No - INTEGUMENTARY Hx Dermatological Problems: No - MUSCULOSKELETAL/RHEUMATOLOGICAL Hx Musculoskeletal Disorders: Yes Other/Comment: 'PINCHED NERVE IN THE NECK" - GASTROINTESTINAL Hx Gastrointestinal Disorders: No - GENITOURINARY/GYNECOLOGICAL Hx Genitourinary Disorders: No - PSYCHIATRIC Hx Psychophysiologic Disorder: No Hx Substance Use: No - SURGICAL HISTORY Hx Orthopedic Surgery: Yes (KNEE) Meds Allergies/Adverse Reactions: Allergies Allergy/AdvReac Type Severity Reaction Status Date / Time No Known Allergies Allergy Verified 05/31/17 22:19 Physical Exam - Constitutional Appears: Well - Head Exam Head Exam: ATRAUMATIC, NORMAL INSPECTION, NORMOCEPHALIC - Eye Exam Eye Exam: EOMI, Normal appearance, PERRL Pupil Exam: NORMAL ACCOMODATION, PERRL - ENT Exam ENT Exam: Mucous Membranes Moist, Normal Exam - Neck Exam Neck exam: Positive for: Normal Inspection - Respiratory Exam Respiratory Exam: Clear to Auscultation Bilateral, NORMAL BREATHING PATTERN - Cardiovascular Exam Cardiovascular Exam: REGULAR RHYTHM - GI/Abdominal Exam GI & Abdominal Exam: Normal Bowel Sounds, Soft. absent: Tenderness - Extremities Exam Extremities exam: Positive for: normal inspection - Back Exam Back exam: NORMAL INSPECTION - Neurological Exam Neurological exam: Alert, CN II-XII Intact, Normal Gait, Oriented x3, Reflexes Normal - Psychiatric Exam Psychiatric exam: Normal Affect, Normal Mood - Skin Skin Exam: Dry, Intact, Normal Color, Warm Results - Vital Signs Recent Vital Signs: Last Vital Signs Temp 99.6 F 08/17/17 18:11 Pulse 84 08/17/17 20:01 Resp 17 08/17/17 20:01 BP 184/76 H 08/17/17 20:01 Pulse Ox 100 08/17/17 20:01 - Labs Result Diagrams: 08/17/17 13:27 08/17/17 13:27 Labs: Laboratory Results - last 24 hr 08/17/17 16:50 Blood Type A POSITIVE Antibody Screen Negative BBK History Checked No verified bt Assessment & Plan - Assessment and Plan (Free Text) Assessment: 52 year old female recently admitted for CVA and C. Diff presents with new CVA CVA -Patient given ASA 162 in ED -Neurosurgery: Dr. Epps, consulted -Past Echo reveals EF 55%, LV with mild concentric hypertrophy. No other abnormalities. 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 -Continue clopidogrel 75 mg PO, ASA 81 mg PO -PT evaluation for CVA and deconditioning -Neurology consult: Dr. Estevez -Hepatitis results return negative for HAV, HBV, HCV. TSH normal at 1.89 -Cardiolipin antibodies IgG negative -CT head showed non-hemorrhagic infarct with midline shift -Lisinopril 10, Labetolol PRN Headache -2L NC Leukocytosis most likely 2/2 C. Diff -Procal, Blood cultures, Urine culture -CXR showed no active disease; Procal not elevated; Blood cultures no growth -C diff positive, vancomycin PO -Contact precautions -Rectal tube d/c Hematoma 2/2 to procedure - Resolving, no longer painful UTI - Diflucan Inguinal Infection - Nystatin powder
--- NOTE | 2017-08-17 20:32 | CP.PCM.CON ---
History of Present Illness - History of Present Illness History of Present Illness: Infectious Disease Consultation: August 17, 2017 52 yo female who initially presented with generalized weakness, confusion, and tongue numbness. The patient has a history of hypertension that was poorly controlled. She was diagnosed and treated for a CVA. During this hospitalization, the patient developed a rash that started in the lower extremities and spread to the chest and left arm. The patient has no known allergies and has never developed similar symptoms in the past. Patient was discharged from [facility] on 08/16/2017. She returns for worsening right sided headaches. No new neurological symptoms only the worsening of the headaches in the past 24 hours prior to admission. Urine cultures taken on 08/15/2017 showing Pseudomonas. PMHx: HTN, CVA (right side) PSHx: Right knee replacement Allergies: NKDA Social Hx: No tobacco, EtOH, or illicit drug use Active Medications Acetaminophen (Tylenol 325mg Tab) 650 mg PO Q4H PRN PRN Reason: Pain, moderate (4-7) Last Admin: 08/17/17 19:48 Dose: 650 mg Aspirin (Ecotrin) 81 mg PO DAILY [facility] Atorvastatin Calcium (Lipitor) 40 mg PO DAILY D[facility] Clonidine HCl (Catapres) 0.1 mg PO BID [facility] Last Admin: 08/17/17 17:58 Dose: 0.1 mg Clopidogrel Bisulfate (Plavix) 75 mg PO DAILY DULCE MARIA Fluconazole (Diflucan) 200 mg PO DAILY DUL[facility] MARIA PRN Reason: Protocol Stop: 08/27/17 23:59 Heparin Sodium (Porcine) (Heparin) 5,000 units SC Q12 DULCE MARIA PRN Reason: Protocol Sodium Chloride (Hypertonic Saline 3%) 500 mls @ 15 mls/hr IV .Q24H [facility] Last Admin: 08/17/17 19:03 Dose: 15 mls/hr Lisinopril (Zestril) 20 mg PO DAILY DUL[facility] MARIA Nystatin (Nystop Topical Powder) 0 gm TOP Q4H PRN PRN Reason: Allergy symptoms Last Admin: 08/17/17 17:59 Dose: 1 applic Pantoprazole Sodium (Protonix Ec Tab) 40 mg PO 0600 DULCE MARIA Quetiapine Fumarate (Seroquel) 12.5 mg PO HS DUL[facility] MARIA PRN Reason: Protocol Vancomycin HCl (Vancocin (Oral/Rectal Use)) 125 mg PO QID D[facility] MARIA PRN Reason: Protocol Stop: 08/20/17 23:59 Last Admin: 08/17/17 17:54 Dose: 125 mg Family Hx: Pancreatic ca - mother [place], CAD - father ROS: No fevers, chills, nausea, vomiting, dizziness, chest pain, abdominal pain, melena, hematuria, hematemesis, hematochezia, depression, anxiety. Complains of weakness, headaches, and periods of confusion. Complaining of right sided headaches. Past Patient History - Infectious Disease Hx of Infectious Diseases: None - Past Medical History & Family History Past Medical History?: Yes - Past Social History Smoking Status: Never Smoked - CARDIAC Hx Hypertension: Yes Other/Comment: CVA / WITH LEFT SIDED WEAKNESS - PULMONARY Hx Respiratory Disorders: No - NEUROLOGICAL Hx Neurological Disorder: No - HEENT Hx HEENT Problems: No - RENAL Hx Chronic Kidney Disease: No - ENDOCRINE/METABOLIC Hx Endocrine Disorders: No - HEMATOLOGICAL/ONCOLOGICAL Hx Blood Disorders: No - INTEGUMENTARY Hx Dermatological Problems: No - MUSCULOSKELETAL/RHEUMATOLOGICAL Hx Musculoskeletal Disorders: Yes Other/Comment: 'PINCHED NERVE IN THE NECK" - GASTROINTESTINAL Hx Gastrointestinal Disorders: No - GENITOURINARY/GYNECOLOGICAL Hx Genitourinary Disorders: No - PSYCHIATRIC Hx Psychophysiologic Disorder: No Hx Substance Use: No - SURGICAL HISTORY Hx Orthopedic Surgery: Yes (KNEE) Meds Allergies/Adverse Reactions: Allergies Allergy/AdvReac Type Severity Reaction Status Date / Time No Known Allergies Allergy Verified 05/31/17 22:19 - Medications Medications: Current Medications Acetaminophen (Tylenol 325mg Tab) 650 mg PO Q4H PRN PRN Reason: Pain, moderate (4-7) Last Admin: 08/17/17 19:48 Dose: 650 mg Aspirin (Ecotrin) 81 mg PO DAILY [facility] Atorvastatin Calcium (Lipitor) 40 mg PO DAILY [facility] Clonidine HCl (Catapres) 0.1 mg PO BID [facility] Last Admin: 08/17/17 17:58 Dose: 0.1 mg Clopidogrel Bisulfate (Plavix) 75 mg PO DAILY [facility] Fluconazole (Diflucan) 200 mg PO DAILY [facility] PRN Reason: Protocol Stop: 08/27/17 23:59 Heparin Sodium (Porcine) (Heparin) 5,000 units SC Q12 DUL[facility] MARIA PRN Reason: Protocol Sodium Chloride (Hypertonic Saline 3%) 500 mls @ 15 mls/hr IV .Q24H [facility] Last Admin: 08/17/17 19:03 Dose: 15 mls/hr Lisinopril (Zestril) 20 mg PO DAILY DUL[facility] MARIA Nystatin (Nystop Topical Powder) 0 gm TOP Q4H PRN PRN Reason: Allergy symptoms Last Admin: 08/17/17 17:59 Dose: 1 applic Pantoprazole Sodium (Protonix Ec Tab) 40 mg PO 0600 DULCE MARIA Quetiapine Fumarate (Seroquel) 12.5 mg PO HS [facility]UL[facility] MARIA PRN Reason: Protocol Vancomycin HCl (Vancocin (Oral/Rectal Use)) 125 mg PO QID DUL[facility] MARIA PRN Reason: Protocol Stop: 08/20/17 23:59 Last Admin: 08/17/17 17:54 Dose: 125 mg Physical Exam - Constitutional Appears: Non-toxic, No Acute Distress - Head Exam Head Exam: ATRAUMATIC, NORMOCEPHALIC - Eye Exam Eye Exam: EOMI, PERRL Pupil Exam: NORMAL ACCOMODATION, PERRL - ENT Exam ENT Exam: Mucous Membranes Moist, Normal External Ear Exam, TM's Normal Bilaterally - Neck Exam Neck exam: Positive for: Full Rom, Normal Inspection - Respiratory Exam Respiratory Exam: Clear to Auscultation Bilateral, NORMAL BREATHING PATTERN. absent: Rales, Rhonchi, Wheezes - Cardiovascular Exam Cardiovascular Exam: RRR, +S1 - GI/Abdominal Exam GI & Abdominal Exam: Normal Bowel Sounds, Soft. absent: Distended, Tenderness - Extremities Exam Extremities exam: Positive for: normal inspection. Negative for: joint swelling , pedal edema - Neurological Exam Neurological exam: Alert, Oriented x3 - Expanded Neurological Exam Expanded Neuro motor strength exam: Left Upper Extremity: 2/1, Right Upper Extremity: 5, Left Lower Extremity: 2/1, Right Lower Extremity: 5 - Psychiatric Exam Psychiatric exam: Normal Affect, Normal Mood - Skin Skin Exam: Intact, Normal Color, Warm Results - Vital Signs Recent Vital Signs: Last Vital Signs Temp 99.6 F 08/17/17 18:11 Pulse 87 08/17/17 17:58 Resp 20 08/17/17 15:38 BP 158/93 H 08/17/17 17:58 Pulse Ox 100 08/17/17 15:38 - Labs Result Diagrams: 08/17/17 13:27 08/17/17 13:27 Labs: Laboratory Results - last 24 hr 08/17/17 16:50 Blood Type A POSITIVE Antibody Screen Negative BBK History Checked No verified bt Assessment & Plan - Assessment and Plan (Free Text) Assessment: 52 yo female with presentation for CVA with occlusion of the right ICA, positive C. Diff testing, leukocytosis, questionable UTI. Presenting back to [facility] with worsening right sided headaches. CT imaging studies showing worsening foci of hypodensity in the right cerebral hemisphere suggestive of worsening edema of the area in addition to large subacute infarction of right MCA and GISELE territories with 10mm left midline shift. CT Angiography studies also noted. On PO Vancomycin for C. diff and fluconazole for wesly in the urine cultures. Off of all other antibiotics at this time. The patient has tinea rash in abdomen and groin area as well as lower back and buttocks. To lesser degree the antecubital areas. The areas of rash on the abdomen were more erythematous especially the areas where the patient was actively scratching/itching. Would continue with benadryl and mild steroid creams. Would decreased the temperature of the room as the patient is actively sweating and worsening the rash in this manner. Urine cultures from 08/15/2017 showing Pseudomonas. Will give Cefepime for antibiotic coverage at this time. Supportive care. Thank you for allowing me to participate in the care of the patient, we will follow with you.
[2017-08-17] MEDS ORDERED: DiphenhydrAMINE 50 mg/ml Inj IVP PRN (20:41)
[2017-08-17] MEDS ORDERED: DiphenhydrAMINE 50 mg/ml Inj IVP ONE (20:47)
[2017-08-17] MEDS: Cefepime 1gm in NS 100ml 1 GM/100 ML BAG IVPB SCH (21:53)
[2017-08-17 21:58] LABS: BLOOD UREA NITROGEN 9 mg/dL (7-21); GFR AFRICAN-AMERICAN > 60; GFR NON-AFRICAN AMERICAN > 60
[2017-08-18] MEDS ORDERED: DiphenhydrAMINE 50 mg/ml Inj IVP ONE (01:07)
[2017-08-18 01:40] VITALS: BMI 51.7
[2017-08-18] MEDS ORDERED: Naproxen 550 mg Tab PO ONE (05:46)
[2017-08-18] MEDS ORDERED: Pantoprazole 40 mg EC Tab PO SCH (06:00)
[2017-08-18 06:05] LABS: HEMOGLOBIN 14.4 g/dL (12.0-16.0); MEAN CELL VOLUME 88.9 fl (80.0-105.0); MEAN CORPUSCULAR HEMOGLOBIN 30.1 pg (25.0-35.0); MEAN CORPUSCULAR HGB CONC 33.8 g/dl (31.0-37.0); MEAN PLATELET VOLUME 10.4 fl (7.0-11.0); RBC 4.79 10^6/uL (3.5-6.1); WHITE BLOOD COUNT 23.9 10^3/ul (4.5-11.0)
[2017-08-18 06:22] LABS: BLOOD UREA NITROGEN 10 mg/dL (7-21); CALCIUM 10.1 mg/dL (8.4-10.5); GFR AFRICAN-AMERICAN > 60; GFR NON-AFRICAN AMERICAN > 60
[2017-08-18] MEDS: Cefepime 1gm in NS 100ml 1 GM/100 ML BAG IVPB SCH (09:57)
--- NOTE | 2017-08-18 10:38 | CARD ---
APPROVED REPORT EKG Measurement Heart [id number] ND 148P-3 [id number] <Conclusion> Normal sinus rhythm Q in 3 NSSTW changes, new
[2017-08-18] MEDS ORDERED: DiphenhydrAMINE 50 mg/ml Inj IVP PRN (10:40)
[2017-08-18] MEDS: Vancomycin 500 mg (Oral/Rectal USE) PO SCH ×2 (10:51→16:23)
--- NOTE | 2017-08-18 11:27 | CT ---
PROCEDURE: CT HEAD WITHOUT CONTRAST. HISTORY: evaluate vasogenic edema COMPARISON: Comparison is made to the previous study dated 08/17/2017 TECHNIQUE: Axial computed tomography images were obtained through the head/brain without intravenous contrast. Radiation dose: Total exam DLP = 1794.42 mGy-cm. This CT exam was performed using one or more of the following dose reduction techniques: Automated exposure control, adjustment of the mA and/or kV according to patient size, and/or use of iterative reconstruction technique. FINDINGS: HEMORRHAGE: There is no evidence of intracranial hemorrhage. BRAIN: Again seen are foci of low attenuation at the right cerebral hemisphere consistent with large MCA and GISELE territory infarction. Again seen is mass effect on the right lateral ventricle and 8.5 millimeter [id number] midline shift noted at the level of the septum pellucidum. VENTRICLES: No significant interval change in the size of the ventricles. CALVARIUM: Unremarkable. PARANASAL SINUSES: Unremarkable as visualized. No significant inflammatory changes. MASTOID AIR CELLS: Unremarkable as visualized. No inflammatory changes. OTHER FINDINGS: None. IMPRESSION: No significant interval change noted since the previous exam. Large right MCA and GISELE territory infarction. Mass effect on the right lateral ventricle and 8.5 millimeter [id number] midline shift.
[2017-08-18] MEDS ORDERED: Mannitol 12.5 gm/50 ml Inj IV ONE ×2 (11:30→14:15)
[2017-08-18] MEDS ORDERED: Dexamethasone 4 mg/1 ml IVP SCH (11:30)
[2017-08-18] MEDS ORDERED: Mannitol 12.5 gm/50 ml Inj IV SCH (11:30)
[2017-08-18] MEDS ORDERED: Sodium Chloride 0.9% 1,000 ML IV SCH (12:00)
--- NOTE | 2017-08-18 12:36 | CP.PCM.PN ---
Subjective - Date & Time of Evaluation Date of Evaluation: 08/18/17 Time of Evaluation: 08:00 - Subjective Subjective: Pt seen and examined, reports mild BURGER, right sided. No new focal deficits. Complaining of diffuse rash that is getting worse. Objective - Vital Signs/Intake and Output Vital Signs (last 24 hours): Temp Pulse Resp BP Pulse Ox 98.6 F 86 24 134/73 99 08/18/17 04:00 08/18/17 09:55 08/18/17 07:01 08/18/17 09:55 08/18/17 07:01 Intake and Output: 08/18/17 08/18/17 06:59 18:59 Intake Total 640 Output Total 350 Balance 290 - Medications Medications: Current Medications Acetaminophen (Tylenol 325mg Tab) 650 mg PO Q4H PRN PRN Reason: Pain, moderate (4-7) Last Admin: 08/18/17 10:04 Dose: 650 mg Aspirin (Ecotrin) 81 mg PO DAILY [facility] Last Admin: 08/18/17 09:56 Dose: 81 mg Atorvastatin Calcium (Lipitor) 40 mg PO HS [facility] Clonidine HCl (Catapres) 0.1 mg PO BID [facility] Last Admin: 08/18/17 09:55 Dose: 0.1 mg Clopidogrel Bisulfate (Plavix) 75 mg PO DAILY [facility] Last Admin: 08/18/17 09:56 Dose: 75 mg Dexamethasone (Decadron Inj) 8 mg IVP Q8H [facility] Last Admin: 08/18/17 12:11 Dose: 8 mg Diphenhydramine HCl (Benadryl) 50 mg IVP Q4H PRN PRN Reason: Allergy symptoms Last Admin: 08/18/17 10:50 Dose: 50 mg Fluconazole (Diflucan) 200 mg PO DAILY [facility] PRN Reason: Protocol Stop: 08/27/17 23:59 Last Admin: 08/18/17 09:59 Dose: 200 mg Heparin Sodium (Porcine) (Heparin) 5,000 units SC Q12 [facility]IA PRN Reason: Protocol Last Admin: 08/18/17 09:56 Dose: 5,000 units Hydrocortisone (Cortizone 2.5% Cream) 0 applic TOP BID [facility] Last Admin: 08/18/17 10:18 Dose: 20 applic Sodium Chloride (Hypertonic Saline 3%) 500 mls @ 15 mls/hr IV .Q24H [facility] Last Admin: 08/17/17 19:03 Dose: 15 mls/hr Cefepime HCl (Maxipime 1gm) 1 gm in 100 mls @ 100 mls/hr IVPB Q12 DULCE MARIA PRN Reason: Protocol Last Admin: 08/18/17 09:57 Dose: 100 mls/hr Sodium Chloride (Sodium Chloride 0.9%) 1,000 mls @ 100 mls/hr IV .Q10H [facility] Last Admin: 08/18/17 12:12 Dose: 100 mls/hr Lisinopril (Zestril) 20 mg PO DAILY [facility] Last Admin: 08/18/17 09:55 Dose: 20 mg Mannitol (Mannitol) 50 gm IV DAILY [facility] Nystatin (Nystop Topical Powder) 0 gm TOP Q4H PRN PRN Reason: Allergy symptoms Last Admin: 08/17/17 17:59 Dose: 1 applic Pantoprazole Sodium (Protonix Ec Tab) 40 mg PO 0600 [facility] Last Admin: 08/18/17 05:27 Dose: 40 mg Quetiapine Fumarate (Seroquel) 12.5 mg PO HS [facility] PRN Reason: Protocol Last Admin: 08/17/17 21:52 Dose: 12.5 mg Vancomycin HCl (Vancocin (Oral/Rectal Use)) 125 mg PO QID DUL[facility] MARIA PRN Reason: Protocol Stop: 08/20/17 23:59 Last Admin: 08/18/17 10:51 Dose: 125 mg - Labs Labs: 08/18/17 05:30 08/18/17 05:30 PT 13.6 SECONDS (9.4-12.5) H 08/17/17 13:27 INR 1.18 (0.93-1.08) H 08/17/17 13:27 APTT 28.7 Seconds (25.1-36.5) 08/17/17 13:27 - Constitutional Appears: Non-toxic, No Acute Distress - Eye Exam Eye Exam: Normal appearance - ENT Exam ENT Exam: Mucous Membranes Moist - Respiratory Exam Respiratory Exam: Clear to Ausculation Bilateral, NORMAL BREATHING PATTERN - Cardiovascular Exam Cardiovascular Exam: REGULAR RHYTHM, +S1, +S2 - GI/Abdominal Exam GI & Abdominal Exam: Soft, Normal Bowel Sounds - Neurological Exam Neuro motor strength exam: Left Upper Extremity: 0, Right Upper Extremity: 5, Left Lower Extremity: 0, Right Lower Extremity: 5 - Psychiatric Exam Psychiatric exam: Anxious Assessment and Plan - Assessment and Plan (Free Text) Assessment: Patient is 52yo female with PMhx of HTN, Cdiff, CVA with residual L sided weakness, carotid art stenosis, presents with BURGER that is worsening, right sided , with no new symptoms of worsening weakness, dysarthria. Currently afebrile, HD stable, comfortable in NAD. Repeat CAT scan of brain demonstrates Large R GISELE/MCA territory infarct, mass effect on lateral R ventricle, R to L midline shift 8mm. Currently afebrile, HD stable, comfortable in NAD, protecting airway. Neuro exam unchanged. Patient to be transferred to [facility] in [place], [place] under Dr Fajardo Acute CVA Edema of brain HTN Cdiff Recommend: - supp o2 as needed - follow up culture - goal Na 145-150 - mannitol 0.25g/kg Q6hr - Neuro checks q1hr - follow up neurology and NSG - GI ppx - DVT ppx - Transfer to [facility], under care of Dr Faheem Fajardo, Neurosurgery
--- NOTE | 2017-08-18 12:45 | CP.PCM.CON ---
History of Present Illness - History of Present Illness History of Present Illness: 52 yr old woman who is well known to our service with complete Right ICA occlusion, and now M1 occlusion who had an ischemic stroke, multiple regions in the right mca distribution, who now had another stroke, in the same distribution. She had full workup done previously, with neurointerventional performing an angiogram that showed complete occlusion of her Rt. ICA, and occlusion of M1. She has a pmh of htn, and was just released from long-term several months ago and presented last month with first stroke that left her with left plegia,about 4/5 upper and lower limb. She was not deemed to be a candidate for intervention per , and as she improved and was scheduled for physical therapy, was sent home on dual antiplatelet therapy. yesterday, Miss Rangel presented with worsening left sided plegia, and was found to have new ischemic events in the same M1 territory. CT adn CTA were done and CTA now shows: M1 artery not visualized, Rt.ICA occlusion at its origin with no neck and skull base ica blood flow. Mass effect on lateral ventricle and 8 mm shift of right to left midline shift, Large MCA and Large Manuel stroke, worsening form prior exam. I am quite concerned about impending herniation in this young woman who has increasing cerebral edema with no room to expand. Therefore we are transferring the patient to accepting physician , [facility] ICU for decompressio/ hemicraniectomy. PMH/PSH: as above, FH/SH: Has a daugher, one pack a day smoker, no alcohol. All: nkda. on exam: aaox3. pupils 3mm-2mm wth light. EOMI. Cn 2-12 normal. Normal language testing. no alexia, no apraxia. Complete left arm, leg plegia, with mild left facial droop. Decreased sensory ft, pin, left arm, face, leg. Gait not tested. Right arm, leg 5/5. Toes downgoing. No clonus. Past Patient History - Infectious Disease Hx of Infectious Diseases: None - Past Medical History & Family History Past Medical History?: Yes - Past Social History Smoking Status: Never Smoked - CARDIAC Hx Hypertension: Yes Other/Comment: CVA / WITH LEFT SIDED WEAKNESS - PULMONARY Hx Respiratory Disorders: No - NEUROLOGICAL Hx Neurological Disorder: No - HEENT Hx HEENT Problems: No - RENAL Hx Chronic Kidney Disease: No - ENDOCRINE/METABOLIC Hx Endocrine Disorders: No - HEMATOLOGICAL/ONCOLOGICAL Hx Blood Disorders: No - INTEGUMENTARY Hx Dermatological Problems: No - MUSCULOSKELETAL/RHEUMATOLOGICAL Hx Musculoskeletal Disorders: Yes Other/Comment: 'PINCHED NERVE IN THE NECK" - GASTROINTESTINAL Hx Gastrointestinal Disorders: No - GENITOURINARY/GYNECOLOGICAL Hx Genitourinary Disorders: No - PSYCHIATRIC Hx Psychophysiologic Disorder: No Hx Substance Use: No - SURGICAL HISTORY Hx Orthopedic Surgery: Yes (KNEE) Meds Allergies/Adverse Reactions: Allergies Allergy/AdvReac Type Severity Reaction Status Date / Time No Known Allergies Allergy Verified 05/31/17 22:19 - Medications Medications: Current Medications Acetaminophen (Tylenol 325mg Tab) 650 mg PO Q4H PRN PRN Reason: Pain, moderate (4-7) Last Admin: 08/18/17 10:04 Dose: 650 mg Aspirin (Ecotrin) 81 mg PO DAILY [facility] Last Admin: 08/18/17 09:56 Dose: 81 mg Atorvastatin Calcium (Lipitor) 40 mg PO HS [facility] Clonidine HCl (Catapres) 0.1 mg PO BID [facility] Last Admin: 08/18/17 09:55 Dose: 0.1 mg Clopidogrel Bisulfate (Plavix) 75 mg PO DAILY [facility] Last Admin: 08/18/17 09:56 Dose: 75 mg Diphenhydramine HCl (Benadryl) 50 mg IVP Q4H PRN PRN Reason: Allergy symptoms Last Admin: 08/18/17 10:50 Dose: 50 mg Fluconazole (Diflucan) 200 mg PO DAILY [facility] PRN Reason: Protocol Stop: 08/27/17 23:59 Last Admin: 08/18/17 09:59 Dose: 200 mg Heparin Sodium (Porcine) (Heparin) 5,000 units SC Q12 [facility] PRN Reason: Protocol Last Admin: 08/18/17 09:56 Dose: 5,000 units Hydrocortisone (Cortizone 2.5% Cream) 0 applic TOP BID [facility] Last Admin: 08/18/17 10:18 Dose: 20 applic Sodium Chloride (Hypertonic Saline 3%) 500 mls @ 15 mls/hr IV .Q24H [facility] Last Admin: 08/17/17 19:03 Dose: 15 mls/hr Cefepime HCl (Maxipime 1gm) 1 gm in 100 mls @ 100 mls/hr IVPB Q12 [facility] PRN Reason: Protocol Last Admin: 08/18/17 09:57 Dose: 100 mls/hr Lisinopril (Zestril) 20 mg PO DAILY [facility] Last Admin: 08/18/17 09:55 Dose: 20 mg Nystatin (Nystop Topical Powder) 0 gm TOP Q4H PRN PRN Reason: Allergy symptoms Last Admin: 08/17/17 17:59 Dose: 1 applic Pantoprazole Sodium (Protonix Ec Tab) 40 mg PO 0600 [facility] Last Admin: 08/18/17 05:27 Dose: 40 mg Quetiapine Fumarate (Seroquel) 12.5 mg PO HS [facility] PRN Reason: Protocol Last Admin: 08/17/17 21:52 Dose: 12.5 mg Vancomycin HCl (Vancocin (Oral/Rectal Use)) 125 mg PO QID [facility] PRN Reason: Protocol Stop: 08/20/17 23:59 Last Admin: 08/18/17 10:51 Dose: 125 mg Results - Vital Signs Recent Vital Signs: Last Vital Signs Temp 98.6 F 08/18/17 04:00 Pulse 86 08/18/17 09:55 Resp 24 08/18/17 07:01 BP 134/73 08/18/17 09:55 Pulse Ox 99 08/18/17 07:01 - Labs Result Diagrams: 08/18/17 05:30 08/18/17 05:30 Labs: Laboratory Results - last 24 hr 08/17/17 08/17/17 08/17/17 16:50 17:00 21:40 WBC RBC Hgb Hct MCV MCH MCHC RDW Plt Count MPV Sodium Potassium Chloride Carbon Dioxide Anion Gap BUN Creatinine Est GFR ( Amer) Est GFR (Non-Af Amer) Random Glucose Calcium Procalcitonin < 0.05 L Blood Type A POSITIVE Blood Type Confirm A POSITIVE Antibody Screen Negative BBK History Checked No verified bt 08/17/17 08/18/17 08/18/17 21:40 05:30 05:30 WBC 23.9 H D RBC 4.79 Hgb 14.4 Hct 42.6 MCV 88.9 MCH 30.1 MCHC 33.8 RDW 14.0 Plt Count 464 H MPV 10.4 Sodium 140 145 Potassium 3.8 3.8 Chloride 102 103 Carbon Dioxide 27 26 Anion Gap 15 20 BUN 9 10 Creatinine 0.7 0.7 Est GFR ( Amer) > 60 > 60 Est GFR (Non-Af Amer) > 60 > 60 Random Glucose 102 97 Calcium 10.0 10.1 Procalcitonin Blood Type Blood Type Confirm Antibody Screen BBK History Checked Assessment & Plan - Assessment and Plan (Free Text) Assessment: 52 yr old woman with intracerebral edema, now with midline shift, and mass effect who has profound Rt. Ica occlusion, and M1 occlusion (no flow ) who is for transfer to [facility] neurosurgical service. considering hemicraniectomy, and patient is aware. She does have some anxiety, and would recommend xanax 0.5 mg po prn for anxiety. Plan: 1. continue statin 2. continue to keep blood pressure elevated 3. Continue mannitol at 0.5 mg/kg 4. Continue decadron 8 mg IV q 8 hours. 5. continue aspirin and plavix. Thank you Dr. Rohith MD, DPN Neurology
--- NOTE | 2017-08-18 13:18 | CP.PCM.DIS ---
<Teodoro Jenkins - Last Filed: 08/18/17 16:36> Provider - Provider Date of Admission: 08/17/17 15:54 Attending physician: Libby Hunter MD Primary care physician: Sukhjinder Profile Required Consults: Dr. Solorzano: Neurosurgery Dr. Lindsey: Infectious Disease Dr. Newberry: Neuro Dr. Duffy: ICU Time Spent in preparation of Discharge (in minutes): 45 Hospital Course - Lab Results Lab Results: Micro Results 08/17/17 17:00 Urine Urine Culture - Final No Growth (<1,000 CFU/ML) Most Recent Lab Values WBC 23.9 10^3/ul (4.5-11.0) H D 08/18/17 05:30 RBC 4.79 10^6/uL (3.5-6.1) 08/18/17 05:30 Hgb 14.4 g/dL (12.0-16.0) 08/18/17 05:30 Hct 42.6 % (36.0-48.0) 08/18/17 05:30 MCV 88.9 fl (80.0-105.0) 08/18/17 05:30 MCH 30.1 pg (25.0-35.0) 08/18/17 05:30 MCHC 33.8 g/dl (31.0-37.0) 08/18/17 05:30 RDW 14.0 % (11.5-14.5) 08/18/17 05:30 Plt Count 464 10^3/uL (120.0-450.0) H 08/18/17 05:30 MPV 10.4 fl (7.0-11.0) 08/18/17 05:30 Gran % 78.7 % (50.0-68.0) H 08/17/17 13:27 Lymph % (Auto) 13.4 % (22.0-35.0) L 08/17/17 13:27 Jerome % (Auto) 5.4 % (1.0-6.0) 08/17/17 13:27 Eos % (Auto) 2.2 % (1.5-5.0) 08/17/17 13:27 Baso % (Auto) 0.3 % (0.0-3.0) 08/17/17 13:27 Gran # 12.26 (1.4-6.5) H 08/17/17 13:27 Lymph # (Auto) 2.1 (1.2-3.4) 08/17/17 13:27 Jerome # (Auto) 0.8 (0.1-0.6) H 08/17/17 13:27 Eos # (Auto) 0.3 (0.0-0.7) 08/17/17 13:27 Baso # (Auto) 0.05 K/mm3 (0.0-2.0) 08/17/17 13:27 PT 13.6 SECONDS (9.4-12.5) H 08/17/17 13:27 INR 1.18 (0.93-1.08) H 08/17/17 13:27 APTT 28.7 Seconds (25.1-36.5) 08/17/17 13:27 Sodium 145 mmol/L (132-148) 08/18/17 05:30 Potassium 3.8 mmol/L (3.6-5.0) 08/18/17 05:30 Chloride 103 mmol/L (98-107) 08/18/17 05:30 Carbon Dioxide 26 mmol/L (21-33) 08/18/17 05:30 Anion Gap 20 (10-20) 08/18/17 05:30 BUN 10 mg/dL (7-21) 08/18/17 05:30 Creatinine 0.7 mg/dl (0.7-1.2) 08/18/17 05:30 Est GFR ( Amer) > 60 08/18/17 05:30 Est GFR (Non-Af Amer) > 60 08/18/17 05:30 Random Glucose 97 mg/dL (70-110) 08/18/17 05:30 Calcium 10.1 mg/dL (8.4-10.5) 08/18/17 05:30 Magnesium 1.9 mg/dL (1.7-2.2) 08/17/17 13:27 Troponin I < 0.01 ng/mL 08/17/17 15:30 Triglycerides 95 mg/dL (35-160) 08/17/17 15:30 Cholesterol 105 mg/dL (130-200) L 08/17/17 15:30 LDL Cholesterol Direct 47 mg/dL (0-129) 08/17/17 15:30 HDL Cholesterol 33 mg/dL (29-60) 08/17/17 15:30 Procalcitonin < 0.05 NG/ML (0.19-0.49) L 08/17/17 17:00 Blood Type A POSITIVE 08/17/17 16:50 Blood Type Confirm A POSITIVE 08/17/17 21:40 Antibody Screen Negative 08/17/17 16:50 BBK History Checked No verified bt 08/17/17 16:50 - Hospital Course Hospital Course: Patient is a 52 year old female with past history of hypertension, drug abuse, recently released from custodial on June 19 who presented with complaints of headache. Patient was recently here (discharged day before yesterday) for complaints of weakness right upper extremity and to lower extremities and tongue numbness of one week, at which time she was diagnosed with a CVA as well as C. Diff. She had full workup done previously, with neurointerventional performing an angiogram that showed complete occlusion of her Rt. ICA, and occlusion of M1. She has a pmh of htn, and was just released from custodial several months ago and presented last month with first stroke that left her with left plegia,about 4/5 upper and lower limb. She was not deemed to be a candidate for intervention per , and as she improved and was scheduled for physical therapy, was sent home on dual antiplatelet therapy. Patient did not have any new focal neurological deficits on admission and has residual left sided weakness. Patient also developed an erythematous rash on her left upper extremity as well as her abdomen during her last admission, which worsened on this admission. Patient was started on 3% NS on this admission and was examined by neurology and neurosurgery. Neurology changed her to Decadron 8 mg IV q8, and mannitol .5 mg/kg. Dr. Fajardo is currently considering hemicraniectomy. Aspirin, plavix, was started and we allowed for permissive hypertension. Patient is now for transfer at [facility] neurosurgical service. Head CT on admission showed a 10 mm right to left midline shift with worsening edema from previous study. On repeat the following day, no significant change was noted, but patient was found to have an 8.5 mm midline shift. Head and neck CTA showed the same findings as previously, right internal carotid artery occlusion at its origin. Discharge Exam - Head Exam Head Exam: ATRAUMATIC, NORMAL INSPECTION, NORMOCEPHALIC - Eye Exam Eye Exam: EOMI, Normal appearance, PERRL Pupil Exam: NORMAL ACCOMODATION, PERRL - Respiratory Exam Respiratory Exam: Clear to PA & Lateral, NORMAL BREATHING PATTERN, UNREMARKABLE - Cardiovascular Exam Cardiovascular Exam: REGULAR RHYTHM, RRR. absent: Tachycardia, Systolic Murmur - GI/Abdominal Exam GI & Abdominal Exam: Normal Bowel Sounds - Neurological Exam Neurological exam: Alert, CN II-XII Intact, Normal Gait, Oriented x3, Reflexes Normal Additional comments: Marked left sided hemiplegia - Psychiatric Exam Psychiatric exam: Normal Affect, Normal Mood - Skin Skin Exam: Dry, Intact, Normal Color, Warm Additional comments: Patient has an erythematous rash that is worsening and covers her abdomen, upper and lower extremities, and face. Discharge Plan - Follow Up Plan Condition: CRITICAL Disposition: TRANSF TO SNF Patient education suggested?: Yes Additional Instructions: Please continue to follow guidelines as per [place]'s. considering hemicraniectomy, a head surgery to releive some of the pressure in your head. Please return to the ED upon discharge if your symptoms return or worsen Referrals: [facility], [Non-Staff] - <Libby Hunter - Last Filed: 08/19/17 12:08> Provider - Provider Date of Admission: 08/17/17 15:54 Attending physician: Libby Hunter MD Hospital Course - Lab Results Lab Results: Micro Results 08/17/17 17:00 Blood Blood Culture - Preliminary NO GROWTH AFTER 24 HOURS 08/17/17 16:00 Blood Blood Culture - Preliminary NO GROWTH AFTER 24 HOURS 08/17/17 17:00 Urine Urine Culture - Final No Growth (<1,000 CFU/ML) Most Recent Lab Values WBC 23.9 10^3/ul (4.5-11.0) H D 08/18/17 05:30 RBC 4.79 10^6/uL (3.5-6.1) 08/18/17 05:30 Hgb 14.4 g/dL (12.0-16.0) 08/18/17 05:30 Hct 42.6 % (36.0-48.0) 08/18/17 05:30 MCV 88.9 fl (80.0-105.0) 08/18/17 05:30 MCH 30.1 pg (25.0-35.0) 08/18/17 05:30 MCHC 33.8 g/dl (31.0-37.0) 08/18/17 05:30 RDW 14.0 % (11.5-14.5) 08/18/17 05:30 Plt Count 464 10^3/uL (120.0-450.0) H 08/18/17 05:30 MPV 10.4 fl (7.0-11.0) 08/18/17 05:30 Gran % 78.7 % (50.0-68.0) H 08/17/17 13:27 Lymph % (Auto) 13.4 % (22.0-35.0) L 08/17/17 13:27 Jerome % (Auto) 5.4 % (1.0-6.0) 08/17/17 13:27 Eos % (Auto) 2.2 % (1.5-5.0) 08/17/17 13:27 Baso % (Auto) 0.3 % (0.0-3.0) 08/17/17 13:27 Gran # 12.26 (1.4-6.5) H 08/17/17 13:27 Lymph # (Auto) 2.1 (1.2-3.4) 08/17/17 13:27 Jerome # (Auto) 0.8 (0.1-0.6) H 08/17/17 13:27 Eos # (Auto) 0.3 (0.0-0.7) 08/17/17 13:27 Baso # (Auto) 0.05 K/mm3 (0.0-2.0) 08/17/17 13:27 PT 13.6 SECONDS (9.4-12.5) H 08/17/17 13:27 INR 1.18 (0.93-1.08) H 08/17/17 13:27 APTT 28.7 Seconds (25.1-36.5) 08/17/17 13:27 Sodium 145 mmol/L (132-148) 08/18/17 05:30 Potassium 3.8 mmol/L (3.6-5.0) 08/18/17 05:30 Chloride 103 mmol/L (98-107) 08/18/17 05:30 Carbon Dioxide 26 mmol/L (21-33) 08/18/17 05:30 Anion Gap 20 (10-20) 08/18/17 05:30 BUN 10 mg/dL (7-21) 08/18/17 05:30 Creatinine 0.7 mg/dl (0.7-1.2) 08/18/17 05:30 Est GFR ( Amer) > 60 08/18/17 05:30 Est GFR (Non-Af Amer) > 60 08/18/17 05:30 Random Glucose 97 mg/dL (70-110) 08/18/17 05:30 Hemoglobin A1c 5.4 % (4.2-6.5) 08/17/17 15:30 Calcium 10.1 mg/dL (8.4-10.5) 08/18/17 05:30 Magnesium 1.9 mg/dL (1.7-2.2) 08/17/17 13:27 Troponin I < 0.01 ng/mL 08/17/17 15:30 Triglycerides 95 mg/dL (35-160) 08/17/17 15:30 Cholesterol 105 mg/dL (130-200) L 08/17/17 15:30 LDL Cholesterol Direct 47 mg/dL (0-129) 08/17/17 15:30 HDL Cholesterol 33 mg/dL (29-60) 08/17/17 15:30 Procalcitonin < 0.05 NG/ML (0.19-0.49) L 08/17/17 17:00 Blood Type A POSITIVE 08/17/17 16:50 Blood Type Confirm A POSITIVE 08/17/17 21:40 Antibody Screen Negative 08/17/17 16:50 BBK History Checked No verified bt 08/17/17 16:50 Attending/Attestation - Attestation I have personally seen and examined this patient.: Yes I have fully participated in the care of the patient.: Yes I have reviewed all pertinent clinical information, including history, physical exam and plan: Yes Notes (Text): 08/19/17 12:00 Attending note; Patient seen and examined with resident in ICU. Patient is a 52 year old female with past history of hypertension, drug abuse, recently released from custodial on June 19 who presented with complaints of headache. The patient was recently discharged from the hospital after right MCA and RCA ischemic stroke. Admission CT showed mass effect on right lateral ventricle with mild midline shift. Neurology evaluation appreciated. patient was on aspirin, Plavix on Lipitor. Currently on mannitol and Decadron. Case discussed with [facility] SICU by neurologist . Patient will be transferred for higher level of care. 08/19/17 12:07 08/19/17 12:07
--- NOTE | 2017-08-18 17:04 | CP.PCM.PN ---
Subjective - Date & Time of Evaluation Date of Evaluation: 08/18/17 Time of Evaluation: 16:00 - Subjective Subjective: Infectious Disease Follow Up: August 18, 2017 52 yo female who initially presented with generalized weakness, confusion, and tongue numbness. The patient has a history of hypertension that was poorly controlled. She was diagnosed and treated for a CVA. During this hospitalization, the patient developed a rash that started in the lower extremities and spread to the chest and left arm. The patient has no known allergies and has never developed similar symptoms in the past. Patient was discharged from [facility] on 08/16/2017. She returns for worsening right sided headaches. No new neurological symptoms only the worsening of the headaches in the past 24 hours prior to admission. Urine cultures taken on 08/15/2017 showing Pseudomonas. Started on Cefepime for treatment. Maintain isolation for C. Diff. Rash present on left lower leg and lower back. Rash clearing on chest, neck, upper back, and upper legs bilaterally. Objective - Vital Signs/Intake and Output Vital Signs (last 24 hours): Temp Pulse Resp BP Pulse Ox 98.6 F 86 24 134/73 99 08/18/17 04:00 08/18/17 09:55 08/18/17 07:01 08/18/17 09:55 08/18/17 07:01 Intake and Output: 08/18/17 08/18/17 06:59 18:59 Intake Total 640 Output Total 350 Balance 290 - Medications Medications: Current Medications Acetaminophen (Tylenol 325mg Tab) 650 mg PO Q4H PRN PRN Reason: Pain, moderate (4-7) Last Admin: 08/18/17 15:29 Dose: 650 mg Aspirin (Ecotrin) 81 mg PO DAILY [facility] Last Admin: 08/18/17 09:56 Dose: 81 mg Atorvastatin Calcium (Lipitor) 40 mg PO HS [facility] Clonidine HCl (Catapres) 0.1 mg PO BID [facility] Last Admin: 08/18/17 09:55 Dose: 0.1 mg Clopidogrel Bisulfate (Plavix) 75 mg PO DAILY [facility] Last Admin: 08/18/17 09:56 Dose: 75 mg Dexamethasone (Decadron Inj) 8 mg IVP Q8H [facility] Last Admin: 08/18/17 12:11 Dose: 8 mg Diphenhydramine HCl (Benadryl) 50 mg IVP Q4H PRN PRN Reason: Allergy symptoms Last Admin: 08/18/17 10:50 Dose: 50 mg Fluconazole (Diflucan) 200 mg PO DAILY [facility] PRN Reason: Protocol Stop: 08/27/17 23:59 Last Admin: 08/18/17 09:59 Dose: 200 mg Heparin Sodium (Porcine) (Heparin) 5,000 units SC Q12 [facility] PRN Reason: Protocol Last Admin: 08/18/17 09:56 Dose: 5,000 units Hydrocortisone (Cortizone 2.5% Cream) 0 applic TOP BID [facility] Last Admin: 08/18/17 10:18 Dose: 20 applic Cefepime HCl (Maxipime 1gm) 1 gm in 100 mls @ 100 mls/hr IVPB Q12 [facility] PRN Reason: Protocol Last Admin: 08/18/17 09:57 Dose: 100 mls/hr Sodium Chloride (Sodium Chloride 0.9%) 1,000 mls @ 100 mls/hr IV .Q10H [facility] Last Admin: 08/18/17 12:12 Dose: 100 mls/hr Lisinopril (Zestril) 20 mg PO DAILY [facility] Last Admin: 08/18/17 09:55 Dose: 20 mg Nystatin (Nystop Topical Powder) 0 gm TOP Q4H PRN PRN Reason: Allergy symptoms Last Admin: 08/17/17 17:59 Dose: 1 applic Pantoprazole Sodium (Protonix Ec Tab) 40 mg PO 0600 [facility] Last Admin: 08/18/17 05:27 Dose: 40 mg Quetiapine Fumarate (Seroquel) 12.5 mg PO HS [facility] PRN Reason: Protocol Last Admin: 08/17/17 21:52 Dose: 12.5 mg Vancomycin HCl (Vancocin (Oral/Rectal Use)) 125 mg PO QID [facility] PRN Reason: Protocol Stop: 08/20/17 23:59 Last Admin: 08/18/17 16:23 Dose: 125 mg - Labs Labs: 08/18/17 05:30 08/18/17 05:30 PT 13.6 SECONDS (9.4-12.5) H 08/17/17 13:27 INR 1.18 (0.93-1.08) H 08/17/17 13:27 APTT 28.7 Seconds (25.1-36.5) 08/17/17 13:27 - Constitutional Appears: Non-toxic, No Acute Distress - Head Exam Head Exam: ATRAUMATIC, NORMOCEPHALIC - Eye Exam Eye Exam: EOMI, PERRL Pupil Exam: NORMAL ACCOMODATION, PERRL - ENT Exam ENT Exam: Mucous Membranes Moist, Normal External Ear Exam, TM's Normal Bilaterally - Neck Exam Neck Exam: Full ROM, Normal Inspection - Respiratory Exam Respiratory Exam: Clear to Ausculation Bilateral, NORMAL BREATHING PATTERN. absent: Rales, Rhonchi, Wheezes - Cardiovascular Exam Cardiovascular Exam: REGULAR RHYTHM, RRR, +S1, +S2 - GI/Abdominal Exam GI & Abdominal Exam: Soft, Normal Bowel Sounds. absent: Distended, Tenderness - Extremities Exam Extremities Exam: Full ROM, Normal Inspection - Neurological Exam Neurological Exam: Alert, Awake, CN II-XII Intact, Oriented x3 Neuro motor strength exam: Left Upper Extremity: 2/1, Right Upper Extremity: 5, Left Lower Extremity: 2/1, Right Lower Extremity: 5 - Psychiatric Exam Psychiatric exam: Normal Affect, Normal Mood - Skin Skin Exam: Intact, Normal Color, Warm Assessment and Plan - Assessment and Plan (Free Text) Assessment: 52 yo female with presentation for CVA with occlusion of the right ICA, positive C. Diff testing, leukocytosis, questionable UTI. Presenting back to [facility] with worsening right sided headaches. CT imaging studies showing worsening foci of hypodensity in the right cerebral hemisphere suggestive of worsening edema of the area in addition to large subacute infarction of right MCA and GISELE territories with 10mm left midline shift. CT Angiography studies also noted. On PO Vancomycin for C. diff and fluconazole for wesly in the urine cultures. Off of all other antibiotics at this time. The patient has tinea rash in abdomen and groin area as well as lower back and buttocks. To lesser degree the antecubital areas. The areas of rash on the abdomen were more erythematous especially the areas where the patient was actively scratching/itching. Would continue with benadryl and mild steroid creams. Would decreased the temperature of the room as the patient is actively sweating and worsening the rash in this manner. Rash on the upper arms, neck, chest, abdomen, and thighs resolving but new rash on left lower leg and lower back. Urine cultures from 08/15/2017 showing Pseudomonas. Will give Cefepime for antibiotic coverage at this time. Supportive care. Thank you for allowing me to participate in the care of the patient, we will follow with you.
[2017-08-18 18:30] VITALS: TEMP 98.2
[2017-08-18 18:58] VITALS: BP 136/61; PULSE 86; RESP 16; O2SAT 90
--- NOTE | 2017-08-20 14:49 | PQF GENQUE ---
08/20/17 Dr. Hunter, Admission CT showed mass effect on right lateral ventricle with mild midline shift. This is also documented on discharge summary. Please specify whether this indicates brain compression and may be coded as such. Thank you. Clarification of your documentation is requested to better reflect the severity of illness and intensity of treatment of your patient. Indicators present [] Specify: [] [] Specify: [] [] Specify: [] [] Specify: [] Location in the medical record that reflects the above clinical findings: [] Treatment Provided: [] transfer to higher level of care/ neurosurgical icu PHYSICIAN'S RESPONSE Based on your medical judgment of the clinical indicators outlined above please clarify the following: [] Practitioner response . Yes. can be coded as compression [] If unable to determine, please check the box, sign and date. Present On Admission (POA) Indicator: [x] Present at the time of admission [] Not present at the time of admission [] Clinically Undetermined In responding to this query, please exercise your independent professional judgment. The fact that a question is asked does not imply that any particular answer is desired or expected. Thank you for your clarification on this documentation. If you have any questions please call:[ ] * Thank you, [ ] case manager NEREYDA
== END 2017-08-18 19:08 | disposition short-term general hospital (02) | DRG 14 ==
LOC: ED 12:43 → ERH 15:54 → CCU 17:55
PROVIDERS: ADMIT Internal Medicine; ATTEND Internal Medicine
DX: I63.529 Cerebral infarction due to unspecified occlusion or stenosis of unspecified anterior cerebral artery (principal); G93.5 Compression of brain; G93.6 Cerebral edema; A04.72 Enterocolitis due to Clostridium difficile, not specified as recurrent; I69.354 Hemiplegia and hemiparesis following cerebral infarction affecting left non-dominant side; F17.210 Nicotine dependence, cigarettes, uncomplicated; B35.9 Dermatophytosis, unspecified; G58.9 Mononeuropathy, unspecified; N39.0 Urinary tract infection, site not specified; Z80.0 Family history of malignant neoplasm of digestive organs; I65.21 Occlusion and stenosis of right carotid artery; Z82.49 Family history of ischemic heart disease and other diseases of the circulatory system; I10 Essential (primary) hypertension; Z79.82 Long term (current) use of aspirin; Z91.14 Patient's other noncompliance with medication regimen; Z96.651 Presence of right artificial knee joint; R40.2412 Glasgow coma scale score 13-15, at arrival to emergency department; R21 Rash and other nonspecific skin eruption

== ENCOUNTER 2018-06-05 13:57 | Outpatient (CLI) | payer MEDICAID | END 2018-06-05 13:58 | disposition home or self-care (01) | LOC: RAD 13:57 ==

== ENCOUNTER 2018-08-24 09:41 | Emergency (ER) | payer MEDICAID ==
[2018-08-24 09:41] VITALS: BMI 51.7
[2018-08-24 10:07] VITALS: RESP 18; TEMP 98.2; O2SAT 98
[2018-08-24 10:34] LABS: BASO # 0.06 K/mm3 (0.0-2.0); BASO % 0.6 % (0.0-3.0); EOS # 0.5 (0.0-0.7); EOS % 4.7 % (1.5-5.0); HEMOGLOBIN 13.2 g/dL (12.0-16.0); LYMPH # 2.3 (1.2-3.4); LYMPH % 24.3 % (22.0-35.0); MEAN CELL VOLUME 91.9 fl (80.0-105.0); MEAN CORPUSCULAR HEMOGLOBIN 29.5 pg (25.0-35.0); MEAN CORPUSCULAR HGB CONC 32.1 g/dl (31.0-37.0); MEAN PLATELET VOLUME 9.7 fl (7.0-11.0); MONO # 0.4 (0.1-0.6); MONO % 4.4 % (1.0-6.0); RBC 4.47 10^6/uL (3.5-6.1); RED CELL DISTRIBUTION WIDTH 13.7 % (11.5-14.5); WHITE BLOOD COUNT 9.6 10^3/uL (4.5-11.0)
[2018-08-24 10:43] LABS: ALB/GLOB RATIO 1.2 (1.1-1.8); ALBUMIN 3.6 g/dL (3.0-4.8); ALT/SGPT 42 U/L (7-56); AST/SGOT 34 U/L (14-36); BLOOD UREA NITROGEN 16 mg/dL (7-21); CALCIUM 8.9 mg/dL (8.4-10.5); GFR NON-AFRICAN AMERICAN > 60; HDL CHOLESTEROL 35 mg/dL (29-60)
[2018-08-24 10:46] LABS: INR 1.08; PARTIAL THROMBOPLASTIN TIME 34.4 Seconds (26.9-38.3); PROTHROMBIN TIME 12.2 SECONDS (9.4-12.5)
[2018-08-24 10:54] LABS: LDL CHOLESTEROL 81 mg/dL (0-129)
[2018-08-24 10:57] LABS: TROPONIN I < 0.01 ng/mL
--- NOTE | 2018-08-24 11:02 | CT ---
Date of service: 08/24/2018 PROCEDURE: CT HEAD WITHOUT CONTRAST. HISTORY: Headache COMPARISON: 08/18/2017. TECHNIQUE: Axial computed tomography images were obtained through the head/brain without intravenous contrast. Radiation dose: Total exam DLP = 812.39 mGy-cm. This CT exam was performed using one or more of the following dose reduction techniques: Automated exposure control, adjustment of the mA and/or kV according to patient size, and/or use of iterative reconstruction technique. FINDINGS: HEMORRHAGE: No intracranial hemorrhage. BRAIN: There is large area of cystic encephalomalacia in the right frontal, parietal and temporal lobes as well as involving the basal ganglia with ex vacuo dilatation of the right lateral ventricle and wallerian degeneration in of the right pyramidal tract. There are mild chronic microangiopathic changes. There is no mass, mass effect or abnormal extra-axial fluid collection. VENTRICLES: The ventricles are normal in size, shape and configuration. CALVARIUM: There is no calvarial fracture or extracranial soft tissue swelling. PARANASAL SINUSES: Predominantly clear. MASTOID AIR CELLS: Predominantly clear. OTHER FINDINGS: None. IMPRESSION: 1. No acute intracranial abnormality. 2. 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
--- NOTE | 2018-08-24 11:16 | ED PDOC ---
Arrival/HPI - General Chief Complaint: Headache Time Seen by Provider: 08/24/18 09:53 Historian: Patient - History of Present Illness Narrative History of Present Illness (Text): 08/24/18 11:09 53-year-old female with a history of CVA with residual left-sided weakness presenting today with a right-sided headache. Patient states that the pain Was present upon waking up today around 530 this morning. The patient states she tried eating in hopes that the pain would go away. Patient states the pain is a throbbing pain that is intermittent that starts on the right side of the head and wraps around the posterior aspect of the scalp and over to the left side of the head. Patient states that this is the same type of headache that she had about 1 week after her last stroke. Patient denies chest pain or shortness of breath. She denies neck or back pain. She denies fevers or chills. Patient states she took Tylenol prior to arrival. Patient denies dizziness or weakness. Patient states she has residual left-sided weakness but is ambulating at home with a cane and a left leg brace. No nausea or vomiting. No other complaints. Past Medical History - Provider Review Nursing Documentation Reviewed: Yes - Travel History Have you recently traveled outside [place] w/in the past 3 mons?: No - Infectious Disease Hx of Infectious Diseases: None - Tetanus Immunization Tetanus Immunization: Unknown - Cardiac Hx Hypertension: Yes Other/Comment: CVA / WITH LEFT SIDED WEAKNESS - Pulmonary Hx Respiratory Disorders: No - Neurological HX Cerebrovascular Accident: Yes (Left side deficit) - HEENT Hx HEENT Disorder: No - Renal Hx Renal Disorder: No - Endocrine/Metabolic Hx Endocrine Disorders: No - Hematological/Oncological Hx Blood Disorders: No - Integumentary Hx Dermatological Disorder: No - Musculoskeletal/Rheumatological Hx Musculoskeletal Disorders: Yes Other/Comment: 'PINCHED NERVE IN THE NECK" - Gastrointestinal Hx Gastrointestinal Disorders: No - Genitourinary/Gynecological Hx Genitourinary Disorders: No - Psychiatric Hx Psychophysiologic Disorder: No Hx Substance Use: No - Surgical History Hx Orthopedic Surgery: Yes (KNEE) Family/Social History - Physician Review Nursing Documentation Reviewed: Yes Family/Social History: Unknown Family HX Smoking Status: Never Smoked Hx Alcohol Use: Yes (social) Hx Substance Use: No Allergies/Home Meds Allergies/Adverse Reactions: Allergies No Known Allergies Allergy (Verified 08/24/18 09:44) Review of Systems - Review of Systems Constitutional: absent: Fatigue, Fevers Respiratory: absent: SOB, Cough Cardiovascular: absent: Chest Pain, Palpitations Gastrointestinal: absent: Abdominal Pain, Constipation, Diarrhea, Nausea, Vomiting Genitourinary Female: absent: Dysuria, Frequency, Hematuria Musculoskeletal: absent: Arthralgias, Back Pain, Neck Pain Skin: absent: Rash, Pruritis Neurological: Headache. absent: Dizziness Psychiatric: absent: Anxiety, Depression Physical Exam Vital Signs Reviewed: Yes Vital Signs Temp Pulse Resp BP Pulse Ox 08/24/18 09:50 98.2 F 62 18 150/80 98 Temperature: Afebrile Blood Pressure: Normal Pulse: Regular Respiratory Rate: Normal Appearance: Positive for: Well-Appearing, Non-Toxic, Comfortable Pain Distress: None Mental Status: Positive for: Alert and Oriented X 3 - Systems Exam Head: Present: Atraumatic Pupils: Present: PERRL Extroacular Muscles: Present: EOMI Conjunctiva: Present: Normal Ears: Present: Normal, NORMAL TM Mouth: Present: Moist Mucous Membranes Pharnyx: Present: Normal Nose (External): Present: Atraumatic Nose (Internal): Present: Normal Inspection Neck: Present: Normal Range of Motion. No: MIDLINE TENDERNESS, Paraspinal Tenderness Respiratory/Chest: Present: Clear to Auscultation, Good Air Exchange. No: Respiratory Distress, Accessory Muscle Use Cardiovascular: Present: Regular Rate and Rhythm Abdomen: No: Tenderness Upper Extremity: Present: Other (left arm weakness (chronic)) Lower Extremity: Present: Other (left leg weakness (chronic)) Neurological: Present: GCS=15, Speech Normal Skin: Present: Warm, Dry, Normal Color. No: Rashes Psychiatric: Present: Alert, Oriented x 3 Medical Decision Making ED Course and Treatment: 08/24/18 11:20 53yr old female with hx of cva with headache present upon waking up today. pt resting comfortably in er; no distress. alert and oriented. vitals stable. pt took 2 tylenols prior to arrival to ER. cbc wnl cmp wnl trop: wnl ekg: NSR at 63b/m no st elevations, normal axis, qtc 425 ct head; FINDINGS: HEMORRHAGE: No intracranial hemorrhage. BRAIN: There is large area of cystic encephalomalacia in the right frontal, parietal and temporal lobes as well as involving the basal ganglia with ex vacuo dilatation of the right lateral ventricle and wallerian degeneration in of the right pyramidal tract. There are mild chronic microangiopathic changes. There is no mass, mass effect or abnormal extra-axial fluid collection. VENTRICLES: The ventricles are normal in size, shape and configuration. CALVARIUM: There is no calvarial fracture or extracranial soft tissue swelling. PARANASAL SINUSES: Predominantly clear. MASTOID AIR CELLS: Predominantly clear. OTHER FINDINGS: None. IMPRESSION: 1. No acute intracranial abnormality. 2. 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 08/24/18 11:42 toradol and NS given. pt reassessment; pt feeling better; states headache has completely resolved. vitals stable. pt wants to go home. case discussed with dr. levin; pt with improving headache. negative ct. no acute neuro deficits. will d/c home to f/u with dr. levin tomorrow. case discussed with dr. GATICA in depth. impression: headache follow up with dr. levin tomorrow return immediately if symptoms worsen,persist or if new symptoms develop. 08/24/18 14:39 Dr levin saw the patient at bedside and wanted to check an ESR. ESR level 24. result discussed with dr. levin. He states the patient can be d/c'd home to f/u with him. pt remains without headache at present time. awaiting transportation home. Reassessment Condition: Re-examined, Improved - Lab Interpretations Lab Results: PT 12.2 SECONDS (9.4-12.5) 08/24/18 10:25 INR 1.08 08/24/18 10:25 APTT 34.4 Seconds (26.9-38.3) 08/24/18 10:25 Troponin I < 0.01 ng/mL 08/24/18 10:25 Total Bilirubin 0.4 mg/dL (0.2-1.3) 08/24/18 10:25 AST 34 U/L (14-36) 08/24/18 10:25 ALT 42 U/L (7-56) 08/24/18 10:25 Alkaline Phosphatase 83 U/L (38-126) 08/24/18 10:25 Total Protein 6.8 g/dL (5.8-8.3) 08/24/18 10:25 Albumin 3.6 g/dL (3.0-4.8) 08/24/18 10:25 Globulin 3.1 gm/dL 08/24/18 10:25 Albumin/Globulin Ratio 1.2 (1.1-1.8) 08/24/18 10:25 - RAD Interpretation Radiology Orders: 08/24/18 10:12 HEAD W/O CONTRAST [CT] Stat Disposition/Present on Arrival - Present on Arrival Any Indicators Present on Arrival: No History of DVT/PE: No History of Uncontrolled Diabetes: No Urinary Catheter: No History of Decub. Ulcer: No History Surgical Site Infection Following: None - Disposition Have Diagnosis and Disposition been Completed?: Yes Diagnosis: Headache Disposition: HOME/ ROUTINE Disposition Time: 11:43 Patient Plan: Discharge Patient Problems: Current Active Problems Problem Status Onset Headache Acute Condition: GOOD Discharge Instructions (ExitCare): Headache, Adult Additional Instructions: Follow up with the primary care physician tomorrow. return immediately if symptoms worsen,persist or if new symptoms develop. Referrals: Mamadou Levin MD [Primary Care Provider] - Follow up with primary Forms: charity: water (Vietnamese)
[2018-08-24] MEDS ORDERED: Sodium Chloride 0.9% 500 ML IV STA (11:48)
[2018-08-24 12:06] VITALS: PULSE 64
[2018-08-24 16:28] VITALS: BP 132/75
--- NOTE | 2018-08-24 19:44 | CARD ---
APPROVED REPORT Date of service: 08/24/2018 EKG Measurement Heart [id number] <Conclusion> Normal sinus rhythm Possible Inferior infarct, age undetermined CCR Abnormal ECG
== END 2018-08-24 16:25 | disposition home or self-care (01) ==
LOC: ED 09:41
DX: R51 Headache (principal); I69.354 Hemiplegia and hemiparesis following cerebral infarction affecting left non-dominant side
CPT/HCPCS: 70450; 80053; 80061; 83036; 84484; 85025; 85610; 85651; 85730; 93005; 96374; 99285; J1885; J7040